=== PATIENT | female | born 1960 | race Caucasian/White ===

== ENCOUNTER → 2017-07-04 | Outpatient (CLI) | payer OTHER, SELFPAY | PROVIDERS: Visit Provider Family Medicine | DX: Y99.9 Unspecified external cause status (principal) | CPT/HCPCS: 36415; 80053; 80061 ==

== ENCOUNTER → 2017-10-21 15:47 | Outpatient (CLI) | payer OTHER, SELFPAY ==
--- NOTE | 2017-10-21 15:52 | MM_ITS ---
MM Dig screening mamm BI w/CAD CAD Screening COMPARISON: Digital mammograms 07/01/2015 and 09/22/2016 INDICATION: Is a history of breast cancer in patient's sister diagnosed at age 35 TECHNIQUE: Standard CC and MLO images were obtained. R2 CAD reviewed. FINDINGS: Moderate fibroglandular densities are seen in central portions of both breast basically stable and unchanged from the previous studies. There are few benign-appearing calcifications in each breast. There are stable benign-appearing density lower inner quadrant left breast. There are mole markers left breast. There is no new or suspicious lesion and there are no suspicious microcalcifications. IMPRESSION: Stable exam with no suspicious lesion seen recommend yearly follow-up BI-RADS Category: 2 Benign Finding(s) RECOMMENDED FOLLOW-UP: 1YR - 1 YEAR FOLLOW-UP (A letter has been sent to the patient regarding results of the study.)
== END ==
PROVIDERS: Family Provider Family Medicine; PCP Family Medicine; Visit Provider Nurse Practitioner Obstetrics & Gynecology
DX: Z12.31 Encounter for screening mammogram for malignant neoplasm of breast (principal); Z80.3 Family history of malignant neoplasm of breast
CPT/HCPCS: 77067

== ENCOUNTER → 2019-02-05 09:45 | Outpatient (CLI) | payer MEDICAID, SELFPAY | PROVIDERS: PCP Family Medicine; Visit Provider Family Medicine | DX: J44.9 Chronic obstructive pulmonary disease, unspecified (principal); F17.210 Nicotine dependence, cigarettes, uncomplicated | CPT/HCPCS: 94060 ==

== ENCOUNTER → 2019-04-20 06:20 | Outpatient (CLI) | payer MEDICAID, SELFPAY ==
--- NOTE | 2019-04-20 06:38 | CT_ITS ---
CT lung screening EXAM: CT LUNG LOW DOSE WO CONTRAST HISTORY: 30 pack-year smoking history, asymptomatic for lung cancer ITS.REASON: CURRENT SMOKER ORDERING PHYSICIAN: Bo Carmichael MD PATIENT AGE: 58 years COMPARISON: None TECHNIQUE: The exam was performed on a GE Light Speed [address] scanner using 2.90 mGy CTDI. A low dose helical CT CHEST was performed on a multi-detector scanner. All CT scans at the facility use one or more dose reduction, viz: automated exposure control, ma/kV adjustment per patient size (including targeted exams where dose is matched to indication, i.e. head), or iterative reconstruction technique. The LDCT was performed in a facility that meets the criteria for the screening program. Data regarding this exam was submitted to ACR which is an approved registry. The order for this exam indicates that it came as a result of a lung cancer screening counseling shard decision-making visit that included all the elements required of such a visit including smoking cessation. The radiologist interpreting this exam meets the CMS criteria for the LDCT lung cancer screening program. The exam is reported using the Lung-RADS classification scale and reported to the ACR registry. NOTE: This study was performed for the specific purposes of lung cancer screening and is not an alternative to diagnostic chest CT. RADIATION DOSE: CTDI vol(CT dose Index-volume) = 2.90mG DLP (Dose Length Product) = 97.68 mGcm FINDINGS: COPD with scattered fibrotic changes and scattered irregular opacities with scattered groundglass densities in both lungs. There is an area of atelectasis or fibrosis in the right middle lobe measuring 18 mm. This does contain some air bronchograms and could even represent a patchy area of pneumonia that has a flat-like appearance. There is a surrounded 9 mm groundglass opacity in the left upper lobe and an ill-defined 12 mm groundglass opacity in the right upper lobe. There are other smaller groundglass densities noted in both lungs. Subpleural nodular density is present in the right upper lobe laterally 3 mm. Subsolid nodule 6 mm noted in the right upper lobe medially. 6 mm subsolid right upper lobe nodule. There is a suspicious noncalcified nodule in the left lower lobe superior segment laterally measuring 11 x 10 mm. The margins are somewhat spiculated with extension to the pleural surface laterally. This is suspicious for neoplasm. This would be difficult to perform an FNA upon due to its location. Recommend PET/CT for further evaluation. Upper abdominal images show small gastric diverticulum. No acute bony anomalies. IMPRESSION: 1. Lung RADS Category: 4B suspicious 2. Other findings: There are scattered groundglass and subsolid nodules also noted which could be inflammatory/infectious or neoplastic. RECOMMENDATIONS: PET/CT, immediate follow-up suggested
--- NOTE | 2019-04-20 06:38 | NM_ITS ---
History:Hypertension, hyperlipidemia, tobacco use, family history, chest pain, shortness of breath, palpitations and fatigue Procedure: Patient exercised on Haja protocol 5 minutes, resting heart rate 72 bpm, resting blood pressure 131/68, with exercise maximum heart rate achieve was 133 bpm which is greater than 85 % of the maximum predicted heart rate and blood pressure was 150/72. Test was stopped due to shortness of breath, patient denied any complained of chest pain. Patient has poor exercise capacity achieved 5.3 mets of workload on treadmill, the blood pressure response to exercise was adequate. Electrocardiogram: Resting electrocardiogram showed sinus rhythm, with exercise there is [address] segment depression noted from the baseline EKG. The EKG portion of the exercise Myoview is positive for ischemia. Cardias Stress and Resting SPECT images: Cardias Stress and Resting SPECT images were obtained using technetium 99m Myoview 30.2 mCi stress and 10.21 mCi at rest. Gated SPECT further analysis of segmental wall motion and calculation of ejection fraction also done. Cardiac stress and resting SPECT show uniform myocardial activity without segmental perfusion abnormality , the computer derived ejection fraction is over 65% with no regional wall motion abnormality. Conclusion: 1. The EKG portion of the exercise Myoview is positive for ischemia, patient has poor exercise capacity achieved 5.3mets of workload on treadmill, the blood pressure response to exercise was adequate, test was started due to shortness of breath.. 2. No scintigraphic evidence of reversible ischemia seen at this level of exercise, computer derived ejection fraction is over 65 % with no regional wall motion abnormality. 3. Abnormal exercise Myoview study due to poor exercise capacity as well as abnormal EKG with exercise, however myocardial perfusion imaging was negative for ischemia
--- NOTE | 2019-04-20 08:48 | HMH.ITSHM ---
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 [] ropinirole naproxen lisinopril lovasatin
== END ==
PROVIDERS: PCP Family Medicine; Visit Provider Family Medicine
DX: I20.0 Unstable angina (principal); E78.00 Pure hypercholesterolemia, unspecified; I10 Essential (primary) hypertension; Z12.2 Encounter for screening for malignant neoplasm of respiratory organs; Z87.891 Personal history of nicotine dependence; F17.210 Nicotine dependence, cigarettes, uncomplicated
CPT/HCPCS: 78452; 93017; A9502

== ENCOUNTER → 2019-05-17 14:54 | Outpatient (CLI) | payer MEDICAID, SELFPAY | PROVIDERS: PCP Family Medicine; Visit Provider Internal Medicine | DX: R06.02 Shortness of breath (principal); R07.89 Other chest pain; R06.83 Snoring; R40.0 Somnolence | CPT/HCPCS: 95806 ==

== ENCOUNTER → 2019-06-29 07:45 | Outpatient (CLI) | payer MEDICAID, SELFPAY ==
--- NOTE | 2019-06-29 07:50 | US_ITS ---
PROCEDURE: US ABDOMEN COMPLETE CLINICAL INDICATION: RESTLESS LEG SYNDROME,WEIGHT LOSS,NAUSEA The COMPARISON: No exams were available for comparison FINDINGS: PANCREAS: Unremarkable. No obvious mass or abnormal fluid collection. No ductal dilatation LIVER: No focal liver lesions demonstrated. Homogeneous echogenicity. No intrahepatic biliary ductal dilatation evident. There is appropriate direction of blood flow within a non dilated portal vein RIGHT KIDNEY: Unremarkable. Normal size and echogenicity. No hydronephrosis LEFT KIDNEY: Unremarkable. Normal size and echogenicity. No hydronephrosis GALLBLADDER: No gallstones, gallbladder wall thickening, pericholecystic fluid, or biliary dilatation. AORTA: There is a mild amount of plaque in the abdominal aorta. No obvious aneurysm. SPLEEN: Unremarkable. Normal size and echogenicity ASCITES: None demonstrated. IMPRESSION: No acute findings Dictated by: Ashok Aguilera MD 06/29/2019 17:15 Electronically signed by Ashok Aguilera MD in [place] 06/29/2019 17:15
--- NOTE | 2019-06-29 07:51 | FL_ITS ---
PROCEDURE: FL UPPER GI W AIR CLINICAL INDICATION: Nausea, some weight loss COMPARISON: No exams were available for comparison TECHNIQUE: FLUOROSCOPY TIME : 2 minutes and 12 seconds FINDINGS: The swallowing function is normal. Spot films of the cervical esophagus while swallowing barium show no significant abnormal anterior or posterior indentation. There is minimal diffuse posterior indentation of the barium column secondary to osteophytic spurring of the cervical spine at the C6-7 level. There is a small sliding hiatal hernia but no significant GE reflux was seen. The stomach is well distended with barium and air in show no intrinsic abnormality. The duodenal bulb and duodenal sweep and proximal small bowel appear radiographically normal. IMPRESSION: Small sliding hiatal hernia without significant GE reflux observed during the study and otherwise normal appearing study Dictated by: Dr. Wayne Peace MD 06/29/2019 10:[address] Wayne Peace MD in [place] 06/29/2019 10:24
== END ==
PROVIDERS: PCP Family Medicine; Visit Provider Family Medicine
DX: R63.4 Abnormal weight loss (principal); R11.0 Nausea; G25.81 Restless legs syndrome
CPT/HCPCS: 74247; 76700

== ENCOUNTER → 2019-08-15 11:51 | Outpatient (CLI) | payer OTHER, SELFPAY ==
[2019-08-15 13:49] LABS: Blood Urea Nitrogen 19 mg/dL (7-18); Creatinine,Serum 0.91 mg/dL (0.55-1.02); Estimated Glomerular Filt Rate 63 ml/min (>60); GFR (African American) 77 ML/MIN (>60)
== END ==
PROVIDERS: Visit Provider Family Medicine
DX: Z01.818 Encounter for other preprocedural examination (principal)
CPT/HCPCS: 36415; 82565; 84520

== ENCOUNTER → 2019-08-16 10:16 | Outpatient (CLI) | payer OTHER, SELFPAY ==
--- NOTE | 2019-08-16 10:24 | CT_ITS ---
PROCEDURE: CT CHEST WO/W CON CLINCAL INDICATION: PULMONARY NODULE, LEFT Follow-up pulmonary nodule [facility] TECHNIQUE: IV Contrast: 75ml Optiray 320 Axial images obtained with sagittal and coronal reformats. All CT scans at the facility use one or more dose reduction, viz: automated exposure control, ma/kV adjustment per patient size (including targeted exams where dose is matched to indication, i.e. head), or iterative reconstruction technique. FINDINGS: COPD/paraseptal emphysematous changes. Scattered areas of scarring as before.. Patchy density is present in the right middle lobe is once again noted not significantly changed. There is an 11 mm nodular opacity in the superior segment of the left lower lobe and appears slightly larger previously measuring 9 mm. Margins are somewhat ill-defined with some minimal spiculations noted. There are few faint scattered nonspecific nodular opacities as previously described which are not significantly changed some of which have ground-glass density. These do appear stable. Patchy ground-glass densities are present in the right upper lobe medially, left upper lobe superiorly, right upper lobe anteriorly and in the right middle lobe. There are degenerative changes in the thoracic spine. A gastric diverticulum is noted in the upper abdomen IMPRESSION: Suspicious left upper lobe nodule once again noted. The nodule may be very slightly larger. No other changes are evident. PET-CT recommended for further evaluation. COPD with chronic changes as previously described not significantly changed. Patchy ground-glass densities are present in both lungs are not significantly changed Dictated by: Ashok Aguilera MD 08/18/2019 08:47 Electronically signed by Ashok Aguilera MD in [place] 08/21/2019 09:48
== END ==
PROVIDERS: PCP Family Medicine; Visit Provider Family Medicine
DX: R91.1 Solitary pulmonary nodule (principal)
CPT/HCPCS: 71270; Q9967

== ENCOUNTER → 2020-06-24 10:24 | Outpatient (CLI) | payer OTHER, SELFPAY ==
[2020-06-24 12:14] LABS: Blood Urea Nitrogen 23 mg/dl (7-17); Estimated Glomerular Filt Rate 64 ml/min (>60); GFR (African American) 77 ML/MIN (>60)
== END ==
PROVIDERS: Visit Provider Family Medicine
DX: J44.9 Chronic obstructive pulmonary disease, unspecified (principal); R91.1 Solitary pulmonary nodule; R63.4 Abnormal weight loss; F17.210 Nicotine dependence, cigarettes, uncomplicated
CPT/HCPCS: 36415; 82565; 84520

== ENCOUNTER → 2020-06-30 09:18 | Outpatient (CLI) | payer OTHER, SELFPAY ==
--- NOTE | 2020-06-30 09:22 | CT_ITS ---
PROCEDURE: CT CHEST WO/W CON CLINCAL INDICATION: CIGARETTE SMOKER, PULMONARY NODULE,LEFT,WEIGHT LOSS f/u lung nodules copd, soa, cough current smoker, follow-up pulmonary nodule COMPARISON: CT CT CHEST WO/W CON from 08/16/2019 TECHNIQUE: IV Contrast: 75ml Optiray 350 Axial images obtained with sagittal and coronal reformats. All CT scans at the facility use one or more dose reduction, viz: automated exposure control, ma/kV adjustment per patient size (including targeted exams where dose is matched to indication, i.e. head), or iterative reconstruction technique. FINDINGS: No mediastinal or hilar mass. There is COPD with paraseptal emphysematous changes and scattered areas of scarring. There is scattered irregular opacities as previously described.. No obvious new lesions are identified. The noncalcified nodule in the left lower lobe does not appear significantly changed. No effusions. No central bronchial lesions evident. Upper abdominal images show no acute finding. There is a small gastric diverticulum. There are mild degenerative changes in the thoracic spine. IMPRESSION: Overall stable CT appearance of the chest. No change in the bilateral parenchymal opacities including a 10 mm nodule within the left upper lobe. Continued annual follow-up recommended. Dictated by: Ashok Aguilera MD 07/01/2020 10:22 Ashok Aguilera MD in [place] 07/01/2020 10:22
== END ==
PROVIDERS: PCP Family Medicine; Visit Provider Family Medicine
DX: R91.1 Solitary pulmonary nodule (principal); R63.4 Abnormal weight loss; F17.200 Nicotine dependence, unspecified, uncomplicated
CPT/HCPCS: 71270; Q9967

== ENCOUNTER 2020-10-18 10:07 | Emergency (ER) | payer OTHER, SELFPAY ==
[2020-10-18 10:10] VITALS: BP 137/77; PULSE 81; RESP 14; TEMP 37.2; O2SAT 97; BMI 24.2
--- NOTE | 2020-10-18 10:11 | XR_ITS ---
PROCEDURE: XR HAND RT MIN 3V Referring Doctor: Young Watt Patient Age:60Y CLINICAL INDICATION: injury Right 3rd digit COMPARISON: No exams were available for comparison TECHNIQUE: 3 View AP, Oblique, Lateral FINDINGS: No fracture or dislocation. No lytic or blastic change. There is normal mineralization. Scant early degenerative changes at DIP joints with some mild narrowing at these joints as well as IP joint of thumb. PIP and MCP joints intact unremarkable. Metacarpals unremarkable. Suggestion of scant degenerative changes at the radial aspect carpal/wrist but period would note some fragmentation off the tip of the ulnar styloid which may reflect old injury or fracture here IMPRESSION: No acute findings. No acute fracture Or dislocation A subtle early degenerative changes suggested DIP joints fingers as well as wrist Dictated by: Juan Friedman MD 10/18/2020 11:30 Juan Friedman MD in [place] 10/18/2020 11:30
--- NOTE | 2020-10-18 10:25 | HMH.EDUTC ---
[facility] [place] Clinical Impression: Right hand pain, Strain of right ring finger Injury of ring finger Qualifiers: Encounter type: initial encounter Laterality: right Qualified Code(s): S69.91XA - Unspecified injury of right wrist, hand and finger(s), initial encounter Disposition: Home, Self-Care Condition on Discharge: Good Additional Instructions: Rest the extremity, apply ice for 15 minutes as tolerated three or four times per day, Elevate the extremity as tolerated while you are resting. Take ibuprofen for pain. I sent in a prescription to your pharmacy. Follow up with Dr. Moreira (orthopedics). I put in a referral but you need to call her office and schedule an appointment. Follow up with your regular doctor. GO TO THE ER FOR ANY WORSENING SYMPTOMS Prescriptions: Ibuprofen [Ibuprofen 600mg Tablet] 600 mg PO Q6HP PRN #30 tab PRN Reason: Mild Pain Transmission Status: [facility] Referrals: Bo Carmichael MD [Primary Care Provider] - Anum Moreira MD [Physician] - Time of Disposition: 11:12 Medical Decision Making - Medical Records Medical records reviewed: No: I reviewed the patient's medical records. - Raymundo Inquiry Pt receiving controlled substance: No Vital Signs: 10/18/20 10:10 10/18/20 11:16 Temperature 98.9 F 98.9 F Temperature Source Oral Pulse Rate 81 Pulse Rate [Right Brachial] 81 Respiratory Rate 14 14 Blood Pressure 137/77 Blood Pressure [Right Arm] 137/77 Blood Pressure Mean [Right Arm] 97 Blood Pressure Source [Right Arm] Automatic Cuff Blood Pressure Position [Right Arm] Sitting 02 Sat by Pulse Oximetry 97 Oxygen Delivery Method Room Air - Radiology Data #1 Image(s): Hand Image Reviewed: Yes I reviewed the patient's radiology image, Yes I have reviewed radiologist's interpretation Preliminary Findings: No Fracture Seen PROCEDURE: XR HAND RT MIN 3V Referring Doctor: Young Watt Patient Age:60Y CLINICAL INDICATION: injury Right 3rd digit COMPARISON: No exams were available for comparison TECHNIQUE: 3 View AP, Oblique, Lateral FINDINGS: No fracture or dislocation. No lytic or blastic change. There is normal mineralization. Scant early degenerative changes at DIP joints with some mild narrowing at these joints as well as IP joint of thumb. PIP and MCP joints intact unremarkable. Metacarpals unremarkable. Suggestion of scant degenerative changes at the radial aspect carpal/wrist but period would note some fragmentation off the tip of the ulnar styloid which may reflect old injury or fracture here IMPRESSION: No acute findings. No acute fracture Or dislocation A subtle early degenerative changes suggested DIP joints fingers as well as wrist Dictated by: Juan Friedman MD 10/18/2020 11:30 Juan Friedman MD in [place] 10/18/2020 11:30 [facility] [place] HPI - General Stated complaint: rt hand pain AO 10/17/19 Time Seen by Provider: 10/18/20 10:25 - History of Present Illness Provider Complaint: She states that last night she was swatting at a spider when she missed and hit her right hand on something as she was swatting. Since then she has had right hand pain that is centered around the base of her ring finger. She states that her pain is worse when she tries to bend or straighten her ring finger. - Related Data Home Medications Medication Instructions Recorded Confirmed hydrochlorothiazide 25 mg tablet 25 mg PO DAILY 12/18/18 09/06/19 lisinopril 20 mg tablet 20 mg PO DAILY 12/18/18 09/06/19 lovastatin 20 mg tablet 20 mg PO DAILY 12/18/18 09/06/19 Trazodone HCl 50 mg PO HS 06/27/19 09/06/19 gabapentin 300 mg capsule 300 mg PO DAILY 09/06/19 09/06/19 nebulizers See Dose Instructions .ROUTE 09/06/19 09/06/19 .MEDSUPPLY #1 each Previous Rx's Medication Instructions Recorded Ibuprofen [Ibuprofen 600mg 600 mg PO Q6HP PRN #30 tab 10/18/20 Tablet] Allergies
[2020-10-18 11:16] VITALS: BP 137/77; PULSE 81; RESP 14; TEMP 37.2; O2SAT 97
== END 2020-10-18 11:18 | disposition home or self-care (01) ==
PROVIDERS: Emergency Provider Nurse Practitioner Family; PCP Family Medicine
DX: S60.221A Contusion of right hand, initial encounter (principal); W22.8XXA Striking against or struck by other objects, initial encounter; Y92.019 Unspecified place in single-family (private) house as the place of occurrence of the external cause; J44.9 Chronic obstructive pulmonary disease, unspecified; I10 Essential (primary) hypertension; E78.5 Hyperlipidemia, unspecified; Z87.891 Personal history of nicotine dependence
CPT/HCPCS: 73130; 99202; G0463

== ENCOUNTER 2020-12-17 11:00 | Outpatient (RCR) | payer OTHER, SELFPAY ==
--- NOTE | 2020-11-12 11:35 | HMH.OTOPEV ---
OT Inpatient Evaluation Rehab OT Outpatient Eval Start: 11/12/20 11:12 Freq: Status: Active Protocol: Document 11/12/20 11:12 ANABETITO (Rec: 11/12/20 11:35 MANDYKITTY [id number]) Electronically Signed By Yamile Jay OT 11/12/20 11:12 Outpatient Therapy Subjective History Subjective History 60 year old female referred to OP OT skilled services this date for R sagittal band. Patient stated injuring R hand early-mid 2020 after attempting to strike a spider. X-ray revealed no findings. f /u with ortho ~1 month. Chief Complaint Pain,Weakness,Decreased Customer Experience Associate Strength Symptom Type Ache Symptoms Relieved By OTC Meds Symptoms Aggravated By Physical Activity Prior Functional Limitations None Current Functional Limitations Reaching,Recreation Activity Symptom Description Constant and Continuous Level of pain today (0-10) 4 Pain scale - at its best (0-10) 4 Pain scale - at its worst (0-10) 7 Wrist/Hand Eval Finger Range of Motion Right Middle Finger Finger Metacarpophalangeal Flexion 65 Active Range of Motion (degrees) Finger Metacarpophalangeal Extension 0 Active Range of Motion (degrees) Finger Proximal Interphalangeal Flexion 30 Active Range (degrees) Finger Proximal Interphalangeal 0 Extension Active Range (degrees) Finger Distal Interphalangeal Flexion 30 Active Range of Motion (degrees) Finger Distal Interphalangeal Extension 0 Active Range Motion (degrees) Wrist Manual Muscle Testing Right Wrist Extension Strength Grade 3- Fair- Wrist Flexion Strength Grade 3- Fair- Forearm Supination Strength Grade 3- Fair- Forearm Pronation Strength Grade 3- Fair- Customer Experience Associate/Pinch Strength Left Customer Experience Associate Strength Measurement (lbs) 60 Right Customer Experience Associate Strength Measurement (lbs) 30 OT Outpatient Assessment Impairments Problems/Impairments Impaired Range of Motion, Impaired Strength,Subjective C /O Pain Prognosis Rehab Potential Good Clinical Impression Consistent with Diagnosis Yes Short Term Goals Number of Weeks 2 Increase Range of Motion Yes: Increase R hand AROM MCP: 75; PIP: 50; DIP: 50 Increase Strength Yes: Increase R hand strength 3+ to 4-/5 throughout. 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
== END 2020-12-17 11:05 | disposition home or self-care (01) ==
LOC: OT 11:00
PROVIDERS: PCP Family Medicine; Visit Provider Orthopaedic Surgery
DX: S63.659A Sprain of metacarpophalangeal joint of unspecified finger, initial encounter (principal); S69.91XA Unspecified injury of right wrist, hand and finger(s), initial encounter
CPT/HCPCS: 97014; 97035; 97110; 97140; 97165; G0283

== ENCOUNTER → 2021-01-09 09:00 | Outpatient (CLI) | payer OTHER, SELFPAY | PROVIDERS: PCP Family Medicine; Visit Provider Family Medicine | DX: R06.09 Other forms of dyspnea (principal); J44.9 Chronic obstructive pulmonary disease, unspecified | CPT/HCPCS: 94618 ==

== ENCOUNTER → 2021-03-25 09:58 | Outpatient (CLI) | payer OTHER, SELFPAY ==
--- NOTE | 2021-03-25 10:00 | US_ITS ---
PROCEDURE: US ABDOMEN COMPLETE CLINICAL INDICATION: EPIGASTRIC PAIN, WEIGHT LOSS, EARLY SATIETY COMPARISON: US US ABDOMEN COMPLETE from 06/29/2019 FINDINGS: PANCREAS: Unremarkable. No obvious mass or abnormal fluid collection. No ductal dilatation LIVER: No focal liver lesions demonstrated. Homogeneous echogenicity. No intrahepatic biliary ductal dilatation evident. There is appropriate direction of blood flow within a non dilated portal vein RIGHT KIDNEY: Unremarkable. The right kidney measures 10 point 0 x 4.0 by 6.1 cm and appears sonographically normal. LEFT KIDNEY: Unremarkable. The left kidney measures 11.8 x 6.1 by 5.4 cm and there appears be a dromedary hump variation midpole but otherwise appearing normal. GALLBLADDER: No gallstones, gallbladder wall thickening, pericholecystic fluid, or biliary dilatation. The common bile duct measures 0.1 cm AORTA: There is prominent diffuse arthrosclerotic calcifications of the visualized portion of the abdominal aorta but there is no aneurysm. SPLEEN: Unremarkable. Normal size and echogenicity ASCITES: None demonstrated. IMPRESSION: Diffuse aortic calcifications otherwise essentially unremarkable study Dictated by: Dr. Wayne Peace MD 03/25/2021 14:49 Dr. Wayne Peace MD in [place] 03/25/2021 14:49
== END ==
PROVIDERS: PCP Family Medicine; Visit Provider Family Medicine
DX: R10.13 Epigastric pain (principal); R63.4 Abnormal weight loss; R68.81 Early satiety
CPT/HCPCS: 76700

== ENCOUNTER → 2021-03-30 15:12 | Outpatient (CLI) | payer OTHER, SELFPAY | PROVIDERS: PCP Family Medicine; Visit Provider Family Medicine | DX: Z20.822 Contact with and (suspected) exposure to COVID-19 (principal) | CPT/HCPCS: U0003 ==

== ENCOUNTER → 2021-04-08 12:29 | Outpatient (CLI) | payer OTHER, SELFPAY ==
[2021-04-08 13:34] LABS: Blood Urea Nitrogen 16 mg/dl (7-17); Estimated Glomerular Filt Rate 85 ml/min (>60); GFR (African American) 103 ML/MIN (>60)
== END ==
PROVIDERS: Visit Provider Family Medicine
DX: R63.4 Abnormal weight loss (principal); R10.13 Epigastric pain; R68.81 Early satiety
CPT/HCPCS: 36415; 82565; 84520

== ENCOUNTER → 2021-04-10 08:50 | Outpatient (CLI) | payer OTHER, SELFPAY ==
--- NOTE | 2021-04-10 08:53 | CT_ITS ---
PROCEDURE: CT ABDOMEN PELVIS WO/W CON CLINICAL INDICATION: WEIGHT LOSS,EPIGASTRIC PAIN,EARLY SATIETY COMPARISON: CT CT CHEST WO/W CON from 06/30/2020 TECHNIQUE: IV Contrast: 75ML Isovue 370 Oral Contrast 450ml Redicat Axial images obtained with sagittal and coronal reformats. All CT scans at the facility use one or more dose reduction, viz: automated exposure control, ma/kV adjustment per patient size (including targeted exams where dose is matched to indication, i.e. head), or iterative reconstruction technique. FINDINGS: LOWER THORAX: There are minimal atelectatic changes in the right lung base posteriorly. ABDOMEN & PELVIS: A small hypodensity is present in the lateral segment of left hepatic lobe segment 2 measuring approximately 3 mm nonspecific too small to categorize. A 4 mm hypodensity is present in the right hepatic lobe segment 6 too small to categorize. Spleen and pancreas have an unremarkable appearance. The left adrenal gland is mildly enlarged isodense in nature and may represent adenomatous involvement not significantly changed from 06/30/[address] The right adrenal gland is unremarkable. There is a small gastric diverticulum projecting off the fundus of the stomach. There is a 1 cm left renal cyst posteriorly there is a 3 mm nonobstructing stone in the upper pole of the right kidney. No hydronephrosis. No ureteral calculi. 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 No evidence of appendicitis. No intestinal obstruction or free air is evident. Diverticulosis involves the sigmoid colon. No evidence of diverticulitis. No pelvic mass. Atheromatous changes involve the abdominal aorta. There is a calcific plaque at the ostium of the celiac artery. No acute bony findings. IMPRESSION: 1. No acute finding. 2. Colonic diverticulosis without evidence of diverticulitis. 3. Other nonacute findings as described above. Dictated by: Ashok Aguilera MD 04/10/2021 13:14 Ashok Aguilera MD in [place] 04/10/2021 13:14
== END ==
PROVIDERS: PCP Family Medicine; Visit Provider Family Medicine
DX: R10.13 Epigastric pain (principal); R63.4 Abnormal weight loss; R68.81 Early satiety
CPT/HCPCS: 74178; Q9967

== ENCOUNTER 2021-08-28 15:44 | Emergency (ER) | payer OTHER, SELFPAY ==
[2021-08-28 16:40] VITALS: BP 133/80; PULSE 89; RESP 20; TEMP 36.9; O2SAT 99; BMI 19.3
--- NOTE | 2021-08-28 17:14 | HMH.EDUTC ---
[facility] [place] Clinical Impression: Need for Tdap vaccination Second degree burn of right foot Qualifiers: Encounter type: initial encounter Qualified Code(s): T25.221A - Burn of second degree of right foot, initial encounter Second degree burn of left foot Qualifiers: Encounter type: initial encounter Qualified Code(s): T25.222A - Burn of second degree of left foot, initial encounter Disposition: Home, Self-Care Condition on Discharge: Good Instructions: How to Take Care of a Burn, DI for Menezes Additional Instructions: Keep the wounds clean and dry. Follow up with your regular doctor as scheduled on Tuesday. Your wound needs to be rechecked then, so make sure you follow up. Once you see your doctor, follow their directions. Apply the silvadene as directed. Make sure you use a nonstick dressing over the wounds to try to keep the skin as intact as possible. Watch the wounds for signs of worsening infection, such as worsening redness, drainage, swelling, etc. GO TO THE ER FOR ANY WORSENING SYMPTOMS Prescriptions: Ibuprofen [Ibuprofen 600mg Tablet] 600 mg PO Q6HP PRN #30 tab PRN Reason: Mild Pain Transmission Status: Received by [facility] Silver Sulfadiazine [Silvadene Cream 400gm] 1 applicatio TP BID 10 Days #400 gm Transmission Status: Received by [facility] Referrals: Bo Carmichael MD [Primary Care Provider] - Time of Disposition: 18:11 Medical Decision Making - Medical Records Medical records reviewed: No: I reviewed the patient's medical records. - Raymundo Inquiry Pt receiving controlled substance: No Vital Signs: 08/28/21 16:40 08/28/21 17:55 Temperature 98.5 F 98.5 F Temperature Source Oral Pulse Rate 89 Pulse Rate [Right Brachial] 89 Respiratory Rate 20 20 Blood Pressure 133/80 Blood Pressure [Right Arm] 133/80 Blood Pressure Mean [Right Arm] 97 Blood Pressure Source [Right Arm] Automatic Cuff Blood Pressure Position [Right Arm] Sitting 02 Sat by Pulse Oximetry 99 Oxygen Delivery Method Room Air Orders (Tests/Meds): ED MEDICATIONS Discontinued Medications Generic Name Dose Route Start Last Admin Trade Name Freq PRN Reason Stop Dose Admin Silver Sulfadiazine 1 gm 08/28/21 17:39 08/28/21 17:55 Silver Sulfadiazine Cream 50gm TP 08/28/21 17:40 1 gm ONCE ONE Administration Tetanus/Reduced Diphtheria/Acell Pertussis 0.5 ml 08/28/21 18:10 08/28/21 18:15 Tet/Diphth/Pert-Adult 0.5ml Syringe IM 08/28/21 18:11 0.5 ml .ONCE ONE Administration [facility] [place] - General Stated complaint: ao 08/27@1900 MENEZES TO BOTH FEET Time Seen by Provider: 08/28/21 17:15 Mode of Arrival: Ambulatory Source of Information: Patient Limitations: No Limitations Description of Symptoms (Recalled from Triage Doc. by RN): PATIENT C/O MENEZES TO TOP OF LEFT FOOT AND INSIDE OF RIGHT FOOT BY HEEL. REPORTS SHE WAS COOKING A TURKEY AND THE JUICE FELL ON HER FEET CAUSING THE MENEZES HEENT Symptoms (Recalled from RN notes): No Resp Symptoms (Recalled from RN notes): No Skin Symptoms (Recalled from RN notes): Yes MS Symptoms (Recalled from RN notes): No Functional Status (Recalled from RN notes): WNL - History of Present Illness Provider Complaint: She was cooking a turkey when she took it out of the oven and the liquids spilled out of the rios and splashed on both her feet. She has a burn on the top of her left foot and the back of her right foot. She is not diabetic. - Related Data Home Medications Medication Instructions Recorded Confirmed hydrochlorothiazide 25 mg tablet 25 mg PO DAILY 12/18/18 12/05/20 lisinopril 20 mg tablet 20 mg PO DAILY 12/18/18 12/05/20 lovastatin 20 mg tablet 20 mg PO DAILY 12/18/18 12/05/20 gabapentin 300 mg capsule 300 mg PO DAILY 09/06/19 12/05/20 nebulizers See Dose Instructions .ROUTE 09/06/19 12/05/20 .MEDSUPPLY #1 each ascorbic acid (vitamin C) 500 mg 500 mg PO DAILY 11/07/20
[2021-08-28 17:55] VITALS: BP 133/80; PULSE 89; RESP 20; TEMP 36.9; O2SAT 99
== END 2021-08-28 18:19 | disposition home or self-care (01) ==
PROVIDERS: Emergency Provider Nurse Practitioner Family; PCP Family Medicine
DX: T25.221A Burn of second degree of right foot, initial encounter (principal); T25.222A Burn of second degree of left foot, initial encounter; X12.XXXA Contact with other hot fluids, initial encounter; Z23 Encounter for immunization; Y92.010 Kitchen of single-family (private) house as the place of occurrence of the external cause; J44.9 Chronic obstructive pulmonary disease, unspecified; I10 Essential (primary) hypertension; E78.5 Hyperlipidemia, unspecified; Z87.891 Personal history of nicotine dependence
CPT/HCPCS: 90471; 90715; 99202; G0463

== ENCOUNTER → 2022-05-13 15:34 | Outpatient (CLI) | payer MEDICARE, SELFPAY ==
[2022-05-13 16:32] LABS: Basophils # 0.1 K/mm3 (0-0.2); Basophils % 0.7 % (0.1-2.0); Eosinophils # 0.3 K/mm3 (0.0-0.4); Eosinophils % 2.7 % (0.1-12.0); Hematocrit 41.8 % (37.0-47.0); Hemoglobin 13.5 g/dL (12.2-16.2); Lymphocytes # 1.6 K/mm3 (0.7-4.5); Mean Corpuscular HGB Conc 32.3 g/dL (31.8-35.4); Mean Corpuscular Hemoglobin 29.7 pg (27.0-31.2); Mean Platelet Volume 9.7 fl (7.4-10.4); Monocytes # 0.4 K/mm3 (0.1-1.0); Monocytes % 4.3 % (1.7-9.3); Neutrophils # 7.7 K/mm3 (1.8-7.8); Neutrophils % 76.3 % (37.0-80.0); Platelet Count 216 K/mm3 (142-424); Red Blood Count 4.54 M/mm3 (4.20-5.40); Red Cell Distribution Width 13.9 % (11.5-17.5); White Blood Count 10.1 K/mm3 (4.8-10.8)
[2022-05-13 16:52] LABS: Alanine Aminotransferase 15 U/L (12-78); Albumin Level 4.2 g/dl (3.5-5.0); Albumin/Globulin Ratio 1.6 (1.1-1.8); Alkaline Phosphatase 85 U/L (38-126); Anion Gap 6.6 mEq/L (5-15); Aspartate Amino Transferase 24 U/L (14-36); Bilirubin,Total 0.2 mg/dl (0.2-1.3); Blood Urea Nitrogen 16 mg/dl (7-17); Calcium 9.6 mg/dl (8.4-10.2); Carbon Dioxide 29 mmol/L (22.0-30.0); Chloride 108 mmol/L (98-107); Estimated Glomerular Filt Rate 85 ml/min (>60); GFR (African American) 103 ML/MIN (>60); Globulin 2.7 g/dL (1.3-3.2); Glucose 104 mg/dl (74-100); Potassium 4.6 mmoL/L (3.5-5.1); Sodium 139 mmol/L (136-145); Total Protein,Serum 6.9 g/dl (6.3-8.2)
[2022-05-13 17:23] LABS: Thyroid Stimulating Hormone 0.54 uIU/mL (0.465-4.68)
[2022-05-14 10:18] LABS: Hemoglobin A1C 5.1 % (4.0-6.0)
== END ==
PROVIDERS: PCP Nurse Practitioner Family; Visit Provider Nurse Practitioner Family
DX: R63.4 Abnormal weight loss (principal); Z79.899 Other long term (current) drug therapy
CPT/HCPCS: 36415; 80053; 83036; 84439; 84443; 85025

== ENCOUNTER → 2022-11-23 11:35 | Outpatient (CLI) | payer MEDICARE, OTHER, SELFPAY ==
--- NOTE | 2022-11-23 11:42 | XR_ITS ---
FINAL REPORT CLINICAL HISTORY: COUGH, COPD, PAIN IN LEFT UPPER BACK FINDINGS: Two views of the chest were obtained. The heart size and pulmonary vascularity are within normal limits. The mediastinum is normal. No acute pulmonary abnormality is identified. The there is mild pulmonary scarring. There is no pneumothorax. The bony thorax is intact. IMPRESSION: No active cardiopulmonary disease. Reviewed, Interpreted and Dictated by Sivakumar Powell III, MD Transcribed by Ericka Valerio Authenticated and [facility]
== END ==
PROVIDERS: PCP Nurse Practitioner Family; Visit Provider Nurse Practitioner Family
DX: R05.9 Cough, unspecified (principal); R07.81 Pleurodynia
CPT/HCPCS: 71046

== ENCOUNTER → 2023-04-06 10:43 | Outpatient (CLI) | payer MEDICARE, SELFPAY ==
--- NOTE | 2023-04-06 10:47 | CT_ITS ---
FINAL REPORT TECHNIQUE: Axial CT images were performed from the lung apices through the upper abdomen. Coronal reformats were submitted. This study was performed with techniques to keep radiation doses as low as reasonably achievable (ALARA). Individualized dose reduction techniques using automated exposure control or adjustment of mA and/or kV according to the patient's size were employed. CLINICAL HISTORY: SOA LEFT SIDE RIB PAIN COMPARISON: 06/30/2020 FINDINGS: Multiple small axillary nodes. There is no hilar or mediastinal mass or adenopathy. Heart size is normal. There is no pericardial or pleural effusion. There are patchy bilateral pulmonary ground-glass opacities which are worse. There is a nodule in the lateral left lower lobe measuring 11 mm, previously measured 9 mm. Multiple other smaller pulmonary nodules are stable. Limited images of the upper abdomen reveal a gastric diverticulum. There is mild left adrenal gland enlargement, favor adenoma or hyperplasia. Finding is stable since previous. IMPRESSION: Interval worsening in left lower lobe nodule, may be neoplastic or inflammatory. Recommend PET-CT if not already performed. Slight worsening in the patchy bilateral ground-glass opacities, favor inflammatory. Reviewed, Interpreted and Dictated by Sivakumar Powell III, MD Transcribed by Giovana Ac Authenticated and [facility]
== END ==
PROVIDERS: PCP Nurse Practitioner Family; Visit Provider Nurse Practitioner Family
DX: R06.02 Shortness of breath (principal); R07.81 Pleurodynia
CPT/HCPCS: 71250

== ENCOUNTER → 2023-04-08 11:25 | Outpatient (CLI) | payer MEDICARE, SELFPAY ==
--- NOTE | 2023-04-08 11:33 | XR_ITS ---
FINAL REPORT CLINICAL HISTORY: post menopausal COMPARISON: None FINDINGS: Using L1-4, the bone mineral density of the spine is 0.947 g/cm2, corresponding to T-score of -0.9, within the normal range but this is likely falsely elevated secondary to hypertrophic changes. Using the left hip, the bone mineral density of the femoral neck is 0.692 g/cm2, corresponding to a T-score of -2.1, consistent with low bone density. Using the right hip, the bone mineral density of the femoral neck is 0.702 g/cm2, corresponding to a T-score of -1.3, consistent with low bone density. FRAX 10 year fracture risk is 2.8% for a hip fracture and 15% for a major osteoporotic fracture. NOTE: T-score: Standard deviation compared with peak bone mass of young adult mean. *Following the recommendations of the International Society of Bone densitometry, classification of hip BMD is based on the lower of two T-scores; total hip or femoral neck. IMPRESSION: Normal bone mineral density of the lumbar spine, with diminished bone mineral density in the bilateral hips consistent with low bone density. Reviewed, Interpreted and Dictated by Sivakumar Powell III, MD Transcribed by Mery Hughes Authenticated and [facility]
--- NOTE | 2023-04-08 11:33 | MM_ITS ---
PROCEDURE INFORMATION: Exam: MG Bilateral Screening 3D Mammography Exam date and time: 04/08/2023 11:26 AM Age: 62 years old Clinical indication: Screening examination TECHNIQUE: Imaging protocol: Bilateral Screening tomosynthesis and 2D mammography including computer-aided detection (CAD) when performed. COMPARISON: 1. MG SCBI MM Dig screening mamm BI w/CAD 10/21/2017 3:56 PM 2. MG DMSB DIG MAMM-SCREEN YARI 09/22/2016 1:07 PM FINDINGS: MAMMOGRAPHY: Breast composition: There are scattered areas of fibroglandular density. Mass: None. Architectural distortion: None. Calcifications: No suspicious calcifications. Asymmetric density: None. Skin thickening: None. Axillary adenopathy: None. IMPRESSION: No mammographic evidence of malignancy. Annual screening is recommended unless otherwise clinically indicated. ASSESSMENT: BI-RADS Category 1: Negative
== END ==
PROVIDERS: PCP Nurse Practitioner Family; Visit Provider Nurse Practitioner Family
DX: Z12.31 Encounter for screening mammogram for malignant neoplasm of breast (principal); Z78.0 Asymptomatic menopausal state; Z13.820 Encounter for screening for osteoporosis
CPT/HCPCS: 77063; 77067; 77080

== ENCOUNTER → 2023-04-19 12:00 | Outpatient (CLI) | payer MEDICARE, SELFPAY ==
[2023-04-19 12:18] LABS: Basophils # 0.1 K/mm3 (0-0.2); Basophils % 0.7 % (0.1-2.0); Eosinophils # 0.3 K/mm3 (0.0-0.4); Eosinophils % 4.2 % (0.1-12.0); Hematocrit 42.7 % (37.0-47.0); Hemoglobin 14.2 g/dL (12.2-16.2); Lymphocytes % 24.9 % (10-50); Mean Corpuscular HGB Conc 33.2 g/dL (31.8-35.4); Mean Corpuscular Hemoglobin 28.6 pg (27.0-31.2); Mean Corpuscular Volume 86.3 fl (81-99); Mean Platelet Volume 9.1 fl (7.4-10.4); Monocytes # 0.4 K/mm3 (0.1-1.0); Neutrophils # 5.1 K/mm3 (1.8-7.8); Neutrophils % 65.2 % (37.0-80.0); Platelet Count 203 K/mm3 (142-424); Red Blood Count 4.95 M/mm3 (4.20-5.40); Red Cell Distribution Width 13.7 % (11.5-17.5); White Blood Count 7.9 K/mm3 (4.8-10.8)
[2023-04-19 13:20] LABS: C-Reactive Protein 1.4 mg/L (0-4)
[2023-04-21 09:53] LABS: Antinuclear Antibodies, IFA Negative (.)
[2023-04-22 17:18] LABS: Aspergillus flavus Negative (Neg:<1:1); Aspergillus fumigatus Negative (Neg:<1:1); Aspergillus niger Negative (Neg:<1:1); Blastomyces Antibody Negative (Neg:<1:1)
== END ==
PROVIDERS: PCP Nurse Practitioner Family; Visit Provider Internal Medicine Pulmonary Disease
DX: R06.09 Other forms of dyspnea (principal); J84.9 Interstitial pulmonary disease, unspecified; J45.909 Unspecified asthma, uncomplicated; J84.10 Pulmonary fibrosis, unspecified
CPT/HCPCS: 36415; 85025; 86038; 86140; 86606; 86612

== ENCOUNTER → 2023-05-03 10:58 | Outpatient (CLI) | payer MEDICARE, SELFPAY ==
--- NOTE | 2023-05-03 11:01 | CA_ITS ---
APPROVED REPORT Exam: Pharmacologic Technologist: Chiqui Thurman Ht: 5 ft 6 in Wt: 144 lbs BSA: 1.74 m2 HR: 65 bpm BP: 188/94 mmHg Rhythm: NSR Indications: SOA Medical History Medications: Lisinopril,,,,, Lovastatin,,,,, Gabapentin,,,,, Pramipexole,,,,, HCTZ,,,,, Ibuprofen,,,,, ANora ELIPTA,,,,, Stress Test Details Test: LEXISCAN HR Resting HR: 71 bpm Max Heart Rate (APMHR): 157 bpm Max HR Achieved: 94 bpm Target HR (85% APMHR): 133 bpm % of APMHR: 60 Recovery HR: 77 bpm BP Resting BP: 188.0/94.0 mmHg Max BP: 199.0/89.0 mmHg Recovery BP: 194.0/83.0 mmHg ECG Resting ECG: Normal sinus rhythm, NS ST abnormalities Stress ECG: No change Arrhythmia: None Clinical Exercise duration: 04:01 min Highest Stage Achieved: Exercise capacity: 1.0 METs Stress ECG Conclusion Symptoms: Mild shortness of air and headache. No chest pain. Arrhythmias/Ectopy: None ST-T Changes: No significant ST changes Conclusion: Non-diagnostic Lexiscan stress due to baseline abnormalities. Myoview images reported separately. Of note, the patient was found to have uncontrolled BP on arrival. The patient was transferred to cardiology clinic for further evaluation. Test Summary REST . . . . . . . Resting REST 06:48 . . 71 . 188/ 94 . . Stage 1 . . . . . . . Myoview Injected Stage 1 01:00 . . 88 . . . . Stage 2 01:00 . . 88 . 199/ 89 . . Stage 3 01:00 . . 83 . 194/ 77 . . Stage 4 01:00 . . 81 . 190/ 81 . . Stage 4 01:01 . . 80 . 190/ 81 . Stop exercise at 04:01 RECOVERY 01:00 . . 78 . . . . RECOVERY 02:00 . . 75 . 177/ 86 . . RECOVERY 03:00 . . 76 . 194/ 83 . . RECOVERY 04:00 . . 75 . 194/ 83 . . RECOVERY 04:13 . . 74 . 194/ 83 . . Electronically signed by : Rebeca Skelton, 05/03/2023 20:49:32
--- NOTE | 2023-05-03 11:01 | NM_ITS ---
APPROVED REPORT Exam: Nuclear Stress Test Indication: soa..palpitations Patient Location: Outpatient Stress Tech: Chiqui Thurman KATIE Tech:Luz Mario SANDRALorri RT(R)(N) Ht: 5 ft 6 in Wt: 144 lbs Bra Size: b HR: 71 bpm BP: 188/94 mmHg BSA: 1.74 m2 Rhythm: NSR TID: 1.05 BMI: 23.2 History: soa..palpitations Procedure: Patient received 0.4 mg of intravenous Lexiscan, resting heart rate 71 bpm, resting blood pressure 188/94 mmHg, with Lexiscan maximum heart rate achieved was 94 bpm which is 85 % of the maximum predicted heart rate and blood pressure was 199/89 mmHg. With Lexiscan, patient denied any complaint of chest pain. Cardiac Stress and Resting SPECT Images: Cardiac Stress and Resting SPECT images were obtained using technetium 99m Myoview 32.9 mCi stress and 10.11 mCi at rest. Resting and stress perfusion imaging in supine and prone positions demonstrate no fixed or reversible perfusion defects. Gated imaging demonstrates normal global and regional LV systolic function. LVEF is calculated at 58%. Conclusion: No fixed or reversible perfusion defects. Gated imaging demonstrates normal global and regional LV systolic function. LVEF is calculated at 58%. Electronically signed by : Rebeca Skelton, 05/03/2023 20:51:07
== END ==
LOC: RAD 10:59
PROVIDERS: PCP Nurse Practitioner Family; Visit Provider Nurse Practitioner
DX: R06.00 Dyspnea, unspecified; R06.01 Orthopnea; R06.02 Shortness of breath; R07.89 Other chest pain
CPT/HCPCS: 78452; 93017; A9502; J2785

== ENCOUNTER → 2023-05-12 09:59 | Outpatient (CLI) | payer MEDICARE, SELFPAY ==
--- NOTE | 2023-05-12 10:01 | CA_ITS ---
APPROVED REPORT EXAM: Comprehensive 2D, Doppler, and color-flow Echocardiogram Business Continuity Planning Director: Kristi Purcell RVT Ht: 5 ft 6 in Wt: 144lbs BSA: 1.74 BP: 161/79 mmHg Indications: SOA,ABN GXT,SMOKER,CP TDS-LIMITED WINDOWS OVERLAYING LUNG AND BODY HABITUS 2D Dimensions LVOT 1.82 cm (M/F) 1.5-2.5 LA Volume 31.40 mL LA Volume Index 18.05 mL/m2 (M/F) 16-34 M-Mode Dimensions RVDd 2.64 cm (0.9-2.6) LA Diam 2.83 cm (1.9-4.0) LVDd 3.95 cm (3.5-5.7) Ao Diam 2.61 cm (2.0-3.7) LVDs 2.71 cm (3.5-5.7) IVSd 1.14 cm (0.6-1.1) PWd 0.40 cm (0.6-1.1) EF (Teich) 59.80% FS 31.40% EDV (Teich) 67.90 mL TAPSE 2.06 (<1.7) ESV (Teich) 27.30 mL LV Diastology E Decel Time 237.00 (160-240 msec) E/A Ratio 0.7 MED E' 8.40 (< 7 cm/sec) E'/MED E' Ratio 9.61 (>14) LAT E' 6.50 (<10 cm/sec) E/LAT E' Ratio 12.42 (>14) Aortic Valve AO Peak GR. 7.30 mmHg Mitral Valve MV E Max Keith. 81.00 (40-130 cm/s) MV A Velocity 117.00 (40-130 cm/s) E/A Ratio 0.69 MV Decel. Time 237.00 (160-240 ms) MV PHT 69.00 ms Pulmonary Valve PV Peak Velocity 100.00 (50-150 cm/s) Tricuspid Valve TR P. Velocity 191.00 cm/s RAP Estimate 10.00 mmHg RVSP 24.60 mmHg Left Ventricle The left ventricle is normal size. The left ventricular systolic function is normal. The left ventricular ejection fraction is within the normal range. There is normal left ventricular wall thickness. There is normal LV segmental wall motion. The left ventricular diastolic function is normal. LVEF is 60%. Right Ventricle The right ventricle is normal size. The right ventricular systolic function is normal. Atria The left atrium size is normal. The right atrium size is normal. There is no Doppler evidence of interatrial shunt. Aortic Valve The aortic valve opens well. There is no aortic valvular stenosis. No aortic regurgitation is present. Mitral Valve The mitral valve is normal in structure. No evidence of mitral valve stenosis. Trace mitral regurgitation. Tricuspid Valve The tricuspid valve is thin and pliable. Trace tricuspid regurgitation. RVSP is normal. Pulmonic Valve The pulmonary valve is normal in structure. Trace pulmonic regurgitation. Great Vessels The aortic root is normal in size. The ascending aorta is normal in size. IVC is normal in size and collapses >50% with inspiration. Pericardium There is no pericardial effusion. Other Information Study Quality: Adequate Conclusion Normal biventricular systolic function. No significant valvular disease. Electronically signed by : Rebeca Skelton, 05/14/2023 14:10:39
== END ==
LOC: RT 09:59
PROVIDERS: PCP Internal Medicine; Visit Provider Nurse Practitioner
DX: R06.00 Dyspnea, unspecified (principal); R06.01 Orthopnea; R06.02 Shortness of breath
CPT/HCPCS: 93306

== ENCOUNTER → 2023-06-02 12:58 | Outpatient (CLI) | payer MEDICARE, SELFPAY | LOC: RT 12:58 | PROVIDERS: PCP Internal Medicine; Visit Provider Internal Medicine Pulmonary Disease | DX: R06.09 Other forms of dyspnea (principal) | CPT/HCPCS: 94060; 94618; 94726; 94729 ==

== ENCOUNTER → 2023-06-16 15:25 | Outpatient (CLI) | payer MEDICARE, SELFPAY ==
[2023-06-16 16:24] LABS: Basophils # 0.1 K/mm3 (0-0.2); Basophils % 0.8 % (0.1-2.0); Eosinophils # 0.5 K/mm3 (0.0-0.4); Eosinophils % 4.6 % (0.1-12.0); Hematocrit 42.9 % (37.0-47.0); Hemoglobin 13.8 g/dL (12.2-16.2); Lymphocytes # 2.5 K/mm3 (0.7-4.5); Lymphocytes % 23.1 % (10-50); Mean Corpuscular HGB Conc 32.2 g/dL (31.8-35.4); Mean Corpuscular Hemoglobin 28.3 pg (27.0-31.2); Mean Corpuscular Volume 87.8 fl (81-99); Mean Platelet Volume 9.1 fl (7.4-10.4); Monocytes # 0.6 K/mm3 (0.1-1.0); Monocytes % 5.8 % (1.7-9.3); Neutrophils # 6.9 K/mm3 (1.8-7.8); Neutrophils % 65.6 % (37.0-80.0); Platelet Count 282 K/mm3 (142-424); Red Blood Count 4.89 M/mm3 (4.20-5.40); Red Cell Distribution Width 13.8 % (11.5-17.5); White Blood Count 10.6 K/mm3 (4.8-10.8)
[2023-06-16 17:08] LABS: Alanine Aminotransferase 18 U/L (12-78); Albumin Level 4.3 g/dl (3.5-5.0); Alkaline Phosphatase 78 U/L (38-126); Anion Gap 11.3 mEq/L (5-15); Aspartate Amino Transferase 27 U/L (14-36); Blood Urea Nitrogen 24 mg/dl (7-17); Calcium 9.4 mg/dl (8.4-10.2); Carbon Dioxide 30 mmol/L (22.0-30.0); Chloride 104 mmol/L (98-107); Chol/HDL Ratio 4.3 (1-3.5); Cholesterol 256 mg/dl (140-200); Estimated Glomerular Filt Rate 63 ml/min (>60); GFR (African American) 77 ML/MIN (>60); Glucose 85 mg/dl (74-100); HDL Cholesterol 60 mg/dl (40-60); Potassium 4.3 mmoL/L (3.5-5.1); Sodium 141 mmol/L (136-145); Total Protein,Serum 7.6 g/dl (6.3-8.2)
[2023-06-16 17:16] LABS: Bilirubin,Total < 0.1 mg/dl (0.2-1.3); Triglycerides 478 mg/dl (30-150)
[2023-06-16 17:19] LABS: Direct LDL Cholesterol 103.82 mg/dL (100-129)
[2023-06-16 17:21] LABS: Free T4 (Free Thyroxine) 0.99 ng/dl (0.78-2.19)
[2023-06-16 17:40] LABS: Thyroid Stimulating Hormone 0.95 uIU/mL (0.465-4.68)
[2023-06-16 18:15] LABS: Bilirubin,Direct 0.2 mg/dl (0.0-0.4)
== END ==
PROVIDERS: Internal Medicine; PCP Nurse Practitioner Family; Visit Provider Internal Medicine Pulmonary Disease
DX: I10 Essential (primary) hypertension (principal); R07.89 Other chest pain; Z72.0 Tobacco use; R06.02 Shortness of breath
CPT/HCPCS: 36415; 80048; 80061; 80076; 83735; 84439; 84443; 85025

== ENCOUNTER → 2023-07-22 08:49 | Outpatient (CLI) | payer MEDICARE, SELFPAY ==
--- NOTE | 2023-07-22 08:54 | CT_ITS ---
FINAL REPORT TECHNIQUE: Axial CT images were performed from the lung apices through the upper abdomen. Coronal reformats were submitted. This study was performed with techniques to keep radiation doses as low as reasonably achievable (ALARA). Individualized dose reduction techniques using automated exposure control or adjustment of mA and/or kV according to the patient's size were employed. CLINICAL HISTORY: Lung nodule COMPARISON: 04/06/2023 FINDINGS: There is no axillary adenopathy. There is no hilar or mediastinal mass or adenopathy. Heart size is normal. There is no pericardial or pleural effusion. There is a spiculated nodule in the anterolateral left lower lobe measuring 13 mm, previously measured 11 mm most worrisome for worsening neoplastic involvement. This could also be inflammatory. Note is made of mild scarring. There are multifocal ground-glass nodular opacities which are visually stable. There is a 7 mm medial right upper lobe nodule. Incidental note is made of gastric diverticulum. 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 Multifocal ground-glass opacities, visually stable. Reviewed, Interpreted and Dictated by Sivakumar Powell III, MD Transcribed by Giovana Ac Authenticated and [facility]
== END ==
LOC: RAD 08:50
PROVIDERS: PCP Nurse Practitioner Family; Visit Provider Internal Medicine Pulmonary Disease
DX: R91.8 Other nonspecific abnormal finding of lung field (principal)
CPT/HCPCS: 71250

== ENCOUNTER 2023-10-14 09:45 | Outpatient (CLI) | payer OTHER, SELFPAY ==
--- NOTE | 2023-10-14 09:58 | ECG_ITS ---
APPROVED REPORT Exam: Resting ECG HR:81 bpm ECG Measurements Heart Rate 81 AXES MN 136 P 65 QRSd 79 QRS 62 QT 358 T 20 QTc 395 Conclusion SINUS RHYTHM NONSPECIFIC ST & T-WAVE ABNORMALITY BORDERLINE ECG UNCONFIRMED REPORT Electronically signed by : Bo Amaya MD 10/14/2023 12:06:17
--- NOTE | 2023-10-14 10:13 | XR_ITS ---
FINAL REPORT CLINICAL HISTORY: PRE OP EXAM, COUGH, SOB COMPARISON: 11/23/2022 FINDINGS: Two views of the chest were obtained. The heart size and pulmonary vascularity are within normal limits. The mediastinum is normal. No acute pulmonary abnormality is identified. Right midlung atelectasis versus scar is present, stable since the prior chest x-ray. There is no pneumothorax. The bony thorax is intact. IMPRESSION: No active cardiopulmonary disease. Reviewed, Interpreted and Dictated by Sivakumar Powell III, MD Transcribed by Shanti Benedict Authenticated and [facility]
[2023-10-14 10:49] LABS: Basophils # 0.1 K/mm3 (0-0.2); Basophils % 1.2 % (0.1-2.0); Eosinophils # 0.3 K/mm3 (0.0-0.4); Eosinophils % 4.5 % (0.1-12.0); Hematocrit 39.2 % (37.0-47.0); Hemoglobin 14.7 g/dL (12.2-16.2); Lymphocytes % 16.7 % (10-50); Mean Corpuscular HGB Conc 37.7 g/dL (31.8-35.4); Mean Corpuscular Hemoglobin 33.5 pg (27.0-31.2); Mean Corpuscular Volume 89.1 fl (81-99); Monocytes # 0.5 K/mm3 (0.1-1.0); Neutrophils # 4.1 K/mm3 (1.8-7.8); Neutrophils % 69.5 % (37.0-80.0); Platelet Count 180 K/mm3 (142-424); Red Cell Distribution Width 14.1 % (11.5-17.5); White Blood Count 5.9 K/mm3 (4.8-10.8)
[2023-10-14 11:22] LABS: Chloride 103 mmol/L (98-107); Potassium 4.3 mmoL/L (3.5-5.1); Sodium 140 mmol/L (136-145)
[2023-10-14 11:25] LABS: Alanine Aminotransferase 17 U/L (12-78); Albumin Level 4.5 g/dl (3.5-5.0); Albumin/Globulin Ratio 1.5 (1.1-1.8); Alkaline Phosphatase 66 U/L (38-126); Anion Gap 11.3 mEq/L (5-15); Aspartate Amino Transferase 28 U/L (14-36); Bilirubin,Total 0.5 mg/dl (0.2-1.3); Blood Urea Nitrogen 18 mg/dl (7-17); Calcium 9.6 mg/dl (8.4-10.2); Carbon Dioxide 30 mmol/L (22.0-30.0); Estimated Glomerular Filt Rate 84 ml/min (>60); GFR (African American) 102 ML/MIN (>60); Glucose 100 mg/dl (74-100); Magnesium 2.1 mg/dl (1.6-2.3); Total Protein,Serum 7.5 g/dl (6.3-8.2)
== END 2023-10-14 23:59 ==
LOC: LAB 09:48
PROVIDERS: PCP Nurse Practitioner; Visit Provider Nurse Practitioner
DX: Z01.818 Encounter for other preprocedural examination (principal)
CPT/HCPCS: 36415; 71046; 80053; 83735; 85025; 93005

== ENCOUNTER 2024-04-23 10:01 | Emergency (ER) | payer MEDICARE, SELFPAY ==
[2024-04-23 10:02] VITALS: BP 210/110; PULSE 78; RESP 18; TEMP 37.1; O2SAT 100; BMI 23.8
[2024-04-23 10:30] VITALS: BP 189/95; PULSE 76; O2SAT 100
--- NOTE | 2024-04-23 10:30 | CT_ITS ---
FINAL REPORT TECHNIQUE: Noncontrast CT exam of the abdomen and pelvis. This study was performed with techniques to keep radiation doses as low as reasonably achievable (ALARA). Individualized dose reduction techniques using automated exposure control or adjustment of mA and/or kV according to the patient''s size were employed. CLINICAL HISTORY: Abdominal and low back pain rad down R leg after lifting COMPARISON: 04/10/2021 FINDINGS: Abdomen: There are patchy nodular opacities within the lung bases suspicious for bronchopneumonia. Liver, spleen, pancreas and adrenal glands have a normal CT appearance in their limited unenhanced state. The kidneys show no stone disease or obstruction. No obvious renal mass is present. No ureteral stones are present. Pelvis: No distal ureteral stones are seen. Bladder is distended. The appendix is not visualized. There is moderate sigmoid diverticulosis. The uterus and ovaries are unremarkable. No fluid collection or adenopathy is seen. IMPRESSION: No acute intra-abdominal abnormality. Bibasilar opacities are favored to represent bronchopneumonia. 2 to 3-month follow-up is recommended. Reviewed, Interpreted and Dictated by Gregory Rowe MD Transcribed by Natacha Carter Authenticated and [facility]
[2024-04-23 10:33] VITALS: BP 205/88; PULSE 73; O2SAT 100
--- NOTE | 2024-04-23 10:44 | CT_ITS ---
FINAL REPORT CLINICAL HISTORY: low back pain going down R leg FINDINGS: CT LUMBAR SPINE TECHNIQUE: Thin section axial CT with sagittal and coronal reconstructions. This study was performed with techniques to keep radiation doses as low as reasonably achievable (ALARA). Individualized dose reduction techniques using automated exposure control or adjustment of mA and/or kV according to the patient's size were employed. FINDINGS: There is an acute, mild, superior endplate compression fracture of L5. Remaining vertebral heights are normal. Alignment is normal. There is degenerative canal stenosis at L3-4 and L4-5. IMPRESSION: Acute, L5 superior endplate compression fracture. Reviewed, Interpreted and Dictated by Gregory Rowe MD Transcribed by Natacha Carter Authenticated and [facility]
[2024-04-23] MEDS: ACETAMINOPHEN 500MG TAB 1000 MG PO (10:45)
[2024-04-23] MEDS: METHOCARBAMOL 500MG TABLET 500 MG PO (10:45)
[2024-04-23] MEDS: KETOROLAC 30MG/ML VIAL 30 MG IM (10:45)
[2024-04-23] MEDS: LIDOCAINE 5% TRANSDERMAL PATCH 1 EACH TP (10:46)
[2024-04-23 11:00] VITALS: BP 204/95; PULSE 76; O2SAT 100
--- NOTE | 2024-04-23 11:29 | HMH.EDGENADL ---
Discharge Plan Disposition Patient Disposition: Home, Self-Care Condition: Good Prescriptions Prescriptions: New lidocaine [Lidoderm] 5 % adhesive patch,medicated 1 patch topical DAILY Qty: 15 0RF Rx Instructions: leave on most painful area for up to 12 hrs methocarbamol 500 mg tablet 500 mg PO Q8H PRN (Reason: pain) Qty: 20 0RF No Action pramipexole 0.125 mg tablet 0.125 mg PO DAILY Anoro Ellipta 62.5-25 mcg/actuation blister with device 1 inh INHALATION Q24H amlodipine 10 mg tablet 10 mg PO DAILY Qty: 90 3RF lisinopril 40 mg tablet 40 mg PO DAILY Qty: 30 2RF isosorbide mononitrate 30 mg tablet extended release 24 hr 30 mg PO DAILY Qty: 30 3RF atorvastatin 40 mg tablet 40 mg PO DAILY Qty: 30 2RF carvedilol [Coreg] 6.25 mg tablet 6.25 mg PO BID Qty: 60 5RF Rx Instructions: must administer with a meal/food varenicline [Chantix Continuing Month Box] 1 mg tablet 1 mg PO BID Qty: 56 5RF varenicline [Chantix Starting Month Box] 0.5 mg (11)- 1 mg (42) tablets,dose pack See Rx Instructions PO PER PKG DIR Qty: 53 0RF Rx Instructions: PO PER PKG DIR hydrochlorothiazide 25 mg tablet 25 mg PO DAILY gabapentin 300 mg capsule 300 mg PO DAILY (DME) Altera Nebulizer System Mis See Dose Instructions .ROUTE .MEDSUPPLY Qty: 1 Dose Instruction: As directed Rx Instructions: As directed Clenpiq 10 mg-3.5 gram- 12 gram/160 mL solution 160 ml PO DAILY Qty: 320 0RF Rx Instructions: take first dose at 5-9PM evening before colonoscopy; 2nd dose the next day approximately 5 hrs before colonoscopy ibuprofen 600 MG tablet 600 mg PO Q6HP PRN (Reason: Mild Pain) Qty: 30 0RF Referrals Follow up/Referrals: Karla Pineda APRN [Primary Care Provider] - See instructions Activity Restrictions/Add. Instructions Additional Instructions/Restrictions: You were evaluated in the emergency department today. You have a small compression fracture of your spine. Please follow-up closely with your primary care provider, as they can refer you to spine as well as physical therapy. Return to the emergency department for new or worsening symptoms, such as new numbness or tingling, urinary incontinence, or other concerns. 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 Clinical Impressions Clinical Impression: Closed compression fracture of L5 vertebra Stand Alone Forms Stand Alone Forms: Work/School Release Instructions Patient Instructions: DI for Low Back Pain, DI for Back Pain With Sciatica Discharge ED Provider: Lianna [facility] HPI General Chief complaint: Back Pain/Injury Stated complaint: AO 04/20 back pain Time Seen by Provider: 04/23/24 10:18 Mode of Arrival: Ambulatory Source of Information: Patient Limitations: No Limitations Description of Symptoms (Recalled from ER Triage Doc. by RN): c/o lower back pain that goes into her right hip down her leg, states that this started Tuesday after trying to lift a friend out of the floor. History of Present Illness HPI narrative: This patient is a 63-year-old female with a history of hypertension and tobacco dependence presenting to the emergency department for evaluation with concern for back pain. Patient reports that she picked a friend up out of the floor on Tuesday when she experienced sudden onset pain in her low back radiating down her right leg. No numbness, tingling, saddle anesthesia, incontinence, retention, or other concerns. She is still ambulatory. She took her home gabapentin with no improvement. Related Data Home Medications Medication Instructions Recorded Confirmed hydrochlorothiazide 25 mg tablet 25 mg PO DAILY Fluid 12/18/18 04/23/24 gabapentin 300 mg capsule 300 mg PO DAILY 09/06/19 04/23/24 nebulizers (Altera Nebulizer #1 ea 09/06/19 04/23/24 System) pramipexole 0.125 mg tablet 0.125 mg PO DAILY 11/07/20 04/23/24 umeclidinium 62.5 mcg-vilanterol 1 inh inhalation Q24H 11/07/20 04/23/24 25 mcg/actuation powdr for inhalation (Anoro Ellipta) Previous Rx's Medication Instructions Recorded ibuprofen 600 mg tablet 600 mg PO Q6HP PRN Mild Pain #30 08/28/21 tabs lisinopril 40 mg tablet 40 mg PO DAILY #30 tabs 05/03/23 amlodipine 10 mg tablet 10 mg PO DAILY #90 tabs 06/02/23 isosorbide mononitrate 30 mg 30 mg PO DAILY #30 tabs 06/16/23 tablet,extended release 24 hr sod picosulf 10 mg-magnes 3.5 160 ml PO DAILY 2 doses #320 mL 07/04/23 gram-citric 12 gram/160 mL oral solution (Clenpiq) atorvastatin 40 mg tablet 40 mg PO DAILY #30 tabs 07/28/23 carvedilol 6.25 mg tablet (Coreg) 6.25 mg PO BID #60 tabs 04/23/24 lidocaine 5 % topical patch 1 patch topical DAILY #15 ea 04/23/24 (Lidoderm) methocarbamol 500 mg tablet 500 mg PO Q8H PRN pain #20 tabs 04/23/24 varenicline 0.5 mg (11)-1 mg (42) See Rx Instructions PO PER PKG DIR 04/23/24 tablets in a dose pack (Chantix #53 tabs Starting Month Box) varenicline 1 mg tablet (Chantix 1 mg PO BID #56 tabs 04/23/24 Continuing Month Box) Allergies Allergy/AdvReac Type Severity Reaction Status Date / Time No Known Drug Allergies Allergy Unknown Verified 04/23/24 14:14 [NKDA] [facility] Disclaimer: The information contained in this section may have been updated after the patient was seen, as this information can be updated by other users. Medical History HTN (hypertension) Tobacco abuse counseling Tobacco abuse Pulmonary emphysema Dyspnea on exertion Smoking greater than 30 pack years Nodule of left lung Tobacco dependence syndrome Family history of ischemic heart disease before age 50 Chest pain Dyspnea Surgical History History of tubal ligation Family History Other Asthma COPD (chronic obstructive pulmonary disease) Diabetes Hypertension Social History Smoking Status: Current every day smoker tobacco type: cigarettes packs per day: 1 alcohol intake: never substance use type: denies use current occupational status: other Travel in the last 8 weeks: None household members: none housing: house caffeine: Yes ROS Obtained: Yes All systems reviewed & no additional complaints except as documented Physical Exam General General appearance: alert and in no apparent distress Head Head exam: atraumatic and normocephalic Eye Eye exam: Present normal appearance, PERRL and EOMI ENT ENT exam: Present normal exam, normal oropharynx, mucous membranes moist and normal external ear exam Neck Neck exam: Present normal inspection, full ROM and trachea midline; Absent tenderness Chest Chest inspection: Present normal inspection and symmetric chest wall rise; Absent tenderness Respiratory Respiratory exam: Present normal lung sounds bilaterally; Absent respiratory distress, wheezes, stridor or accessory muscle use Cardiovascular Cardiovascular exam: Present regular rate and normal rhythm Abdominal Exam Abdominal exam: Present soft; Absent distention, tenderness or guarding Extremities Exam Extremities exam: Present normal inspection, full ROM and normal capillary refill; Absent tenderness or edema Back Exam Back exam: Present full ROM, tenderness (Lumbar spine) and straight leg raise (R) Neurological Exam Neurological exam: Present alert, oriented X3, CN II-XII intact and normal gait; Absent motor sensory deficit Psychiatric Psychiatric exam: Present normal affect and normal mood Skin Skin exam: Present warm and dry Medical Decision Making Medical Records Medical records reviewed: Yes I reviewed the patient's medical records. Raymundo Inquiry Pt receiving controlled substance: No Vital Signs: 04/23/24 10:02 04/23/24 10:30 04/23/24 10:33 Temperature 98.7 F Temperature Source Oral Pulse Rate 76 73 Pulse Rate [Left Radial] 78 Respiratory Rate 18 Blood Pressure 189/95 H 205/88 H Blood Pressure [Right Arm] 210/110 H Blood Pressure Mean 126 127 Blood Pressure Mean [Right Arm] 143 Blood Pressure Source [Right Arm] Automatic Cuff Blood Pressure Position [Right Arm] Sitting 02 Sat by Pulse Oximetry 100 100 100 Oxygen Delivery Method Room Air Room Air Room Air 04/23/24 11:00 04/23/24 11:30 04/23/24 12:01 Temperature 98.7 F Temperature Source Pulse Rate 76 74 79 Pulse Rate [Left Radial] Respiratory Rate 16 Blood Pressure 204/95 H 176/88 H 183/91 H Blood Pressure [Right Arm] Blood Pressure Mean 117 117 Blood Pressure Mean [Right Arm] Blood Pressure Source [Right Arm] Blood Pressure Position [Right Arm] 02 Sat by Pulse Oximetry 100 100 Oxygen Delivery Method Room Air Room Air Room Air Lab Data Lab results reviewed: Yes I reviewed the patient's lab results. Orders (Tests/Meds): ED MEDICATIONS Discontinued Medications Generic Name Dose Route Start Last Admin Trade Name Veena PRN Reason Stop Dose Admin Acetaminophen 1,000 mg 04/23/24 10:30 04/23/24 10:45 Acetaminophen 500mg Tab PO 04/23/24 10:31 1,000 mg ONCE ONE Administration Ketorolac Tromethamine 30 mg 04/23/24 10:30 04/23/24 10:45 Ketorolac 30mg/Ml Vial IM 04/23/24 10:31 30 mg ONCE ONE Administration Lidocaine 1 each 04/23/24 10:30 04/23/24 10:46 Lidocaine 5% Transdermal Patch TP 04/23/24 10:31 1 each ONCE ONE Administration Methocarbamol 500 mg 04/23/24 10:30 04/23/24 10:45 Methocarbamol 500mg Tablet PO 04/23/24 10:31 500 mg ONCE ONE Administration ORDERS Category Date Time Status CT abdomen pelvis wo con Stat Cat Scan 04/23/24 10:[address] lumbar spine wo con Stat Cat Scan 04/23/24 10:44 Completed Medical Decision Narrative: In summary, this patient is a 63-year-old female presenting to the Emergency Department for evaluation of low back pain radiating down her right leg. Differential diagnoses considered include but are not limited to sciatica, disc herniation, compression fracture. Ruling out the most morbid conditions drove assessment. It should be noted patient's history includes hypertension and tobacco dependence which may or may not be at goal therapy. This complicates all aspects of care by increasing patient's risk for morbidity. On exam, the patient is well-appearing. She is neurologically intact in her lower extremities. She does have lumbar spine tenderness and positive straight leg raise on the right. Workup included CT abdomen pelvis without contrast and CT lumbar spine. She was given IM Toradol, oral Robaxin, oral Tylenol, and a topical Lidoderm patch for symptomatic improvement of pain. I independently interpreted CT scan prior to the radiologist read and noted L5 compression fracture. Please see their read for final interpretation. On reassessment, patient is resting comfortably. Her pain is improved. She is ambulatory with no neurologic deficits. Given this, I feel that she is appropriate for discharge home with supportive management and conservative management of spinal compression fracture. She was given instructions for close follow-up with her primary care provider, as they may refer her to spine/physical therapy as appropriate. She was given very strict return precautions as well as prescriptions for Robaxin and Lidoderm patches. She was discharged in stable condition after all questions were answered. Critical Care Critical Care Time Critical Care Time: No
[2024-04-23 11:30] VITALS: BP 176/88; PULSE 74; O2SAT 100
[2024-04-23 12:01] VITALS: BP 183/91; PULSE 79; RESP 16; TEMP 37.1; O2SAT 98
== END 2024-04-23 12:02 | disposition home or self-care (01) ==
PROVIDERS: Emergency Provider Emergency Medicine; PCP Nurse Practitioner
DX: M54.50 Low back pain, unspecified (principal)
CPT/HCPCS: 72131; 74176; J1885

== ENCOUNTER 2024-04-23 14:45 | Outpatient (CLI) | payer MEDICARE, SELFPAY ==
[2024-04-23 15:53] LABS: Basophils # 0.1 K/mm3 (0-0.2); Basophils % 0.5 % (0.1-2.0); Eosinophils # 0.4 K/mm3 (0.0-0.4); Eosinophils % 3.6 % (0.1-12.0); Hematocrit 41.8 % (37.0-47.0); Hemoglobin 13.8 g/dL (12.2-16.2); Lymphocytes # 1.9 K/mm3 (0.7-4.5); Lymphocytes % 19.6 % (10-50); Mean Corpuscular HGB Conc 33.1 g/dL (31.8-35.4); Mean Corpuscular Hemoglobin 29.5 pg (27.0-31.2); Mean Corpuscular Volume 88.9 fl (81-99); Mean Platelet Volume 9.2 fl (7.4-10.4); Monocytes # 0.5 K/mm3 (0.1-1.0); Monocytes % 5.3 % (1.7-9.3); Neutrophils % 71.1 % (37.0-80.0); Platelet Count 218 K/mm3 (142-424); Red Cell Distribution Width 14.8 % (11.5-17.5); White Blood Count 9.8 K/mm3 (4.8-10.8)
[2024-04-23 16:26] LABS: Alanine Aminotransferase 16 U/L (12-78); Albumin Level 3.8 g/dl (3.5-5.0); Alkaline Phosphatase 61 U/L (38-126); Anion Gap 9.8 mEq/L (5-15); Aspartate Amino Transferase 21 U/L (14-36); Bilirubin,Indirect 0.4 mg/dL (0.0-0.9); Bilirubin,Total 0.4 mg/dl (0.2-1.3); Bilirubin,Unconjugated 0.5 mg/dL (0.0-1.1); Blood Urea Nitrogen 26 mg/dl (7-17); Calcium 9.8 mg/dl (8.4-10.2); Carbon Dioxide 28 mmol/L (22.0-30.0); Chloride 109 mmol/L (98-107); Chol/HDL Ratio 4.3 (1-3.5); Cholesterol 273 mg/dl (140-200); Estimated Glomerular Filt Rate 72 ml/min (>60); GFR (African American) 87 ML/MIN (>60); Glucose 118 mg/dl (74-100); HDL Cholesterol 63 mg/dl (40-60); Potassium 3.8 mmoL/L (3.5-5.1); Sodium 143 mmol/L (136-145); Total Protein,Serum 6.5 g/dl (6.3-8.2); Triglycerides 202 mg/dl (30-150); VLDL Cholesterol 40 mg/dL (0-40)
[2024-04-23 16:36] LABS: Direct LDL Cholesterol 146.01 mg/dL (100-129)
[2024-04-23 16:41] LABS: Free T4 (Free Thyroxine) 1.27 ng/dl (0.78-2.19)
[2024-04-23 16:56] LABS: Thyroid Stimulating Hormone 1.24 uIU/mL (0.465-4.68)
== END 2024-04-23 23:59 | disposition home or self-care (01) ==
LOC: LAB 14:47
PROVIDERS: PCP Nurse Practitioner; Visit Provider Physician Assistant
DX: F17.210 Nicotine dependence, cigarettes, uncomplicated; R06.09 Other forms of dyspnea; C34.90 Malignant neoplasm of unspecified part of unspecified bronchus or lung; I11.9 Hypertensive heart disease without heart failure; K21.9 Gastro-esophageal reflux disease without esophagitis; M54.50 Low back pain, unspecified; Z79.899 Other long term (current) drug therapy; Z99.81 Dependence on supplemental oxygen; J44.9 Chronic obstructive pulmonary disease, unspecified
CPT/HCPCS: 36415; 72131; 74176; 80048; 80061; 80076; 84439; 84443; 85025; J1885

== ENCOUNTER 2024-05-23 14:07 | Emergency (ER) | payer MEDICARE, MEDICAID, SELFPAY ==
[2024-05-23 14:35] VITALS: BP 188/91; PULSE 84; RESP 18; TEMP 36.6; O2SAT 94; BMI 28.0
--- NOTE | 2024-05-23 14:57 | ED_ITS ---
Discharge Plan Disposition Patient Disposition: Home, Self-Care Condition: Good Prescriptions Prescriptions: New triamcinolone acetonide 0.025 % ointment 1 applic topical TID PRN (Reason: rash) Qty: 15 0RF Rx Instructions: apply thin layer to rash on both arms No Action pramipexole 0.125 mg tablet 0.125 mg PO DAILY Anoro Ellipta 62.5-25 mcg/actuation blister with device 1 inh INHALATION Q24H amlodipine 10 mg tablet 10 mg PO DAILY Qty: 90 3RF lisinopril 40 mg tablet 40 mg PO DAILY Qty: 30 2RF isosorbide mononitrate 30 mg tablet extended release 24 hr 30 mg PO DAILY Qty: 30 3RF atorvastatin 40 mg tablet 40 mg PO DAILY Qty: 30 2RF lovastatin 40 mg tablet 40 mg PO gabapentin 400 mg capsule 400 mg PO DAILY carvedilol 25 mg tablet 25 mg PO BID Qty: 60 5RF Rx Instructions: must administer with a meal/food nicotine 21-14-7 mg/24 hr patch, TD daily, sequential See Rx Instructions transdermal DAILY Qty: 56 0RF Rx Instructions: apply 1-21 mg NICOTINE PATCH daily for 28 days; follow with 1-14 mg PATCH daily for 14 days, then 1-7mg PATCH daily for 14 days transdermally daily; hydrochlorothiazide 25 mg tablet 25 mg PO DAILY (DME) Altera Nebulizer System [facility] See Dose Instructions .ROUTE .MEDSUPPLY Qty: 1 Dose Instruction: As directed Rx Instructions: As directed Clenpiq 10 mg-3.5 gram- 12 gram/160 mL solution 160 ml PO DAILY Qty: 320 0RF Rx Instructions: take first dose at 5-9PM evening before colonoscopy; 2nd dose the next day approximately 5 hrs before colonoscopy ibuprofen 600 MG tablet 600 mg PO Q6HP PRN (Reason: Mild Pain) Qty: 30 0RF lidocaine [Lidoderm] 5 % adhesive patch,medicated 1 patch topical DAILY Qty: 15 0RF Rx Instructions: leave on most painful area for up to 12 hrs methocarbamol 500 mg tablet 500 mg PO Q8H PRN (Reason: pain) Qty: 20 0RF Referrals Follow up/Referrals: Kim Pineda APRN [Primary Care Provider] - See instructions Activity Restrictions/Add. Instructions Additional Instructions/Restrictions: Continue oral Prednisone as prescribed Oatmeal bathes may help with itching and drying of rash Use topical steriod cream as prescribed Follow up with your Family doctor if no improvement or any worsening of symptoms Return if needed Clinical Impressions Clinical Impression: Rash and nonspecific skin eruption Instructions Patient Instructions: Triamcinolone, DI for Rash Print Language Print Language: Namibian Discharge ED Provider: Susana Banegas [facility] HPI General Stated complaint: rash on arms, itching Mode of Arrival: Ambulatory Source of Information: Patient Limitations: No Limitations Time Seen by Provider: 05/23/24 14:57 Description of Symptoms (Recalled from Triage Doc. by RN): PATIENT C/O RASH ON BILATERAL ARMS X 4 DAYS HEENT Symptoms (Recalled from RN notes): No Resp Symptoms (Recalled from RN notes): No Skin Symptoms (Recalled from RN notes): No MS Symptoms (Recalled from RN notes): No Functional Status (Recalled from RN notes): WNL History of Present Illness Provider Complaint: Patient states that she has a itchy rash on the insides of both arms not sure if she may have got into something or something has bitten her States that she started oral steriods yesterday and wasnt sure if it would help with the rash or not so today when she was still itching she came in to get it looked at and see if she could get something Related Data Home Medications ?Medication ?Instructions ?Recorded ?Confirmed hydrochlorothiazide 25 mg tablet 25 mg PO DAILY Fluid 12/18/18 05/23/24 nebulizers (Altera Nebulizer #1 ea 09/06/19 05/23/24 System) pramipexole 0.125 mg tablet 0.125 mg PO DAILY 11/07/20 05/23/24 umeclidinium 62.5 mcg-vilanterol 1 inh inhalation Q24H 11/07/20 05/23/24 25 mcg/actuation powdr for inhalation (Anoro Ellipta) gabapentin 400 mg capsule 400 mg PO DAILY 05/14/24 05/23/24 lovastatin 40 mg tablet 40 mg PO 05/14/24 05/23/24 Previous Rx's ?Medication ?Instructions ?Recorded ibuprofen 600 mg tablet 600 mg PO Q6HP PRN Mild Pain #30 08/28/21 tabs lisinopril 40 mg tablet 40 mg PO DAILY #30 tabs 05/03/23 amlodipine 10 mg tablet 10 mg PO DAILY #90 tabs 06/02/23 isosorbide mononitrate 30 mg 30 mg PO DAILY #30 tabs 06/16/23 tablet,extended release 24 hr sod picosulf 10 mg-magnes 3.5 160 ml PO DAILY 2 doses #320 mL 07/04/23 gram-citric 12 gram/160 mL oral solution (Clenpiq) atorvastatin 40 mg tablet 40 mg PO DAILY #30 tabs 07/28/23 lidocaine 5 % topical patch 1 patch topical DAILY #15 ea 04/23/24 (Lidoderm) methocarbamol 500 mg tablet 500 mg PO Q8H PRN pain #20 tabs 04/23/24 carvedilol 25 mg tablet 25 mg PO BID #60 tabs 05/14/24 nicotine See Rx Instructions transdermal 05/14/24 21mg/24hr-14mg/24hr-7mg/24hr daily DAILY #56 patches transderm patches,sequentl triamcinolone acetonide 0.025 % 1 applic topical TID PRN rash #15 05/23/24 topical ointment grams Allergies Allergy/AdvReac Type Severity Reaction Status Date / Time No Known Drug Allergies Allergy Unknown Verified 05/23/24 13:26 [NKDA] Worker's Comp Is this a Worker's Comp case?: No [facility] Disclaimer: The information contained in this section may have been updated after the patient was seen, as this information can be updated by other users. Medical History HTN (hypertension) Tobacco abuse counseling Tobacco abuse Pulmonary emphysema Dyspnea on exertion Smoking greater than 30 pack years Nodule of left lung Tobacco dependence syndrome Family history of ischemic heart disease before age 50 Chest pain Dyspnea Surgical History History of tubal ligation Family History Other Asthma COPD (chronic obstructive pulmonary disease) Diabetes Hypertension Social History Smoking Status: Current every day smoker tobacco type: cigarettes packs per day: 1 alcohol intake: never substance use type: denies use current occupational status: other Travel in the last 8 weeks: None household members: none housing: house caffeine: Yes ROS Obtained: Yes All systems reviewed & no additional complaints except as documented and Yes Systems reviewed as appropriate & no additional complaints except as documented Constitutional Constitutional: Reports system reviewed and no additional complaints, except as documented, Reports as per HPI, Denies body ache, Denies chills and Denies fever(s) ENT Ears, Nose, Mouth, and Throat: Reports system reviewed and no additional complaints, except as documented and Reports as per HPI Cardiovascular Cardiovascular: Reports system reviewed and no additional complaints, except as documented and Reports as per HPI Respiratory Respiratory: Reports system reviewed and no additional complaints, except as documented and Reports as per HPI Gastrointestinal Gastrointestingal: Reports system reviewed and no additional complaints, except as documented and as per HPI Integumentary/Breasts Skin/Breast: Reports pruritus and Reports rash Physical Exam General General appearance: alert and in no apparent distress ENT ENT exam: Present mucous membranes moist Respiratory Respiratory exam: Present normal lung sounds bilaterally; Absent respiratory distress or wheezes Cardiovascular Cardiovascular exam: Present regular rate, normal rhythm and normal heart sounds Abdominal Exam Abdominal exam: Present soft and normal bowel sounds; Absent distention or tenderness Neurological Exam Neurological exam: Present alert, oriented X3 and normal gait Skin Skin exam: Present rash (red raised rash on the inside of both arms appears like bites reports itchy rash) Medical Decision Making Raymundo Inquiry Pt receiving controlled substance: No Raymundo was queried for this patient: No Vital Signs: 05/23/24 14:35 Temperature 97.9 F Temperature Source Oral Pulse Rate [Left Brachial] 84 Respiratory Rate 18 Blood Pressure [Left Arm] 188/91 H Blood Pressure Mean [Left Arm] 123 Blood Pressure Source [Left Arm] Automatic Cuff Blood Pressure Position [Left Arm] Sitting 02 Sat by Pulse Oximetry 94 L Oxygen Delivery Method Room Air Medical Decision Narrative: Patient just started steriods yesterday and has Hydroxyzine at the pharmacy, will prescribe triamcinolone ointment and have patient follow up with PCP if no improvement
[2024-05-23 15:12] VITALS: BP 188/91; PULSE 84; RESP 18; TEMP 36.6; O2SAT 94
== END 2024-05-23 15:14 | disposition home or self-care (01) ==
PROVIDERS: Emergency Provider Nurse Practitioner; PCP Nurse Practitioner
DX: R21 Rash and other nonspecific skin eruption (principal)
CPT/HCPCS: 99212; 99214; G0463

== ENCOUNTER 2024-08-01 09:57 | Outpatient (CLI) | payer MEDICARE, MEDICAID, SELFPAY ==
[2024-08-01] MEDS: ALBUTEROL 0.083% 2.5 MG/3 ML NEB IH (10:47)
== END 2024-08-01 23:59 | disposition home or self-care (01) ==
LOC: RT 10:00
PROVIDERS: PCP Nurse Practitioner; Visit Provider Internal Medicine Pulmonary Disease
DX: R06.09 Other forms of dyspnea (principal)
CPT/HCPCS: 94060; 94618; 94726; 94729; J7613

== ENCOUNTER 2024-08-29 10:55 | Outpatient (CLI) | payer MEDICARE, MEDICAID, SELFPAY ==
--- NOTE | 2024-08-29 10:59 | CA_ITS ---
FINAL REPORT TECHNIQUE: Rodriguez scale, color and spectral doppler images of the bilateral carotid arteries were obtained. CLINICAL HISTORY: RIGHT BRUIT HTN FINDINGS: Peak systolic velocity in the right internal carotid artery is 125 cm/sec. The internal carotid to common carotid artery ratio is 1.5. There is no significant carotid artery stenosis and no significant plaque formation. The right vertebral artery is normal in direction. Peak systolic velocity in the left internal carotid artery is 167 cm/sec. The internal carotid to common carotid artery ratio is 2.6. There is no significant carotid artery stenosis. There is very mild plaque at the carotid bulb. The left vertebral artery is normal in direction. IMPRESSION: Less than 50% bilateral carotid artery stenosis. Reviewed, Interpreted and Dictated by Heather Hitchcock MD Transcribed by Natacha Carter Authenticated and [facility]
== END 2024-08-29 23:59 | disposition home or self-care (01) ==
LOC: RT 10:56
PROVIDERS: PCP Nurse Practitioner; Visit Provider Physician Assistant
DX: R09.89 Other specified symptoms and signs involving the circulatory and respiratory systems (principal)
CPT/HCPCS: 93880

== ENCOUNTER 2024-10-04 08:31 | Outpatient (CLI) | payer MEDICARE, MEDICAID, SELFPAY ==
--- NOTE | 2024-10-04 08:36 | CA_ITS ---
FINAL REPORT CLINICAL HISTORY: HTN,HLD,SMOKER COMPARISON: None FINDINGS: Aorta velocity: 158.7 cm/sec Right kidney: 10.5 cm. No evidence of hydronephrosis or mass. Right intrarenal RI: 0.63-0.66 Right renal artery velocity: 343 cm/sec. Right RAR (Renal artery-Aortic Ratio): 2.16 Left Kidney: 10.9 cm. No evidence of hydronephrosis or mass. Left intrarenal RI: 0.56-0.72 Left renal artery velocity: 258 cm/sec. Left RAR (Renal Artery-Aortic Ratio): 1.6 IMPRESSION: Less than 60% stenosis of the bilateral renal arteries. CT angiogram would be more sensitive for evaluation of possible renal artery stenosis. Reviewed, Interpreted and Dictated by Heather Hitchcock MD Transcribed by Shanti Benedict Authenticated and [facility]
--- NOTE | 2024-10-04 09:07 | US_ITS ---
FINAL REPORT CLINICAL HISTORY: I10 - Essential (primary) hypertension FINDINGS: RENAL ULTRASOUND Ultrasound images of the kidneys were obtained. The right kidney measures 10.5 cm in length. There is no hydronephrosis, mass, or stone. Cortical echogenicity and renal thickness are normal. The left kidney measures 11.4 cm in length. There is no hydronephrosis, mass, or stone. Cortical echogenicity and renal thickness are normal. IMPRESSION: Morphologically normal renal ultrasound. Reviewed, Interpreted and Dictated by Heather Hitchcock MD Transcribed by Natacha Carter Authenticated and . [facility]
== END 2024-10-04 23:59 | disposition home or self-care (01) ==
LOC: RT 08:32
PROVIDERS: PCP Nurse Practitioner; Visit Provider Physician Assistant
DX: I10 Essential (primary) hypertension (principal)
CPT/HCPCS: 76770; 93976

== ENCOUNTER 2024-10-25 09:53 | Outpatient (CLI) | payer MEDICARE, MEDICAID, SELFPAY ==
[2024-10-25 10:24] LABS: Basophils # 0.1 K/mm3 (0-0.2); Eosinophils # 0.3 K/mm3 (0.0-0.4); Eosinophils % 4.7 % (0.1-12.0); Hematocrit 41.2 % (37.0-47.0); Hemoglobin 13.2 g/dL (12.2-16.2); Lymphocytes # 1.6 K/mm3 (0.7-4.5); Lymphocytes % 23.5 % (10-50); Mean Corpuscular Hemoglobin 27.7 pg (27.0-31.2); Mean Corpuscular Volume 86.4 fl (81-99); Mean Platelet Volume 11.2 fl (7.4-10.4); Monocytes # 0.6 K/mm3 (0.1-1.0); Monocytes % 8.3 % (1.7-9.3); Neutrophils # 4.3 K/mm3 (1.8-7.8); Neutrophils % 62.2 % (37.0-80.0); Platelet Count 249 K/mm3 (142-424); Red Blood Count 4.77 M/mm3 (4.20-5.40); Red Cell Distribution Width 13.5 % (11.5-17.5)
[2024-10-25 10:59] LABS: Alanine Aminotransferase 14 U/L (12-78); Albumin Level 4.3 g/dl (3.5-5.0); Alkaline Phosphatase 61 U/L (38-126); Anion Gap 11.1 mEq/L (5-15); Aspartate Amino Transferase 24 U/L (14-36); Bilirubin,Direct 0.2 mg/dl (0.0-0.4); Bilirubin,Indirect 0.2 mg/dL (0.0-0.9); Bilirubin,Total 0.4 mg/dl (0.2-1.3); Bilirubin,Unconjugated 0.2 mg/dL (0.0-1.1); Blood Urea Nitrogen 20 mg/dl (7-17); Calcium 9.7 mg/dl (8.4-10.2); Carbon Dioxide 30 mmol/L (22.0-30.0); Chloride 104 mmol/L (98-107); Chol/HDL Ratio 4.6 (1-3.5); Cholesterol 244 mg/dl (140-200); Estimated Glomerular Filt Rate 72 ml/min (>60); GFR (African American) 87 ML/MIN (>60); Glucose 94 mg/dl (74-100); HDL Cholesterol 53 mg/dl (40-60); Magnesium 1.9 mg/dl (1.6-2.3); Potassium 4.1 mmoL/L (3.5-5.1); Sodium 141 mmol/L (136-145); Total Protein,Serum 6.8 g/dl (6.3-8.2); Triglycerides 134 mg/dl (30-150); VLDL Cholesterol 27 mg/dL (0-40)
[2024-10-25 11:10] LABS: Direct LDL Cholesterol 143.63 mg/dL (100-129)
[2024-10-25 14:32] LABS: Free T4 (Free Thyroxine) 0.98 ng/dl (0.78-2.19)
[2024-11-01 09:36] LABS: Dopamine, Plasma < 30 pg/mL (0-48); Epinephrine, Plasma < 15 pg/mL (0-62); Norepinephrine, Plasma 774 pg/mL (0-874)
[2024-11-02 13:04] LABS: Renin Activity, Plasma 0.656 ng/mL/hr (0.167-5.380)
[2024-11-05 14:15] LABS: Metanephrine Plasma < 25.0 pg/mL (0.0-88.0); Normetanephrine Plasma 67.3 pg/mL (0.0-285.2)
== END 2024-10-25 23:59 | disposition home or self-care (01) ==
LOC: LAB 09:54
PROVIDERS: PCP Nurse Practitioner; Visit Provider Physician Assistant
DX: I10 Essential (primary) hypertension (principal); R06.09 Other forms of dyspnea; Z72.0 Tobacco use; E78.00 Pure hypercholesterolemia, unspecified; I70.1 Atherosclerosis of renal artery
CPT/HCPCS: 36415; 80048; 80061; 80076; 82088; 82384; 83735; 83835; 84244; 84439; 84443; 85025

== ENCOUNTER 2024-12-13 08:47 | Outpatient (CLI) | payer MEDICARE, MEDICAID, SELFPAY ==
--- NOTE | 2024-12-13 08:52 | CT_ITS ---
FINAL REPORT TECHNIQUE: Axial images were obtained of the lumbar spine by computed tomography. Coronal and sagittal reconstruction process performed. This study was performed with techniques to keep radiation doses as low as reasonably achievable (ALARA). Individualized dose reduction techniques using automated exposure control or adjustment of mA and/or kV according to the patient's size were employed. CLINICAL HISTORY: SCIATICA W/DISORDER COMPARISON: 04/23/2024 FINDINGS: Sagittal images demonstrate 30% compression deformity of the superior endplate of L5, similar to that seen on the prior CT of 2023. No other fractures are identified. Disc spaces are well-preserved. There is no malalignment. The facets are properly aligned. L1-2: No evidence of canal stenosis or neural foraminal narrowing. L2-3: No evidence of canal stenosis or neural foraminal narrowing. L3-4: No evidence of canal stenosis or neural foraminal narrowing. L4-5: A mild annular bulge is present with mild bilateral neural foraminal narrowing and moderate facet hypertrophy. L5-S1: No evidence of canal stenosis or neural foraminal narrowing. IMPRESSION: 30% compression deformity of the superior endplate of L5, similar to that seen on the prior CT of 2023. No new evidence of fracture or malalignment is noted. Mild degenerative change at the L4-5 level as described. Reviewed, Interpreted and Dictated by Дмитрий Sadler MD Transcribed by Shanti Benedict Authenticated and [facility]
--- NOTE | 2024-12-13 08:53 | CT_ITS ---
FINAL REPORT TECHNIQUE: Thin section axial images were obtained through the abdomen after contrast injection per CT angiogram protocol. Multiplanar reconstruction images were obtained from the axial data. This exam was performed with techniques to keep radiation dose as low as reasonably achievable. This includes automated exposure control, adjustment of the MA and KVP, and iterative reconstruction technique. CLINICAL HISTORY: HTN, renal artery stenosis COMPARISON: None FINDINGS: CTA: No abdominal aortic aneurysm or aortic dissection. There are dense calcifications at the origin of the celiac axis and superior mesenteric artery, which produces less than 50% stenosis of the origin of the celiac axis, and produces approximately 50% stenosis of the superior mesenteric artery, over a 1 cm segment of the SMA. There is focal narrowing of the proximal right renal artery, with approximately 70% luminal diameter stenosis. This is best seen on image #30 of series 601. There is moderate calcification at the origin of the left renal artery without significant stenosis. The common iliac arteries and visualized portions of the internal and external iliac arteries are patent. No significant stenosis. NONVASCULAR: Scarring is present in the left lung base. The gallbladder is present. There are 2 areas of early enhancement in the liver, 1 in the left lobe which measures 11 mm in diameter best seen on image #22 of series 3, and another in the posterior right lobe which measures 13 mm in diameter, best seen on image #24 of series 3. These may represent hemangiomas or transient vascular anomalies. The solid organs are otherwise unremarkable. There is a small diverticulum in the posterior aspect of the gastric fundus. No lymphadenopathy or free fluid. No acute osseous abnormality. IMPRESSION: No evidence of abdominal aortic aneurysm or dissection. Less than 50% stenosis of the celiac axis, with approximately 50% stenosis of the superior mesenteric artery, which measures 1 cm in length. There is focal narrowing of the proximal right renal artery with approximately 70% luminal diameter stenosis. The left renal artery contains moderate calcifications, but is without significant stenosis. Reviewed, Interpreted and Dictated by Дмитрий Sadler MD Transcribed by Shanti Benedict Authenticated and [facility]
[2024-12-13 09:15] LABS: Blood Urea Nitrogen 25 mg/dl (7-17); Estimated Glomerular Filt Rate 72 ml/min (>60); GFR (African American) 87 ML/MIN (>60)
[2024-12-13] MEDS: 0.9 % SODIUM CHLORIDE 50 ML VIAL IV (10:16)
[2024-12-13] MEDS: SODIUM CHLORIDE 0.9% 10ML SYR (RAD ONLY) 10 ML IV (10:16)
[2024-12-13] MEDS: IOPAMIDOL-370 (76%);100ML BOTTLE 80 ML IV (10:17)
== END 2024-12-13 23:59 | disposition home or self-care (01) ==
LOC: RAD 08:47
PROVIDERS: Physician Assistant; PCP Nurse Practitioner; Visit Provider Nurse Practitioner
DX: I10 Essential (primary) hypertension (principal); I70.1 Atherosclerosis of renal artery; M53.9 Dorsopathy, unspecified
CPT/HCPCS: 36415; 72131; 74175; 82565; 84520; Q9967

== ENCOUNTER 2024-12-18 15:09 | Outpatient (CLI) | payer MEDICARE, SELFPAY ==
[2024-12-18 16:37] LABS: Chloride 102 mmol/L (98-107)
[2024-12-18 16:38] LABS: Albumin Level 4.6 g/dl (3.5-5.0); Potassium 3.5 mmoL/L (3.5-5.1); Sodium 139 mmol/L (136-145)
[2024-12-18 16:40] LABS: Blood Urea Nitrogen 23 mg/dl (7-17); Estimated Glomerular Filt Rate 72 ml/min (>60); GFR (African American) 87 ML/MIN (>60)
[2024-12-18 16:41] LABS: Alanine Aminotransferase 17 U/L (12-78); Alkaline Phosphatase 55 U/L (38-126); Anion Gap 6.5 mEq/L (5-15); Aspartate Amino Transferase 28 U/L (14-36); Calcium 9.4 mg/dl (8.4-10.2); Carbon Dioxide 34 mmol/L (22.0-30.0); Glucose 84 mg/dl (74-100); Total Protein,Serum 7.6 g/dl (6.3-8.2)
[2024-12-18 17:39] LABS: Bilirubin,Direct 0.2 mg/dl (0.0-0.4); Bilirubin,Indirect 0.2 mg/dL (0.0-0.9)
[2024-12-18 17:42] LABS: Bilirubin,Total 0.4 mg/dl (0.2-1.3); Bilirubin,Unconjugated 0.2 mg/dL (0.0-1.1)
== END 2024-12-18 23:59 | disposition home or self-care (01) ==
LOC: LAB 15:10
PROVIDERS: PCP Nurse Practitioner; Visit Provider Internal Medicine
DX: I70.1 Atherosclerosis of renal artery (principal); E78.00 Pure hypercholesterolemia, unspecified
CPT/HCPCS: 36415; 80048; 80076

== ENCOUNTER 2024-12-25 10:55 | Outpatient (CLI) | payer MEDICARE, SELFPAY ==
--- NOTE | 2024-12-25 10:58 | MM_ITS ---
PROCEDURE INFORMATION: Exam: MG Bilateral Screening 3D Mammography Exam date and time: 12/25/2024 11:04 AM Age: 64 years old Clinical indication: Screening examination TECHNIQUE: Imaging protocol: Bilateral Screening tomosynthesis and 2D mammography including computer-aided detection (CAD) when performed. COMPARISON: 1. MG MM DIG SCREENING MAMM BI W/CAD 04/08/2023 11:26 AM 2. MG SCBI MM Dig screening mamm BI w/CAD 10/21/2017 3:56 PM FINDINGS: MAMMOGRAPHY: Breast composition: There are scattered areas of fibroglandular density. Mass: No new or suspicious masses Architectural distortion: None. Calcifications: No suspicious calcifications. Asymmetric density: None. Skin thickening: None. Axillary adenopathy: None. IMPRESSION: No mammographic evidence of malignancy. Annual screening is recommended unless otherwise clinically indicated. ASSESSMENT: BI-RADS Category 1: Negative.
== END 2024-12-25 23:59 | disposition home or self-care (01) ==
LOC: RAD 10:56
PROVIDERS: PCP Nurse Practitioner; Visit Provider Nurse Practitioner
DX: Z12.31 Encounter for screening mammogram for malignant neoplasm of breast (principal)
CPT/HCPCS: 77063; 77067

== ENCOUNTER 2025-01-15 14:45 | Outpatient (CLI) | payer MEDICARE, MEDICAID, SELFPAY ==
--- OUTSIDE RECORDS SUMMARY | 2025-01-15 14:47 | XMS_ITS ---
Author Organization Unknown Results OrderDate OrderTestName ResultName ResultDate Value Units Range AbnormalFlag ResultStatus ObservationNotes TestCode ResultCode DateRecorded AccessionNumber DiagnosticSectionCode DiagnosticSectionName Sequence Interpretation 05/18/2024 00:00:00 FLU/COVID [id number]:00:00 Negative Reviewed Deyanira Dooley 05/18/2024 03:23:20 PM > FLU/COVID 05/18/2024 00:00: 00:00:00Urinalysis, CompleteGlucose [id number]:00:00NEGDeyanira Spain 11/06/2024 10:18:47 AM EST > Coding Urinalysis, Complete Coding Glucose 11/06/2024 00:00: 00:00:00Urinalysis, CompleteBilirubin [id number]:00:00NEGDeyanira Spain 11/06/2024 10:18:47 AM EST > Coding Urinalysis, Complete Coding Bilirubin 11/06/2024 00:00: 00:00:00Urinalysis, CompleteKetones [id number]:00:00NEGReDeyanira Kidd 11/06/2024 10:18:47 AM EST > Coding Urinalysis, Complete Coding Ketones 11/06/2024 00:00: 00:00:00Urinalysis, CompleteSpecific [place] [id number]:00:001.010ReDeyanira Kidd 11/06/2024 10:18:47 AM EST > Coding Urinalysis, Complete Coding Specific [place] 11/06/2024 00:00: 00:00:00Urinalysis, CompleteOccult Blood [id number]:00:00NEGDeyanira Spain 11/06/2024 10:18:47 AM EST > Coding Urinalysis, Complete Coding Occult Blood 11/06/2024 00:00: 00:00:00Urinalysis, VxurvaknwP4316-15-52D11:00:00 6.0ReDeyanira Kidd 11/06/2024 10:18:47 AM EST > Coding Urinalysis, Complete Coding pH 11/06/2024 00:00: 00:00:00Urinalysis, CompleteProtein [id number]:00:00NEGDeyanira Spain 11/06/2024 10:18:47 AM EST > Coding Urinalysis, Complete Coding Protein 11/06/2024 00:00: 00:00:00Urinalysis, CompleteUrobilinogen,Semi-Qn [id number]:00:000.2RevDeyanira Castañeda 11/06/2024 10:18:47 AM EST > Coding Urinalysis, Complete Coding Urobilinogen,Semi-Qn 11/06/2024 00:00: 00:00:00Urinalysis, CompleteNitrite, Urine [id number]:00:00NEGDeyanira Spain 11/06/2024 10:18:47 AM EST > Coding Urinalysis, Complete Coding Nitrite, Urine 11/06/2024 00:00: 00:00:00Urinalysis, CompleteWBC Esterase [id number]:00:00NEGDeyanira Spain 11/06/2024 10:18:47 AM EST > Coding Urinalysis, Complete Coding WBC Esterase 11/06/2024 00:00:00
--- NOTE | 2025-01-15 14:48 | MR_ITS ---
FINAL REPORT CLINICAL HISTORY: PERIPHERAL NEUROPATHIC PAIN RIGHT HIP PAIN NO INJURY FINDINGS: Multiplanar and multisequence imaging of the right hip were obtained without contrast. Bone marrow signal intensity is preserved. There is no acute fracture, contusion or pathologic marrow replacement. The joint spaces preserved. There is no evidence of AVN. There is no labral tear. Abnormal signal intensity is seen within the gluteus medius tendon insertion consistent with tendinosis and possible strain. Abnormal signal intensity is also seen along the distal gluteus farhad tendon, at its attachment on the gluteal tuberosity of the posterior femur, with a partial tear at the attachment. Common hamstring tendon is intact. There is symmetric joint fluid seen bilaterally. IMPRESSION: 1. No acute osseous abnormality. Mild degenerative joint disease. 2. Partial tear of the gluteus farhad tendon at its insertion on the gluteal tuberosity of the femur. 3. Gluteus medius strain. Reviewed, Interpreted and Dictated by Heather Hitchcock MD Transcribed by Cony Quarles Authenticated and [facility]
== END 2025-01-15 23:59 | disposition home or self-care (01) ==
LOC: RAD 14:46
PROVIDERS: PCP Nurse Practitioner; Visit Provider Nurse Practitioner
DX: M25.551 Pain in right hip (principal); G62.9 Polyneuropathy, unspecified
CPT/HCPCS: 73721

== ENCOUNTER 2025-01-17 15:09 | Outpatient (CLI) | payer MEDICARE, MEDICAID, SELFPAY ==
[2025-01-17 15:56] LABS: Albumin Level 4.4 g/dl (3.5-5.0); Chloride 103 mmol/L (98-107); Potassium 3.9 mmoL/L (3.5-5.1); Sodium 141 mmol/L (136-145)
[2025-01-17 15:58] LABS: Alanine Aminotransferase 16 U/L (12-78); Anion Gap 12.9 mEq/L (5-15); Aspartate Amino Transferase 28 U/L (14-36); Bilirubin,Unconjugated 0.2 mg/dL (0.0-1.1); Blood Urea Nitrogen 30 mg/dl (7-17); Carbon Dioxide 29 mmol/L (22.0-30.0); Estimated Glomerular Filt Rate 72 ml/min (>60); GFR (African American) 87 ML/MIN (>60)
[2025-01-17 15:59] LABS: Alkaline Phosphatase 60 U/L (38-126); Bilirubin,Direct 0.1 mg/dl (0.0-0.4); Bilirubin,Indirect 0.2 mg/dL (0.0-0.9); Bilirubin,Total 0.3 mg/dl (0.2-1.3); Calcium 9.5 mg/dl (8.4-10.2); Glucose 94 mg/dl (74-100); Total Protein,Serum 7.5 g/dl (6.3-8.2)
[2025-01-17 16:16] LABS: Free T4 (Free Thyroxine) 0.89 ng/dl (0.78-2.19)
[2025-01-17 16:31] LABS: Thyroid Stimulating Hormone 0.83 uIU/mL (0.465-4.68)
== END 2025-01-17 23:59 | disposition home or self-care (01) ==
LOC: LAB 15:10
PROVIDERS: PCP Nurse Practitioner; Visit Provider Internal Medicine
DX: I10 Essential (primary) hypertension (principal); I20.9 Angina pectoris, unspecified; I70.1 Atherosclerosis of renal artery; E78.00 Pure hypercholesterolemia, unspecified
CPT/HCPCS: 36415; 80048; 80076; 84439; 84443

== ENCOUNTER 2025-04-11 09:03 | Outpatient (POV) | payer MEDICARE, MEDICAID, SELFPAY ==
--- OUTSIDE RECORDS SUMMARY | 2025-03-28 08:30 | XMS_ITS | Encounter Summary ---
Author Organization [facility] Address [address] [place] [address] Care Team Providers Care Pattern Room Attendant Name Role Phone Jt Jauregui MD Primary Care Provider [phone] Reason for Referral * Imaging (Routine) - Closed Specialty Diagnoses / Procedures Referred By Fredisac mode Referred To Contact Radiology Diagnoses Non-small cell carcinoma of left lung Procedures CT Chest wo IV Contrast Joni Prado DO [address] [address] Phone: tel: fax: Referral ID Status Reason Start Date Expiration Date Visits Re quested Visits Authorized [id number] Closed 11/29/2024 05/31/2026 1 1 Reason for Visit * Imaging (Routine) - Closed Specialty Diagnoses / Procedures Referred By Contac mode Referred To Contact Radiology Diagnoses Non-small cell carcinoma of left lung Procedures CT Chest wo IV Contrast Joni Prado DO [address] [address] Phone: tel: fax: Referral ID Status Reason Start Date Expiration Date Visits Re quested Visits Authorized [id number] Closed 11/29/2024 05/31/2026 1 1 Encounter Details Date Type Department Care Team (Latest Contact Info) Description 03/28/2025 8:30 AM EDT - 03/28/2025 11:59 PM EDT Hospital Encounter [facility] [address], [address]nd [place] [address] Non-small cell carcinoma of left lung Discharge Disposition: Home or Self Care Social History Tobacco Use Types Packs/Day Years Used Date Smoking Tobacco: Every Day Cigarettes 0.5 50.5 Started: 1975 Smokeless Tobacco: Never Comments:Trying to [...] place to sleep or slept in a fpc (including now)? No 10/20/2023 CAGE ASSESSMENT Answer [...] drink first t tello in the morning (EYE-NETWORK ASSOCIATE) to steady your nerves or to get rid of a hangover? 0 10/19/2023 CAGE Questionnaire Score 0 024 Utilities Answer Date Recorded In the past 12 months has th e [employer], gas, oil, or water company threatened to [...] tablet by mouth daily. 5 HYDROcodone-acetami nophen ([place]) 10-325 MG tablet TAKE 1 TABLET BY [...] % ointment 4 Vitamin D3 1.25 MG (08965 UT) capsule 4 documented as of this encounter Plan of Treatment Upcoming Encounters Date Type Department Care Team ([facility] st Contact Info) Description 07/25/2025 9:30 AM EDT Appointment [facility] Radiology [address] [place] [address] 07/25/2025 10:30 AM EDT Office Visit [facility] Res[facility] 800 [facility], 2nd [place] [address] Joni Prado, DO 800 [facility] [address] [place] [address] documented as of this encounter Procedures Procedure [...] documented as of this encounter Care Teams Pattern Room Attendant Relationship Specialty Start Date End Date Jt Jauregui MD [address] [place] [address] PCP - General Family Medicine 12/29/23 documented as of this encounter
--- OUTSIDE RECORDS SUMMARY | 2025-03-28 10:00 | XMS_ITS | Encounter Summary ---
Author Organization [facility] Address [address] [place] [address] Care Team Providers Care Dipper And Baker Name Role Phone Jt Jauregui MD Primary Care Provider Reason for Referral * Imaging (Routine) - Pending Review Specialty Diagnoses / Procedures Referred By Stuart coello Referred To Contact Radiology Diagnoses Non-small cell carcinoma of left lung Procedures CT Chest wo IV Contrast Joni Prado DO [address] [address] Phone: tel: fax: Referral ID Status Reason Start Date Expiration Date V isits Requested Visits Authorized [id number] Pending Review 03/28/2025 09/27/2026 1 1 Reason for Visit * Reason Comments Follow-up Encounter Details Date Type Department Care Team ([facility] st Contact Info) Description 03/28/2025 10:00 AM EDT Office Visit [facility] Neck [facility] Respiratory 800 [facility], 2nd [place] [address] Joni Prado DO [address] [address] Non-small cell carcinoma of left lung Social History Tobacco Use Types Packs/Day Years Used Date Smoking Tobacco: Every Day Cigarettes 0.5 50.5 Started: 1975 Smokeless Tobacco: Never Tobacco Cessation:Ready [...] place to sleep or slept in a nursing home (including now)? No 10/20/2023 CAGE ASSESSMENT [...] drink first t tello in the morning (EYE-GANG VIBRATOR OPERATOR) to steady your nerves or to get rid of a hangover? 0 10/19/2023 CAGE Questionnaire Score 0 024 Utilities Answer Date Recorded In the past 12 months has e [employer], gas, oil, or water [employer] threatened to shut off services in your [...] from the original note were not included. [facility] [...] 7:05 AM EDT Associated attestation - Joni Prado, - 04/08/2025 7:05 AM EDT I attest to being involved in more than half the total time in patient care. documented in this encounter Plan of Treatment Upcoming Encounters Date Type Department Care Team (Late st Contact Info) Description 07/25/2025 9:30 AM EDT Appointment [facility] Radiology [address] [place] [address] 07/25/2025 10:30 AM EDT Office Visit [facility] Res[facility] [address] [place] [address] Joni Prado, DO [address] [place] [address] Scheduled Orders Name Type Priority Associated Diagnoses [...] documented as of this encounter Care Teams Dipper And Baker Relationship Specialty Start Date End Date Jt Jauregui MD [address] [place] [address] PCP - General Family Medicine 12/29/23 documented as of this encounter
--- OUTSIDE RECORDS SUMMARY | 2025-04-11 09:06 | XMS_ITS | Encounter Summary ---
Author Organization [facility] Address [address] [place] [address] Care Team Providers Care Hearing Healthcare Practitioner Name Role Phone None, None Primary Care Provider [phone] Jt Jauregui MD Primary Care Provider [phone] Encounter Details Date Type Department Care Team (Late Contact Info) Description 04/06/2023 Orders Only External Location [address] [place] [address] Jerilyn Alejandre, THERMAL TECHNICIAN [address] [place] [address] Social History Tobacco Use Types Packs/Day Years Used Date Smoking Tobacco: Never Assessed Comments Unknown Sex and Gender Information Value Date Recorded Sex Assigned at Female 08/16/2023 6:58 AM EST Legal Sex Female 8:36 PM EDT Gender Identity Female 08/16/2023 6:58 AM EST Sexual Orientation Not on file documented as of this encounter Plan of Treatment Upcoming Encounters Date Type Department Care Team (Late Contact Info) Description 07/25/2025 9:30 AM EDT Appointment [facility] Radiology [address] [place] [address] 07/25/2025 10:30 AM EDT Office Visit [facility] Head[facility] Neck [facility] Respiratory 800 [facility], 2nd [place] [address] Joni Prado, DO 800 [facility] 1[address] [place] [address] documented as of this encounter Procedures Procedure Name Priority Date/Time Associated Diagnosis Comments CT OUTSIDE IMAGES 04/06/2023 10:52 AM EDT documented in this encounter Results * CT OUTSIDE IMAGES (04/06/2023 10:52 AM EDT) Anatomical Region Laterality Modality Computed Tomogra phy 04/06/2023 10:5 2 AM EDT Jerilyn Alejandre THERMAL TECHNICIAN IMG CT PROCEDURES Final Re sult documented in this encounter Visit Diagnoses Not on filedocumented in this encounter Care Teams Hearing Healthcare Practitioner Relationship Specialty Start Date End Date None, None [address] [place] [address] PCP - General NONE FOUND 08/11/23 12/28/23 Jt Jauregui MD [address] [place] [address] PCP - General Family Medicine 12/29/23 documented as of this encounter
--- OUTSIDE RECORDS SUMMARY | 2025-04-11 09:06 | XMS_ITS | Encounter Summary ---
Author Organization [facility] Address [address] [place] [address] Care Team Providers Care Maintenance Journeyman Name Role Phone Jt Jauregui MD Primary Care Provider [phone] Encounter Details Date Type Department Care Team (Latest Contact Info) Description 03/28/2025 Travel Social History Tobacco Use Types Packs/Day Years [...] drink first t tello in the morning (EYE-AVIATION TACTICAL READINESS OFFICER) to steady your nerves or to get rid of a hangover? 0 10/19/2023 CAGE Questionnaire Score 0 024 Utilities Answer Date Recorded In the past 12 months has th e [employer], gas, oil, or water company threatened to [...] EDT Appointment [facility] Radiology [address] [place] [address] 07/25/2025 10:30 AM EDT Office Visit [facility] Head[facility] Neck [facility] Respiratory 800 [facility], 2nd [place] [address] Joni Prado, DO 800 [facility] [address] [place] [address] documented as of this encounter Visit Diagnoses Not on filedocumented in this encounter Additional Health Concerns Assessment Noted Time A fall risk assessment has been complete d for the patient 03/28/2025 9:20 AM EDT A Body Mass Index follow-up plan has been documented for the patient 04/08/2025 7:05 AM EDT documented as of this encounter Care Teams Maintenance Journeyman Relationship Specialty Start Date End Date Jt Jauregui MD [address] [place] [address] PCP - General Family Medicine 12/29/23 documented as of this encounter
--- OUTSIDE RECORDS SUMMARY | 2025-04-11 09:07 | XMS_ITS ---
Author Organization [facility] Address [address] [place] [address] Care Team Providers Care Head Silverman Name Role Phone Jt Jauregui MD Primary Care Provider Active Problems Problem Noted Date Diagnosed Date COPD (chronic obstructive pulmonary disease) Overview (10/20/2023): Resume home medications as appropriate. High blood pressure 10/20/2023 Overview (10/20/2023): Resume home medications as appropriate. High cholesterol 10/20/2023 Overview (10/20/2023): Resume home medications as appropriate. Non-small cell carcinoma of left lung 10/19/2023 Overview (10/21/2023): 10/19/2023: Bronchoscopy, L VATS extensive pneumolysis greater than 1 hour, Left lower lobe wedge resection Left chest tube removed on POD2 Pain control Tobacco use disorder 08/11/2023 Overview (10/20/2023): Cessation counseling if patient agreeable Second hand smoke exposure 08/11/2023 Current Treatment and Therapy Plans No current plan information found. Past Treatment and Therapy Plans No past plan information found. Lifetime Dose Tracking * Chemical Lifetime Dose Automatic Entry Manual Entr y Fluoro Time 4.27 minutes 4.27 minutes 0 minutes Air Kerma 25.55 mGy 25.55 mGy 0 mGy
--- OUTSIDE RECORDS SUMMARY | 2025-04-11 09:07 | XMS_ITS | Clinical Summary ---
Author Organization Healthcare Address [address] [place] [address] Care Team Providers Care Public Relations Director Name Role Phone Jt Jauregui MD Primary Care Provider [phone] Allergies No known active allergies Medications Anoro Ellipta 62.5-25 MCG/ACT aerosol powder Inhale 1 Inhalation daily. 08/08/20 23 Active fluticasone (Flonase) 50 MCG/ACT nasal spray Administer 1 spray into each nostril 1 (one) time each day. 08/08/20 23 Active lisinopril 20 MG tablet Take 1 tablet (20 mg) by mouth 1 (one) time each day. 06/16/20 23 Active albuterol 108 (90 Base) MCG/ACT inhaler Inhale 1 puff as needed for wheezing or shortness of breath. 06/16/20 23 Active lovastatin (Mevacor) 40 MG tablet Take 1 tablet (40 mg) by mouth 1 (one) time each day with dinner. 08/08/20 23 Active atorvastatin (Lipitor) 40 MG tablet Take 1 tablet (40 mg) by mouth daily. 07/28/20 23 Active hydroCHLOROthiazid e (HYDRODiuril) 25 MG tablet Take 1 tablet (25 mg) by mouth 1 (one) time each day in the morning. 08/08/20 23 Active amLODIPine (Norvasc) 10 MG tablet Take 1 tablet (10 mg) by mouth daily. 06/16/20 23 Active doxepin (SINEquan) 10 MG capsule Take 1 capsule (10 mg) by mouth every night. 08/08/20 Active isosorbide mononitrate ER (Imdur) 30 MG 24 hr tablet Take 1 tablet (30 mg) by mouth 1 (one) time each day. 08/08/20 Active albuterol 1.25 MG/3ML nebulizer solution Take 3 mL (1.25 mg) by nebulization as needed for wheezing or shortness of breath. Active cyproheptadine (Periactin) 4 MG tablet Take 1 tablet (4 mg) by mouth daily. Active methocarbamol (Robaxin) 500 MG tablet Take 1 tablet (500 mg) by mouth 4 (four) times a day if needed for muscle spasms. 50 tablet 10/21/19 Active Additional Information Patient not taking.Reported on 11/29/2024 ondansetron ODT (Zofran-ODT) 4 MG disintegrating tablet Take 1 tablet (4 mg) by mouth every 6 (six) hours if needed for nausea or vomiting. 20 tablet 10/21/19 Active Additional Information Patient not taking.Reported on 11/29/2024 naloxone (Narcan) 4 mg/0.1 mL nasal spray 1. Give 1 spray in nostril for no/slow breathing or cannot wake after opioid use 2. Call 911 3. Repeat in other nostril if symptoms continue 1 each 10/21/19 Active Additional Information Patient not taking.Reported on 11/29/2024 oxyCODONE (Roxicodone) 5 MG immediate release tablet Take 1 tablet (5 mg) by mouth every 6 (six) hours if needed for severe pain for up to 16 doses. 16 tablet 10/24/19 Active Additional Information Patient not taking.Reported on 11/29/2024 oxygen (O2) gas Inhale 2 L/min every night at 120,000 mL/hr. via nasal canula Active Vitamin D3 1.25 MG (10358 UT) capsule 07/04/20 Active carvedilol (Coreg) 25 MG tablet 07/12/20 Active cyclobenzaprine (Flexeril) 10 MG tablet 07/26/20 Active predniSONE (Deltasone) 20 MG tablet 07/26/20 24 Active triamcinolone (Kenalog) 0.025 % ointment 05/23/20 Active gabapentin (Neurontin) 400 MG capsule 10/10/20 24 Active pramipexole (Mirapex) 1.5 MG tablet 07/12/20 24 Active Breztri Aerosphere 160-9-4.8 MCG/ACT aerosol inhale 2 puffs by mouth 2 times a day 03/19/20 25 Active hydrALAZINE (Apresoline) 100 MG tablet TAKE ONE TABLET BY MOUTH 3 TIMES A DAY NEEDED FOR BLOOD PRESSURE GREATER THAN 160/100 03/19/20 25 Active HYDROcodone-acetam inophen (Cody) 10-325 MG tablet TAKE 1 TABLET BY MOUTH EVERY 6 HOURS FOR 10 DAYS 03/22/20 25 Active levocetirizine (Xyzal) 5 MG tablet TAKE ONE TABLET BY MOUTH ONCE A DAY NEEDED FOR ALLERGY SYMPTOMS 03/19/20 25 Active gabapentin (Neurontin) 600 MG tablet Take 1 tablet by mouth 3 times a day. 03/19/20 25 Active hydroCHLOROthiazid e (HYDRODiuril) 50 MG tablet Take 1 tablet by mouth daily. 03/19/20 25 Active Active Problems Problem Noted Date Diagnosed Date [...] patient agreeable Second hand smoke exposure 08/11/2023 Encounters Date Type Department Care Team Description 03/28/2025 10:00 AM EDT Office Visit [facility] [address] [facility], [address]nd [place] [address] Joni Prado, DO Non-small cell carcinoma of left lung 03/28/2025 8:30 AM EDT - 03/28/2025 11:59 PM EDT Hospital Encounter [facility] [address], [address] [place] [address] Non-small cell carcinoma of left lung Discharge Disposition: Home or Self Care 03/28/2025 Travel from Last 3 Months Family History Medical History Relation Name Comments Cancer Brother Emphysema Father Diabetes Maternal Grandfather Alcohol abuse Other Bone cancer Other Breast cancer Other COPD Other Cancer Other Colon cancer Other Hypertension Other Lung cancer Other Cancer Sister Anesthesia problems Neg Hx Malig Hyperthermia Neg Hx Relation Name Status Comments Brother Father Maternal Grandfather Other Sister Social History Tobacco Use Types Packs/Day Years [...] place to sleep or slept in a fci (including now)? No 10/20/2023 CAGE ASSESSMENT Answer [...] drink first t tello in the morning (EYE-TELEGRAPH INSPECTOR) to steady your nerves or to get rid of a hangover? 0 10/19/2023 CAGE Questionnaire Score 0 024 Utilities Answer Date Recorded In the past 12 months has th e electric, gas, oil, or water company threatened to shut off services in your home? No 10/20/2023 Comments No Sex and Gender Information Value Date Recorded Sex Assigned at Female 08/16/2023 6:58 AM EST Legal Sex Female 8:36 PM EDT Gender Identity Female 08/16/2023 6:58 AM EST Sexual Orientation Not on file Last Filed Vital Signs Vital Sign Reading [...] oz) 03/28/2025 9:16 A M EDT Height 167.6 cm (5' 6 ) 11/29/2024 10:34 AM EST Body Mass Index 27.15 11/29/2024 10:34 AM EST Plan of Treatment Upcoming Encounters Date Type Department Care Team (Late st Contact Info) Description 07/25/2025 9:30 AM EDT Appointment [facility] Radiology [address] [place] [phone] 07/25/2025 10:30 AM EDT Office Visit [facility] [address], [address] [place] [phone] Joni Prado, DO [address] [place] [address] Health Maintenance Due Date Last Done Comments [facility]-Bone Density Scan 1960 [facility]-Depression Screening 1960 [facility]-Hepatitis C Screening 1960 [facility]-Medicare Annual Wellness (AWV) 1960 [facility]-Infant/Child/Adol SDOH Screenings 1960 [facility]- SDOH Screenings 1977 [facility]-Adult SDOH Screenings 1977 [facility]-Pneumococcal Vaccine: 50+ Years (1 of 2 - PCV) 1978 [facility]-Zoster Vaccines (1 of 2) 1978 [facility]-Pap Smear 07/01/1997 07/01/1994 [facility]-Cervical Cancer Screening 07/01/1999 [facility]-HPV/Cotest 07/01/1999 07/01/1994 CT Colonography 2004 Colonoscopy 2004 FIT-DNA 2004 FIT 2004 FOBT 2004 Sigmoidoscopy 2004 [facility]-Colorectal Cancer Screening 2004 [facility]-Breast Cancer Screening 2009 [facility]-RSV Vaccine: 60+ Years or (1 - Risk 60-74 years 1-dose series) 2019 RVC-WNZHH-19 Vaccine (2 - Nicole risk series) 02/04/2021 01/07/2021 [facility]-Influenza Vaccine (#1) 2025 08/03/2022 [facility]-DTaP,Tdap,and Td Vaccines (2 - Td or Tdap) 08/28/2031 08/28/2021, 01/14/2000 [facility]-Hepatitis A Vaccines Aged Out 03/26/2019, 09/02 No longer eligible based on patient's age to complete this topic [facility]-Lung Cancer Screening Discontinued 2024, 11/29/2024, 08/02/2024, Additional history exists [facility]-Obesity Intervention Completed 025, 11/29/2024, 08/02/2024, Additional history exists HPV Vaccines Aged Out No longer eligi ble based on patient's age to complete this topic [facility]-HIB Vaccines Aged Out No longer e ligible based on patient's age to complete this topic [facility]-IPV Vaccines Aged Out No longer e ligible based on patient's age to complete this topic [facility]-Rotavirus Vaccines Aged Out No lo nger eligible based on patient's age to complete this topic Procedures Procedure Name Priority Date/Time Associated Diagnosis Comments CT CHEST WO IV CONTRAST Routine 03/28/2025 8:51 AM EDT Non-small cell carcinoma of left lung CYTO DATA CONVERSION Routine 07/01/1994 12:00 AM EDT from Last 3 Months or Most Recently Relevant to Health Maintenance Results * CT Chest wo IV Contrast [...] DO IMG CT PROCEDURES Final Resul t * Cytology (07/01/1994 12:00 AM EDT) 07/01/1994 07/02/1994 Narrative SUNQUEST - 07/12/1994 12:00 AM EDT [facility] MR #: [id number] [facility] [address] [place], [place] [address] 1960 (Age: 33) FW Collect Date: 07/01/1994 00:00 Receipt Date: 07/02/1994 00:00 Page 1 DEPARTMENT OF PATHOLOGY AND LABORATORY MEDICINE CYTOPATHOLOGY REPORT Email: [email or web address] [phone] * Converted Case * This report may not match the original report format ATTENDING MD/Practitioner: Eve Chilel MD Service: SALESPERSON USED CARS Location: Reported: 07/12/1994 00:00 Collected: 07/01/1994 00:00 INTERPRETATION CERVICAL SCRAPE/ENDOCERVICAL BRUSH WITHIN NORMAL LIMITS. SATISFACTORY FOR INTERPRETATION. Electronically Signed Out BREE Padilla (ASCP) Megan Serra MD Cervical cytology is a screening test primarily for squamous cancers and precursors and has associated false negative and positive results. New technologies such as liquid based sampling may decrease but will not eliminate all false negative results. Regular screening and follow-up of unexplained clinical signs and symptoms are recommended to minimize false negative results. Please see the ASCCP website (www.asccp.org) for followup recommendations. If HPV testing was requested, correlation with the results is suggested (please call Microbiology at [phone] for results). CLINICAL INFORMATION: Menstrual History: {Not Provided} Date of Last Menstrual Period: {Not Provided} SPECIMEN DESCRIPTION: A: CERVICAL/VAGINAL SMEAR, PAP ICD: F: {Not Entered} SNOMED CODES: 1; [id number] In cases where a pathologist has signed out the report, the service has been rendered in part by a resident. The signing pathologist has performed and is responsible for the reported pathologic evaluation. Historical Provider LAB PATHOLOGY ORDERABLES Final Result [employer] from Last 3 Months or Most Recently Relevant to Health Maintenance Insurance MEDICAID-[facility] MEDICARE Advance Directives * Full Code (Latest Code Status on File) Date Activated Date Inactivated Comments 10/19/2023 10:46 AM 10/21/2023 6:44 PM Question Answer Comments Patient has decision-making capacity? Yes Care Teams Public Relations Director Relationship Specialty Start Date End Date Jt Jauregui MD [address] [place] [address] LO[place] Ceron [id number] PCP - General Family Medicine 12/29/23
--- NOTE | 2025-04-11 09:34 | EXP.PAIN.OV ---
HPI Data of Consult Patient: new to practice Consult date: 04/11/25 Requesting Physician: Lianna Arce APRN Primary Care Provider: Kim Motta APRN Reason for consult: Low back pain, bilateral hip pain, bilateral leg pain History of present illness: Ms. Shaffer is a 64 year old female who presents today as a new patient. She is a referral from Kim motta's office. She rates her pain today a 9 out of 10. Patient states that she has been dealing with this pain for at least 3 months and it is progressively worsened. Patient does state that it is a constant burning, stinging sensation with tingling that goes down both her legs to her feet. Patient states that anything seems to aggravate this symptoms. Patient states increased walking or even prolonged sitting after a period of time will affect her. She states that it is almost as if like a hot poker is up against her back. Patient has tried oral medications such as Tylenol and ibuprofen, heat and ice and topicals such as lidocaine patches with minimal changes. Patient has been prescribed muscle relaxers gabapentin and oral steroids with minimal relief. Patient denies any prior surgery or injection history. Patient states the pain is affecting her ability to sleep and that she cannot do activities of daily living such as cooking and cleaning due to the worsening pain. She is interested in any help we may be able to provide. Patient does try to stay as active as possible with home exercise and stretching for longer than 12 weeks. Her Raymundo has been reviewed and is appropriate. Pain at rest (0-10 scale): 9 Has patient had previous pain injection?: No Conservative treatment options previously tried: Home exercise plan (Longer than 12 weeks) and Prescription medications (Longer than 12 weeks) cc:: CC: Lianna Arce APRN [facility] Disclaimer: The information contained in this section may have been updated after the patient was seen, as this information can be updated by other users. Medical History (Updated 04/11/25 @ 09:55 by Lianna Arce APRN) Fatigue Allergic rhinitis Renal artery stenosis HTN (hypertension) Tobacco abuse counseling Tobacco abuse Pulmonary emphysema Dyspnea on exertion Smoking greater than 30 pack years Nodule of left lung Tobacco dependence syndrome Family history of ischemic heart disease before age 50 Chest pain Dyspnea Surgical History History of tubal ligation Family History Other Asthma COPD (chronic obstructive pulmonary disease) Diabetes Hypertension Social History Smoking Status: Current every day smoker tobacco type: cigarettes packs per day: 1 alcohol intake: never substance use type: denies use current occupational status: other Travel in the last 8 weeks?: None household members: none housing: house caffeine: Yes Review of Systems Review of Systems Review of systems:: pertinent systems reviewed and negative unless documented below Review of systems (narrative): Review of Systems: General: No recent weight changes, no fever, no sleep disturbances Respiratory: No cough, no shortness of air, no recurring pulmonary infections Cardiovascular/peripheral vascular: No chest pain, no palpitations, no edema, no shortness of breath Gastrointestinal: No new onset incontinence, normal bowel movements reported Genitourinary: No new onset incontinence Musculoskeletal: Low back pain, bilateral hip pain, bilateral leg pain Psychiatric: [Normal mood/affect] Neurological: [Denies weakness in extremities], [denies balance issues] Meds Home Medications and Allergies Home Medications ?Medication ?Instructions ?Recorded ?Confirmed ?Type nebulizers (Jellycoastera Nebulizer #1 ea 09/06/19 02/19/25 History System) lisinopril 40 mg tablet 40 mg PO DAILY #30 tabs 05/03/23 02/19/25 Rx amlodipine 10 mg tablet 10 mg PO DAILY #90 tabs 06/02/23 02/19/25 Rx isosorbide mononitrate 30 mg 30 mg PO DAILY #30 tabs 06/16/23 02/19/25 Rx tablet,extended release 24 hr atorvastatin 40 mg tablet 40 mg PO DAILY #30 tabs 07/28/23 02/19/25 Rx lidocaine 5 % topical patch 1 patch topical DAILY #15 ea 04/23/24 02/19/25 Rx (Lidoderm) methocarbamol 500 mg tablet 500 mg PO Q8H PRN pain #20 tabs 04/23/24 02/19/25 Rx gabapentin 400 mg capsule 400 mg PO DAILY 05/14/24 02/19/25 History lovastatin 40 mg tablet 40 mg PO 05/14/24 02/19/25 History cholecalciferol (vitamin D3) 1,250 50,000 unit PO WEEKLY 09/11/24 02/19/25 History mcg (50,000 unit) capsule pramipexole 1.5 mg tablet 1.5 mg PO DAILY 10/25/24 02/19/25 History azelastine 205.5 mcg (0.15 %) 2 spray intranasal HS 90 days #30 11/20/24 02/19/25 Rx nasal spray (Astepro Allergy) mL doxepin 25 mg capsule 25 mg PO HS 12/18/24 02/19/25 History hydrochlorothiazide 50 mg tablet 50 mg PO DAILY #90 tabs 12/18/24 02/19/25 Rx carvedilol 25 mg tablet 25 mg PO BID #60 tabs 01/17/25 02/19/25 Rx hydralazine 100 mg tablet 100 mg PO TID PRN BP greater than 02/06/25 02/19/25 Rx 160/100 #90 tabs albuterol sulfate 90 mcg/actuation 2 inh inhalation QID PRN shortness 02/18/25 02/19/25 Rx aerosol inhaler of breath or wheezing 90 days #8.5 grams budesonide 160 mcg-glycopyr 9 2 inh inhalation BID 90 days #10.7 02/18/25 02/19/25 Rx mcg-formot 4.8 mcg/actuation HFA grams inhaler (Breztri Aerosphere) fluticasone propionate 50 See Rx Instructions .Route 03/19/25 Rx mcg/actuation nasal .COMPLEX #16 grams spray,suspension levocetirizine 5 mg tablet See Rx Instructions .Route 03/19/25 Rx .COMPLEX #30 tabs New Prescriptions to Start Prescriptions: Allergies Allergy/AdvReac Type Severity Reaction Status Date / Time No Known Drug Allergies Allergy Unknown Verified 02/19/25 13:23 (NKDA) Objective Narrative: Physical Exam: General: Alert and oriented x3, no acute distress, pleasant and cooperative Lungs: Respirations even and unlabored, symmetrical chest expansion Eyes: PERRL Musculoskeletal: Flexion and extension of lumbar [spine] somewhat guarded secondary to pain, [antalgic gait noted] positive leg raise Neurological: Speech clear, no gross sensory deficit Additional findings Additional findings: FINDINGS: Multiplanar and multisequence imaging of the right hip were obtained without contrast. Bone marrow signal intensity is preserved. There is no acute fracture, contusion or pathologic marrow replacement. The joint spaces preserved. There is no evidence of AVN. There is no labral tear. Abnormal signal intensity is seen within the gluteus medius tendon insertion consistent with tendinosis and possible strain. Abnormal signal intensity is also seen along the distal gluteus farhad tendon, at its attachment on the gluteal tuberosity of the posterior femur, with a partial tear at the attachment. Common hamstring tendon is intact. There is symmetric joint fluid seen bilaterally. IMPRESSION: 1. No acute osseous abnormality. Mild degenerative joint disease. 2. Partial tear of the gluteus farhad tendon at its insertion on the gluteal tuberosity of the femur. 3. Gluteus medius strain. Reviewed, Interpreted and Dictated by Heather Hitchcock MD Transcribed by Cony Quarles Authenticated and [facility] FINDINGS: Sagittal images demonstrate 30% compression deformity of the superior endplate of L5, similar to that seen on the prior CT of 2023. No other fractures are identified. Disc spaces are well-preserved. There is no malalignment. The facets are properly aligned. L1-2: No evidence of canal stenosis or neural foraminal narrowing. L2-3: No evidence of canal stenosis or neural foraminal narrowing. L3-4: No evidence of canal stenosis or neural foraminal narrowing. L4-5: A mild annular bulge is present with mild bilateral neural foraminal narrowing and moderate facet hypertrophy. L5-S1: No evidence of canal stenosis or neural foraminal narrowing. IMPRESSION: 30% compression deformity of the superior endplate of L5, similar to that seen on the prior CT of 2023. No new evidence of fracture or malalignment is noted. Mild degenerative change at the L4-5 level as described. Reviewed, Interpreted and Dictated by Дмитрий Sadler MD Transcribed by Shanti Benedict Authenticated and [facility] Assessment and Plan *Assessment and plan (1) Degenerative disc disease: Status: Acute Category: Medical (2) Lumbar radiculopathy: Status: Acute Category: Medical Code(s): M54.16 - Radiculopathy, lumbar region Plan Patient is experiencing worsening pain in her low back with numbness and tingling into her lower extremities. Patient did have limited range of motion of her lumbar spine with a positive leg raise. I did discuss with patient that I do believe they would benefit from a lumbar epidural steroid injection. Risk and benefits were discussed with patient and the patient would like to proceed forward with this plan of care. Patient is not on any blood thinners. Patient has tried and failed conservative therapy including oral medications, heat and ice, topicals and continued at home stretching exercise for longer than 12 weeks. We did also give her physician guided exercises for her low back and radicular symptoms today for her to work on at home. Patient has had chronic back pain for longer than 3 months. Patient has not had any prior injections. I will order the patient a compounded cream. Patient's symptoms do radiate down her upper lateral thigh and into the front of her lower calves. I did discuss that this is consistent with the L4-L5 dermatome and that I would recommend we try this level. Patient agrees with this plan of care. We will schedule the patient for an LESI [L4-L5] under fluoroscopy. Patient has been instructed to contact the clinic with any concerns before the next appointment. Dr. Garner has reviewed this note and agrees with this plan of care. This note was dictated using voice recognition software and make contain errors or omissions. All injections are used with Lidocaine, Bupivacaine and dexamethasone. Occasionally urine drug screen is needed to verify patient's compliance with our office pain contract. This is ordered based off specific treatments related to chronic pain with the potential to abuse certain medications.
[2025-04-11 10:19] VITALS: BP 141/66; PULSE 63; RESP 18; O2SAT 99; BMI 27.4
== END 2025-04-11 23:59 | disposition home or self-care (01) ==
PROVIDERS: PCP Nurse Practitioner; Visit Provider Nurse Practitioner Family
DX: M54.16 Radiculopathy, lumbar region (principal); Z79.1 Long term (current) use of non-steroidal anti-inflammatories (NSAID); Z79.899 Other long term (current) drug therapy
CPT/HCPCS: 99202; G0463

== ENCOUNTER 2025-04-30 12:06 | Outpatient (CLI) | payer MEDICARE, MEDICAID, SELFPAY ==
--- OUTSIDE RECORDS SUMMARY | 2025-03-28 08:30 | XMS_ITS | Encounter Summary ---
Author Organization [facility] Address [address] [place] [address] Care Team Providers Care Slip Bridge Operator Name Role Phone Jt Jauregui MD Primary Care Provider [phone] Reason for Referral * Imaging (Routine) - Closed Specialty Diagnoses / Procedures Referred By Fredisac mode Referred To Contact Radiology Diagnoses Non-small cell carcinoma of left lung Procedures CT Chest wo IV Contrast Joni Prado DO [address] [address] Phone: tel: fax: Referral ID Status Reason Start Date Expiration Date Visits Re quested Visits Authorized [id number] Closed 11/29/2024 05/31/2026 1 1 Reason for Visit * Imaging (Routine) - Closed Specialty Diagnoses / Procedures Referred By Contac mode Referred To Contact Radiology Diagnoses Non-small cell carcinoma of left lung Procedures CT Chest wo IV Contrast Joni Prado DO [address] [address] Phone: tel: fax: Referral ID Status Reason Start Date Expiration Date Visits Re quested Visits Authorized [id number] Closed 11/29/2024 05/31/2026 1 1 Encounter Details Date Type Department Care Team (Latest Contact Info) Description 03/28/2025 8:30 AM EDT - 03/28/2025 11:59 PM EDT Hospital Encounter [facility] [place] [facility] [address] [place] [address] Non-small cell carcinoma of left lung Discharge Disposition: Home or Self Care Social History Tobacco Use Types Packs/Day Years Used Date Smoking Tobacco: Every Day Cigarettes 0.5 50.6 Started: 1975 Smokeless Tobacco: Never Comments:Trying to quit Alcohol Use Standard Drinks/Week Comments Not Currently 0 (1 standard drink = 0.6 oz pur e alcohol) In the past- was occasional Humiliation, Afraid, Rape, and Kick questionnair e Answer Date Recorded Within the last year, have y ou been afraid of your partner or ex-partner? No 10/20/2023 Within the last year, have y ou been humiliated or emotionally abused in other ways by your partner or ex-partner? No Within the last year, have y ou been kicked, hit, slapped, or otherwise physically hurt by your partner or ex-partner? No 10/20/2023 Within the last year, have y ou been raped or forced to have any kind of sexual activity by your partner or ex-partner? No 10/20/2023 Hunger Vital Sign Answer Date Recorded Within the past 12 months, y ou worried that your food would run out before you got the money to buy more. Never true 10/20/19 24 Within the past 12 months, t he food you bought just didn't last and you didn't have money to get more. Never true 10/20/2023 PRAPARE - Transportation Answer Date Re corded In the past 12 months, has l ack of transportation kept you from medical appointments or from getting medications? No 10/03 In the past 12 months, has l ack of transportation kept you from meetings, work, or from getting things needed for daily living? No 10/20/2023 Housing Stability Vital Sign Answer Rajiv e Recorded In the last 12 months, was t here a time when you were not able to pay the mortgage or rent on time? No 10/20/2023 [address] of Places Lived in the Last Year Not on f ile 10/20/2023 In the last 12 months, was t here a time when you did not have a steady place to sleep or slept in a longterm (including now)? No 10/20/2023 CAGE ASSESSMENT Answer Date Recorded Cage unable to access Not on file 10/19/2023 Cage max number of drinks Not on file 2023 Cage Beverages a week Not on file 10/19/2023 Have you ever felt you should CUT down on your d rinking? 0 10/19/2023 Have you been ANNOYED by people criticizing your drinking? 0 10/19/2023 Have you felt GUILTY about your drinking? 0 10/19/2023 Have you had a drink first t tello in the morning (EYE-TANDEM MILL STICKER) to steady your nerves or to get rid of a hangover? 0 10/19/2023 CAGE Questionnaire Score 0 024 Utilities Answer Date Recorded In the past 12 months has th e [employer], gas, oil, or water company threatened to shut off services in your home? No 10/20/2023 Comments No Sex and Gender Information Value Date Recorded Sex Assigned at Female 08/16/2023 6:58 AM EST Legal Sex Female 8:36 PM EDT Gender Identity Female 08/16/2023 6:58 AM EST Sexual Orientation Not on file documented as of this encounter Medications at Time of Discharge albuterol 1.25 MG/3ML nebulizer solution Take 3 mL (1.25 mg) by nebulization as needed for wheezing or shortness of breath. albuterol 108 (90 Base) MCG/ACT inhaler Inhale 1 puff as needed for wheezing or shortness of breath. 3 amLODIPine (Norvasc) 10 MG tablet Take 1 tablet (10 mg) by mouth daily. 3 Anoro Ellipta 62.5-25 MCG/ACT aerosol powder Inhale 1 Inhalation daily. 3 atorvastatin (Lipitor) 40 MG tablet Take 1 tablet (40 mg) by mouth daily. 3 Breztri Aerosphere 160-9-4.8 MCG/ACT aerosol inhale 2 puffs by mouth 2 times a day 5 carvedilol (Coreg) 25 MG tablet 4 cyclobenzaprine (Flexeril) 10 MG tablet 4 cyproheptadine (Periactin) 4 MG tablet Take 1 tablet (4 mg) by mouth daily. doxepin (SINEquan) 10 MG capsule Take 1 capsule (10 mg) by mouth every night. 3 fluticasone (Flonase) 50 MCG/ACT nasal spray Administer 1 spray into each nostril 1 (one) time each day. 3 gabapentin (Neurontin) 400 MG capsule 4 gabapentin (Neurontin) 600 MG tablet Take 1 tablet by mouth 3 times a day. 5 hydrALAZINE (Apresoline) 100 MG tablet TAKE ONE TABLET BY MOUTH 3 TIMES A DAY NEEDED FOR BLOOD PRESSURE GREATER THAN 160/100 5 hydroCHLOROthiazide (HYDRODiuril) 25 MG tablet Take 1 tablet (25 mg) by mouth 1 (one) time each day in the morning. 3 hydroCHLOROthiazide (HYDRODiuril) 50 MG tablet Take 1 tablet by mouth daily. 5 HYDROcodone-acetami nophen ([place]) 10-325 MG tablet TAKE 1 TABLET BY MOUTH EVERY 6 HOURS FOR 10 DAYS 5 isosorbide mononitrate ER (Imdur) 30 MG 24 hr tablet Take 1 tablet (30 mg) by mouth 1 (one) time each day. 3 levocetirizine (Xyzal) 5 MG tablet TAKE ONE TABLET BY MOUTH ONCE A DAY NEEDED FOR ALLERGY SYMPTOMS 5 lisinopril 20 MG tablet Take 1 tablet (20 mg) by mouth 1 (one) time each day. 3 lovastatin (Mevacor) 40 MG tablet Take 1 tablet (40 mg) by mouth 1 (one) time each day with dinner. 3 methocarbamol (Robaxin) 500 MG tablet Take 1 tablet (500 mg) by mouth 4 (four) times a day if needed for muscle spasms. 50 tablet 4 naloxone (Narcan) 4 mg/0.1 mL nasal spray 1. Give 1 spray in nostril for no/slow breathing or cannot wake after opioid use 2. Call 911 3. Repeat in other nostril if symptoms continue 1 each 4 ondansetron ODT (Zofran-ODT) 4 MG disintegrating tablet Take 1 tablet (4 mg) by mouth every 6 (six) hours if needed for nausea or vomiting. 20 tablet 4 oxyCODONE (Roxicodone) 5 MG immediate release tablet Take 1 tablet (5 mg) by mouth every 6 (six) hours if needed for severe pain for up to 16 doses. 16 tablet 4 oxygen (O2) gas Inhale 2 L/min every night at 120,000 mL/hr. via nasal canula pramipexole (Mirapex) 1.5 MG tablet 4 predniSONE (Deltasone) 20 MG tablet 4 triamcinolone (Kenalog) 0.025 % ointment 4 Vitamin D3 1.25 MG (89203 UT) capsule 4 documented as of this encounter Plan of Treatment Upcoming Encounters Date Type Department Care Team ([facility] st Contact Info) Description 05/09/2025 10:15 AM EDT Office Visit [facility] [address] [facility] [place] [address] Joni Prado, DO [address] [phone] 07/25/2025 9:30 AM EDT Appointment [facility] [address] [place] [address] 07/25/2025 10:30 AM EDT Office Visit [facility] [address] [facility] [place] [address] Joni Prado, DO [address] [phone] documented as of this encounter Procedures Procedure Name Priority Date/Time Associated Diagnosis Comments CT CHEST WO IV CONTRAST Routine 03/28/2025 8:51 AM EDT Non-small cell carcinoma of left lung documented in this encounter Results * CT Chest wo IV Contrast (03/28/2025 8:51 AM EDT) Anatomical Region Laterality Modality Chest Computed Tomogra phy Impressions 03/28/2025 11:21 AM EDT Multiple bilateral pulmonary nodules with most concerning nodules in the central right upper lobe which is increased in size and spiculated. Additionally there are a a few lateral middle lobe nodules which are stable in size however, however demonstrates concerning morphologic features. Recommend further evaluation with PET/CT and/or tissue sampling to further evaluate. Other bilateral groundglass nodules are stable. CRITICAL RESULT: No. COMMUNICATION: Per this written report. By electronically signing this report, I, the attending physician, attest that I have personally reviewed the images/data for the above examination(s) and agree with the final edited report. Drafted by RAMÓN Lozano on 03/28/2025 9:04 AM Final report signed by Michael Castellanos MD on 03/28/2025 11:21 AM Narrative 03/28/2025 11:21 AM EDT CLINICAL INDICATION: Non-small cell lung cancer (NSCLC), monitor TECHNIQUE: Multiple CT helical images were obtained from thoracic inlet through upper abdomen without administration of IV contrast. Total DLP (Dose-Length Product): 252.42 mGy.cm. Please note: The reported value represents the total of one or more individual components during the CT acquisition on this date and at this time, and as such, the same value may appear in more than one CT report depending on the interpreting/reporting physicians. COMPARISON: Chest CTs November 29 2024 back to August 15, 2023. FINDINGS: Mediastinum and Pleura: No mediastinal or hilar adenopathy. No pleural or pericardial effusion. Mild coronary calcifications. Mild atherosclerotic calcifications in the aortic and arch branch vessels. Lungs: Postsurgical changes from prior left lower lobe VATS wedge resection. Redemonstrated multiple bilateral lung nodules and areas of scattered groundglass attenuation. Increased size of central right upper lobe nodule with spiculated suspicious nodule now measuring 12 mm 10 x 9 mm, previously 9 x 7mm (series 4 image 155). No significant change of a discoid shaped lateral middle lobe nodule with more inferior adjacent nodule (series 3, image 50). Central airways are present. Mild paraseptal emphysema are again visualized. Upper Abdomen: No suspicious lesions in the partially visualized upper abdomen. Musculoskeletal: No suspicious lytic or sclerotic lesion. Procedure Note Michael Castellanos MD - 03/28/2025 CLINICAL INDICATION: Non-small cell lung cancer (NSCLC), monitor TECHNIQUE: Multiple CT helical images were obtained from thoracic inlet through upperabdomen without administration of IV contrast. Total DLP (Dose-Length Product): 252.42 mGy.cm. Please note: The reportedvalue represents the total of one or more individual components during theCT acquisition on this date and at this time, and as such, the same valuemay appear in more than one CT report depending on theinterpreting/reporting physicians. COMPARISON: Chest CTs November 29 2024 back to August 15, 2023. FINDINGS: Mediastinum and Pleura: No mediastinal or hilar adenopathy. No pleural orpericardial effusion. Mild coronary calcifications. Mild atheroscleroticcalcifications in the aortic and arch branch vessels. Lungs: Postsurgical changes from prior left lower lobe VATS wedgeresection. Redemonstrated multiple bilateral lung nodules and areas of scatteredgroundglass attenuation. Increased size of central right upper lobe nodulewith spiculated suspicious nodule now measuring 12 mm 10 x 9 mm,previously 9 x 7mm (series 4 image 155). No significant change of adiscoid shaped lateral middle lobe nodule with more inferior adjacentnodule (series 3, image 50). Central airways are present. Mild paraseptal emphysema are againvisualized. Upper Abdomen: No suspicious lesions in the partially visualized upperabdomen. Musculoskeletal: No suspicious lytic or sclerotic lesion. IMPRESSION: Multiple bilateral pulmonary nodules with most concerning nodules in thecentral right upper lobe which is increased in size and spiculated.Additionally there are a a few lateral middle lobe nodules which arestable in size however, however demonstrates concerning morphologicfeatures. Recommend further evaluation with PET/CT and/or tissue samplingto further evaluate. Other bilateral groundglass nodules are stable. CRITICAL RESULT: No. COMMUNICATION: Per this written report. By electronically signing this report, I, the attending physician, attestthat I have personally reviewed the images/data for the aboveexamination(s) and agree with the final edited report. Drafted by RAMÓN Lozano on 03/28/2025 9:04 AM Final report signed by Michael Castellanos MD on 03/28/2025 11:21 AM Joni Prado DO IMG CT PROCEDURES Final Resul t documented in this encounter Visit Diagnoses Diagnosis Non-small cell carcinoma of left lung documented in this encounter Additional Health Concerns Assessment Noted Time A fall risk assessment has been complete d for the patient 03/28/2025 9:20 AM EDT A Body Mass Index follow-up plan has been documented for the patient 04/08/2025 7:05 AM EDT documented as of this encounter Care Teams Slip Bridge Operator Relationship Specialty Start Date End Date Jt Jauregui MD [address] [place] [address] PCP - General Family Medicine 12/29/23 documented as of this encounter
--- OUTSIDE RECORDS SUMMARY | 2025-03-28 10:00 | XMS_ITS | Encounter Summary ---
Author Organization [facility] Address [address] [place] [address] Care Team Providers Care Emergency Room Rn Name Role Phone Jt Jauregui MD Primary Care Provider Reason for Referral * Imaging (Routine) - Pending Review Specialty Diagnoses / Procedures Referred By Stuart coello Referred To Contact Radiology Diagnoses Non-small cell carcinoma of left lung Procedures CT Chest wo IV Contrast Joni Prado DO [address] [address] Phone: tel: fax: Referral ID Status Reason Start Date Expiration Date V isits Requested Visits Authorized [id number] Pending Review 03/28/2025 09/27/2026 1 1 Reason for Visit * Reason Comments Follow-up Encounter Details Date Type Department Care Team ([facility] st Contact Info) Description 03/28/2025 10:00 AM EDT Office Visit [facility] Ne[facility] Respiratory 800 [facility], [address]nd [place] [address] Joni Prado DO [address] [address] Non-small cell carcinoma of left lung Social History Tobacco Use Types Packs/Day Years Used Date Smoking Tobacco: Every Day Cigarettes 0.5 50.6 Started: 1975 Smokeless Tobacco: Never Tobacco Cessation:Ready to Q uit: No; Counseling Given: No Comments:Trying to quit Alcohol Use Standard Drinks/Week [...] place to sleep or slept in a skilled nursing (including now)? No 10/20/2023 CAGE ASSESSMENT Answer [...] drink first t tello in the morning (EYE-PARTNER MARKETING MANAGER) to steady your nerves or to get rid of a hangover? 0 10/19/2023 CAGE Questionnaire Score 0 024 Utilities Answer Date Recorded In the past 12 months has e [employer], gas, oil, or water [employer] threatened to shut off services in your home? No 10/20/2023 Comments No Sex and Gender Information Value Date Recorded Sex Assigned at Female 08/16/2023 6:58 AM EST Legal Sex Female 8:36 PM EDT Gender Identity Female 08/16/2023 6:58 AM EST Sexual Orientation Not on file documented as of this encounter Last Filed Vital Signs Vital Sign Reading Time Taken Comments Blood Pressure 130/80 03/28/2025 9:16 AM EDT Pulse 65 03/28/2025 9:16 AM EDT Temperature 36.8 C (98.2 F) 03/28/2025 9:16 AM EDT Respiratory Rate 18 03/28/2025 9:16 AM EDT Oxygen Saturation 97% 03/28/2025 9:16 AM EDT Inhaled Oxygen Concentration - - Weight 76.3 kg (168 lb 3.4 oz) 03/28/2025 9:16 A M EDT Height - - Body Mass Index 27.15 11/29/2024 10:34 AM EST documented in this encounter Miscellaneous Notes * Progress Notes - Kati Carmen PA - 03/28/2025 10:00 AM EDT Images from the original note were not included. [facility] Department of Surgery Section of Thoracic Surgery Outpatient Clinic Note Diagnosis: NSCLC, diffuse GGO Procedure: L VATS lower lobe wedge resection 10/19/23 Pathology: pT2aN0 invasive adenocarcinoma Interval History: Johanna Shaffer is a 64 y.o. female with PMHx COPD, HTN, HLD, NSCLC pT2aN0 invasive adenocarcinoma s/p L VATS LLL wedge resection presenting oncologic surveillance. Doing well today with no complaints. ROS: General: no fevers or chills, no heat or cold intolerance, no subjective weight loss HEENT: no changes in vision, no sore throat, no changes in hearing, no tinnitus, no nasal drainage CV: no chest pain, no palpitations, no lightheadedness, no PND, no orthopnea, no LE swelling, no claudication Pulm: no shortness of breath, no cough, no hemoptysis GI: no nausea, no vomiting, no abdominal pain, no constipation, no diarrhea, no melenal, no hematochezia, no dysphagia, no heartburn Skin: no rash Neuro: no numbness, no tingling, no headache, no difficulties with speech, no gait disturbance Heme: no easy bruising, no bleeding from the gums Endo: No polyuria or polydypsia Psych: no depression or anxiety Physical exam: Visit Vitals BP 130/80 (BP Location: Right arm) Pulse 65 Temp 36.8 ??C (98.2 ??F) (Oral) Wt 76.3 kg (168 lb 3.4 oz) SpO2 97% BMI 27.15 kg/m?? General: alert and oriented, appropriate Lungs: CTA B, no wheezes or rhonchi Heart: RRR, no murmurs Abdomen: soft NT/ND, normal bowel sounds Lymph nodes: no palpable supraclavicular or cervical adenopathy Extremities: no peripheral edema Skin: no rash, no cyanosis and warm to touch Psychiatric: oriented to person/place/time and normal mood/affect Imaging: CT Chest: IMPRESSION: Multiple bilateral pulmonary nodules with most concerning nodules in the central right upper lobe which is increased in size and spiculated. Additionally there are a a few lateral middle lobe noduleswhich are stable in size however, however demonstrates concerning morphologic features. Recommend further evaluation with PET/CT and/or tissue sampling to further evaluate. Other bilateral groundglass nodules are stable. Additional Testing: none Assessment and Plan: Johanna Shaffer is a 64 y.o. female with PMHx COPD, HTN, HLD, NSCLC pT2aN0 invasive adenocarcinoma s/p L VATS LLL wedge resection presenting oncologic surveillance. Patient has multiple bilateral groundglass nodules with a RUL spiculated nodule that has increased in size. Will evaluate further with PET/CT. Images and pathology reviewed and discussed with the patient at today's visit and all questions answered. Patient will return to clinic after undergoing a PET CT. The patient understands this plan and will call our office for any additional questions or concerns. JANY Ramos 03/28/25 9:37 AM Cosigned by Joni Prado DO at 04/08/2025 7:05 AM EDT Associated attestation - Joni Prado DO - 04/08/2025 7:05 AM EDT I attest to being involved in more than half the total time in patient care. documented in this encounter Plan of Treatment Upcoming Encounters Date Type Department Care Team ([facility] st Contact Info) Description 05/09/2025 10:15 AM EDT Office Visit [facility] Res[facility] [address] [address] Joni Prado, DO [address] [address] 07/25/2025 9:30 AM EDT Appointment [facility] Radiology [address] [place] [address] 07/25/2025 10:30 AM EDT Office Visit [facility] [address] [address] Joni Prado, DO [address] [address] Scheduled Orders Name Type Priority Associated Diagnoses Orde r Schedule CT Chest wo IV Contrast Imaging Routine Non-small cell carcinoma of left lung (CMS/HCC) Expected: 07/28/2025 (Approximate), Expires: 09/29/2026 documented as of this encounter Visit Diagnoses Diagnosis Non-small cell carcinoma of left lung documented in this encounter Additional Health Concerns Assessment Noted Time A fall risk assessment has been complete d for the patient 03/28/2025 9:20 AM EDT A Body Mass Index follow-up plan has been documented for the patient 04/08/2025 7:05 AM EDT documented as of this encounter Care Teams Emergency Room Rn Relationship Specialty Start Date End Date Jt Jauregui MD [address] [place] [address] PCP - General Family Medicine 12/29/23 documented as of this encounter
--- OUTSIDE RECORDS SUMMARY | 2025-04-30 12:08 | XMS_ITS | Encounter Summary ---
Author Organization Healthcare Address [address] [place] [address] Care Team Providers Care Forensic Social Worker Name Role Phone Jt Jauregui MD Primary Care Provider Encounter Details Date Type Department Care Team (Late st Contact Info) Description 04/12/2025 Orders Only Radiology Virtual Dept. [address] [place] [address] Gregory Johnson MD [address] [place] [address] Social History Tobacco Use Types Packs/Day Years [...] place to sleep or slept in a detention (including now)? No 10/20/2023 CAGE ASSESSMENT Answer [...] drink first t tello in the morning (EYE-CYBER SYSTEMS OPERATIONS SPECIALIST) to steady your nerves or to get rid of a hangover? 0 10/19/2023 CAGE Questionnaire Score 0 024 Utilities Answer Date Recorded In the past 12 months has th e [employer], gas, oil, or water company threatened to [...] Care Team (Late st Contact Info) Description 05/09/2025 10:15 AM EDT Office Visit [facility] [address] [facility], [address] [place] [address] Joni Prado, DO [address] [phone] 07/25/2025 9:30 AM EDT Appointment [facility] Radiology [address] [place] [address] 07/25/2025 10:30 AM EDT Office Visit [facility] [address] [facility], [address] [place] [address] Joni Prado, DO [address] [address] documented as of this encounter Visit Diagnoses Not on filedocumented in this encounter Additional Health Concerns Assessment Noted Time A fall risk assessment has been complete d for the patient 03/28/2025 9:20 AM EDT A Body Mass Index follow-up plan has been documented for the patient 04/08/2025 7:05 AM EDT documented as of this encounter Care Teams Forensic Social Worker Relationship Specialty Start Date End Date Jt Jauregui MD [address] [place] [id number] PCP - General Family Medicine 12/29/23 documented as of this encounter
--- OUTSIDE RECORDS SUMMARY | 2025-04-30 12:08 | XMS_ITS | Encounter Summary ---
Author Organization Healthcare Address [address] [place] [address] Care Team Providers Care Glass Grinder Name Role Phone Jt Jauregui MD Primary Care Provider [phone] Encounter Details Date Type Department Care Team [...] place to sleep or slept in a penitentiary (including now)? No 10/20/2023 CAGE ASSESSMENT Answer [...] drink first t tello in the morning (EYE-WATER PROJECT MANAGER) to steady your nerves or to get rid of a hangover? 0 10/19/2023 CAGE Questionnaire Score 0 024 Utilities Answer Date Recorded In the past 12 months has th e [employer], gas, oil, or water company threatened to [...] Upcoming Encounters Date Type Department Care Team ([facility] Contact Info) Description 05/09/2025 10:15 AM EDT Office Visit [facility] [address] [facility], 2nd [place] [address] Joni Prado, DO [address] [place] [phone] 07/25/2025 9:30 AM EDT Appointment PAV A Radiology [address] [place] [address] 07/25/2025 10:30 AM EDT Office Visit [facility] [address], [address] [place] [address] Joni Prado, DO [address] [place] [phone] documented as of this encounter Visit Diagnoses Not on filedocumented in this encounter Additional Health Concerns Assessment Noted Time A fall risk assessment has been complete d for the patient 03/28/2025 9:20 AM EDT A Body Mass Index follow-up plan has been documented for the patient 04/08/2025 7:05 AM EDT documented as of this encounter Care Teams Glass Grinder Relationship Specialty Start Date End Date Jt Jauregui MD [address] [place] [address] PCP - General Family Medicine 12/29/23 documented as of this encounter
--- OUTSIDE RECORDS SUMMARY | 2025-04-30 12:08 | XMS_ITS | Encounter Summary ---
Author Organization [facility] Address [address] [place] [address] Care Team Providers Care Chlorination Operator Name Role Phone Jt Jauregui MD Primary Care Provider Reason for Referral * Imaging (Urgent) - Authorized Specialty Diagnoses / Procedures Referred By Stuart coello Referred To Contact Radiology Diagnoses Non-small cell carcinoma of left lung Procedures PET/CT FDG Skull Base To Mid Thigh Joni Prado DO [address] [address] Phone: tel: fax: Referral ID Status Reason Start Date Expiration Date V isits Requested Visits Authorized [id number] Authorized 04/11/2025 10/11/2026 2 2 Encounter Details Date Type Department Care Team (Late st Contact Info) Description 04/11/2025 Orders Only [facility] Respiratory [address] [place] [address] Nereyda Perez RN [facility] Non-small cell carcinoma of left lung (Primary Dx) Social History Tobacco Use Types Packs/Day Years [...] place to sleep or slept in a residential (including now)? No 10/20/2023 CAGE ASSESSMENT Answer [...] drink first t tello in the morning (EYE-AUTOMATIC LATHE TENDER) to steady your nerves or to get [...] [facility] Res[facility] 800 [facility], [address] [place] [address] Joni Prado, DO [address] [address] 07/25/2025 9:30 AM EDT Appointment [facility] A Radiology [address] [place] [phone] 07/25/2025 10:30 AM EDT Office Visit [facility] Respiratory 800 [facility], [address] [place] [address] Joni Prado, DO [address] [phone] Scheduled Orders Name Type Priority Associated Diagnoses Orde r Schedule PET/CT FDG Skull Base To Mid Thigh Imaging Routine Non-small cell carcinoma of left lung (CMS/HCC) Expected: 05/02/2025 (Approximate), Expires: 10/13/2026 documented as of this encounter Visit Diagnoses Diagnosis Non-small cell carcinoma of left lung- Primary documented in this encounter Additional Health Concerns Assessment Noted Time A fall risk assessment has been complete d for the patient 03/28/2025 9:20 AM EDT A Body Mass Index follow-up plan has been documented for the patient 04/08/2025 7:05 AM EDT documented as of this encounter Care Teams Chlorination Operator Relationship Specialty Start Date End Date Jt Jauregui MD [address] [place] [address] [address] [place] [address] PCP - General Family Medicine 12/29/23 documented as of this encounter
--- OUTSIDE RECORDS SUMMARY | 2025-04-30 12:08 | XMS_ITS | Encounter Summary ---
Author Organization [facility] Address [facility] [place] [address] Care Team Providers Care Boiler Repair Supervisor Name Role Phone None, None Primary Care Provider Jt Jauregui MD Primary Care Provider Encounter Details Date Type Department Care Team (Late Contact Info) Description 04/06/2023 Orders Only External Location [address] [place] [address] Jerilyn Alejandre, PIPELINE OPERATOR [address] [place], [place] [id number] Social History Tobacco Use Types Packs/Day Years [...] Department Care Team (Late Contact Info) Description 05/09/2025 10:15 AM EDT Office Visit [facility] Res[facility] 800 [facility], 2nd [place] [phone] Joni Prado, DO 800 [facility] 1[address] [place] [address] 07/25/2025 9:30 AM EDT Appointment P[facility] A Radiology [address] [place] [address] 07/25/2025 10:30 AM EDT Office Visit [facility] [address], [address] [place] [address] Joni Prado, DO [address] [place] [address] documented as of this encounter Procedures Procedure Name Priority Date/Time Associated Diagnosis Comments CT OUTSIDE IMAGES 04/06/2023 10:52 AM EDT documented in this encounter Results * CT OUTSIDE IMAGES (04/06/2023 10:52 AM EDT) Anatomical Region Laterality Modality Computed Tomogra phy 04/06/2023 10:5 2 AM EDT us Jerilyn Alejandre PIPELINE OPERATOR IMG CT PROCEDURES Final Re sult documented in this encounter Visit Diagnoses Not on filedocumented in this encounter Care Teams Boiler Repair Supervisor Relationship Specialty Start Date End Date None, None [address] [place] [address] PCP - General NONE FOUND 08/11/23 12/28/23 Jt Jauregui MD [address] [place] [address] PCP - General Family Medicine 12/29/23 documented as of this encounter
--- OUTSIDE RECORDS SUMMARY | 2025-04-30 12:08 | XMS_ITS ---
Author Organization [facility] Address [address] [place] [address] Care Team Providers Care Entry Level Account Representative Name Role Phone Jt Jauregui MD Primary [...]
--- OUTSIDE RECORDS SUMMARY | 2025-04-30 12:08 | XMS_ITS | Clinical Summary ---
Author Organization [facility] Address [address] [place] [address] Care Team Providers Care Legal Recovery Specialist Name Role Phone Jt Jauregui MD Primary Care Provider [phone] Allergies No known active allergies Medications Anoro [...] nasal canula Active Vitamin D3 1.25 MG (73346 UT) capsule 07/04/20 Active carvedilol (Coreg) 25 MG tablet 07/12/20 Active cyclobenzaprine (Flexeril) 10 MG tablet 07/26/20 Active predniSONE (Deltasone) 20 MG tablet 07/26/20 24 Active triamcinolone (Kenalog) 0.025 % ointment 05/23/20 Active gabapentin (Neurontin) 400 MG capsule 10/10/20 24 Active pramipexole (Mirapex) 1.5 MG tablet 07/12/20 Active Breztri Aerosphere 160-9-4.8 MCG/ACT aerosol inhale 2 puffs by mouth 2 times a day 03/19/20 Active hydrALAZINE (Apresoline) 100 MG tablet TAKE ONE TABLET BY MOUTH 3 TIMES A DAY NEEDED FOR BLOOD PRESSURE GREATER THAN 160/100 03/19/20 25 Active HYDROcodone-acetam inophen (Upson) 10-325 MG tablet TAKE 1 TABLET BY [...] Encounters Date Type Department Care Team Description 04/22/2025 Telephone [facility] [address] [place] [address] Joni Prado, 04/12/2025 Orders Only Ch Radiology Virtual Dept. [address] [place] [address] Gregory Johnson MD 04/11/2025 Orders Only [facility]ck [facility] Respiratory 800 [facility], 2nd [place] [address] Nereyda Perez RN Non-small cell carcinoma of left lung (Primary Dx) 03/28/2025 10:00 AM EDT Office Visit [facility] Head[facility] Neck [facility] Respiratory 800 [facility], [address]nd [place] [address] Joni Prado, DO Non-small cell carcinoma of left lung 03/28/2025 8:30 AM EDT - 03/28/2025 11:59 PM EDT Hospital Encounter [facility] [address], [address] [place] [address] Non-small cell carcinoma of left [...] place to sleep or slept in a chcf (including now)? No 10/20/2023 CAGE ASSESSMENT Answer [...] drink first t tello in the morning (EYE-ROPE CUTTER) to steady your nerves or to get [...] & Respiratory [address] [place] [address] Joni Prado, DO [address] [place] [phone] 07/25/2025 9:30 AM EDT Appointment [facility] Radiology [address] [place] [address] 07/25/2025 10:30 AM EDT Office Visit [facility] [address], [address] [place] [address] Joni Prado, DO [address] [place] [phone] Health Maintenance Due Date Last Done Comments [facility]-Bone Density Scan 1960 [facility]-Depression Screening 1959 [facility]-Hepatitis C Screening 1960 [facility]-Medicare Annual Wellness (AWV) 1960 [facility]-/Child/Adol SDOH Screenings 1960 [facility]- SDOH Screenings 1977 [...] - Risk 60-74 years 1-dose series) 2019 [id number] Vaccine (2 - Nicole risk series) 02/04/2021 [...] Narrative SUNQUEST - 07/12/1994 12:00 AM EDT [facility] MR #: [id number] [facility] [address]OS[address]UEL [address]FFER [place], [place] [address] 1960 (Age: 33) FW Collect Date: 07/01/1994 00:00 Receipt Date: 07/02/1994 00:00 Page 1 DEPARTMENT OF PATHOLOGY AND LABORATORY MEDICINE CYTOPATHOLOGY REPORT Email: [email or web address] * Converted Case * This report may not match the original report format ATTENDING MD/Practitioner: Eve Chilel MD Service: NETWORK INFRASTRUCTURE ARCHITECT Location: Reported: 07/12/1994 00:00 Collected: 07/01/1994 00:00 [...] results is suggested (please call Microbiology at [phone] for results). CLINICAL INFORMATION: Menstrual History: {Not Provided} Date of Last Menstrual Period: {Not Provided} SPECIMEN DESCRIPTION: A: CERVICAL/VAGINAL SMEAR, PAP ICD: F: {Not Entered} SNOMED CODES: 1; [id number] In cases where a pathologist has signed out the report, the service has been rendered in part by a resident. The signing pathologist has performed and is responsible for the reported pathologic evaluation. us Historical Provider MD LAB PATHOLOGY ORDERABLES Final Result SUNQUEST from Last 3 Months or Most Recently Relevant to Health Maintenance [place] Advance Directives * Full Code (Latest Code Status on File) Date Activated Date Inactivated Comments 10/19/2023 10:46 AM 10/21/2023 6:44 PM Question Answer Comments Patient has decision-making capacity? Yes Care Teams Legal Recovery Specialist Relationship Specialty Start Date End Date Jt Jauregui MD [address] [place] [address] [place] [address] PCP - General Family Medicine 12/29/23
--- OUTSIDE RECORDS SUMMARY | 2025-04-30 12:08 | XMS_ITS | Encounter Summary ---
Author Organization Healthcare Address [address] [place] [address] Care Team Providers Care Environmental Field Office Manager Name Role Phone Jt Jauregui MD Primary Care Provider [phone] Encounter Details Date Type Department Care Team (Late st Contact Info) Description 04/22/2025 Telephone [facility] Res[facility] [address] [place] [address] Joni Prado, DO [address] [place] [address] Social History Tobacco Use Types Packs/Day Years [...] place to sleep or slept in a group home (including now)? No 10/20/2023 CAGE ASSESSMENT [...] drink first t tello in the morning (EYE-CUFF KNITTER) to steady your nerves or to get rid of a hangover? 0 10/19/2023 CAGE Questionnaire Score 0 024 Utilities Answer Date Recorded In the past 12 months has th e [employer], gas, oil, or water company threatened to shut off services in your home? No 10/20/2023 Comments No Sex and Gender Information Value Date Recorded Sex Assigned at Female 08/16/2023 6:58 AM EST Legal Sex Female 8:36 PM EDT Gender Identity Female 08/16/2023 6:58 AM EST Sexual Orientation Not on file documented as of this encounter Miscellaneous Notes * Telephone Encounter - Nereyda Perez RN - 04/23/2025 12:46 PM EDT RN LVM making sure pt was aware of PET scan coming up. RN encouraged a call back to office with anyquestions/concerns. * Telephone Encounter - Aparna Lamas - 04/22/2025 11:21 AM EDT Patient Phone Message Reason for Call:Patient is returning a call. She do not know who called her. Best contact number and optimal time of day to reach caller:[phone] Note: Please do not reply to this message. Follow-up communication and further actions as a result of this message need to be communicated with the patient directly, if the patient is not active onMyChart. If the patient is active on MyChart, they will receive notification of the communication/outcome via [employer]. documented in this encounter Plan of Treatment Upcoming Encounters Date Type Department Care Team (Late st Contact Info) Description 05/09/2025 10:15 AM EDT Office Visit [facility] Res[facility] [address] [place] [phone] Joni Prado, DO [address] [place] [phone] 07/25/2025 9:30 AM EDT Appointment [facility] A Radiology [address] [place] [phone] 07/25/2025 10:30 AM EDT Office Visit [facility] Head[facility] Neck [facility] Respiratory [address] [place] [phone] Joni Prado, DO [address] [place] [phone] documented as of this encounter Visit Diagnoses Not on filedocumented in this encounter Additional Health Concerns Assessment Noted Time A fall risk assessment has been complete d for the patient 03/28/2025 9:20 AM EDT A Body Mass Index follow-up plan has been documented for the patient 04/08/2025 7:05 AM EDT documented as of this encounter Care Teams Environmental Field Office Manager Relationship Specialty Start Date End Date Jt Jauregui MD [address] [place] [address] PCP - General Family Medicine 12/29/23 documented as of this encounter
--- NOTE | 2025-04-30 13:00 | CA_ITS ---
APPROVED REPORT EXAM: Comprehensive 2D, Doppler, and color-flow Echocardiogram Crib Pad Maker: Kristi Purcell RVT Ht: 5 ft 6 in Wt: 171lbs BSA: 1.87 BP: 178/87 mmHg Indications: DYSPENA,EDEMA 2D Dimensions LA Volume 36.70 mL LA Volume Index 19.63 mL/m2 (M/F) 16-34 M-Mode Dimensions RVDd 2.61 cm (0.9-2.6) LA Diam 2.89 cm (1.9-4.0) LVDd 4.44 cm (3.5-5.7) LVDs 2.97 cm (3.5-5.7) IVSd 0.61 cm (0.6-1.1) PWd 0.47 cm (0.6-1.1) EF (Teich) 61.80% FS 33.10% EDV (Teich) 89.60 mL TAPSE 2.06 (<1.7) ESV (Teich) 34.20 mL LV Diastology E Decel Time 270 (160-240 msec) E/A Ratio 0.8 Aortic Valve SHARONA Index 1.44 cm2/m2 AoV Peak Keith. 142.0 (50-130 cm/s) AI PHT 667.00 ms AO Peak GR. 8.00 mmHg AO Mean GR. 4.20 (<5 mmHg) AO VTI 26.2 (18-25 cm) SHARONA (VTI) 2.77 (2.5-4.5 cm2) Mitral Valve MV E Max Keith. 74.0 (40-130 cm/s) MV A Velocity 94.0 (40-130 cm/s) E/A Ratio 0.78 MV PHT 79.0 ms Pulmonary Valve PV Peak Velocity 70.0 (50-150 cm/s) Left Ventricle The left ventricle is normal size. The left ventricular systolic function is normal. The left ventricular ejection fraction is within the normal range. There is increased LV wall thickness. There is normal LV segmental wall motion. Transmitral Doppler flow pattern suggests impaired LV relaxation. LVEF is 55%. Right Ventricle The right ventricle is normal size. The right ventricular systolic function is normal. Atria The left atrium size is normal. The right atrium size is normal. There is no Doppler evidence of interatrial shunt. Aortic Valve The aortic valve is mildly thickened. There is no aortic valvular stenosis. Mild aortic regurgitation. Mitral Valve The mitral valve is normal in structure. No evidence of mitral valve stenosis. Trace mitral regurgitation. Tricuspid Valve Tricuspid valve is grossly normal in structure and function. Trace tricuspid regurgitation. There is insufficient TR jet to estimate RVSP. Pulmonic Valve The pulmonary valve is normal in structure. Trace pulmonic regurgitation. Great Vessels The aortic root is normal in size. IVC is normal in size and collapses >50% with inspiration. Pericardium There is no pericardial effusion. Other Information Study Quality: Fair Conclusion Normal biventricular systolic function. Mild AI. Electronically signed by : Rebeca Skelton MD 05/01/2025 12:07:58
== END 2025-04-30 23:59 | disposition home or self-care (01) ==
LOC: RT 12:07
PROVIDERS: PCP Nurse Practitioner; Visit Provider Internal Medicine
DX: I35.0 Nonrheumatic aortic (valve) stenosis (principal); I10 Essential (primary) hypertension; I70.1 Atherosclerosis of renal artery; R93.5 Abnormal findings on diagnostic imaging of other abdominal regions, including retroperitoneum
CPT/HCPCS: 93306

== ENCOUNTER 2025-05-02 12:50 | Observation (INO) | payer MEDICARE, MEDICAID, SELFPAY ==
[2025-05-02] VITALS (49 sets, daily range): BP systolic 113–171; BP diastolic 57–90; PULSE 63–82; RESP 18–20; TEMP 36.9–37; O2SAT 92–100; BMI 27.6
--- NOTE | 2025-05-02 07:11 | IR_ITS ---
APPROVED REPORT Patient Location: Outpatient Actuarial Science Professor: SONIYA Mcrae RT (R) PROCEDURES Bilateral selective renal angiogram Bare-metal stent deployment to the ostial proximal right renal artery INDICATION Renovascular hypertension, Renal artery stenosis, Abnormal renal duplex Informed consent was obtained prior to the procedure. COMPLICATIONS NONE Estimated Blood Loss: LESS THAN 10 ML TECHNIQUE 1% lidocaine used to anesthetize the right femoral groin. The right femoral artery was accessed via the Seldinger technique. A 4 Tristanian sheath was placed in the right femoral artery. The JR4 catheter was used to selectively intubate each renal artery. At the end the diagnostic angiogram therapeutic heparin was administered giving a therapeutic ACT the 4 Tristanian sheath was exchanged for a 6 Tristanian sheath and a short 6 Tristanian MCADAMS guide catheter was placed in the right renal artery followed by Choice PT extra-support wire. A 6.5 x 15 mm Herculink bare-metal balloon mounted stent was deployed at 14 christina reducing the stenosis to 0%. At the end of procedure the apparatus was removed the patient was transferred to the postop porting in stable condition for sheath removal ANGIOGRAPHIC RESULTS Left renal artery singular normal Right renal artery singular and has an ostial greater than 50% stenosis which produced a 25 mm Goodrich stenotic gradient upon pulling out with a 4 Tristanian JR4 catheter IMPRESSION Normal left renal artery Severe right renal artery stenosis Successful stent to the right renal artery severe disease reduced to 0% with 1 bare-metal balloon mounted stent PLAN 1. Aspirin Plavix for 1 month 2. Control of hypertension 3. Risk factor modification 4. Patient should be admitted overnight due to manual pull required on a 6 Tristanian sheath and the possibility of experiencing labile blood pressure following renal artery stent Electronically signed by : Jeromy Miranda MD 05/02/2025 10:25:29
[2025-05-02 08:30] LABS: Hematocrit 41.5 % (37.0-47.0); Hemoglobin 14.0 g/dL (12.2-16.2); Immature Granulocytes % 0.3 %; Mean Corpuscular HGB Conc 33.7 g/dL (31.8-35.4); Mean Corpuscular Hemoglobin 29.6 pg (27.0-31.2); Mean Corpuscular Volume 87.7 fl (81-99); Nucleated Red Blood Cells % 0 %; Platelet Count 205 K/mm3 (142-424); Red Blood Count 4.73 M/mm3 (4.20-5.40); Red Cell Distribution Width-SD 42.7 fL; White Blood Count 7.1 K/mm3 (4.8-10.8)
[2025-05-02 08:41] LABS: Chloride 102 mmol/L (98-107); Potassium 3.9 mmoL/L (3.5-5.1); Sodium 136 mmol/L (136-145)
[2025-05-02 08:44] LABS: Anion Gap 6.9 mEq/L (5-15); Blood Urea Nitrogen 28 mg/dl (7-17); Calcium 10.0 mg/dl (8.4-10.2); Carbon Dioxide 31 mmol/L (22.0-30.0); Creatinine Clearance Estimated 69 mL/min (50-200); Creatinine,Serum 0.80 mg/dl (0.52-1.04); Estimated Glomerular Filt Rate 72 ml/min (>60); GFR (African American) 87 ML/MIN (>60); Glucose 120 mg/dl (74-100)
[2025-05-02] MEDS: HEPARIN 1,000 UNITS/500ML NS (CATH LAB) 3000 UNIT IV (10:10)
[2025-05-02] MEDS: LIDOCAINE 1% 10ML MDV 10 ML IJ (10:10)
[2025-05-02] MEDS: 0.9 % SODIUM CHLORIDE 500 ML 25 ML IV (10:11)
[2025-05-02] MEDS: FENTANYL 100MCG/2ML VIAL 50 MCG IV (10:12)
[2025-05-02] MEDS: MIDAZOLAM HCL 1MG/ML 5ML VIAL 1 MG IV (10:12)
[2025-05-02] MEDS: HEPARIN 1,000 UNITS/ML 10ML VIAL (CATH LAB) 5000 UNIT IV (10:21)
[2025-05-02] MEDS: PROTAMINE SULFATE 50MG/5ML VIAL (CATH LAB) 50 MG IV (10:45)
--- NOTE | 2025-05-02 11:08 | P.HP_ITS ---
<Statement entered by Kam Perez MD - 05/04/25 17:20> Agree with [employer] note as documented History of Present Illness *Admission Date: 05/02/25 *Reason for visit:: Status post renal artery stenting [facility] Disclaimer: The information contained in this section may have been updated after the patient was seen, as this information can be updated by other users. Medical History (Updated 05/02/25 @ 16:03 by Mireya Montalvo APRN) Arthritis of spine Vertebral fracture RLS (restless legs syndrome) Fatigue Allergic rhinitis Renal artery stenosis HTN (hypertension) Tobacco abuse counseling Tobacco abuse Pulmonary emphysema Dyspnea on exertion Smoking greater than 30 pack years Nodule of left lung Tobacco dependence syndrome Family history of ischemic heart disease before age 50 Chest pain Dyspnea Surgical History History of lobectomy of lung History of tubal ligation Family History Other Asthma COPD (chronic obstructive pulmonary disease) Diabetes Hypertension Social History (Updated 05/02/25 @ 13:24 by Vijaya Manrique RN) Smoking Status: Current every day smoker tobacco type: cigarettes packs per day: 1 alcohol intake: never substance use type: denies use current occupational status: retired Travel in the last 8 weeks?: None household members: none housing: house caffeine: Yes Have you lived/traveled outside [place] in past 30 days?: No Contact w/someone who lives/traveled outside US past 30 days?: No Exposure to someone with infectious disease in past 14 days?: No Do you have a fever (greater than 100.4 F or 38 C)?: No Have you tested positive for COVID-19?: No Exposed to someone with COVID-19 in past 14 days?: No Do you have a sore throat?: No Do you have a cough?: No Do you have any weakness?: No Are you experiencing any nausea/vomitting?: No Do you have any diarrhea?: No Are you experiencing any unusual bleeding?: No Do you have any muscle aches/pain?: No Do you have any abdominal pain?: No Are you experiencing loss of taste or smell?: No Other Medical History Have you received the Flu Vaccine for this season: Yes Have you received the Pneumonia Vaccine: Yes Review of Systems Review of Systems Review of systems:: pertinent systems reviewed and negative unless documented below ENT Ears, Nose, Mouth, and Throat: Denies dizziness *Cardiovascular Cardiovascular: Denies chest pain, Denies dyspnea and Denies palpitations *Respiratory Respiratory: Denies chest congestion, Denies cough and Denies dyspnea *Gastrointestinal Gastrointestinal: Denies abdominal pain, Denies dyspepsia and Denies nausea *Neurologic Neurologic: Denies dizziness Endocrine Endocrine: Denies palpitations Meds Home Medications and Allergies Home Medications ?Medication ?Instructions ?Recorded ?Confirmed ?Type nebulizers (Altera Nebulizer #1 ea 09/06/19 05/02/25 H istory System) gabapentin 400 mg capsule 400 mg PO TID 05/14/2405/02 History cholecalciferol (vitamin D3) 1,250 50,000 unit PO D IRECTED 09/11/24 05/02/25 History mcg (50,000 unit) capsule pramipexole 1.5 mg tablet 3 mg PO HS 10/25/24 05/02/25 History hydrochlorothiazide 50 mg tablet 50 mg PO DAILY #90 ta bs 12/18/24 05/02/25 Rx carvedilol 25 mg tablet 25 mg PO BID #60 tabs 05/02/25 Rx budesonide 160 mcg-glycopyr 9 2 inh inhalation BID 90 days #10.7 02/18/25 05/02/25 Rx mcg-formot 4.8 mcg/actuation HFA grams inhaler (Breztri Aerosphere) spironolactone 25 mg tablet 25 mg PO DAILY #30 tabs 05/02/25 Rx (Aldactone) albuterol sulfate 90 mcg/actuation 2 inh inhalation QI DP PRN 05/02/25 05/02/25 History aerosol inhaler shortness of breath or wheez ing aspirin 81 mg tablet 81 mg PO DAILY 30 days #30 t abs 05/02/25 Rx clopidogrel 75 mg tablet (Plavix) 75 mg PO DAILY 30 da ys #30 tabs 05/02/25 Rx cyclobenzaprine 10 mg tablet 10 mg PO BID 05/02/25 History fluticasone propionate 50 2 spray intranasal DAILY 05/02/25 History mcg/actuation nasal spray,suspension hydralazine 100 mg tablet 100 mg PO TIDP PRN BP greate r than 05/02/25 05/02/25 History 160/100 hydrocodone 10 mg-acetaminophen 1 tab PO QID PRN Pain 05/02/25 05/02/25 History 325 mg tablet levocetirizine 5 mg tablet 5 mg PO DAILY 05/02/2504/04 History lisinopril 20 mg tablet 20 mg PO DAILY 05/02/2504/04 History New Prescriptions to Start Prescriptions: aspirin eJromy Miranda clopidogrel [Plavix] Jeromy Miranda Allergies Allergy/AdvReac Type Severity Reaction Status Date / Time No Known Drug Allergies Allergy Unknown Other Verified 05/02/25 08:25 (NKDA) Exam Data for Last 24 hours Vital signs and Labs for Last 24 Hours: Temp Pulse Resp BP Pulse Ox O2 Del Method 98.6 F 70 20 159/84 H 92 L Room Air 05/02/25 08:26 05/02/25 10:26 05/02/25 10:26 05/02/25 11:00 05/02/25 10:26 05/02/25 08:26 Laboratory Results - last 24 hr 05/02/25 : WBC 7.1, RBC 4.73, Hgb 14.0, Hct 41.5, MCV 87.7, MCH 29.6, MCHC 33.7, RDW 13.2, Plt Count 205, MPV 10.8 H, Neut % (Auto) 58.8, Lymph % (Auto) 23.4, [place] % (Auto) 9.0, Eos % (Auto) 7.4, Baso % (Auto) 1.1, Neut # (Auto) 4.2, Lymph # (Auto) 1.7, [place] # (Auto) 0.6, Eos # (Auto) 0.5 H, Baso # (Auto) 0.1, Sodium 136, Potassium 3.9, Chloride 102, Carbon Dioxide 31 H, Anion Gap 6.9, BUN 28 H, Creatinine 0.80, Estimated Creat Clear 69, Estimated GFR 72, Est GFR ( Amer) 87, Glucose 120 H, Calcium 10.0 I & O for Last 24 hours: Intake & Output 04/29/25 04/30/25 05/01/25 05/02/25 23:59 23:59 23:59 23:59 Weight 77.564 kg Constitutional Constitutional: no acute distress and cooperative *Routine HEENT Exam Head: Present normocephalic Eye: Present EOMI ENT: Present mucous membranes moist *Routine Neck Exam Neck: Present supple; Absent JVD or lymphadenopathy *Routine Respiratory Exam Respiratory: Present CTA bilaterally, normal respiratory effort, able to speak in complete sentences and symmetric chest movement *Routine Cardiovascular Exam Cardiovascular: Present RRR; Absent murmur *Routine Abdominal Exam Abdominal: Present soft and normoactive bowel sounds; Absent tenderness or distended *Routine Rectal Exam Rectal:: deferred *Routine Genitalia Exam Genitalia:: deferred *Routine Extremities Exam Extremities: Present edema (Trace bilateral lower extremity) and normal capillary refill; Absent clubbing or calf tenderness *Routine Skin Exam Skin: Present intact and dry; Absent rash Comments: Right groin cath site clean dry and intact *Routine Neurological Exam Neurological: Present alert, oriented X3, vision grossly intact, hearing grossly intact and normal speech Assessment and Plan *Assessment and plan (1) Renal artery stenosis: Status: Acute Category: Medical Code(s): I70.1 - Atherosclerosis of renal artery (2) Abnormal result of cardiovascular function study: Status: Acute Category: Medical Code(s): R94.30 - Abnormal result of cardiovascular function study, unspecified (3) History of stent insertion of renal artery: Status: Acute Category: Medical Code(s): Z98.890 - Other specified postprocedural states Plan Ms. Johanna Shaffer is a 64-year-old female who was admitted to the hospital today from the [facility] Sales [facility] after a right renal artery stent placement. She has a primary medical history of COPD, hypertension, hyperlipidemia, chronic pain, tobacco use disorder, renal artery stenosis, lung cancer, and degenerative disc disease. She was taken to the D[facility] outpatient today for a right renal artery stent placement for renal stenosis. It was successfully stented reducing the severe disease to 0% with 1 bare-metal balloon mounted stent. Per cardiology patient to start Plavix 75 mg and aspirin 81 mg daily for 1 month. Patient required groin access with a 6 [place] sheath and is required to lay supine for 6 hours. She is at high risk for bleeding. Therefore Dr. Miranda consulted myself for admission, I agreed plan of care as follows: #Renal artery stenosis #Abnormal zone of cardiovascular function study #History of stent insertion of renal artery ?Status post renal artery stent. Patient mostly flat till 6 PM. She denies pain. Bilateral pedal pulses intact, 2+. Groin dressing clean dry and intact, no hematoma noted. ?DAPT therapy initiated, Plavix 75 mg aspirin 81 mg ordered for the a.m. ?CBC, BMP, lipid panel, magnesium, PT/INR ordered for the a.m. #Hypertension ? Resume carvedilol 25 mg twice daily, HCTZ 50 mg daily, spironolactone 25 mg daily. #COPD ? Resume Breo inhaler and Anoro inhaler. ? DuoNebs ordered every 6 hours as needed for shortness of breath. Patient O2 saturation 96% on room air. #Chronic pain ? Resume gabapentin 400 mg 3 times daily, [place] 10/325 mg 4 times daily as needed, Flexeril 10 mg twice daily. Full code Cardiac diet Heparinized in the Dermatology Sales Representative?VTE
--- NOTE | 2025-05-02 12:26 | CA_ITS ---
FINAL REPORT CLINICAL HISTORY: left heart cath today with right femoral access. Rule out pseudoaneurysm/fistula. No knot present. Patient is still currently laying flat post cath. FINDINGS: Spectral and Doppler waveform evaluations of the right groin was performed. Spectral analysis was performed. No evidence of pseudoaneurysm. The right common femoral artery and vein are patent. No significant hematoma identified. IMPRESSION: No evidence of pseudoaneurysm or significant hematoma. Reviewed, Interpreted and Dictated by Heather Hitchcock MD Transcribed by Mery Hughes Authenticated and [facility]
--- NOTE | 2025-05-02 13:31 | HMH.PHAINT1 ---
Pharmacy Intervention Comments: MEDICATION RECONCILIATION COMPLETED ON PATIENT USING EXTERNAL FILL HISTORY FROM PHARMACY. -ELYSSA SHERIDAN, YASD
[2025-05-02] MEDS: IOPAMIDOL-370 (76%);100ML BOTTLE 50 ML IV (13:59)
[2025-05-02 14:00] LABS: CATHL Activated Clotting Time 311 SEC (74-125)
[2025-05-02] MEDS: CARVEDILOL 25MG TABLET 25 MG PO (20:51)
[2025-05-02] MEDS: CYCLOBENZAPRINE 10MG TABLET 10 MG PO (20:51)
[2025-05-02] MEDS: GABAPENTIN 400MG CAPSULE 400 MG PO (20:51)
[2025-05-03] VITALS: PULSE 80
[2025-05-03 04:00] VITALS: BP 135/68; PULSE 78; PULSE 80; RESP 18; TEMP 36.4; O2SAT 94; BMI 28.8
[2025-05-03 06:25] LABS: Hematocrit 39.0 % (37.0-47.0); Hemoglobin 13.0 g/dL (12.2-16.2); Immature Granulocytes % 0.3 %; Mean Corpuscular HGB Conc 33.3 g/dL (31.8-35.4); Mean Corpuscular Hemoglobin 29.1 pg (27.0-31.2); Mean Corpuscular Volume 87.2 fl (81-99); Nucleated Red Blood Cells % 0 %; Platelet Count 212 K/mm3 (142-424); Red Blood Count 4.47 M/mm3 (4.20-5.40); Red Cell Distribution Width-SD 42.2 fL; White Blood Count 9.1 K/mm3 (4.8-10.8)
[2025-05-03 06:26] LABS: Chloride 103 mmol/L (98-107); Potassium 4.2 mmoL/L (3.5-5.1); Sodium 134 mmol/L (136-145)
[2025-05-03 06:29] LABS: Anion Gap 8.2 mEq/L (5-15); Blood Urea Nitrogen 27 mg/dl (7-17); Carbon Dioxide 27 mmol/L (22.0-30.0); Creatinine Clearance Estimated 72 mL/min (50-200); Creatinine,Serum 0.80 mg/dl (0.52-1.04); Estimated Glomerular Filt Rate 72 ml/min (>60); GFR (African American) 87 ML/MIN (>60); INR 0.97 (0.9-1.1); Prothrombin Time 10.8 seconds (10.1-12.5)
[2025-05-03 06:30] LABS: Calcium 9.4 mg/dl (8.4-10.2); Glucose 118 mg/dl (74-100)
[2025-05-03 06:33] LABS: Cholesterol 225 mg/dl (140-200); HDL Cholesterol 51 mg/dl (40-60); Magnesium 2.1 mg/dl (1.6-2.3); Triglycerides 217 mg/dl (30-150)
[2025-05-03 08:00] VITALS: BP 132/76; PULSE 79; RESP 16; TEMP 36.7; O2SAT 93
[2025-05-03] MEDS: FLUTICASONE PROP 50MCG NASAL SPRAY 16GM 2 SPRAY NS (08:12)
[2025-05-03] MEDS: GABAPENTIN 400MG CAPSULE 400 MG PO (08:13)
[2025-05-03] MEDS: CYCLOBENZAPRINE 10MG TABLET 10 MG PO (08:13)
[2025-05-03] MEDS: LORATADINE 10MG TABLET 10 MG PO (08:13)
[2025-05-03] MEDS: SPIRONOLACTONE 25MG TABLET 25 MG PO (08:13)
[2025-05-03] MEDS: ASPIRIN EC 81MG TABLET 81 MG PO (08:13)
[2025-05-03] MEDS: CLOPIDOGREL 75MG TAB 75 MG PO (08:13)
[2025-05-03] MEDS: LISINOPRIL 20MG TABLET 20 MG PO (08:13)
[2025-05-03] MEDS: CARVEDILOL 25MG TABLET 25 MG PO (08:13)
[2025-05-03 08:16] VITALS: BP 126/68
--- NOTE | 2025-05-03 08:27 | P.DS_ITS ---
<Statement entered by Kam Perez MD - 05/04/25 17:19> Agree with [employer] note as documented General Admission date:: 05/02/25 Discharge date: 05/03/25 HPI HPI HPI: Ms. Johanna Shaffer is a 64-year-old female who was admitted to the hospital today from the [facility] after a right renal artery stent placement. She has a primary medical history of COPD, hypertension, hyperlipidemia, chronic pain, tobacco use disorder, renal artery stenosis, lung cancer, and degenerative disc disease. She was taken to the [facility] outpatient today for a right renal artery stent placement for renal stenosis. It was successfully stented reducing the severe disease to 0% with 1 bare-metal balloon mounted stent. Per cardiology patient to start Plavix 75 mg and aspirin 81 mg daily for 1 month. Patient required groin access with a 6 [place] sheath and is required to lay supine for 6 hours. She is at high risk for bleeding. Therefore Dr. Miranda consulted myself for admission. Hospital Course Hospital Course Hospital Course: Ms. Shaffer is a 64-year-old female who was admitted to the hospital yesterday status post right renal artery stent placement. She has a primary medical history of COPD, hypertension, hyperlipidemia, chronic pain, tobacco use disorder, renal artery stenosis, lung cancer, and degenerative disc disease. She was taken to the [facility] yesterday for an outpatient procedure. She had successful stenting of her right renal artery. Cardiology requested admission due to high risk of bleeding. Patient was admitted for further monitoring and management. #Renal artery stenosis #Abnormal zone of cardiovascular function study #History of stent insertion of renal artery ?Status post renal artery stent. Patient laid flat till 6 PM yesterday afternoon, was slowly allowed to sit up and ambulate. She feels well today, no complaints of pain. She does have bruising to her right groin. No hematoma noted. Bilateral pedal pulses intact, 2+. No signs of bleeding noted. ?Patient will be discharged home on DAPT therapy, Plavix 75 mg and aspirin 81 mg. ?Patient will also be discharged home on Lipitor 40 mg daily. ?Patient will follow-up with cardiology in 1 to 2 weeks for repeat labs and monitoring. ?Patient's vital signs have been within normal limits. Arterial ultrasound shows no evidence of pseudoaneurysm or significant hematoma. #Hypertension ? Continue carvedilol 25 mg twice daily, HCTZ 50 mg daily, spironolactone 25 mg daily. #COPD ? Continue Breo inhaler and Anoro inhaler. #Chronic pain ? Continue gabapentin 400 mg 3 times daily, [place] 10/325 mg 4 times daily as needed, Flexeril 10 mg twice daily. Exam Data for Last 24 hours Vital signs and Labs for Last 24 Hours: Temp Pulse Resp BP Pulse Ox O2 Del Method 97.6 F 78 18 126/68 94 L Room Air 05/03/25 04:00 05/03/25 04:00 05/03/25 04:00 05/03/25 08:16 05/03/25 04:00 05/03/25 08:00 Laboratory Results - last 24 hr 05/02/25 10:01: Activated Clotting Time 311 H* 05/02/25 : WBC 7.1, RBC 4.73, Hgb 14.0, Hct 41.5, MCV 87.7, MCH 29.6, MCHC 33.7, RDW 13.2, Plt Count 205, MPV 10.8 H, Neut % (Auto) 58.8, Lymph % (Auto) 23.4, [place] % (Auto) 9.0, Eos % (Auto) 7.4, Baso % (Auto) 1.1, Neut # (Auto) 4.2, Lymph # (Auto) 1.7, [place] # (Auto) 0.6, Eos # (Auto) 0.5 H, Baso # (Auto) 0.1, Sodium 136, Potassium 3.9, Chloride 102, Carbon Dioxide 31 H, Anion Gap 6.9, BUN 28 H, Creatinine 0.80, Estimated Creat Clear 69, Estimated GFR 72, Est GFR ( Amer) 87, Glucose 120 H, Calcium 10.0 05/03/25 05:35: WBC 9.1 D, RBC 4.47, Hgb 13.0, Hct 39.0, MCV 87.2, MCH 29.1, MCHC 33.3, RDW 13.2, Plt Count 212, MPV 11.3 H, Neut % (Auto) 68.5, Lymph % (Auto) 16.9, [place] % (Auto) 8.6, Eos % (Auto) 5.2, Baso % (Auto) 0.5, Neut # (Auto) 6.3, Lymph # (Auto) 1.5, [place] # (Auto) 0.8, Eos # (Auto) 0.5 H, Baso # (Auto) 0.1, PT 10.8, INR 0.97, Sodium 134 L, Potassium 4.2, Chloride 103, Carbon Dioxide 27, Anion Gap 8.2, BUN 27 H, Creatinine 0.80, Estimated Creat Clear 72, Estimated GFR 72, Est GFR ( Amer) 87, Glucose 118 H, Calcium 9.4, Magnesium 2.1, Triglycerides 217 H, Cholesterol 225 H, LDL Cholesterol Direct 109.64, VLDL Cholesterol 43 H, HDL Cholesterol 51, Cholesterol/HDL Ratio 4.4 H I & O for Last 24 hours: Intake & Output 04/30/25 05/01/25 05/02/25 05/03/25 23:59 23:59 23:59 23:59 Intake Total 240 / 480 240 / 240 Output Total 1500 / 1500 0 / 0 Balance -1260 / -1020 240 / 240 Weight 77.564 kg 81.329 kg Constitutional Constitutional: no acute distress, chronically ill appearing and cooperative *Routine HEENT Exam Head: Present normocephalic Eye: Present EOMI ENT: Present mucous membranes moist *Routine Neck Exam Neck: Present supple and full ROM *Routine Respiratory Exam Respiratory: Present CTA bilaterally, able to speak in complete sentences and symmetric chest movement; Absent wheezes or crackles *Routine Cardiovascular Exam Cardiovascular: Present RRR, Normal S1 and Normal S2; Absent murmur *Routine Abdominal Exam Abdominal: Present soft and normoactive bowel sounds; Absent tenderness or distended *Routine Extremities Exam Extremities: Present pulses intact; Absent edema *Routine Skin Exam Skin: Present intact and dry Comments: Bruising right groin *Routine Neurological Exam Neurological: Present alert, oriented X3, vision grossly intact and hearing grossly intact Results Data Completed and Pending Labs on day of discharge: Labs from last 24 hours 05/03/25 05/02/25 05/02/25 05:35 Unknown 10:01 WBC 9.1 D 7.1 RBC 4.47 4.73 Hgb 13.0 14.0 Hct 39.0 41.5 MCV 87.2 87.7 MCH 29.1 29.6 MCHC 33.3 33.7 RDW 13.2 13.2 Plt Count 212 205 MPV 11.3 H 10.8 H Neut % (Auto) 68.5 58.8 Lymph % (Auto) 16.9 23.4 [place] % (Auto) 8.6 9.0 Eos % (Auto) 5.2 7.4 Baso % (Auto) 0.5 1.1 Neut # (Auto) 6.3 4.2 Lymph # (Auto) 1.5 1.7 [place] # (Auto) 0.8 0.6 Eos # (Auto) 0.5 H 0.5 H Baso # (Auto) 0.1 0.1 PT 10.8 INR 0.97 Activated Clotting Time 311 H* Sodium 134 L 136 Potassium 4.2 3.9 Chloride 103 102 Carbon Dioxide 27 31 H Anion Gap 8.2 6.9 BUN 27 H 28 H Creatinine 0.80 0.80 Estimated Creat Clear 72 69 Estimated GFR 72 72 Est GFR ( Amer) 87 87 Glucose 118 H 120 H Calcium 9.4 10.0 Magnesium 2.1 Triglycerides 217 H Cholesterol 225 H LDL Cholesterol Direct 109.64 VLDL Cholesterol 43 H HDL Cholesterol 51 Cholesterol/HDL Ratio 4.4 H DS: Diagnosis Discharge Diagnosis (1) Renal artery stenosis: Status: Acute Code(s): I70.1 - Atherosclerosis of renal artery (2) Abnormal result of cardiovascular function study: Status: Acute Code(s): R94.30 - Abnormal result of cardiovascular function study, unspecified (3) History of stent insertion of renal artery: Status: Acute Code(s): Z98.890 - Other specified postprocedural states Meds Home Medications and Allergies Home Medications ?Medication ?Instructions ?Recorded ?Confirmed ?Type nebulizers (Altera Nebulizer #1 ea 09/06/19 05/02/25 H istory System) gabapentin 400 mg capsule 400 mg PO TID 05/14/2405/02 History cholecalciferol (vitamin D3) 1,250 50,000 unit PO D IRECTED 09/11/24 05/02/25 History mcg (50,000 unit) capsule pramipexole 1.5 mg tablet 3 mg PO HS 10/25/24 05/02/25 History hydrochlorothiazide 50 mg tablet 50 mg PO DAILY #90 ta bs 12/18/24 05/02/25 Rx carvedilol 25 mg tablet 25 mg PO BID #60 tabs 05/02/25 Rx budesonide 160 mcg-glycopyr 9 2 inh inhalation BID 90 days #10.7 02/18/25 05/02/25 Rx mcg-formot 4.8 mcg/actuation HFA grams inhaler (Breztri Aerosphere) spironolactone 25 mg tablet 25 mg PO DAILY #30 tabs 05/02/25 Rx (Aldactone) albuterol sulfate 90 mcg/actuation 2 inh inhalation QI DP PRN 05/02/25 05/02/25 History aerosol inhaler shortness of breath or wheez ing aspirin 81 mg tablet 81 mg PO DAILY 30 days #30 t abs 05/02/25 Rx clopidogrel 75 mg tablet (Plavix) 75 mg PO DAILY 30 da ys #30 tabs 05/02/25 Rx cyclobenzaprine 10 mg tablet 10 mg PO BID 05/02/25 History fluticasone propionate 50 2 spray intranasal DAILY 05/02/25 History mcg/actuation nasal spray,suspension hydralazine 100 mg tablet 100 mg PO TIDP PRN BP greate r than 05/02/25 05/02/25 History 160/100 hydrocodone 10 mg-acetaminophen 1 tab PO QID PRN Pain 05/02/25 05/02/25 History 325 mg tablet levocetirizine 5 mg tablet 5 mg PO DAILY 05/02/2504/04 History lisinopril 20 mg tablet 20 mg PO DAILY 05/02/2504/04 History atorvastatin 40 mg tablet (Lipitor) 40 mg PO HS #30 ta bs 05/03/25 Rx New Prescriptions to Start Prescriptions: aspirin Jeromy Miranda atorvastatin [Lipitor] Mireya Montalvo clopidogrel [Plavix] Jeromy Miranda Allergies Allergy/AdvReac Type Severity Reaction Status Date / Time No Known Drug Allergies Allergy Unknown Other Verified 05/02/25 08:25 (NKDA) Discharge Plan Disposition Patient Disposition: Home, Self-Care Condition: Fair Follow up Plan Follow up with: Kim Pineda APRN [Primary Care Provider, Medical] - Enter time for follow up Jeromy Miranda MD [Staff Physician, Cardiology] - 05/08/25 1:45 pm Prescriptions/Medication Reconciliation: New clopidogrel [Plavix] 75 mg Tablet 75 mg PO DAILY 30 Days Qty: 30 6RF aspirin 81 mg Tablet 81 mg PO DAILY 30 Days Qty: 30 6RF atorvastatin [Lipitor] 40 mg tablet 40 mg PO HS Qty: 30 0RF Continued gabapentin 400 mg capsule 400 mg PO TID cholecalciferol (vitamin D3) 1,250 mcg (50,000 unit) capsule 50,000 unit PO DIRECTED Rx Instructions: TWICE WEEKLY pramipexole 1.5 mg tablet 3 mg PO HS carvedilol 25 mg tablet 25 mg PO BID Qty: 60 5RF Rx Instructions: must administer with a meal/food spironolactone [Aldactone] 25 mg tablet 25 mg PO DAILY Qty: 30 2RF (DME) Altera Nebulizer System Misc See Dose Instructions .ROUTE .MEDSUPPLY Qty: 1 Dose Instruction: As directed Rx Instructions: As directed hydrochlorothiazide 50 mg tablet 50 mg PO DAILY Qty: 90 3RF Breztri Aerosphere 160-9-4.8 mcg/actuation HFA aerosol inhaler 2 inh inhalation BID 90 Days Qty: 10.7 3RF hydralazine 100 mg tablet 100 mg PO TIDP PRN (Reason: BP greater than 160/100) albuterol sulfate 90 mcg/actuation HFA aerosol inhaler 2 inh inhalation QIDP PRN (Reason: shortness of breath or wheezing) fluticasone propionate 50 mcg/actuation spray,suspension 2 spray intranasal DAILY levocetirizine 5 mg tablet 5 mg PO DAILY hydrocodone-acetaminophen 10-325 mg tablet 1 tab PO QID PRN (Reason: Pain) Patient Comments: TAKE 1 TABLET BY MOUTH EVERY 6 HOURS FOR 10 DAYS lisinopril 20 mg tablet 20 mg PO DAILY cyclobenzaprine 10 mg tablet 10 mg PO BID Rx Instructions: pt takes 1 pill in am and 2 pills hs Problem Reconciliation Problems Reviewed?: Yes Patient Discharge Instructions ACTIVITY: Continue current activity DIET: continue same diet Patient Instructions: DI for Surgical Site Infection, DI for Moderate Sedation, DI for Renal Artery Stenosis, Stop Light Infection Print Language: Cymraes Providers Primary Care Provider: Kim Pineda Admit Provider: Jeromy Miranda Attending Provider: Kam Perez
--- NOTE | 2025-05-06 13:15 | SW/DCPLANNER ---
Spoke with patient on the phone. Patient stated that she is doing good. Patient stated that she is aware of her upcoming appointments. Patient stated that she was able to get her new medicine picked up. patient stated that she has no concerns or questions at this time. Chino Mcduffie
== END 2025-05-03 11:54 | disposition home or self-care (01) ==
LOC: 2ND 12:52
PROVIDERS: Admitting Provider Internal Medicine; PCP Nurse Practitioner; Visit Provider Internal Medicine
DX: I70.1 Atherosclerosis of renal artery (principal); I15.0 Renovascular hypertension; I10 Essential (primary) hypertension; R09.89 Other specified symptoms and signs involving the circulatory and respiratory systems; R60.0 Localized edema; J44.89 Other specified chronic obstructive pulmonary disease; G25.81 Restless legs syndrome; J43.9 Emphysema, unspecified; R94.30 Abnormal result of cardiovascular function study, unspecified; E78.5 Hyperlipidemia, unspecified; G89.29 Other chronic pain; F17.210 Nicotine dependence, cigarettes, uncomplicated; Z96.89 Presence of other specified functional implants; Z85.118 Personal history of other malignant neoplasm of bronchus and lung; Z98.890 Other specified postprocedural states; Z82.49 Family history of ischemic heart disease and other diseases of the circulatory system; Z79.899 Other long term (current) drug therapy; Z79.51 Long term (current) use of inhaled steroids
CPT/HCPCS: 36252; 36415; 37236; 80048; 80061; 83735; 85025; 85347; 85610; 93926; 96361; 96374; 96375; 96376; 99152; 99285; C1725; C1769; C1876; C1887; C1894; G0378; J1200; J1644; J2003; J2720; J3010; J7040; Q9967

== ENCOUNTER 2025-05-14 10:18 | Outpatient (CLI) | payer MEDICARE, MEDICAID, SELFPAY ==
--- OUTSIDE RECORDS SUMMARY | 2025-03-28 08:30 | XMS_ITS | Encounter Summary ---
Author Organization [facility] Address [address] [place] [address] Care Team Providers Care Motel Front Desk Attendant Name Role Phone Jt Jauregui MD Primary Care Provider [phone] Reason for Referral * Imaging (Routine) - Closed Specialty Diagnoses / Procedures Referred By Fredisac mode Referred To Contact Radiology Diagnoses Non-small cell carcinoma of left lung Procedures CT Chest wo IV Contrast Joni Prado DO [address] [address] Phone: tel: fax: Referral ID Status Reason Start Date Expiration Date Visits Re quested Visits Authorized [id number] Closed 11/29/2024 05/31/2026 1 1 Reason for Visit * Imaging (Routine) - Closed Specialty Diagnoses / Procedures Referred By Contac mode Referred To Contact Radiology Diagnoses Non-small cell carcinoma of left lung Procedures CT Chest wo IV Contrast Joni Prado DO [address] [address] Phone: tel: fax: Referral ID Status Reason Start Date Expiration Date Visits Re quested Visits Authorized [id number] Closed 11/29/2024 05/31/2026 1 1 Encounter Details Date Type Department Care Team (Latest Contact Info) Description 03/28/2025 8:30 AM EDT - 03/28/2025 11:59 PM EDT Hospital Encounter [facility] [address] [place] [address] Non-small cell carcinoma of left [...] place to sleep or slept in a care home (including now)? No 10/20/2023 CAGE ASSESSMENT Answer [...] drink first t tello in the morning (EYE-RESEARCH ENVIRONMENTAL ENGINEER) to steady your nerves or to get rid of a hangover? 0 10/19/2023 CAGE Questionnaire Score 0 024 Utilities Answer Date Recorded In the past 12 months has th e [employer], gas, oil, or water company threatened to [...] tablet by mouth daily. 5 HYDROcodone-acetami nophen ([place]) 10-325 MG tablet TAKE 1 TABLET BY [...] % ointment 4 Vitamin D3 1.25 MG (16990 UT) capsule 4 documented as of this encounter Plan of Treatment Upcoming Encounters Date Type Department Care Team (Latest Contact Info) Description 05/21/2025 7:30 AM EDT Hospital Encounter [facility] [address] [place] [phone] Kevin Khan MD [address] [place] [phone] 05/21/2025 7:30 AM EDT - 05/21/2025 10:00 AM EDT Surgery [facility] [address] [place] [phone] Kevin Khan MD [address] [place] [phone] ION Robotic Bronch, Radial US, [place], BAL, Biopsy, Needle, EBUS TBNA, CIOS / 3D fluoroscopy [14529 (CPT )] 07/25/2025 9:20 AM EDT Appointment [facility] [address] [place] [address] 07/25/2025 10:30 AM EDT Office Visit [facility] [address] [facility], [address] [place] [address] Joni Prado, DO [address] [address] Scheduled Procedures Name Priority Associated Diagnoses Date/Ti me BRONCHOSCOPY, NAVIGATIONAL Lung nodule 05/21/2025 7:30 AM EDT documented as of this encounter Procedures Procedure [...] signing this report, I, the attending physician, marlyn I have personally reviewed the images/data for the aboveexamination(s) and agree with the final edited report. Drafted by RAMÓN Lozano on 03/28/2025 9:04 AM Final report signed by Michael Castellanos MD on 03/28/2025 11:21 AM Joni Prado DO IMG CT PROCEDURES Final Resul t documented in this encounter Visit Diagnoses Diagnosis Non-small cell carcinoma of left lung Lung nodule Other diseases of lung, not elsewhere classified documented in this encounter Additional Health Concerns Assessment Noted Time A fall risk assessment has been complete d for the patient 03/28/2025 9:20 AM EDT A Body Mass Index follow-up plan has been documented for the patient 04/08/2025 7:05 AM EDT documented as of this encounter Care Teams Motel Front Desk Attendant Relationship Specialty Start Date End Date Jt Jauregui MD [address] [place] [id number] PCP - General Family Medicine 12/29/23 documented as of this encounter
--- OUTSIDE RECORDS SUMMARY | 2025-03-28 10:00 | XMS_ITS | Encounter Summary ---
Author Organization [facility] Address [address] [place] [address] Care Team Providers Care Railway Signal Electrician Name Role Phone Jt Jauregui MD Primary Care Provider Reason for Referral * Imaging (Routine) - Pending Review Specialty Diagnoses / Procedures Referred By Stuart coello Referred To Contact Radiology Diagnoses Non-small cell carcinoma of left lung Procedures CT Chest wo IV Contrast Joni Prado DO [address] [address] Phone: tel: fax: Referral ID Status Reason Start Date Expiration Date V isits Requested Visits Authorized [id number] Pending Review 03/28/2025 09/27/2026 1 1 Reason for Visit * Reason Comments Follow-up Encounter Details Date Type Department Care Team ([facility] st Contact Info) Description 03/28/2025 10:00 AM EDT Office Visit [facility] Neck [facility] Respiratory 800 [facility], 2nd [place] [address] Joni Prado DO [address] [address] Non-small cell carcinoma of left [...] place to sleep or slept in a correction (including now)? No 10/20/2023 CAGE ASSESSMENT Answer [...] drink first t tello in the morning (EYE-CUSTOMER CARE ASSISTANT) to steady your nerves or to get rid of a hangover? 0 10/19/2023 CAGE Questionnaire Score 0 024 Utilities Answer Date Recorded In the past 12 months has e [employer], gas, oil, or water [employer] threatened to shut off services in your [...] from the original note were not included. [facility] of [facility] Department of Surgery Section of Thoracic Surgery [...] Hospital Encounter [facility] OPERATING ROOM [address] [place] [address] Kevin Khan MD [address] [place] [address] 05/21/2025 7:30 AM EDT - 05/21/2025 10:00 AM EDT Surgery [facility] OPERATING ROOM [address] [place] [address] Kevin Khan MD [facility] [place] [address] ION Robotic Bronch, Radial US, [place], BAL, Biopsy, Needle, EBUS TBNA, CIOS / 3D fluoroscopy [44019 (CPT )] 07/25/2025 9:20 AM EDT Appointment [facility] Radiology [address] [place] [address] 07/25/2025 10:30 AM EDT Office Visit [facility] Head[facility] Neck [facility] Respiratory 800 [facility], 2nd [place] [address] Joni Prado, 800 [facility] 1st [place] [address] Scheduled Orders Name Type Priority Associated Diagnoses Orde r Schedule CT Chest wo IV Contrast Imaging Routine Non-small cell carcinoma of left lung (CMS/HCC) Expected: 07/28/2025 (Approximate), Expires: 09/29/2026 Scheduled Procedures Name Priority Associated Diagnoses Date/Ti me BRONCHOSCOPY, NAVIGATIONAL Lung nodule 05/21/2025 7:30 AM EDT documented as of this encounter Visit Diagnoses [...] documented as of this encounter Care Teams Railway Signal Electrician Relationship Specialty Start Date End Date Jt Jauregui MD [address] [place] [address] PCP - General Family Medicine 12/29/23 documented as of this encounter
--- OUTSIDE RECORDS SUMMARY | 2025-05-09 10:15 | XMS_ITS | Encounter Summary ---
Author Organization Healthcare Address [address] [id number] Care Team Providers Care Warp Tier Name Role Phone Jt Jauregui MD Primary Care Provider Reason for Visit * Reason Comments Follow-up Encounter Details Date Type Department Care Team ([facility] st Contact Info) Description 05/09/2025 10:15 AM EDT Office Visit Pav CC Head, Neck & Respiratory [address] [place] [address] Joni Prado, DO 800 [facility] 1st [place] [address] Non-small cell carcinoma of left lung Social [...] drink first t tello in the morning (EYE-FACILITY SUPERVISOR) to steady your nerves or to get [...] from the original note were not included. [facility] Department of Surgery Section [...] Hospital Encounter PAV A OPERATING ROOM 800 [place] [phone] Kevin Khan MD [facility] [place] [phone] 05/21/2025 7:30 AM EDT - 05/21/2025 10:00 AM EDT Surgery [facility] A OPERATING ROOM [address] [place] [address] Kevin Khan MD [facility] [place] [address] ION Robotic Bronch, Radial US, [place], BAL, Biopsy, Needle, EBUS TBNA, CIOS / 3D fluoroscopy [46822 (CPT )] 07/25/2025 9:20 AM EDT Appointment PAV A Radiology [address] [place] [phone] 07/25/2025 10:30 AM EDT Office Visit Pav CC Head, Neck & Respiratory 800 [facility], 2nd [place] [address] Joni Prado, DO 800 [facility] 1[address] [place] [phone] Scheduled Procedures Name Priority Associated Diagnoses Date/Ti [...] documented as of this encounter Care Teams Warp Tier Relationship Specialty Start Date End Date Jt Jauregui MD [address] [place] [address] PCP - General Family Medicine 12/29/23 documented as of this encounter
--- OUTSIDE RECORDS SUMMARY | 2025-05-14 10:29 | XMS_ITS | Encounter Summary ---
Author Organization Healthcare Address [address] [place] [address] Care Team Providers Care Wire Lather Name Role Phone Jt Jauregui MD Primary Care Provider [phone] Encounter Details Date Type Department Care Team (Latest Contact Info) Description 05/09/2025 Travel Social History Tobacco Use Types Packs/Day [...] place to sleep or slept in a usp (including now)? No 10/20/2023 CAGE ASSESSMENT Answer [...] drink first t tello in the morning (EYE-WILDLIFE CONSERVATION PROFESSOR) to steady your nerves or to get [...] Hospital Encounter PAV A OPERATING ROOM 800 [place] [address] Kevin Khan MD [address] [place] [address] 05/21/2025 7:30 AM EDT - 05/21/2025 10:00 AM EDT Surgery PAV A OPERATING ROOM [address] [place] [address] Kevin Khan MD [address] [place] [address] ION Robotic Bronch, Radial US, [place], BAL, Biopsy, Needle, EBUS TBNA, CIOS / 3D fluoroscopy [99160 (CPT )] 07/25/2025 9:20 AM EDT Appointment PAV A Radiology [address] [place] [phone] 07/25/2025 10:30 AM EDT Office Visit Pav CC Head, Neck & Respiratory 800 [facility], 2nd [place] [address] Joni Prado D, DO [address] [address] Scheduled Procedures Name Priority Associated Diagnoses Date/Ti [...] documented as of this encounter Care Teams Wire Lather Relationship Specialty Start Date End Date Jt Jauregui MD [address] [facility] [address] [place] [address] PCP - General Family Medicine 12/29/23 documented as of this encounter
--- OUTSIDE RECORDS SUMMARY | 2025-05-14 10:29 | XMS_ITS | Encounter Summary ---
Author Organization Healthcare Address [address] [place] [address] Care Team Providers Care Home Health Nurse Licensed Practical Name Role Phone Jt Jauregui MD Primary Care Provider Encounter Details Date Type Department Care Team ([facility] st Contact Info) Description 05/14/2025 Telephone Pav CC Head, Neck & Respiratory 800 [facility], 2nd [place] [address] Nereyda Perez, RN [facility] Social History Tobacco Use Types Packs/Day Years [...] drink first t tello in the morning (EYE-DRY WALL APPLICATOR) to steady your nerves or to get [...] Telephone Encounter - Nereyda Perez RN - 05/14/2025 9:11 AM EDT RN LVM informing of education for 05/21 and also sent through [employer]. RN gave number to call if reschedule is needed. documented in this encounter Plan of Treatment Upcoming Encounters Date Type Department Care Team (Latest Contact Info) Description 05/21/2025 7:30 AM EDT Hospital Encounter PAV A OPERATING ROOM 800 [place] [address] Kevin Khan MD [address] [place] [address] 05/21/2025 7:30 AM EDT - 05/21/2025 10:00 AM EDT Surgery PAV A OPERATING ROOM [address] [place] [address] Kevin Khan MD [address] [place] [address] ION Robotic Bronch, Radial US, [place], BAL, Biopsy, Needle, EBUS TBNA, CIOS / 3D fluoroscopy [95633 (CPT )] 07/25/2025 9:20 AM EDT Appointment PAV A Radiology [address] [phone] 07/25/2025 10:30 AM EDT Office Visit Pav CC Head, Neck & Respiratory 800 [facility], 2nd [place] [address] Joni Prado, DO 800 [facility] [address] [place] [address] Scheduled Procedures Name Priority Associated Diagnoses Date/Ti me BRONCHOSCOPY, NAVIGATIONAL Lung nodule 05/21/2025 7:30 AM EDT documented as of this encounter Goals Goal Patient Goal Type Associated Problems Recent Progress Patient-Stated? Author Autogenera iftikhar Goal Care Plan Autogenerated Problem No Gina Galdamez RN documented as of this encounter Visit Diagnoses Not on filedocumented in this encounter Additional Health Concerns Active Problems Noted Date Diagnosed Date Autogenerated Problem 05/10/2025 Assessment Noted Time A fall risk assessment has been complete d for the patient 05/09/2025 9:43 AM EDT A Body Mass Index follow-up plan has been documented for the patient 05/10/2025 10:38 AM EDT documented as of this encounter Care Teams Home Health Nurse Licensed Practical Relationship Specialty Start Date End Date Jt Jauregui MD [address] [place] [address] PCP - General Family Medicine 12/29/23 documented as of this encounter
--- OUTSIDE RECORDS SUMMARY | 2025-05-14 10:29 | XMS_ITS | Encounter Summary ---
Author Organization Healthcare Address [address] [place] [address] Care Team Providers Care Bulb Planter Name Role Phone None, None Primary Care Provider [phone] Jt Jauregui MD Primary Care Provider Encounter Details Date Type Department Care Team (Late st Contact Info) Description 04/06/2023 Orders Only External Location [address] [place] [address] Jerilyn Alejandre, SHOTGUN SHELL LOADING MACHINE OPERATOR [address] [place] [address] Social History Tobacco Use Types Packs/Day Years [...] Hospital Encounter PAV A OPERATING ROOM [address] [place] [address] Kevin Khan MD [address] [place] [address] 05/21/2025 7:30 AM EDT - 05/21/2025 10:00 AM EDT Surgery PAV A OPERATING ROOM [address] [place] [address] Kevin Khan MD [address] [place] [address] ION Robotic Bronch, Radial US, [place], BAL, Biopsy, Needle, EBUS TBNA, CIOS / 3D fluoroscopy [[id number] (CPT )] 07/25/2025 9:20 AM EDT Appointment PAV A Radiology [address] [place] [phone] 07/25/2025 10:30 AM EDT Office Visit Pav CC Head, Neck & Respiratory 800 [facility], 2nd [place] [address] Joni Prado, DO 800 [facility] [address] [place] [address] Scheduled Procedures Name Priority Associated [...] 10:5 2 AM EDT us Jerilyn Alejandre SHOTGUN SHELL LOADING MACHINE OPERATOR IMG CT PROCEDURES Final Re sult documented in this encounter Visit Diagnoses Not on filedocumented in this encounter Care Teams Bulb Planter Relationship Specialty Start Date End Date None, None [address] [place] [address] PCP - General NONE FOUND 08/11/23 12/28/23 Jt Jauregui MD [address] [place] [address] [place] [address] PCP - General Family Medicine 12/29/23 documented as of this encounter
--- OUTSIDE RECORDS SUMMARY | 2025-05-14 10:30 | XMS_ITS | Encounter Summary ---
Author Organization Healthcare Address [address] [place] [address] Care Team Providers Care Rn Community Name Role Phone Jt Jauregui MD Primary Care Provider [phone] Encounter Details Date Type Department Care Team (Late st Contact Info) Description 05/06/2025 Orders Only External Location [address] [place] [address] Provider, External Social History Tobacco Use Types Packs/Day Years [...] place to sleep or slept in a senior care (including now)? No 10/20/2023 CAGE ASSESSMENT Answer [...] drink first t tello in the morning (EYE-DESKTOP SUPPORT TECHNICIAN) to steady your nerves or to get [...] Hospital Encounter PAV A OPERATING ROOM [address] [place] [phone] Kevin Khan MD [address] [place] [address] 05/21/2025 7:30 AM EDT - 05/21/2025 10:00 AM EDT Surgery PAV A OPERATING ROOM [address] [place] [address] Kevin Khan MD [address] [place] [address] ION Robotic Bronch, Radial US, [place], BAL, Biopsy, Needle, EBUS TBNA, CIOS / 3D fluoroscopy [[id number] (CPT )] 07/25/2025 9:20 AM EDT Appointment PAV A Radiology [address] [place] [address] 07/25/2025 10:30 AM EDT Office Visit Pav CC Head, Neck & Respiratory 800 [facility], [address] [place] [phone] Joni Prado, DO 800 [facility] [address] [place] [address] Scheduled Procedures Name Priority Associated Diagnoses Date/Ti me BRONCHOSCOPY, NAVIGATIONAL Lung nodule 05/21/2025 7:30 AM EDT documented as of this encounter Procedures Procedure Name Priority Date/Time Associated Diagnosis Comments CT OUTSIDE IMAGES 05/06/2025 9:43 AM EDT documented in this encounter Results * CT OUTSIDE IMAGES (05/06/2025 9:43 AM EDT) Anatomical Region Laterality Modality Computed Tomogra phy 05/06/2025 9:43 AM EDT us External Provider IMG CT PROCEDURES Final Result documented in this encounter Visit Diagnoses Not on filedocumented in this encounter Additional Health Concerns Assessment Noted Time A fall risk assessment has been complete d for the patient 03/28/2025 9:20 AM EDT A Body Mass Index follow-up plan has been documented for the patient 04/08/2025 7:05 AM EDT documented as of this encounter Care Teams Rn Community Relationship Specialty Start Date End Date Jt Jauregui MD [address] [place] [address] [place] [address] PCP - General Family Medicine 12/29/23 documented as of this encounter
--- OUTSIDE RECORDS SUMMARY | 2025-05-14 10:30 | XMS_ITS | Encounter Summary ---
Author Organization Healthcare Address [address] [place] [address] Care Team Providers Care Gripper Installer Name Role Phone Jt Jauregui MD Primary Care Provider [phone] Encounter Details Date Type Department Care Team [...] drink first t tello in the morning (EYE-FLAVORING MACHINE OPERATOR) to steady your nerves or to [...] Hospital Encounter PAV A OPERATING ROOM [address] [place] [address] Kevin Khan MD [address] [place] [address] 05/21/2025 7:30 AM EDT - 05/21/2025 10:00 AM EDT Surgery PAV A OPERATING ROOM [address] [place] [address] Kevin Khan MD [address] [place] [address] ION Robotic Bronch, Radial US, [place], BAL, Biopsy, Needle, EBUS TBNA, CIOS / 3D fluoroscopy [[id number] (CPT )] 07/25/2025 9:20 AM EDT Appointment PAV A Radiology [address] [place] [phone] 07/25/2025 10:30 AM EDT Office Visit Pav CC Head, Neck & Respiratory 800 [facility], 2nd [place] [address] Joni Prado D, DO [address] [address] Scheduled Procedures Name Priority Associated [...] documented as of this encounter Care Teams Gripper Installer Relationship Specialty Start Date End Date Jt Jauregui MD [address] [facility] [address] [place] [address] PCP - General Family Medicine 12/29/23 documented as of this encounter
--- OUTSIDE RECORDS SUMMARY | 2025-05-14 10:30 | XMS_ITS | Clinical Summary ---
Author Organization [facility] Address [address] [place] [address] Care Team Providers Care Company Laborer Name Role Phone Jt Jauregui MD Primary Care Provider [phone] Allergies No known active allergies Medications Anoro [...] Active Additional Information Patient not taking.Reported on 05/09/2025 ondansetron ODT (Zofran-ODT) 4 MG disintegrating tablet Take 1 tablet (4 mg) by mouth every 6 (six) hours if needed for nausea or vomiting. 20 tablet 10/21/19 Active Additional Information Patient not taking.Reported on 05/09/2025 naloxone (Narcan) 4 mg/0.1 mL nasal spray 1. Give 1 spray in nostril for no/slow breathing or cannot wake after opioid use 2. Call 911 3. Repeat in other nostril if symptoms continue 1 each 10/21/19 Active Additional Information Patient not taking.Reported on 05/09/2025 oxyCODONE (Roxicodone) 5 MG immediate release tablet Take 1 tablet (5 mg) by mouth every 6 (six) hours if needed for severe pain for up to 16 doses. 16 tablet 10/24/19 Active Additional Information Patient not taking.Reported on 05/09/2025 oxygen (O2) gas Inhale 2 L/min every night at 120,000 mL/hr. via nasal canula Active Vitamin D3 1.25 MG (74826 UT) capsule 07/04/20 Active carvedilol (Coreg) 25 MG tablet 07/12/20 Active cyclobenzaprine (Flexeril) 10 MG tablet 07/26/20 24 Active predniSONE (Deltasone) 20 MG tablet 07/26/20 24 Active triamcinolone (Kenalog) 0.025 % ointment 05/23/20 24 Active gabapentin (Neurontin) 400 MG capsule 10/10/20 24 Active pramipexole (Mirapex) 1.5 MG tablet 07/12/20 24 Active Breztri Aerosphere 160-9-4.8 MCG/ACT aerosol inhale 2 puffs by mouth 2 times a day 03/19/20 25 Active hydrALAZINE (Apresoline) 100 MG tablet TAKE ONE TABLET BY MOUTH 3 TIMES A DAY NEEDED FOR BLOOD PRESSURE GREATER THAN 160/100 03/19/20 25 Active HYDROcodone-acetam inophen ([place]) 10-325 MG tablet TAKE 1 TABLET BY [...] tablet by mouth daily. 03/19/20 25 Active clopidogrel (Plavix) 75 MG tablet Take 1 tablet by mouth daily. 05/02/20 25 Active spironolactone (Aldactone) 25 MG tablet Take 1 tablet by mouth daily. 04/23/20 25 Active Active Problems Problem Noted Date [...] Encounters Date Type Department Care Team Description 05/14/2025 Telephone [facility] [address] [phone] Nereyda Perez RN 05/09/2025 10:15 AM EDT Office Visit [facility] [address] [phone] Joni Prado, DO Non-small cell carcinoma of left lung 05/09/2025 Travel 05/06/2025 Orders Only External Location [address] [place] [phone] Provider, External 05/01/2025 Telephone [facility] [address] [phone] Joni Prado, DO 04/22/2025 Telephone [facility] [address] [phone] Joni Prado, DO 04/12/2025 Orders Only Ch Radiology Virtual Dept. [address] [place] [phone] Gregory Johnson MD 04/11/2025 Orders Only [facility] [address] [phone] Nereyda Perez RN Non-small cell carcinoma of left lung (Primary Dx); Malignant neoplasm of lower lobe of left lung (CMS/HCC) 03/28/2025 10:00 AM EDT Office Visit [facility] [address] [phone] Joni Prado, DO Non-small cell carcinoma of left lung 03/28/2025 8:30 AM EDT - 03/28/2025 11:59 PM EDT Hospital Encounter [facility] [address], [address] [place] [phone] Non-small cell carcinoma of left lung Discharge [...] drink first t tello in the morning (EYE-PERSONAL SECRETARY) to steady your nerves or to get rid of a hangover? 0 10/19/2023 CAGE Questionnaire Score 0 024 Utilities Answer Date Recorded In the past 12 months has e electric, gas, oil, or water company [...] Mass Index 26.97 05/09/2025 9:43 AM EDT Plan of Treatment Upcoming Encounters Date Type Department Care Team (Latest Contact Info) Description 05/21/2025 7:30 AM EDT Hospital Encounter [facility] [address] [place] [phone] Kevin Khan MD [address] [place] [address] 05/21/2025 7:30 AM EDT - 05/21/2025 10:00 AM EDT Surgery [facility] [address] [place] [address] Kevin Khan MD [address] [place] [address] ION Robotic Bronch, Radial US, [place], BAL, Biopsy, Needle, EBUS TBNA, CIOS / 3D fluoroscopy [43325 (CPT )] 07/25/2025 9:20 AM EDT Appointment [facility] [address] [place] [address] 07/25/2025 10:30 AM EDT Office Visit [facility] 800 [facility], 2nd Floor [place] [phone] Joni Prado, DO 800 [facility] [address] [place] [address] Scheduled Procedures Name Priority Associated Diagnoses Date/Ti me BRONCHOSCOPY, NAVIGATIONAL Lung nodule 05/21/2025 7:30 AM EDT Health Maintenance Due Date Last Done Comments [...] - Risk 60-74 years 1-dose series) 2019 [id number] Vaccine (2 - Nicole risk series) 02/04/2021 01/07/2021 [facility]-Influenza Vaccine (#1) 2025 08/03/2022 [facility]-DTaP,Tdap,and Td Vaccines (2 - Td or Tdap) 08/28/2031 08/28/2021, 01/14/2000 [facility]-Hepatitis A Vaccines Aged Out 03/26/2019, 09/02 No longer eligible based on patient's age to complete this topic [facility]-Lung Cancer Screening Discontinued 2024, 11/29/2024, 08/02/2024, Additional history exists [facility]-Obesity Intervention Completed 025, 03/28/2025, 11/29/2024, Additional history exists HPV Vaccines Aged Out [...] on patient's age to complete this topic Goals Goal Patient Goal Type Associated Problems Recent Progress Patient-Stated? Author Autogenera iftikhar Goal Care Plan Autogenerated Problem No Gina Galdamez RN Procedures Procedure Name Priority Date/Time Associated Diagnosis Comments CT OUTSIDE IMAGES 05/06/2025 9:[address] CHEST WO IV CONTRAST Routine 03/28/2025 8:51 AM EDT Non-small cell carcinoma of left lung CYTO DATA CONVERSION Routine 07/01/1994 12:00 AM EDT from Last 3 Months or Most Recently Relevant to Health Maintenance Results * CT OUTSIDE IMAGES (05/06/2025 9:43 AM EDT) Anatomical Region Laterality Modality Computed Tomogra phy 05/06/2025 9:43 AM EDT us External Provider IMG CT PROCEDURES Final Result * CT Chest wo IV Contrast (03/28/2025 [...] signing this report, I, the attending physician, atterenat I have personally reviewed the images/data for the aboveexamination(s) and agree with the final edited report. Drafted by RAMÓN Lozano on 03/28/2025 9:04 AM Final report signed by Michael Castellanos MD on 03/28/2025 11:21 AM Joni Prado DO IMG CT PROCEDURES Final Resul t * Cytology (07/01/1994 12:00 AM EDT) 07/01/1994 07/02/1994 Narrative SUNQUEST - 07/12/1994 12:00 AM EDT [facility] MR #: [id number] [facility] MANUEL [place], [place] [address] 1960 (Age: 33) FW Collect Date: 07/01/1994 00:00 Receipt Date: 07/02/1994 00:00 Page 1 DEPARTMENT OF PATHOLOGY AND LABORATORY MEDICINE CYTOPATHOLOGY REPORT Email: [email or web address] [email or web address] * Converted Case * This report may not match the original report format ATTENDING MD/Practitioner: Eve Chilel MD Service: PULMONARY FUNCTION TECHNICIAN Location: Reported: 07/12/1994 00:00 Collected: 07/01/1994 00:00 [...] results is suggested (please call Microbiology at [phone] for results). CLINICAL INFORMATION: Menstrual History: {Not Provided} Date of Last Menstrual Period: {Not Provided} SPECIMEN DESCRIPTION: A: CERVICAL/VAGINAL SMEAR, PAP ICD: F: {Not Entered} SNOMED CODES: 1; [id number] [id number] In cases where a pathologist has signed out the report, the service has been rendered in part by a resident. The signing pathologist has performed and is responsible for the reported pathologic evaluation. us Historical Provider MD LAB PATHOLOGY ORDERABLES Final Result SUNQUEST from Last 3 Months or Most Recently Relevant to Health Maintenance Additional Health Concerns Active Problems Noted Date Diagnosed Date Autogenerated Problem 05/10/2025 Insurance MEDICAID-[place] UHC MEDICARE Advance Directives * Full Code (Latest Code Status on File) Date Activated Date Inactivated Comments 10/19/2023 10:46 AM 10/21/2023 6:44 PM Question Answer Comments Patient has decision-making capacity? Yes Care Teams Company Laborer Relationship Specialty Start Date End Date Jt Jauregui MD [address] [place] [address] [place] [address] PCP - General Family Medicine 12/29/23
--- OUTSIDE RECORDS SUMMARY | 2025-05-14 10:30 | XMS_ITS | Encounter Summary ---
Author Organization Healthcare Address [address] [place] [address] Care Team Providers Care Supervisor Cell Room Name Role Phone Jt Jauregui MD Primary Care Provider Encounter Details Date Type Department Care Team (Late st Contact Info) Description 04/12/2025 Orders Only Radiology Virtual Dept. [address] [place] [address] Gregory Johnson MD [address] [place] [address] Social History Tobacco Use Types Packs/Day Years [...] drink first t tello in the morning (EYE-ANKLE PATCH MOLDER) to steady your nerves or to get rid of a hangover? 0 10/19/2023 CAGE Questionnaire Score 0 024 Utilities Answer Date Recorded In the past 12 months has th e [employer], gas, oil, or water company threatened to [...] Hospital Encounter [facility] [address] [place] [phone] Kevin Khan MD [address] [place] [phone] 05/21/2025 7:30 AM EDT - 05/21/2025 10:00 AM EDT Surgery [facility] [address] [place] [phone] Kevin Khan MD [address] [place] [phone] ION Robotic Bronch, Radial US, [place], BAL, Biopsy, Needle, EBUS TBNA, CIOS / 3D fluoroscopy [23025 (CPT )] 07/25/2025 9:20 AM EDT Appointment [facility] [address] [place] [phone] 07/25/2025 10:30 AM EDT Office Visit [facility] 800 [facility], 2nd [place] [phone] Joni Prado D, DO [address] [phone] Scheduled Procedures Name Priority Associated Diagnoses Date/Ti [...] documented as of this encounter Care Teams Supervisor Cell Room Relationship Specialty Start Date End Date Jt Jauregui MD [address] [place] [address] [address] [place] [address] PCP - General Family Medicine 12/29/23 documented as of this encounter
--- OUTSIDE RECORDS SUMMARY | 2025-05-14 10:30 | XMS_ITS ---
Author Organization [facility] Address [address] [place] [address] Care Team Providers Care Music Writer Name Role Phone Jt Jauregui MD Primary [...]
--- OUTSIDE RECORDS SUMMARY | 2025-05-14 10:30 | XMS_ITS | Encounter Summary ---
Author Organization Healthcare Address [address] [place] [address] Care Team Providers Care Excelsior Machine Tender Name Role Phone Jt Jauregui MD Primary Care Provider Encounter Details Date Type Department Care Team (Late st Contact Info) Description 04/22/2025 Telephone [facility] [address] [place] [address] Joni Prado, DO [address] [place] [address] Social History Tobacco Use Types Packs/Day Years [...] drink first t tello in the morning (EYE-SEO ANALYST) to steady your nerves or to get rid of a hangover? 0 10/19/2023 CAGE Questionnaire Score 0 024 Utilities Answer Date Recorded In the past 12 months has th e [employer], gas, oil, or water company threatened to [...] and optimal time of day to reach caller:[phone] Note: Please do not reply to this message. Follow-up communication and further actions as a result of this message need to be communicated with the patient directly, if the patient is not active onMyChart. If the patient is active on MyChart, they will receive notification of the communication/outcome via [place]. documented in this encounter Plan of Treatment Upcoming Encounters Date Type Department Care Team (Latest Contact Info) Description 05/21/2025 7:30 AM EDT Hospital Encounter [facility] [address] [place] [phone] Kevin Khan MD [address] [place] [phone] 05/21/2025 7:30 AM EDT - 05/21/2025 10:00 AM EDT Surgery [facility] [address] [place] [phone] Kevin Khan MD [address] [place] [phone] ION Robotic Bronch, Radial US, [place], BAL, Biopsy, Needle, EBUS TBNA, CIOS / 3D fluoroscopy [90971 (CPT )] 07/25/2025 9:20 AM EDT Appointment [facility] [address] [place] [phone] 07/25/2025 10:30 AM EDT Office Visit [facility] [address] , [address] [place] [phone] Joni Prado D, DO [address] [place] [phone] Scheduled Procedures Name Priority Associated Diagnoses Date/Ti [...] documented as of this encounter Care Teams Excelsior Machine Tender Relationship Specialty Start Date End Date Jt Jauregui MD [address] [place] [address] PCP - General Family Medicine 12/29/23 documented as of this encounter
--- OUTSIDE RECORDS SUMMARY | 2025-05-14 10:30 | XMS_ITS | Encounter Summary ---
Author Organization Healthcare Address [address] [place] [address] Care Team Providers Care Java Manager Name Role Phone Jt Jauregui MD Primary Care Provider Encounter Details Date Type Department Care Team (Late st Contact Info) Description 05/01/2025 Telephone [facility] [address] [place] [address] Joni Prado, DO [address] [place] [address] Social History Tobacco Use Types Packs/Day Years [...] drink first t tello in the morning (EYE-PROPERTY ECONOMIST) to steady your nerves or to get rid of a hangover? 0 10/19/2023 CAGE Questionnaire Score 0 024 Utilities Answer Date Recorded In the past 12 months has th e [employer], gas, oil, or water company threatened to [...] Telephone Encounter - Nereyda Perez RN - 05/01/2025 12:51 PM EDT RN has verified that no TSS team members have called pt recently. Will call to let pt know. * Telephone Encounter - Aparna Lamas - 05/01/2025 10:05 AM EDT Patient Phone Message Reason for Call:Patient is returning a call. She thinks it was Dr Prado called her. Best contact number and optimal time of day to reach caller:[phone] Note: Please do not reply to this message. Follow-up communication and further actions as a result of this message need to be communicated with the patient directly, if the patient is not active onMyChart. If the patient is active on MyChart, they will receive notification of the communication/outcome via [employer]. documented in this encounter Plan of Treatment Upcoming Encounters Date Type Department Care Team (Latest Contact Info) Description 05/21/2025 7:30 AM EDT Hospital Encounter [facility] [address] [place] [phone] Kevin Khan MD [address] [place] [phone] 05/21/2025 7:30 AM EDT - 05/21/2025 10:00 AM EDT Surgery [facility] [address] [place] [phone] Kevin Khan MD [address] [place] [phone] ION Robotic Bronch, Radial US, [place], BAL, Biopsy, Needle, EBUS TBNA, CIOS / 3D fluoroscopy [[id number] (CPT )] 07/25/2025 9:20 AM EDT Appointment [facility] [address] [place] [phone] 07/25/2025 10:30 AM EDT Office Visit [facility] [address] [place] [phone] Joni Prado, DO [address] [place] [phone] Scheduled Procedures Name Priority Associated Diagnoses Date/Ti [...] documented as of this encounter Care Teams Java Manager Relationship Specialty Start Date End Date Jt Jauregui MD [address] [place] [address] PCP - General Family Medicine 12/29/23 documented as of this encounter
--- OUTSIDE RECORDS SUMMARY | 2025-05-14 10:30 | XMS_ITS | Encounter Summary ---
Author Organization [facility] Address [address] [place] [address] Care Team Providers Care Sounding Device Operator Name Role Phone Jt Jauregui MD Primary Care Provider [phone] Reason for Referral * Imaging (Routine) - Pending Review Specialty Diagnoses / Procedures Referred By Stuart coello Referred To Contact Radiology Diagnoses Malignant neoplasm of lower lobe of left lung (CMS/HCC) Procedures PET/CT FDG Skull Base To Mid Thigh PET/CT FDG Skull Base To Mid Thigh Joni Prado DO [address] [place] [address] Phone: tel: fax: Referral ID Status Reason Start Date Expiration Date V isits Requested Visits Authorized [id number] Pending Review 04/11/2025 10/11/2026 2 2 Encounter Details Date Type Department Care Team (Late st Contact Info) Description 04/11/2025 Orders Only [facility] [address], [address] [place] [phone] Chelo Fagan RN [facility] Non-small cell carcinoma of left lung (Primary Dx); Malignant neoplasm of lower lobe of left lung (CMS/HCC) Social History Tobacco Use Types Packs/Day Years [...] place to sleep or slept in a half-way (including now)? No 10/20/2023 CAGE ASSESSMENT Answer [...] drink first t tello in the morning (EYE-FURRIER SHOP SUPERVISOR) to steady your nerves or to get rid of a hangover? 0 10/19/2023 CAGE Questionnaire Score 0 024 Utilities Answer Date Recorded In the past 12 months has e [employer], gas, oil, or water company threatened to shut off services in your home? No 10/20/2023 Comments No Sex and Gender Information Value Date Recorded Sex Assigned at Female 08/16/2023 6:58 AM EST Legal Sex Female 8:36 PM EDT Gender Identity Female 08/16/2023 6:58 AM EST Sexual Orientation Not on file documented as of this encounter Miscellaneous Notes * Addendum Note - Chelo Fagan RN - 04/11/2025 3:47 PM EDTAddended by: CHELO FAGAN on: 05/03/2025 04:05 PM Modules accepted: Orders documented in this encounter Plan of Treatment Upcoming Encounters Date Type Department Care Team (Latest Contact Info) Description 05/21/2025 7:30 AM EDT Hospital Encounter [facility] [address] [place] [phone] Kevin Khan MD [address] [place] [phone] 05/21/2025 7:30 AM EDT - 05/21/2025 10:00 AM EDT Surgery [facility] [address] [place] [phone] Kevin Khan MD [address] [place] [phone] ION Robotic Bronch, Radial US, [place], BAL, Biopsy, Needle, EBUS TBNA, CIOS / 3D fluoroscopy [67975 (CPT )] 07/25/2025 9:20 AM EDT Appointment [facility] [address] [place] [address] 07/25/2025 10:30 AM EDT Office Visit [facility] [address] [place] [address] Joni Prado, DO 800 [facility] [address] [place] [address] Scheduled Orders Name Type Priority Associated Diagnoses Orde r Schedule PET/CT FDG Skull Base To Mid Thigh Imaging Routine Malignant neoplasm of lower lobe of left lung (CMS/HCC) Expected: 05/24/2025 (Approximate), Expires: 10/13/2026 Scheduled Procedures Name Priority Associated Diagnoses Date/Ti me BRONCHOSCOPY, NAVIGATIONAL Lung nodule 05/21/2025 7:30 AM EDT documented as of this encounter Visit Diagnoses Diagnosis Non-small cell carcinoma of left lung- Primary Malignant neoplasm of lower lobe of left lung (CMS/HCC) Lung nodule Other diseases of lung, not elsewhere classified documented in this encounter Additional Health Concerns Assessment Noted Time A fall risk assessment has been complete d for the patient 03/28/2025 9:20 AM EDT A Body Mass Index follow-up plan has been documented for the patient 04/08/2025 7:05 AM EDT documented as of this encounter Care Teams Sounding Device Operator Relationship Specialty Start Date End Date Jt Jauregui MD [address] [place] [address] PCP - General Family Medicine 12/29/23 documented as of this encounter
[2025-05-14] MEDS: ALBUTEROL 0.083% 2.5 MG/3 ML NEB IH (10:39)
--- NOTE | 2025-05-14 10:40 | PC.NURSE ---
Pre and Post Spirometry completed without incident. Albuterol 0.083% given via HHN, per written protocol, Pt tolerated tx well.
--- NOTE | 2025-05-14 11:12 | PC.NURSE ---
6 Minute walk completed on room air, without incident. Pt tolerated procedure well.
== END 2025-05-14 23:59 | disposition home or self-care (01) ==
LOC: RT 10:18
PROVIDERS: PCP Nurse Practitioner; Visit Provider Internal Medicine Pulmonary Disease
DX: R94.2 Abnormal results of pulmonary function studies (principal); R06.02 Shortness of breath; R06.09 Other forms of dyspnea
CPT/HCPCS: 94010; 94618

== ENCOUNTER → 2025-06-07 19:27 | Outpatient (CLI) | payer MEDICARE, MEDICAID, SELFPAY ==
--- OUTSIDE RECORDS SUMMARY | 2025-05-09 10:15 | XMS_ITS | Encounter Summary ---
Author Organization Healthcare Address [address] [id number] Care Team Providers Care Brake Engineer Name Role Phone Jt Jauregui MD Primary Care Provider [phone] Reason for Visit * Reason Comments Follow-up Encounter Details Date Type Department Care Team ([facility] Contact Info) Description 05/09/2025 10:15 AM EDT Office Visit Pav CC Head, Neck & Respiratory [address] , [address] [place] [address] Joni Prado, DO 800 [facility] [address] [place] [address] Non-small cell carcinoma of left lung Social History Tobacco Use Types Packs/Day Years Used Date Smoking Tobacco: Every Day Cigarettes 0.5 50.7 Started: 1975 Smokeless Tobacco: Never Comments:Trying to quit Alcohol [...] drink first t tello in the morning (EYE-PIECE CUTTER) to steady your nerves or to [...] Sign Reading Time Taken Comments Blood Pressure 136/80 05/09/2025 9:43 AM EDT Pulse 92 05/09/2025 9:43 AM EDT Temperature 36.6 C (97.8 F) 05/09/2025 9:43 AM EDT Respiratory Rate 16 05/09/2025 9:43 AM EDT Oxygen Saturation 98% 05/09/2025 9:43 AM EDT Inhaled Oxygen Concentration - - Weight 75.8 kg (167 lb 1.7 oz) 05/09/2025 9:43 A M EDT Height 167.6 cm (5' 6 ) 05/09/2025 9:43 AM EDT Body Mass Index 26.97 05/09/2025 9:43 AM EDT documented in this encounter Miscellaneous Notes * Progress Notes - Kati Carmen PA - 05/09/2025 10:15 AM EDT Images from the original note were not included. [facility] Department of Surgery Section of Thoracic Surgery Outpatient Clinic Note Diagnosis: NSCLC, diffuse GGO Procedure: L VATS lower lobe wedge resection 10/19/23 Pathology: pT2aN0 invasive adenocarcinoma Interval History: Johanna Shaffer is a 64 y.o. female with PMHx COPD, HTN, HLD, NSCLC pT2aN0 invasive adenocarcinoma s/p L VATS LLL wedge resection presenting with PET scan after her most recent surveillance scan demonstrated a spiculated RUL nodule that had increased in size. She has been in her usual state of health with no changes. ROS: General: no fevers or chills, no [...] or anxiety Physical exam: Visit Vitals BP 136/80 (BP Location: Left arm, Patient Position: Sitting, BP Cuff Size: Adult) Pulse 92 Temp 36.6 ??C (97.8 ??F) (Oral) Ht 1.676 m (5' 6 ) Wt 75.8 kg (167 lb 1.7 oz) SpO2 98% BMI 26.97 kg/m?? General: alert and oriented, appropriate Lungs: CTA B, no wheezes or rhonchi Heart: RRR, no murmurs Abdomen: soft NT/ND, normal bowel sounds Lymph nodes: no palpable supraclavicular or cervical adenopathy Extremities: no peripheral edema Skin: no rash, no cyanosis and warm to touch Psychiatric: oriented to person/place/time and normal mood/affect Imaging: PET Scan 05/08/25: irregular nodular densities to right lung, demonstrating mild perceptible uptake below reference mediastinal blood pool. These findings are entirely nonspecific and indeterminate, mildly FDG avid neoplastic process is possible. Alternatively, findings may represent evolving infectious/inflammatory process. Additional Testing: None Assessment and Plan: Johanna Shaffer is a 64 y.o. female with history NSCLC pT2aN0 invasive adenocarcinoma s/p L VATSLLL wedge resection presenting with PET scan after her most recent surveillance scan demonstrated aspiculated RUL nodule that had increased in size. PET scan with very mild uptake of peripheral RUL nodule and a smaller medial RUL nodule that is indeterminate. She has multiple GGOs bilaterally and we have some concern for multifocal adenocarcinoma. Will arrange for ion bronchoscopy of RUL nodule for further evaluation. Hold Plavix x 5 days. Plan for tumor board following biopsy. Images and pathology reviewed and discussed with the patient at today's visit and all questions answered. Patient will return to clinic one week after Ion bronch with no imaging needed. The patient understands this plan and will call our office for any additional questions or concerns. JANY Ramos 05/09/25 9:56 AM Cosigned by Joni Prado DO at 05/10/2025 10:38 AM EDT Associated attestation - Joni Prado, - 05/10/2025 10:38 AM EDT I attest to being involved in more than half the total time in patient care. documented in this encounter Plan of Treatment Upcoming Encounters Date Type Department Care Team (Latest Contact Info) Description 07/10/2025 11:10 AM EDT Hospital Encounter PAV A OPERATING ROOM [address] [place] [address] Joni Prado, DO [address] [address] 07/10/2025 11:10 AM EDT - 07/10/2025 1:40 PM EDT Surgery [facility] A OPERATING ROOM [address] [place] [address] Joni Prado, DO [address] [address] RIGHT VATS WEDGE, POSSIBLE LOBECTOMY [69204 (CPT ) +1 more] 07/25/2025 9:20 AM EDT Appointment PAV A Radiology [address] [place] [address] 07/25/2025 10:30 AM EDT Office Visit Pav CC Head, Neck & Respiratory 800 [facility], 2nd [place] [address] Joni Prado, DO [address] [phone] Scheduled Procedures Name Priority Associated Diagnoses Date/Ti me VATS, WITH LUNG WEDGE RESECTION Non-small cell carcinoma of left lung 07/10/2025 11:10 AM EDT documented as of this encounter Visit Diagnoses Diagnosis Non-small cell carcinoma of left lung Non-small cell carcinoma of left lung documented in this encounter Additional Health Concerns Assessment Noted Time A fall risk assessment has been complete d for the patient 05/09/2025 9:43 AM EDT A Body Mass Index follow-up plan has been documented for the patient 05/10/2025 10:38 AM EDT documented as of this encounter Care Teams Brake Engineer Relationship Specialty Start Date End Date Jt Jauregui MD [address] [place] [address] [place] [id number] PCP - General Family Medicine 12/29/23 documented as of this encounter
--- OUTSIDE RECORDS SUMMARY | 2025-05-16 09:15 | XMS_ITS | Encounter Summary ---
Author Organization [facility] Address [address] [place] [address] Care Team Providers Care Waste Reduction Coordinator Name Role Phone Jt Jauregui MD Primary Care Provider Encounter Details Date Type Department Care Team (Late st Contact Info) Description 05/16/2025 9:15 AM EDT Pre-Admission Testing [facility] Pre-op Clinic [address], [address]st [place] [address] Anesthesia Record Procedure Summary Procedure Name Responsible Anesthesiologist Anesthesia Start Time Anesthesia Stop Time ION Robotic Bronch, Radial US, Independence, BAL, Biopsy, Needle, EBUS TBNA, CIOS / [...] Antecubital; Site Prep: Chlorhexidine ; Local Anesth: Tarrs; Technique: Anatomical landmarks; Inserted by: TAHIRA Kevin; [...] place to sleep or slept in a jail (including now)? No 10/20/2023 CAGE ASSESSMENT Answer [...] drink first t tello in the morning (EYE-COUNTER TENDER) to steady your nerves or to [...] your family, and friends to [facility]. We offer access to more than 1,500 [...] you be more comfortable with [facility] and the surgical process. This information provides [...] located on the first floor of the [facility] near the Pharmacy and main clinic entrance. We are open Tuesday-Tuesday from 8 a.m. to 4:30 p.m. A clinic consumer sales representative can be reached at [phone]. Parking is available in the [facility] garage on [facility] or in the [facility] garage located at [address], directly across [facility] from [facility]. The day before surgery You will receive a phone call telling you what time you need to arrive at the hospital for surgery.If you miss the call, please call one of the following numbers (depending on where your surgery is scheduled): ? [facility]: [phone] or [phone] ? [facility] Advanced Surgery: [phone] or [phone] The day of surgery ? Arrive on time to avoid delays or cancellation. ? Park in the [facility] parking garage located at [address] It is directly across [facility] from the [facility]. ? If you are scheduled for surgery at [facility], take the hospital garage elevator to Level C, then cross the concourse bridge to the Surgery Waiting Room to register for your surgery. [facility] is located down the first hallway to the right at the end of the concourse bridge. If you need help crossing the concourse, you may picking tech the patient golf cart shuttle directlyto the right of the elevators on Level C. ? If you are scheduled for surgery at the [facility], take the garage elevator to Level A and catch the free shuttle to the hospital. (Be careful not to take the [facility] shuttle - there is an ambassador there [...] times throughout your stay at [facility] to ensure your safety. ? Go over [...] talk to them after your surgery. A safekeeping clerk is available in the waiting room [...] living will, health care surrogate, power of erisa attorney or guardianship papers. ? Bring a [...] makeup, jewelry (including body piercing) or nail scottish. ? Don?t bring money or valuables to [...] office and the Preoperative Anesthesia Clinic at [phone] or [phone]. If it is the day of surgery, call the location where you are scheduled to have your surgery: [facility] at [phone] or [phone] or [facility] at [phone] or [phone]. For more information Visit [email or web address] or call [phone] or [phone]. [facility] does not discriminate. [facility] complies with applicable Federal civil rights laws and does not discriminate on the basis of race, color, national origin, age, disability, or sex. * Mery Bond PA - 05/16/2025 9:52 AM EDT Images from the original note were not included. [id number] * Mery Bond PA - 05/16/2025 9:52 AM EDT Images from the original note were not included. 489 Map to HealthCare Facilities Directions Easy directions to and from [address] (from [address]) Directions from [address] to the [facility] Parking Garage: ? From [address], turn right off the exit ramp onto [address] ([place] [address] [address]) toward [place]. ? In 4.1 miles, turn left onto [address] (at the [employer] gas station). ? In a half-mile, turn right onto [address]. ? In .3 miles, turn right onto [address] (just past the [employer] gas station). Garage entrance is on the left. ? Important: This garage address will change to [address] [place] [address] on April 02, 2025. Directions from [facility] Parking Garage to I-75/I-64: ? Turn left out of the garage onto [facility]. ? Turn left onto [address]. ? In .3 miles, turn left down [address] ? In a half-mile, turn right onto [address] (at the [employer] gas station). ? In 4.1 miles, merge onto [address] /[address] (near the [facility] by [address]). Parking Any patients or visitors of [facility] can park in the following areas: ? [facility] Parking Garage (main garage): [address] (Levels A-F) ? [facility] Garage: [address] (Levels 1-6) ? [facility] Cancer lot: Located off [address] (limited parking for [facility] outpatients only). Upon Your Arrival ? Patients and visitors going to [facility], H, G and [facility] may walk across the pedway, located [...] also be accessed via the pedway off [facility] garage on Level C. If you [...] [facility] A (first floor and ground floor), [facility], [facility] H, [facility] CC, [facility] WH, [facility] (first and third floor), and [facility]. Informationdesk number: [phone]. Important Addresses [address] [place] [address] ? [facility] entrance ? Pavilion A ? Pavilion G ([facility]) ? Emergency Department [address] ? [facility] H ? [facility] CC ([facility]) ? [facility] ([facility]) ? [facility] [address] [facility] ? [facility] [address] [facility] ? [facility] [address] [facility] ? [facility] ? [facility] * PAT Evaluation Note - Mery Nava PA - 05/16/2025 9:15 AM EDT Images from the original note were not included. [facility] Johanna Shaffer is a 64 y.o. female who presents with Pre-op Diagnosis * Lung nodule [R91.1] now scheduled for ION Robotic Bronch, Radial US, Independence, BAL, Biopsy, Needle, EBUS TBNA, CIOS / 3D fluoroscopy (Bilateral)with Kevin Khan MD on 05/21/20[facility] at [facility] Johanna Shaffer is a 64 y.o. female [...] angina, CAD, CHF, dysrhythmias, pacemaker or past MS. hypertension: Does not have chest pain. Cardio additional comments: Denies any active current cardiac complaints. + renal stent placed 05/02/2025 ago [facility] by Dr Miranda. Clearance has been give [...] Does not have cervical spine limited mobility. [facility] additional comments: + chronic back pain- follows [...] Comment: + Renal stent placed 05/02/2025 ago [facility] by Dr Miranda. Clearance has been give [...] MG tablet Hold day of surgery HYDROcodone-acetaminophen ([place]) 10-325 MG tablet Take as needed levocetirizine (Xyzal) 5 MG tablet Take night before surgery lisinopril 20 MG tablet Hold day of surgery lovastatin (Mevacor) 40 MG tablet Take night before surgery pramipexole (Mirapex) 1.5 MG tablet Take night before surgery spironolactone (Aldactone) 25 MG tablet Take night before surgery Vitamin D3 1.25 MG (73317 UT) capsule Hold day of surgery General [...] card, photo ID, along with power of erisa attorney, guardianship or advanced directives if applicable [...] Hospital Encounter [facility] OPERATING ROOM [address] [place] [phone] Joni Prado, DO [address] [phone] 07/10/2025 11:10 AM EDT - 07/10/2025 1:40 PM EDT Surgery [facility]ATING RO[facility] [address] [place] [phone] Joni Prado, DO [address] [phone] RIGHT VATS WEDGE, POSSIBLE LOBECTOMY [40702 (CPT ) +1 more] 07/25/2025 9:20 AM EDT Appointment [facility] Radiology [address] [place] [phone] 07/25/2025 10:30 AM EDT Office Visit [facility] Head[facility] Neck & Respiratory [address] [facility], 2nd [place] [phone] Joni Prado, DO [address] [phone] Scheduled Procedures Name Priority Associated Diagnoses Date/Ti [...] documented as of this encounter Care Teams Waste Reduction Coordinator Relationship Specialty Start Date End Date Jt Jauregiu MD [address] [place] [address] 1 [place] [address] PCP - General Family Medicine 12/29/23 documented as of this encounter
--- OUTSIDE RECORDS SUMMARY | 2025-05-21 05:51 | XMS_ITS | Encounter Summary ---
Author Organization Healthcare Address [address] [place] [id number] Care Team Providers Care [employer] Programmer Name Role Phone Jt Jauregui MD Primary Care Provider [phone] Reason for Visit * Auth/Cert (Routine) Specialty Diagnoses / Procedures Referred By Stuart coello Referred To Contact Diagnoses Lung nodule lung nodule Procedures IA BRONCHOSCOPY,COMPUTER ASSIST/IMAGE-GUIDED NAVIGATION IA BRONCHOSCOPY,DIAGNOSTIC W BRUSH IA BRONCHOSCOPY,DIAGNOSTIC W LAVAGE IA BRONCHOSCOPY,BIOPSY IA BRONCHOSCOPY,TRANSBRONCH BIOPSY IA BRONCHOSCOPY,TRANSBRON ASPIR BX IA [facility] EBUS GUIDED SAMPL 1/2 NODE STATION/STRUX IA [facility] EBUS GUIDED SAMPL 3/> NODE STATION/STRUX ION Robotic Bronch, Radial US, Dun[place], BAL, Biopsy, Needle, EBUS TBNA, CIOS / 3D fluoroscopy Kevin Khan MD [address] [place] [address] Phone: tel: fax: [facility] [address] [place] [address] Phone: tel: Referral ID Status Reason Start Date Expiration Date Visits Re quested Visits Authorized [id number] 1 1 Encounter Details Date Type Department Care Team (Latest Contact Info) Description 05/21/2025 5:51 AM EDT - 05/21/2025 11:50 AM EDT Hospital Encounter [facility] [address] [place] [address] Kevin Khan MD [address] [place] [address] Lung nodule Discharge Disposition: Home or Self Care Social History Tobacco Use Types Packs/Day Years Used Date Smoking Tobacco: Every Day Cigarettes 0.5 50.7 Started: 1974 Smokeless Tobacco: Never Comments:Trying to [...] place to sleep or slept in a prison (including now)? 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 0 10/19/2023 CAGE Questionnaire Score 0 024 Utilities Answer Date Recorded In the past 12 months has e PO[employer] Basketball, gas, oil, or water [employer] threatened to shut off services in your home? No 10/20/2023 Comments No Sex and Gender Information Value Date Recorded Sex Assigned at Female 08/16/2023 6:58 AM EST Legal Sex Female 8:36 PM EDT Gender Identity Female 08/16/2023 6:58 AM EST Sexual Orientation Not on file documented as of this encounter Last Filed Vital Signs Vital Sign Reading Time Taken Comments Blood Pressure 132/62 05/21/2025 11:05 AM EDT Pulse 78 05/21/2025 11:05 AM EDT Temperature 36.5 C (97.7 F) 05/21/2025 11:05 AM EDT Respiratory Rate 15 05/21/2025 11:05 AM EDT Oxygen Saturation 96% 05/21/2025 11:05 AM EDT Inhaled Oxygen Concentration - - Weight 75.8 kg (167 lb) 05/21/2025 6:25 AM EDT Height - - Body Mass Index 26.95 05/09/2025 9:43 AM EDT documented in this encounter Discharge Instructions * Discharge Instructions* Dottie Vaz RN - 05/21/2025 11:02 AM EDT Expected to cough up mild blood and blood clots If cough up bright red blood, call clinic or go to the nearest ER department Regular diet documented in this encounter Medications at Time of Discharge albuterol 1.25 MG/3ML nebulizer solution Take 3 mL by nebulization as needed for wheezing or shortness of breath. albuterol 108 (90 Base) MCG/ACT inhaler Inhale 1 puff as needed for wheezing or shortness of breath. 3 amLODIPine (Norvasc) 10 MG tablet Take 1 tablet (10 mg) by mouth daily. 3 Anoro Ellipta 62.5-25 MCG/ACT aerosol powder Inhale 1 Inhalation daily. 3 aspirin 81 MG EC tablet Take 1 tablet by mouth daily. atorvastatin (Lipitor) 40 MG tablet Take 1 tablet by mouth daily. 3 Breztri Aerosphere 160-9-4.8 MCG/ACT aerosol inhale 2 puffs by mouth 2 times a day 5 carvedilol (Coreg) 25 MG tablet 4 clopidogrel (Plavix) 75 MG tablet Take 1 tablet by mouth daily. 5 cyclobenzaprine (Flexeril) 10 MG tablet 4 cyproheptadine (Periactin) 4 MG tablet Take 1 tablet (4 mg) by mouth daily. doxepin (SINEquan) 10 MG capsule Take 1 capsule by mouth nightly. 3 fluticasone (Flonase) 50 MCG/ACT nasal spray Administer 1 spray into each nostril daily. 3 gabapentin (Neurontin) 400 MG capsule 4 [...] tablet by mouth daily. 5 HYDROcodone-acetami nophen (Columbus) 10-325 MG tablet TAKE 1 TABLET BY MOUTH EVERY 6 HOURS FOR 10 DAYS 5 isosorbide mononitrate ER (Imdur) 30 MG 24 hr tablet Take 1 tablet (30 mg) by mouth 1 (one) time each day. 3 levocetirizine (Xyzal) 5 MG tablet TAKE ONE TABLET BY MOUTH ONCE A DAY NEEDED FOR ALLERGY SYMPTOMS 5 lisinopril 20 MG tablet Take 1 tablet by mouth daily. 3 lovastatin (Mevacor) 40 MG tablet Take 1 tablet by mouth 1 time each day with dinner. 3 methocarbamol [...] 4 predniSONE (Deltasone) 20 MG tablet 4 spironolactone (Aldactone) 25 MG tablet Take 1 tablet by mouth daily. 5 triamcinolone (Kenalog) 0.025 % ointment 4 Vitamin D3 1.25 MG (61216 UT) capsule 1 capsule. Takes Tuesday and 4 documented as of this encounter Miscellaneous Notes * Anesthesia PACU Signout - Man Gonzales MD - 05/21/2025 11:04 AM EDT Patient: Johanna Shaffer Anesthesia Type: general Vitals Value Taken Time BP 132/63 05/21/25 11:00 Temp 36.4 ??C (97.6 ??F) 05/21/25 10:40 Pulse 77 05/21/25 11:03 Resp 19 05/21/25 11:03 SpO2 95 % 05/21/25 11:03 Vitals shown include unfiled device data. Anesthesia PACU Signout Patient location during evaluation: PACU Patient participation: complete - patient participated Level of consciousness: baseline and awake Pain management: adequate (pain score 0-3) Airway patency: natural airway Hydration status: acceptable PONV: none Cardiovascular status: acceptable and hemodynamically stable Respiratory status: acceptable, spontaneous ventilation, unassisted and nonlabored ventilation Discharge Disposition: home Comments: Patient is s/p Procedure(s) and Anesthesia Type: * ION Robotic Bronch, Radial US, Dundee, BAL, Biopsy, Needle, EBUS TBNA, CIOS / 3D fluoroscopy - General. Patient remains HDS on room air, neurologically appropriate, pain is controlled, and tolerating PO w/o N/V. Patient is appropriate for discharge from PACU to home for continued postop care. Cosigned by Дмитрий James MD at 05/22/2025 12:36 PM EDT Associated attestation - Дмитрий James MD - 05/22/2025 12:36 PM EDT I agree with the resident's PACU evaluation and sign-out as documented. -Дмитрий James MD * Op Note - Kevin Khan MD - 05/21/2025 8:08 AM EDT Operative Note Date: 05/21/25 Location: [facility] Name: Johanna Shaffer, : 1960, Diagnoses: Pre-op Diagnosis Lung nodule Post-op Diagnosis Lung nodule Procedure(s): Ion robotic assisted bronchoscopy, radial and EBUS linear ultrasound, transbronchial biopsies, transbronchial needle biopsies/aspiration, brushings, bronchoalveolar lavage. Attending Surgeon(s): * Kevin Khan - Primary Branch Lending Manager(s): * No surgeons found with a matching role * Anesthesia: General ASA: III Blood Administration: Blood Product Administration History None Estimated Blood Loss: moderate Drains: * None in log * Specimen: Specimens ID Source Frozen? 1 Lung, Right Middle Lobe, Fine Needle Aspiration No Description: LUNG, RIGHT MIDDLE LOBE ION ROBOTIC NAVIGATIONAL FINE NEEDLE ASPIRATION 2 Lung, Right Middle Lobe, Transbronchial Biopsy No Description: LUNG, RIGHT MIDDLE LOBE TRANSBRONCHIAL BIOPSY 3 Bronchial Brushing, Right Middle Lobe No Description: RIGHT MIDDLE LOBE BRONCHIAL BRUSHING 4 Lung, Right Middle Lobe, Transbronchial Biopsy No Description: LUNG, RIGHT MIDDLE LOBE CRYO TRANSBRONCHIAL BIOPSY 5 Bronchoalveolar Lavage, Right Middle Lobe No Description: RIGHT MIDDLE LOBE BRONCHOALVEOLAR LAVAGE 6 Other (specify site) Description: EBUS Station 7 7 Other (specify site) Description: EBUS Station 11R Findings: Trachea was midline. Main aida was sharp and midline with no deviation. Right main stem, Upper lobe, BI, middle lobe and lower lobe had normal architecture with pink and healthy mucosa. The left main stem, left upper lobe, and lower lobe had normal anatomical architecture with pink and healthy mucosa. Indications: Johanna Shaffer is an 64 y.o. female who is having surgery for Lung nodule. Narrative: The patient was placed in the supine position. Under general anesthesia the patient was intubated with a 8.5 ET tube. A complete time out was performed before starting the procedure. A diagnostic bronchoscope was inserted through the ET tube to perform a full airway examination. Airway examination did not show endobronchial lesion. There was Minimal secretion. Patient images were previously uploaded into the ION Plan point software. The target nodule sampling was planned and the pathway was mapped The nodule measured 13 mm in long axis. Following airway examination, airway registration was performed using shape sensing robot assisted bronchoscopy (SSRAB). We were 5 mm from the near edge of the nodule in the right middle lobe lateralsegment. A Radial EBUS - [id number] was inserted to confirm the location which was circumferential.The Pet[employer] mobile C-arm with true cone beam imaging was used for intra-procedural verification of the lesion and tool placement. 3D reconstruction were performed on an independent workstation. I personally interpreted the cone beam CT and 3D reconstruction. Total of 2 spins were performed. Tool in lesion was was confirmed. Under fluoroscopy guidance the samples were taken. A flexion 19 needle was used to performed FNA of the right middle lobe Lung nodule. A total of 6 passes were made. This was followed by passes with a Triple needle brush brush, 2 passes were made. Transbronchial forceps biopsies were then performed with a total of 6 passes were made in the right middle lobe Lung nodule. 20cc of sterile saline was instilled in the right middle lobe Lung nodule forBAL. 1.1 Erbe Cryoprobe was used to obtain 8 cryobiopsies in the right middle lobe Lung nodule Vision probe was reinserted into articulating catheter and withdrawn. There was significant amount of bleeding after the biopsy. Multiple attempts of suction was needed to clear the airway. Cryoprobe was needed to be used to remove blood clots. EBUS bronchoscope , Olympus [id number] was introduced into the airway. Olympus 22 gauge EBUS needle was used to sample the lymph nodes. 7 lymph node station , measured 10 mm in short axis. 6 passes were made with needle. 11R lymph node station , measured 15 mm in short axis. 6 passes were made with needle. Tiffany reported blood and bronchial cells. After the intended procedures were performed, and hemostasis was confirmed the bronchoscope was removed and the patient handed over to the anesthesiologists. Fluoroscopy Time: 8 minutes, 5 seconds. Complications: None; patient tolerated the procedure well. Submitted by: Kevin Khan MD - 05/21/2025 * H&P - Thi Helton MD - 05/21/2025 7:18 AM EDT Pre-procedure H&P Requesting Provider: No ref. provider found Pre Procedure H and P 05/21/2025 Location: Main Operating room Brief H and P: Johanna Shaffer is a 64 y.o. female with PMHx COPD, HTN, HLD, NSCLC pT2aN0 invasive adenocarcinoma s/p L VATS LLL wedge resection who presents today for bronchoscopic biopsy of RUL nodule seen on PET/CT on 05/06/25. She reports her chronic respiratory symptoms with shortness of breath on exertion, productive cough operative, intermittent wheezing are at her baseline. Dose she denies any recent respiratory illnesses or sick contacts. She is prescribed inhalers only as needed, and has not needed them at increased frequency compared to baseline. She last took Plavix on 05/16/2025 in the evening, and is held remaining medicines since 05/17/2025. Past Medical History Past Medical History[1] 14 point ROS normal except:A comprehensive review of systems was negative. Medications: Prior to Admission medications Medication Sig Start Date End Date Taking? Authorizing Provider albuterol 1.25 MG/3ML nebulizer solution Take 3 mL by nebulization as needed for wheezing or shortness of breath. ProviderMargarita MD albuterol 108 (90 Base) MCG/ACT inhaler Inhale 1 puff as needed for wheezing or shortness of breath. 06/16/23 Margarita Acharya MD amLODIPine (Norvasc) 10 MG tablet Take 1 tablet (10 mg) by mouth daily. Patient not taking: Reported on 05/16/2025 06/16/23 Margarita Acharya MD Anoro Ellipta 62.5-25 MCG/ACT aerosol powder Inhale 1 Inhalation daily. 08/08/23 Margarita Acharya MD aspirin 81 MG EC tablet Take 1 tablet by mouth daily. Margarita Acharya MD atorvastatin (Lipitor) 40 MG tablet Take 1 tablet by mouth daily. 07/28/23 Margarita Acharya MD Breztreber Aerosphere 160-9-4.8 MCG/ACT aerosol inhale 2 puffs by mouth 2 times a day 03/19/25 Margarita Acharya MD carvedilol (Coreg) 25 MG tablet 07/12/24 Margarita Acharya MD clopidogrel (Plavix) 75 MG tablet Take 1 tablet by mouth daily. 05/02/25 Margarita Acharya MD cyclobenzaprine (Flexeril) 10 MG tablet 07/26/24 Margarita Acharya MD cyproheptadine (Periactin) 4 MG tablet Take 1 tablet (4 mg) by mouth daily. Margarita Acharya MD doxepin (SINEquan) 10 MG capsule Take 1 capsule by mouth nightly. 08/08/23 Margarita Acharya MD fluticasone (Flonase) 50 MCG/ACT nasal spray Administer 1 spray into each nostril daily. 08/08/23 Margarita Acharya MD gabapentin (Neurontin) 400 MG capsule 07/12/24 Margarita Acharya MD gabapentin (Neurontin) 600 MG tablet Take 1 tablet by mouth 3 times a day. 03/19/25 Margarita Acharya MD hydrALAZINE (Apresoline) 100 MG tablet TAKE ONE TABLET BY MOUTH 3 TIMES A DAY NEEDED FOR BLOOD PRESSURE GREATER THAN 160/100 03/19/25 Margarita Acharya MD hydroCHLOROthiazide (HYDRODiuril) 25 MG tablet Take 1 tablet (25 mg) by mouth 1 (one) time each dayin the morning. Patient not taking: Reported on 05/09/2025 08/08/23 Margarita Acharya MD hydroCHLOROthiazide (HYDRODiuril) 50 MG tablet Take 1 tablet by mouth daily. 03/19/25 Margarita Acharya MD HYDROcodone-acetaminophen (Columbus) 10-325 MG tablet TAKE 1 TABLET BY MOUTH EVERY 6 HOURS FOR 10 DAYS03/22/25 Margarita Acharya MD isosorbide mononitrate ER (Imdur) 30 MG 24 hr tablet Take 1 tablet (30 mg) by mouth 1 (one) time each day. 08/08/23 Margarita Acharya MD levocetirizine (Xyzal) 5 MG tablet TAKE ONE TABLET BY MOUTH ONCE A DAY NEEDED FOR ALLERGY SYMPTOMS 03/19/25 Margarita Acharya MD lisinopril 20 MG tablet Take 1 tablet by mouth daily. 06/16/23 Margarita Acharya MD lovastatin (Mevacor) 40 MG tablet Take 1 tablet by mouth 1 time each day with dinner. 08/08/23 Margarita Acharya MD methocarbamol (Robaxin) 500 MG tablet Take 1 tablet (500 mg) by mouth 4 (four) times a day if needed for muscle spasms. Patient not taking: Reported on 05/09/2025 10/21/23 Tara David APRN naloxone (Narcan) 4 mg/0.1 mL nasal spray 1. Give 1 spray in nostril for no/slow breathing or cannot wake after opioid use 2. Call 911 3. Repeat in other nostril if symptoms continue Patient not takin. Give 1 spray in nostril for no/slow breathing or cannot wake after opioid use 2. Call 911 3. Repeat in other nostril if symptoms continue Reported on 05/09/2025 10/21/23 Tara David APRN ondansetron ODT (Zofran-ODT) 4 MG disintegrating tablet Take 1 tablet (4 mg) by mouth every 6 (six)hours if needed for nausea or vomiting. Patient not taking: Reported on 05/09/2025 10/21/23 Tara David APRN oxyCODONE (Roxicodone) 5 MG immediate release tablet Take 1 tablet (5 mg) by mouth every 6 (six) hours if needed for severe pain for up to 16 doses. Patient not taking: Reported on 05/16/2025 10/24/23 Ray Garcia MD oxygen (O2) gas Inhale 2 L/min every night at 120,000 mL/hr. via nasal canula ProviderMargarita MD pramipexole (Mirapex) 1.5 MG tablet 07/12/24 Margarita Acharya MD predniSONE (Deltasone) 20 MG tablet 07/26/24 Margarita Acharya MD spironolactone (Aldactone) 25 MG tablet Take 1 tablet by mouth daily. 04/23/25 Margarita Acharya MD triamcinolone (Kenalog) 0.025 % ointment 05/23/24 Margarita Acharya MD Vitamin D3 1.25 MG (35817 UT) capsule 1 capsule. Takes Tuesday and 07/04/24 Margarita Acharya MD Anticoagulation/ASA: clopidogrel Last dose: Last dose 05/16 in PM, held 4 days Allergies: Patient has no known allergies. Social history: Reviewed and non contributory Family history: Reviewed and non contributory Results Coags: No results found for: INR , PT1 , APTT , HPRN , CLFGN CBC: WBC Count Date Value Ref Range Status 10/21/2023 7.84 3.70 - 10.30 10*3/uL Final HGB Date Value Ref Range Status 10/21/2023 10.8 (L) 11.2 - 15.7 g/dL Final HCT Date Value Ref Range Status 10/21/2023 32.7 (L) 34.0 - 45.0 % Final RBC Count Date Value Ref Range Status 10/21/2023 3.70 (L) 3.90 - 5.20 10*6/uL Final MCV Date Value Ref Range Status 10/21/2023 88 79 - 98 fL Final MCH Date Value Ref Range Status 10/21/2023 29.2 26.0 - 32.0 pg Final MCHC Date Value Ref Range Status 10/21/2023 33.0 30.7 - 35.5 g/dL Final RDW Date Value Ref Range Status 10/21/2023 13.3 11.5 - 14.5 % Final MPV Date Value Ref Range Status 10/21/2023 11.2 8.8 - 12.5 fL Final nRBC Date Value Ref Range Status 10/21/2023 0.0 <=0.0 per 100 WBCs Final BMP: Sodium, Plasma Date Value Ref Range Status 10/21/2023 138 136 - 145 mmol/L Final Potassium, Plasma Date Value Ref Range Status 10/21/2023 4.1 3.7 - 4.8 mmol/L Final Chloride, Plasma Date Value Ref Range Status 10/21/2023 104 97 - 107 mmol/L Final BUN, Plasma Date Value Ref Range Status 10/21/2023 14 8 - 23 mg/dL Final CO2, Plasma Date Value Ref Range Status 10/21/2023 27 22 - 29 mmol/L Final Creatinine, Plasma Date Value Ref Range Status 10/21/2023 0.69 0.60 - 1.10 mg/dL Final Glucose, Plasma Date Value Ref Range Status 10/21/2023 104 (H) 74 - 99 mg/dL Final Magnesium, Plasma Date Value Ref Range Status 10/21/2023 2.1 1.9 - 2.4 mg/dL Final Phosphorus, Plasma Date Value Ref Range Status 10/21/2023 2.8 2.5 - 4.5 mg/dL Final Last Recorded Vitals Visit Vitals BP (!) 146/62 (BP Location: Left arm, Patient Position: Lying) Pulse 82 Temp 36.8 ??C (98.2 ??F) (Oral) Resp 18 Wt 75.8 kg (167 lb) SpO2 96% BMI 26.95 kg/m?? OB Status Postmenopausal Smoking Status Every Day BSA 1.88 m?? General: Alert, cooperative, appropriately interactive HEENT: EOMI, no active nasal drainage Neck: Trachea midline, no stridor Chest: Normal work of breathing Cardiac: Regular rate and rhythm Extremities: No clubbing or cyanosis. Skin: No rashes noted on visualized skin. Neuro: Speech fluid and fluent. Thought process coherent. Neurologic exam grossly non-focal. Psych: Normal affect and thought content. Impression/indication for procedure: Johanna Shaffer is a 64 y.o. female presenting for Lung nodule Procedure to be performed: Bronchoscopy airway examination wash, ION Roboitc bronchoscopy, Linear EBUS, RP- EBUS, Transbronchial biopsy, Needle aspiration, Brushing, and broncho alveolar lavage Side: Bilateral airway exam, targeting RUL nodule Consent: yes e-consent signed [1] Past Medical History: Diagnosis Date Arthritis Bilateral swelling of feet COPD (chronic obstructive pulmonary disease) ([facility]) High blood pressure High cholesterol Hx of gastric ulcer Lung trouble Shortness of breath Sleep trouble Cosigned by Kevin Khan MD at 05/21/2025 7:51 AM EDT documented in this encounter Plan of Treatment Upcoming Encounters Date Type Department Care Team (Latest Contact Info) Description 07/10/2025 11:10 AM EDT Hospital Encounter [facility] [address] [place] [address] Joni Prado, DO [address] [address] 07/10/2025 11:10 AM EDT - 07/10/2025 1:40 PM EDT Surgery [facility] [address] [place] [address] Joni Prado, DO [address] [place] [phone] RIGHT VATS WEDGE, POSSIBLE LOBECTOMY [68186 (CPT ) +1 more] 07/25/2025 9:20 AM EDT Appointment [facility] [address] [place] [phone] 07/25/2025 10:30 AM EDT Office Visit [facility] [address] [place] [id number] Joni Prado D, DO [address] [place] [address] Scheduled Procedures Name Priority Associated Diagnoses Date/Ti me VATS, WITH LUNG WEDGE RESECTION Non-small cell carcinoma of left lung 07/10/2025 11:10 AM EDT documented as of this encounter Goals Goal Patient Goal Type Associated Problems Recent Progress Patient-Stated? Author Rika buitrago Goal Care Plan Autogenerated Problem No Gina Galdamez, RN Rika buitrago Goal Care Plan Autogenerated Problem No Shea Marie documented as of this encounter Procedures Procedure Name Priority Date/Time Associated Diagnosis Comments XR CHEST 1 VIEW STAT 05/21/2025 11:03 AM EDT FL LESS THAN 1 HOUR (NON-REPORTABLE) Routine 05/21/2025 10:30 AM EDT NON-GYNECOLOGIC CYTOLOGY Routine 05/21/2025 8:44 AM EDT Lung nodule FINE NEEDLE ASPIRATION - CYTOLOGY, TRANSBRONCHIAL BX Routine 05/21/2025 8:43 AM EDT Lung nodule FINE NEEDLE ASPIRATION - CYTOLOGY Routine 05/21/2025 8:42 AM EDT Lung nodule CT CHEST WO IV CONTRAST STAT 05/21/20 7:32 AM EDT IA BRONCHOSCOPY,COMPUTER ASSIST/IMAGE-GUIDED NAVIGATION 05/21/2025 7:25 AM EDT Lung nodule documented in this encounter Results * XR Chest 1 View (05/21/2025 11:03 AM EDT) Anatomical Region Laterality Modality Chest Digital Radiogra phy Impressions 05/21/2025 11:08 AM EDT No pneumothorax. CRITICAL RESULT: No. COMMUNICATION: Per this written report Drafted by Bo Berg MD on 05/21/2025 11:07 AM Final report signed by Bo Berg MD on 05/21/2025 11:08 AM Narrative 05/21/2025 11:08 AM EDT CLINICAL INDICATION: post biopsy and bronchoscopy TECHNIQUE: XR CHEST 1 VIEW COMPARISON: May 21, 2025 CT chest FINDINGS: Nodules are better evaluated on CT. No pneumothorax. Procedure Note Bo Berg MD - 05/21/2025 CLINICAL INDICATION: post biopsy and bronchoscopy TECHNIQUE: XR CHEST 1 VIEW COMPARISON: May 21, 2025 CT chest FINDINGS: Nodules are better evaluated on CT. No pneumothorax. IMPRESSION: No pneumothorax. CRITICAL RESULT: No. COMMUNICATION: Per this written report Drafted by Bo Berg MD on 05/21/2025 11:07 AM Final report signed by Bo Berg MD on 05/21/2025 11:08 AM Kevin Khan MD IMG XR PROCEDURES Final Result * FL Less than 1 Hour Intraoperative (05/21/2025 10:30 AM EDT) Narrative IMAGING - 05/21/2025 1:00 PM EDT Images were obtained for surgical purposes. See Kevin Khan's surgical note in the patient's chart for the findings. Kevin Khan MD IMG FLUOROSCOPY PROCEDURES Final Result IMAGING * Non-Gynecologic Cytology (05/21/2025 8:44 AM EDT) Case Report Cytology Case: [id number] Authorizing Provider: Kevin Khan MD Collected: 05/21/2025 0844 Ordering Location: [facility] A OPERATING ROOM Received: 05/21/2025 0930 Pathologist: Liudmila Villareal MD Specimens: A) - Bronchial Brushing, Right Middle Lobe, RIGHT MIDDLE LOBE BRONCHIAL BRUSHING B) - Bronchoalveolar Lavage, Right Middle Lobe, RIGHT MIDDLE LOBE BRONCHOALVEOLAR LAVAGE 05/21/2025 3:18 PM EDT [facility] Final Diagnosis A. RIGHT MIDDLE LOBE BRONCHIAL BRUSHING - FEW ATYPICAL DEGENERATED CELLS PRESENT B. RIGHT MIDDLE LOBE BRONCHOALVEOLAR LAVAGE - NO EVIDENCE OF MALIGNANCY - NO VIRAL CHANGES IDENTIFIED - PREDOMINANTLY BLOOD - GMS STAIN IS NEGATIVE FOR ORGANISMS 05/21/2025 3:18 PM EDT [facility] at 1518 EDT Gross Description A. RIGHT MIDDLE LOBE BRONCHIAL BRUSHING Dundee tips in 8 ml's tinted fluid processed as thin prep and GMS B. RIGHT MIDDLE LOBE BRONCHOALVEOLAR LAVAGE 15 ml's bloody fluid processed as thin prep and GMS 05/21/2025 3:18 PM EDT [facility] Clinical Information lung nodule 05/21/2025 3:18 PM EDT [facility] Bronchial Dundee Bronchial brushings specimen / Unknown 05/21/2025 8:44 AM EDT 05/21/2025 9:30 AM EDT Comment:Pre-op diagnosis: lung nodule Bronchoalveolar lavage fluid specimen (specimen) Bronchoalveolar lavage fluid specimen / Unknown 05/21/2025 9:12 AM EDT 05/21/2025 9:30 AM EDT Comment:Pre-op diagnosis: lung nodule Kevin Khan MD LAB CYTOLOGY ORDERABLES Final Re sult [facility] [address] [place] [address] * Fine needle aspiration (05/21/2025 8:43 AM EDT) Case Report Cytology Case: [id number] Authorizing Provider: Kevin Khan MD Collected: 05/21/2025 0842 Ordering Location: [facility] A OPERATING ROOM Received: 05/21/2025 0947 Pathologist: Liudmila Villareal MD Specimens: A) - Lung, Right Middle Lobe, Fine Needle Aspiration, LUNG, RIGHT MIDDLE LOBE ION ROBOTIC NAVIGATIONAL FINE NEEDLE ASPIRATION B) - Lung, Right Middle Lobe, Transbronchial Biopsy, LUNG, RIGHT MIDDLE LOBE TRANSBRONCHIAL BIOPSY C) - Lung, Right Middle Lobe, Transbronchial Biopsy, LUNG, RIGHT MIDDLE LOBE CRYO TRANSBRONCHIAL BIOPSY D) - Lymph node, Station 7, Fine Needle Aspiration, LYMPH NODE, STATION 7 ENDOBRONCHIAL ULTRASOUND GUIDED FINE NEEDLE ASPIRATION E) - Lymph Node, 11R, Fine Needle Aspiration, LYMPH NODE, 11 RIGHT ENDOBRONCHIAL ULTRASOUND GUIDED FINE NEEDLE ASPIRATION 5 2:25 PM EDT [facility] Addendum PD-L1 IHC 22C3 pharmDx* is performed and the results are as follows: - Tumor proportion score (TPS)*: 5% - Expression level: Positive for PD-L1 expression (TPS 1-49%) Comments to treating physician: Pembrolizumab is indicated for treatment of patients with metastatic NSCLC whose tumors have high PD-L1 expression (TPS greater than or equal to 50%) as determined by an FDA-approved test, with no EGFR or ALK genomic tumor aberrations, and no prior systemic chemotherapy treatment for metastatic NSCLC. Pembrolizumab is also indicated for the treatment of patients with metastatic NSCLC whose tumors express PD-L1 (TPS greater than or equal to 1%) as determined by an FDA-approved test, with disease progression on or after elim ira-containi ng chemotherapy. Patients with EGFR or ALK genomic tumor aberrations should have disease progression on FDA-approved therapy for these aberrations prior to receiving Pembrolizumab. PD-L1 IHC serves as a complementary diagnostic in regards to other PD-L1/PD-1-target edtherapies (Nivolumab, Atezolizumab, Durvalumab, etc). Expression level: >Negative for PD-L1 expression (TPS less than 1%) >Positive for PD-L1 expression (TPS 1-49%) >Positive for high PD-L1 expression (TPS greater than or equal to 50%) *PD-L1 IHC 22C3 pharmDx is a FDA-approved leak gang supervisor diagnostic for pembrolizumab performed on [employer] using formalin-fixed, paraffin imbedded (FFPE) tissue from non-small jonathan lung carcinomas. Positivity is scored only in viable tumor cells with membrane staining (partial or complete) of greater than or equal to 1+ intensity. The TPS is estimated by manual quantification of PD-L1 positivity. Certain tissue processing factors such as decalcification, formalin fixation time outside an acceptable range (12 to 72 hrs), and prolonged time to fixation can affect PD-L1 staining/expressi on levels and results should be interpreted with caution in such instances. Additionally, tissue from older (greater than 5 yrs) formalin-fixed paraffin-embedded blocks may lose PD-L1 immunoreactivity. This assay is not validated for decalcified specimens. All controls show appropriate reactivity. All immunohistochemis try, in situ hybridization, and histochemical tests were developed by and are performed at the [facility], [address] [place] [address]. All tests reported here, except those addressing HER2 and PD-L1 expression as predictive markers, have not been cleared by or approved by the US Food and Drug Administration (FDA). The laboratory is regulated under CLIA as qualified to perform high-complexity testing. The tests are used for clinical purposes. They should not be regarded as investigational or for research. 2:25 PM EDT [facility] Addendum electronically signed by Mak Hernández MD on 05/31/2025 at 1425 EDT Final Diagnosis A. LUNG, RIGHT MIDDLE LOBE, ION ROBOTIC NAVIGATIONAL FINE NEEDLE ASPIRATION: - RARE ATYPICAL CELLS PRESENT B. LUNG, RIGHT MIDDLE LOBE, TRANSBRONCHIAL BIOPSY: - POSITIVE FOR MALIGNANCY, ADENOCARCINOMA CONSISTENT WITH LUNG PRIMARY C. LUNG, RIGHT MIDDLE LOBE,CRYO TRANSBRONCHIAL BIOPSY: - POSITIVE FOR MALIGNANCY, ADENOCARCINOMA CONSISTENT WITH LUNG PRIMARY, SEE COMMENT D. LYMPH NODE, STATION 7, ENDOBRONCHIAL ULTRASOUND GUIDED FINE NEEDLE ASPIRATION: - PREDOMINANTLY BLOOD WITH RARE LYMPHOCYTES, SUBOPTIMAL FOR EVALUATION E. LYMPH NODE, 11 RIGHT, ENDOBRONCHIAL ULTRASOUND GUIDED FINE NEEDLE ASPIRATION: - VERY RARE ATYPICAL CELL GROUP, FAVOR REACTIVE BRONCHIAL CELLS - HEMODILUTE LYMPHOID TISSUE 2:25 PM EDT [facility] at 1707 EDT Comment History of adenocarcinoma of the left lower lobe; subsequent VATS with LLL wedge resection in 2023 (pT2a, pN0 - [id number]). Now found to have a 1 cm spiculated right upper lobe nodule is unchanged in size. An additional spiculated nodule in the periphery of the right upper lobe measuring about 1.3 cm is also stable. Additional scattered nodular and consolidative opacities throughout both lungs are also stable. The small solid nodule in the right lower lobe is also unchanged. No definite new suspicious solid nodules. The right middle lobe biopsies demonstrate tumor with glandular formation that is TTF-1 and CK7 positive. This immunoprofile supports the diagnosis of adenocarcinoma consistent with lung primary. The current specimen is also compared to the previous left lower lobe resection specimen from 2023 ([id number]) and while the tumors are not identical, there are a few histologic similarities. Whether this represents a new primary versus recurrent / metastatic disease cannot be determined with certainty and therefore, correlation with clinical and imaging findings is recommended. PD-L1 IHC staining is pending and that result will be issued as an addendum. 5 2:25 PM EDT [facility] Special and Immunohistochemical Stains IHC: C1-1 TTF-1 Positive C1-2 CK7 Positive C1-3 CK20 Negative All controls show appropriate reactivity. All immunohistochemis try, in situ hybridization, and histochemical tests were developed by and are performed at the [facility], [address] [place] [address]. All tests reported here, except those addressing HER2 (breast) and PD-L1 expression as predictive markers, have not been cleared by or approved by the US Food and Drug Administration (FDA). The FDA has determined that such clearance or approval is not necessary. The laboratory is regulated under CLIA as qualified to perform high-complexity testing. The tests are used for clinical purposes. They should not be regarded as investigational or for research. This assay has not been validated on decalcified tissues. Results should be interpreted with caution given the likelihood of false negativity on decalcified specimens. 5 2:25 PM EDT [facility] Intradepartmental Consultation with Agreement Dr. Buchanan 5 2:25 PM EDT [facility] Immediate Evaluation A: FNA performed by: Dr. Khan Number of sticks: 4 Immediate evaluation performed by: Dr. Villareal Evaluation episode # 1-4: Blood and few bronchial cells, non-diagnostic B: Biopsy performed by: Dr. Khan Number of sticks: Not provided C: Biopsy performed by: Dr. Khan Number of sticks: Not provided D: FNA performed by: Dr. Khan Number of sticks: 4 Immediate evaluation performed by: Dr. Villareal Evaluation episode # 1-4: Blood, non-diagnostic E: FNA performed by: Dr. Khan Number of sticks: 4 Immediate evaluation performed by: Dr. Villareal Evaluation episode # 1-4: Single atypical cell group in a background of scant lymphoid tissue 5 2:25 PM EDT [facility] Gross Description A. LUNG, RIGHT MIDDLE LOBE ION ROBOTIC NAVIGATIONAL FINE NEEDLE ASPIRATION 5 ml's bloody Needle rinse fluid processed as cellblock for complete evaluation of sample. Received 4 diff quick slides and 4 pap slides. Cold Time: 2h 18m B. LUNG, RIGHT MIDDLE LOBE TRANSBRONCHIAL BIOPSY Multiple white wick cores of friable tissue, all measuring less than 0.1 cm in diameter and ranging from 0.01 cm to 0.5 cm in length, entirely submitted in biowrap and/or cassette. Specimen was placed in formalin at 8:43 am in cytology, and then taken to histology at 4:30 pm where it received an additional 3 hours of formalin fixation. Cold Time: <1m C. LUNG, RIGHT MIDDLE LOBE CRYO TRANSBRONCHIAL BIOPSY Multiple white wick cores of friable tissue, all measuring less than 0.1 cm in diameter and ranging from 0.01 cm to 0.4 cm in length, entirely submitted in biowrap and/or cassette. Specimen was placed in formalin at 9:02 am in cytology, and then taken to histology at 4:30 pm where it received an additional 3 hours of formalin fixation. Cold Time: <1m D. LYMPH NODE, STATION 7 ENDOBRONCHIAL ULTRASOUND GUIDED FINE NEEDLE ASPIRATION 5 ml's bloody Needle rinse fluid processed as cellblock for complete evaluation of sample. Received 4 diff quick slides and 4 pap slides. Cold Time: 2h 12m E. LYMPH NODE, 11 RIGHT ENDOBRONCHIAL ULTRASOUND GUIDED FINE NEEDLE ASPIRATION 5 ml's bloody Needle rinse fluid processed as cellblock for complete evaluation of sample. Received 4 diff quick slides and 4 pap slides. Cold Time: 2h 12m 5 2:25 PM EDT [facility] Note: A resident was involved in the service. I attest I examined the relevant preparations for the specimens and confirmed the diagnosis or interpretation. 5 2:25 PM EDT [facility] Clinical Information lung nodule 5 2:25 PM EDT [facility] Fine Needle Aspirate Structure of middle lobe of right lung / Unknown 05/21/2025 8:43 AM EDT 05/21/2025 9:47 AM EDT Comment:Pre-op diagnosis: lung nodule Specimen obtained by fine needle aspiration procedure (specimen) Structure of middle lobe of right lung / Unknown 05/21/2025 9:02 AM EDT 05/21/2025 9:48 AM EDT Comment:Pre-op diagnosis: lung nodule Specimen obtained by fine needle aspiration procedure (specimen) Specimen from lung obtained by fine needle aspiration procedure / Unknown 05/21/2025 8:42 AM EDT 05/21/2025 9:47 AM EDT Specimen obtained by fine needle aspiration procedure (specimen) Structure of lymph node / Unknown 05/21/2025 9:48 AM EDT 05/21/2025 10:50 AM EDT Specimen obtained by fine needle aspiration procedure (specimen) Structure of lymph node / Unknown 05/21/2025 9:48 AM EDT 05/21/2025 10:51 AM EDT us Kevin Khan MD LAB CYTOLOGY ORDERABLES Edited R esult - Final [facility] [address] [place] [address] * Fine needle aspiration (05/21/2025 8:42 AM EDT) Case Report Cytology Case: [id number] Authorizing Provider: Kevin Khan MD Collected: 05/21/2025 0842 Ordering Location: [facility] Received: 05/21/2025 0947 Pathologist: Liudmila Villareal MD Specimens: A) - Lung, Right Middle Lobe, Fine Needle Aspiration, LUNG, RIGHT MIDDLE LOBE ION ROBOTIC NAVIGATIONAL FINE NEEDLE ASPIRATION B) - Lung, Right Middle Lobe, Transbronchial Biopsy, LUNG, RIGHT MIDDLE LOBE TRANSBRONCHIAL BIOPSY C) - Lung, Right Middle Lobe, Transbronchial Biopsy, LUNG, RIGHT MIDDLE LOBE CRYO TRANSBRONCHIAL BIOPSY D) - Lymph node, Station 7, Fine Needle Aspiration, LYMPH NODE, STATION 7 ENDOBRONCHIAL ULTRASOUND GUIDED FINE NEEDLE ASPIRATION E) - Lymph Node, 11R, Fine Needle Aspiration, LYMPH NODE, 11 RIGHT ENDOBRONCHIAL ULTRASOUND GUIDED FINE NEEDLE ASPIRATION 08/29/202 5 2:25 PM EDT [facility] Addendum PD-L1 IHC 22C3 pharmDx* is performed and the results are as follows: - Tumor proportion score (TPS)*: 5% - Expression level: Positive for PD-L1 expression (TPS 1-49%) Comments to treating physician: Pembrolizumab is indicated for treatment of patients with metastatic NSCLC whose tumors have high PD-L1 expression (TPS greater than or equal to 50%) as determined by an FDA-approved test, with no EGFR or ALK genomic tumor aberrations, and no prior systemic chemotherapy treatment for metastatic NSCLC. Pembrolizumab is also indicated for the treatment of patients with metastatic NSCLC whose tumors express PD-L1 (TPS greater than or equal to 1%) as determined by an FDA-approved test, with disease progression on or after elim ira-containi ng chemotherapy. Patients with EGFR or ALK genomic tumor aberrations should have disease progression on FDA-approved therapy for these aberrations prior to receiving Pembrolizumab. PD-L1 IHC serves as a complementary diagnostic in regards to other PD-L1/PD-1-target edtherapies (Nivolumab, Atezolizumab, Durvalumab, etc). Expression level: >Negative for PD-L1 expression (TPS less than 1%) >Positive for PD-L1 expression (TPS 1-49%) >Positive for high PD-L1 expression (TPS greater than or equal to 50%) *PD-L1 IHC 22C3 pharmDx is a FDA-approved leak gang supervisor diagnostic for pembrolizumab performed on [employer] using formalin-fixed, paraffin imbedded (FFPE) tissue from non-small jonathan lung carcinomas. Positivity is scored only in viable tumor cells with membrane staining (partial or complete) of greater than or equal to 1+ intensity. The TPS is estimated by manual quantification of PD-L1 positivity. Certain tissue processing factors such as decalcification, formalin fixation time outside an acceptable range (12 to 72 hrs), and prolonged time to fixation can affect PD-L1 staining/expressi on levels and results should be interpreted with caution in such instances. Additionally, tissue from older (greater than 5 yrs) formalin-fixed paraffin-embedded blocks may lose PD-L1 immunoreactivity. This assay is not validated for decalcified specimens. All controls show appropriate reactivity. All immunohistochemis try, in situ hybridization, and histochemical tests were developed by and are performed at the [facility], [address] [facility], [place] [address]. All tests reported here, except those addressing HER2 and PD-L1 expression as predictive markers, have not been cleared by or approved by the US Food and Drug Administration (FDA). The laboratory is regulated under CLIA as qualified to perform high-complexity testing. The tests are used for clinical purposes. They should not be regarded as investigational or for research. 2:25 PM EDT [facility] Addendum electronically signed by Mak Hernández MD on 05/31/2025 at 1425 EDT Final Diagnosis A. LUNG, RIGHT MIDDLE LOBE, ION ROBOTIC NAVIGATIONAL FINE NEEDLE ASPIRATION: - RARE ATYPICAL CELLS PRESENT B. LUNG, RIGHT MIDDLE LOBE, TRANSBRONCHIAL BIOPSY: - POSITIVE FOR MALIGNANCY, ADENOCARCINOMA CONSISTENT WITH LUNG PRIMARY C. LUNG, RIGHT MIDDLE LOBE,CRYO TRANSBRONCHIAL BIOPSY: - POSITIVE FOR MALIGNANCY, ADENOCARCINOMA CONSISTENT WITH LUNG PRIMARY, SEE COMMENT D. LYMPH NODE, STATION 7, ENDOBRONCHIAL ULTRASOUND GUIDED FINE NEEDLE ASPIRATION: - PREDOMINANTLY BLOOD WITH RARE LYMPHOCYTES, SUBOPTIMAL FOR EVALUATION E. LYMPH NODE, 11 RIGHT, ENDOBRONCHIAL ULTRASOUND GUIDED FINE NEEDLE ASPIRATION: - VERY RARE ATYPICAL CELL GROUP, FAVOR REACTIVE BRONCHIAL CELLS - HEMODILUTE LYMPHOID TISSUE 2:25 PM EDT [facility] at 1707 EDT Comment History of adenocarcinoma of the left lower lobe; subsequent VATS with LLL wedge resection in 2023 (pT2a, pN0 - [id number]). Now found to have a 1 cm spiculated right upper lobe nodule is unchanged in size. An additional spiculated nodule in the periphery of the right upper lobe measuring about 1.3 cm is also stable. Additional scattered nodular and consolidative opacities throughout both lungs are also stable. The small solid nodule in the right lower lobe is also unchanged. No definite new suspicious solid nodules. The right middle lobe biopsies demonstrate tumor with glandular formation that is TTF-1 and CK7 positive. This immunoprofile supports the diagnosis of adenocarcinoma consistent with lung primary. The current specimen is also compared to the previous left lower lobe resection specimen from 2023 ([id number]) and while the tumors are not identical, there are a few histologic similarities. Whether this represents a new primary versus recurrent / metastatic disease cannot be determined with certainty and therefore, correlation with clinical and imaging findings is recommended. PD-L1 IHC staining is pending and that result will be issued as an addendum. 2:25 PM EDT [facility] Special and Immunohistochemical Stains IHC: C1-1 TTF-1 Positive C1-2 CK7 Positive C1-3 CK20 Negative All controls show appropriate reactivity. All immunohistochemis try, in situ hybridization, and histochemical tests were developed by and are performed at the [facility], [address] [place] [address]. All tests reported here, except those addressing HER2 (breast) and PD-L1 expression as predictive markers, have not been cleared by or approved by the US Food and Drug Administration (FDA). The FDA has determined that such clearance or approval is not necessary. The laboratory is regulated under CLIA as qualified to perform high-complexity testing. The tests are used for clinical purposes. They should not be regarded as investigational or for research. This assay has not been validated on decalcified tissues. Results should be interpreted with caution given the likelihood of false negativity on decalcified specimens. 5 2:25 PM EDT [facility] Intradepartmental Consultation with Agreement Dr. Buchanan 2:25 PM EDT [facility] Immediate Evaluation A: FNA performed by: Dr. Khan Number of sticks: 4 Immediate evaluation performed by: Dr. Villareal Evaluation episode # 1-4: Blood and few bronchial cells, non-diagnostic B: Biopsy performed by: Dr. Khan Number of sticks: Not provided C: Biopsy performed by: Dr. Khan Number of sticks: Not provided D: FNA performed by: Dr. Khan Number of sticks: 4 Immediate evaluation performed by: Dr. Villareal Evaluation episode # 1-4: Blood, non-diagnostic E: FNA performed by: Dr. Khan Number of sticks: 4 Immediate evaluation performed by: Dr. Villareal Evaluation episode # 1-4: Single atypical cell group in a background of scant lymphoid tissue 5 2:25 PM EDT [facility] Gross Description A. LUNG, RIGHT MIDDLE LOBE ION ROBOTIC NAVIGATIONAL FINE NEEDLE ASPIRATION 5 ml's bloody Needle rinse fluid processed as cellblock for complete evaluation of sample. Received 4 diff quick slides and 4 pap slides. Cold Time: 2h 18m B. LUNG, RIGHT MIDDLE LOBE TRANSBRONCHIAL BIOPSY Multiple white wick cores of friable tissue, all measuring less than 0.1 cm in diameter and ranging from 0.01 cm to 0.5 cm in length, entirely submitted in biowrap and/or cassette. Specimen was placed in formalin at 8:43 am in cytology, and then taken to histology at 4:30 pm where it received an additional 3 hours of formalin fixation. Cold Time: <1m C. LUNG, RIGHT MIDDLE LOBE CRYO TRANSBRONCHIAL BIOPSY Multiple white wick cores of friable tissue, all measuring less than 0.1 cm in diameter and ranging from 0.01 cm to 0.4 cm in length, entirely submitted in biowrap and/or cassette. Specimen was placed in formalin at 9:02 am in cytology, and then taken to histology at 4:30 pm where it received an additional 3 hours of formalin fixation. Cold Time: <1m D. LYMPH NODE, STATION 7 ENDOBRONCHIAL ULTRASOUND GUIDED FINE NEEDLE ASPIRATION 5 ml's bloody Needle rinse fluid processed as cellblock for complete evaluation of sample. Received 4 diff quick slides and 4 pap slides. Cold Time: 2h 12m E. LYMPH NODE, 11 RIGHT ENDOBRONCHIAL ULTRASOUND GUIDED FINE NEEDLE ASPIRATION 5 ml's bloody Needle rinse fluid processed as cellblock for complete evaluation of sample. Received 4 diff quick slides and 4 pap slides. Cold Time: 2h 12m 5 2:25 PM EDT [facility] Note: A resident was involved in the service. I attest I examined the relevant preparations for the specimens and confirmed the diagnosis or interpretation. 5 2:25 PM EDT [facility] Clinical Information lung nodule 2:25 PM EDT [facility] Fine Needle Aspirate Specimen from lung obtained by fine needle aspiration procedure / Unknown 05/21/2025 8:42 AM EDT 05/21/2025 9:47 AM EDT Comment:Pre-op diagnosis: lung nodule Specimen obtained by fine needle aspiration procedure (specimen) Structure of lymph node / Unknown 05/21/2025 9:48 AM EDT 05/21/2025 10:50 AM EDT Comment:Pre-op diagnosis: lung nodule Specimen obtained by fine needle aspiration procedure (specimen) Structure of lymph node / Unknown 05/21/2025 9:48 AM EDT 05/21/2025 10:51 AM EDT Comment:Pre-op diagnosis: lung nodule Specimen obtained by fine needle aspiration procedure (specimen) Structure of middle lobe of right lung / Unknown 05/21/2025 8:43 AM EDT 05/21/2025 9:47 AM EDT Specimen obtained by fine needle aspiration procedure (specimen) Structure of middle lobe of right lung / Unknown 05/21/2025 9:02 AM EDT 05/21/2025 9:48 AM EDT us Kevin Khan MD LAB CYTOLOGY ORDERABLES Edited R esult - Final [facility] [address] [place] [address] * CT Chest wo IV Contrast (05/21/2025 7:32 AM EDT) Anatomical Region Laterality Modality Chest Computed Tomogra phy Impressions 05/21/2025 8:32 AM EDT Remonstration of diffuse bilateral nodular and groundglass opacities with no significant change, in particular, stable size of spiculated right upper lobe nodules which remain suspicious. CRITICAL RESULT: No. COMMUNICATION: Per this written report. Drafted by Luis Manuel Alejandro MD on 05/21/2025 8:29 AM Final report signed by Luis Manuel Alejandro MD on 05/21/2025 8:32 AM Narrative 05/21/2025 8:32 AM EDT CLINICAL INDICATION: pre-procedural planning RUL nodules TECHNIQUE: Imaging of the chest was performed from thoracic inlet through upper abdomen, using spiral technique, without administration of IV contrast. Reformatted images in the coronal and sagittal planes were generated from the axial data set to facilitate diagnostic accuracy. Total DLP (Dose-Length Product): 158 mGy.cm. Please note: The reported value represents the total of one or more individual components during the CT acquisition on this date and at this time, and as such, the same value may appear in more than one CT report depending on the interpreting/reporting physicians. COMPARISON: 03/28/2025 FINDINGS: Chest: Lack of IV contrast limits evaluation of thoracic organs and vessels. Aorta/Vessels: The thoracic aorta is mildly atherosclerotic. Pleural/Pericardial Space: No pneumothorax. No pleural effusions. No pericardial effusion. Lymph Nodes: No lymphadenopathy within the chest. Lungs: 1 cm spiculated right upper lobe nodule is unchanged in size (series 2 image 46). An additional spiculated nodule in the periphery of the right upper lobe measuring about 1.3 cm is also stable (series 2 image 53). Additional scattered nodular and consolidative opacities throughout both lungs are also stable. The small solid nodule in the right lower lobe is also unchanged (series 2 image 72. No definite new suspicious solid nodules. Stable postoperative appearance in the left lung. Mediastinum: Otherwise unremarkable. Chest Wall: No chest wall hematoma or contusion. Bones: No acute fracture within the chest. Upper Abdomen: Stable nodular thickening of the left adrenal gland Procedure Note Luis Manuel Alejandro MD - 05/21/2025 CLINICAL INDICATION: pre-procedural planning RUL nodules TECHNIQUE: Imaging of the chest was performed from thoracic inlet through upperabdomen, using spiral technique, without administration of IV contrast.Reformatted images in the coronal and sagittal planes were generated fromthe axial data set to facilitate diagnostic accuracy. Total DLP (Dose-Length Product): 158 mGy.cm. Please note: The reportedvalue represents the total of one or more individual components during theCT acquisition on this date and at this time, and as such, the same valuemay appear in more than one CT report depending on theinterpreting/reporting physicians. COMPARISON: 03/28/2025 FINDINGS: Chest: Lack of IV contrast limits evaluation of thoracic organs and vessels. Aorta/Vessels: The thoracic aorta is mildly atherosclerotic. Pleural/Pericardial Space: No pneumothorax. No pleural effusions. Nopericardial effusion. Lymph Nodes: No lymphadenopathy within the chest. Lungs: 1 cm spiculated right upper lobe nodule is unchanged in size(series 2 image 46). An additional spiculated nodule in the periphery ofthe right upper lobe measuring about 1.3 cm is also stable (series 2 image53). Additional scattered nodular and consolidative opacities throughoutboth lungs are also stable. The small solid nodule in the right lower lobeis also unchanged (series 2 image 72. No definite new suspicious solidnodules. Stable postoperative appearance in the left lung. Mediastinum: Otherwise unremarkable. Chest Wall: No chest wall hematoma or contusion. Bones: No acute fracture within the chest. Upper Abdomen: Stable nodular thickening of the left adrenal gland IMPRESSION: Remonstration of diffuse bilateral nodular and groundglass opacities withno significant change, in particular, stable size of spiculated rightupper lobe nodules which remain suspicious. CRITICAL RESULT: No. COMMUNICATION: Per this written report. Drafted by Luis Manuel Alejandro MD on 05/21/2025 8:29 AM Final report signed by Luis Manuel Alejandro MD on 05/21/2025 8:32 AM Kevin Khan MD IMG CT PROCEDURES Final Result documented in this encounter Visit Diagnoses Diagnosis Lung nodule Other diseases of lung, not elsewhere classified Non-small cell carcinoma of left lung documented in this encounter Administered Medications Inactive Administered Medications - up to 3 most recent administrations Medication Order MAR Action Action Date Dose Rate Site albuterol 108 (90 Base) MCG/ACT inhaler 2 puff 2 puff, Inhalation, Once as needed, 1 dose, Starting on Tue05/21/25 at 0923, Until Tue05/21/25 at 1400, Routine, Recovery (Phase I only), shortness of breath fentaNYL (Sublimaze) injection 25 mcg 25 mcg, Intravenous, Every 5 min PRN, 2 doses, Starting on Tue05/21/25 at 0923, Until Tue05/21/25 at 1400, Routine, Recovery (Phase I only), pain score of 1-4 out of 10 fentaNYL (Sublimaze) injection 50 mcg 50 mcg, Intravenous, Every 5 min PRN, 2 doses, Starting on Tue05/21/25 at 0923, Until Tue05/21/25 at 1400, Routine, Recovery (Phase I only), pain score of 5-8 out of 10 HYDROmorphone (Dilaudid) injection 0.5 mg 0.5 mg, Intravenous, Every 10 min PRN, 2 doses, Starting on Tue05/21/25 at 0923, Until Tue05/21/25 at 1400, Routine, Recovery (Phase I only), pain score of 9-10 out of 10 ipratropium-albuterol (Duo-Neb) 0.5-2.5 mg/3 mL nebulizer solution 3 mL 3 mL, Nebulization, Once, 1 dose, On Tue05/21/25 at 1115, STAT Given 05/21/2025 10:53 AM EDT 3 mL naloxone (Narcan) injection 0.4 mg 0.4 mg, Intravenous, As needed, Starting on Tue05/21/25 at 0923, Until Tue05/21/25 at 1400, Routine, Recovery (Phase I only), respiratory depression ondansetron (Zofran) injection 4 mg 4 mg, Intravenous, Once as needed, 1 dose, Starting on Tue05/21/25 at 0923, Until Tue05/21/25 at 1400, Routine, Recovery (Phase I only), nausea, vomiting oxyCODONE (Roxicodone) immediate release tablet 5 mg 5 mg, Oral, Once as needed, 2 doses, Starting on Tue05/21/25 at 0923, Until Tue05/21/25 at 1400, Routine, Recovery (Phase I only), pain score of 3-5 out of 10 documented in this encounter Active and Recently Administered Medications Times are shown in EDT. Scheduled Medication Order 05/19/2025 05/20/2025 05/21/2025 ipratropium-albuterol (Duo-Neb) 0.5-2.5 mg/3 mL nebulizer solution 3 mL (COMPLETED) 3 mL, Nebulization, Once, 1 dose, On Tue05/21/25 at 1115, STAT 1053 (Given - Provid er: Sabino Jones) PRN Medication Order 05/19/2025 05/20/2025 05/21/2025 albuterol 108 (90 Base) MCG/ACT inhaler 2 puff 2 puff, Inhalation, Once as needed, 1 dose, Starting on Tue05/21/25 at 0923, Until Tue05/21/25 at 1400, Routine, Recovery (Phase I only), shortness of breath fentaNYL (Sublimaze) injection 25 mcg 25 mcg, Intravenous, Every 5 min PRN, 2 doses, Starting on Tue05/21/25 at 0923, Until Tue05/21/25 at 1400, Routine, Recovery (Phase I only), pain score of 1-4 out of 10 fentaNYL (Sublimaze) injection 50 mcg 50 mcg, Intravenous, Every 5 min PRN, 2 doses, Starting on Tue05/21/25 at 0923, Until Tue05/21/25 at 1400, Routine, Recovery (Phase I only), pain score of 5-8 out of 10 HYDROmorphone (Dilaudid) injection 0.5 mg 0.5 mg, Intravenous, Every 10 min PRN, 2 doses, Starting on Tue05/21/25 at 0923, Until Tue05/21/25 at 1400, Routine, Recovery (Phase I only), pain score of 9-10 out of 10 naloxone (Narcan) injection 0.4 mg 0.4 mg, Intravenous, As needed, Starting on Tue05/21/25 at 0923, Until Tue05/21/25 at 1400, Routine, Recovery (Phase I only), respiratory depression ondansetron (Zofran) injection 4 mg 4 mg, Intravenous, Once as needed, 1 dose, Starting on Tue05/21/25 at 0923, Until Tue05/21/25 at 1400, Routine, Recovery (Phase I only), nausea, vomiting oxyCODONE (Roxicodone) immediate release tablet 5 mg 5 mg, Oral, Once as needed, 2 doses, Starting on Tue05/21/25 at 0923, Until Tue05/21/25 at 1400, Routine, Recovery (Phase I only), pain score of 3-5 out of 10 documented in this encounter Additional Health Concerns Active Problems Noted Date Diagnosed Date Autogenerated Problem 05/10/2025 Autogenerated Problem 05/30/2025 Assessment Noted Time A fall risk assessment has been complete d for the patient 05/09/2025 9:43 AM EDT A Body Mass Index follow-up plan has been documented for the patient 05/10/2025 10:38 AM EDT documented as of this encounter Care Teams [employer] Programmer Relationship Specialty Start Date End Date Jt Jauregui MD [address] [place] [address] LOY Ceron [id number] PCP - General Family Medicine 12/29/23 documented as of this encounter
--- OUTSIDE RECORDS SUMMARY | 2025-05-21 07:30 | XMS_ITS | Encounter Summary ---
Author Organization Healthcare Address [address] [place] [address] Care Team Providers Care Network Technical Analyst Name Role Phone Jt Jauregui MD Primary Care Provider [phone] Reason for Visit * Auth/Cert (Routine) Specialty Diagnoses / Procedures Referred By Stuart coello Referred To Contact Diagnoses Lung nodule lung nodule Procedures ND BRONCHOSCOPY,COMPUTER ASSIST/IMAGE-GUIDED NAVIGATION ND BRONCHOSCOPY,DIAGNOSTIC W BRUSH ND BRONCHOSCOPY,DIAGNOSTIC W LAVAGE ND BRONCHOSCOPY,BIOPSY ND BRONCHOSCOPY,TRANSBRONCH BIOPSY ND BRONCHOSCOPY,TRANSBRON ASPIR BX ND [facility] EBUS GUIDED SAMPL 1/2 NODE STATION/STRUX ND [facility] EBUS GUIDED SAMPL 3/> NODE STATION/STRUX ION Robotic Bronch, Radial US, Cherry Log, BAL, Biopsy, Needle, EBUS TBNA, CIOS / 3D fluoroscopy Kevin Khan MD [address] [place] [address] Phone: tel: fax: [facility] [address] [place] [address] Phone: tel: Referral ID Status Reason Start Date Expiration Date Visits Re quested Visits Authorized [id number] 1 1 Encounter Details Date Type Department Care Team ([facility] st Contact Info) Description 05/21/2025 7:30 AM EDT - 05/21/2025 10:00 AM EDT Surgery [facility] [address] [place] [address] Kevin Khan MD [address] [place] [address] ION Robotic Bronch, Radial US, Cherry Log, BAL, Biopsy, Needle, EBUS TBNA, CIOS / 3D fluoroscopy [97635 (CPT )] Surgery Details Date/Time Status Location OR Service Patient Class Case Class Case Type Trauma Case? 05/21/2025 7:30 AM Posted [facility] [address] [place], [place] [address] Outpatient Surgery E-Electi ve Panel 1 Procedure LRB Anes Op Region Wound Class Comments ION Robotic Bronch, Radial U S, Cherry Log, BAL, Biopsy, Needle, EBUS TBNA, CIOS / 3D fluoroscopy Bilateral General Surgeon Surgeon Role Service Panel Kevin Khan MD Primary Pulmonology 1 documented in this encounter Social History Tobacco [...] place to sleep or slept in a [facility] (including now)? No 10/20/2023 CAGE ASSESSMENT Answer [...] drink first t tello in the morning (EYE-GAG WRITER) to steady your nerves or to get [...] Sign Reading Time Taken Comments Blood Pressure 146/62 05/21/2025 6:25 AM EDT Pulse 82 05/21/2025 6:25 AM EDT Temperature 36.8 C (98.2 F) 05/21/2025 6:25 AM EDT Respiratory Rate 18 05/21/2025 6:25 AM EDT Oxygen Saturation 96% 05/21/2025 6:25 AM EDT Inhaled Oxygen Concentration - - [...] tablet by mouth daily. 5 HYDROcodone-acetami nophen ([place]) 10-325 MG tablet TAKE 1 TABLET BY [...] % ointment 4 Vitamin D3 1.25 MG (50713 UT) capsule 1 capsule. Takes Tuesday and [...] Type: * ION Robotic Bronch, Radial US, Cherry Log, BAL, Biopsy, Needle, EBUS TBNA, CIOS / [...] AM EDT Operative Note Date: 05/21/25 Location: [facility] Name: Johanna Shaffer, : 1960, Diagnoses: Pre-op Diagnosis Lung nodule Post-op Diagnosis Lung nodule Procedure(s): Ion robotic assisted bronchoscopy, radial and EBUS linear ultrasound, transbronchial biopsies, transbronchial needle biopsies/aspiration, brushings, bronchoalveolar lavage. Attending Surgeon(s): * Kevin Khan - Primary Service Tech/Welder(s): * No surgeons found with a matching [...] to confirm the location which was circumferential.The [employer]Spot[employer] spin mobile C-arm with true cone beam imaging [...] remove blood clots. EBUS bronchoscope , Olympus [id number] was introduced into the airway. Olympus 22 [...] by mouth daily. 07/28/23 Margarita Acharya MD Breztri Aerosphere 160-9-4.8 MCG/ACT aerosol inhale 2 [...] mouth daily. 03/19/25 Margarita Acharya MD HYDROcodone-acetaminophen ([place]) 10-325 MG tablet TAKE 1 TABLET BY [...] night at 120,000 mL/hr. via nasal canula Margarita Acharya MD pramipexole (Mirapex) 1.5 MG tablet 07/12/24 Margarita Acharya MD predniSONE (Deltasone) 20 MG tablet 07/26/24 Margarita Acharya MD spironolactone (Aldactone) 25 MG tablet Take 1 tablet by mouth daily. 04/23/25 Margarita Acharya MD triamcinolone (Kenalog) 0.025 % ointment 05/23/24 ProviderMargarita MD Vitamin D3 1.25 MG (88896 UT) capsule 1 capsule. Takes Tuesday and [...] of feet COPD (chronic obstructive pulmonary disease) ([facility]) High blood pressure High cholesterol Hx of gastric ulcer Lung trouble Shortness of breath Sleep trouble Cosigned by Kevin Khan MD at 05/21/2025 7:51 AM EDT documented in this encounter Plan of Treatment Upcoming Encounters Date Type Department Care Team (Latest Contact Info) Description 07/10/2025 11:10 AM EDT Hospital Encounter [facility] [address] [place] [phone] Joni Prado, DO [address] [phone] 07/10/2025 11:10 AM EDT - 07/10/2025 1:40 PM EDT Surgery [facility] [address] [place] [phone] Joni Prado, DO [address] [phone] RIGHT VATS WEDGE, POSSIBLE LOBECTOMY [09874 (CPT ) +1 more] 07/25/2025 9:20 AM EDT Appointment [facility] Radiology [address] [place] [phone] 07/25/2025 10:30 AM EDT Office Visit [facility] [address] [facility], [address] [place] [phone] Joni Prado, DO [address] [address] Scheduled Procedures Name Priority Associated Diagnoses Date/Ti me VATS, WITH LUNG WEDGE RESECTION Non-small cell carcinoma of left lung 07/10/2025 11:10 AM EDT documented as of this encounter Goals Goal Patient Goal Type Associated Problems Recent Progress Patient-Stated? Author Autogenera iftikhar Goal Care Plan Autogenerated Problem No Gina Galdamez RN documented as of this encounter Procedures Procedure [...] IV CONTRAST STAT 05/21/20 7:32 AM EDT ND BRONCHOSCOPY,COMPUTER ASSIST/IMAGE-GUIDED NAVIGATION 05/21/2025 7:25 AM EDT [...] in the patient's chart for the findings. us Kevin Khan MD IMG FLUOROSCOPY PROCEDURES Final Result IMAGING * Non-Gynecologic Cytology (05/21/2025 8:44 AM EDT) Case Report Cytology Case: [id number] Authorizing Provider: Kevin Khan MD Collected: 05/21/2025 0844 Ordering Location: [facility] A OPERATING ROOM Received: 05/21/2025 0930 Pathologist: Liudmila Villareal MD Specimens: A) - Bronchial Brushing, Right Middle Lobe, RIGHT MIDDLE LOBE BRONCHIAL BRUSHING B) - Bronchoalveolar Lavage, Right Middle Lobe, RIGHT MIDDLE LOBE BRONCHOALVEOLAR LAVAGE 05/21/2025 3:18 PM EDT [facility] Final Diagnosis A. RIGHT MIDDLE LOBE BRONCHIAL BRUSHING - FEW ATYPICAL DEGENERATED CELLS PRESENT B. RIGHT MIDDLE LOBE BRONCHOALVEOLAR LAVAGE - NO EVIDENCE OF MALIGNANCY - NO VIRAL CHANGES IDENTIFIED - PREDOMINANTLY BLOOD - GMS STAIN IS NEGATIVE FOR ORGANISMS 05/21/2025 3:18 PM EDT [facility] at 1518 EDT Gross Description A. RIGHT MIDDLE LOBE BRONCHIAL BRUSHING Cherry Log tips in 8 ml's tinted fluid processed as thin prep and GMS B. RIGHT MIDDLE LOBE BRONCHOALVEOLAR LAVAGE 15 ml's bloody fluid processed as thin prep and GMS 05/21/2025 3:18 PM EDT [facility] Clinical Information lung nodule 05/21/2025 3:18 PM EDT [facility] Bronchial Cherry Log Bronchial brushings specimen / Unknown 05/21/2025 8:44 AM EDT 05/21/2025 9:30 AM EDT Comment:Pre-op diagnosis: lung nodule Bronchoalveolar lavage fluid specimen (specimen) Bronchoalveolar lavage fluid specimen / Unknown 05/21/2025 9:12 AM EDT 05/21/2025 9:30 AM EDT Comment:Pre-op diagnosis: lung nodule us Kevin Khan MD LAB CYTOLOGY ORDERABLES Final Re sult [facility] [address] [place] [address] * Fine needle aspiration (05/21/2025 8:43 AM EDT) Case Report Cytology Case: [id number] Authorizing Provider: Kevin Khan MD Collected: 05/21/2025 0842 Ordering Location: [facility] OPERATING ROOM Received: 05/21/2025 0978 Pathologist: Liudmila Villareal MD Specimens: A) - [...] FINE NEEDLE ASPIRATION 5 2:25 PM EDT [facility] Addendum PD-L1 IHC 22C3 pharmDx* [...] test, with disease progression on or after [place]-contain[place] ng chemotherapy. Patients with EGFR or ALK [...] *PD-L1 IHC 22C3 pharmDx is a FDA-approved relay mechanic diagnostic for pembrolizumab performed on [email or web address] St[employer] using formalin-fixed, paraffin imbedded (FFPE) tissue [...] developed by and are performed at the [facility], [address] [place] [address]. All tests reported here, except those addressing HER2 and PD-L1 expression as predictive markers, have not been cleared by or approved by the US Food and Drug Administration (FDA). The laboratory is regulated under CLIA as qualified to perform high-complexity testing. The tests are used for clinical purposes. They should not be regarded as investigational or for research. 5 2:25 PM EDT [facility] Addendum electronically signed by Mak [...] REACTIVE BRONCHIAL CELLS - HEMODILUTE LYMPHOID TISSUE 5 2:25 PM EDT [facility] at 1707 EDT Comment History of adenocarcinoma of the left lower lobe; subsequent VATS with LLL wedge resection in 2023 (pT2a, pN0 - [id number]). Now found to have a 1 cm [...] left lower lobe resection specimen from 2023 ([id number]) and while the tumors are not identical, there are a few histologic similarities. Whether this represents a new primary versus recurrent / metastatic disease cannot be determined with certainty and therefore, correlation with clinical and imaging findings is recommended. PD-L1 IHC staining is pending and that result will be issued as an addendum. 2:25 PM EDT [facility] Special and Immunohistochemical Stains IHC: C1-1 TTF-1 Positive C1-2 CK7 Positive C1-3 CK20 Negative All controls show appropriate reactivity. All immunohistochemis try, in situ hybridization, and histochemical tests were developed by and are performed at the [facility], [address] [place] [address]. All tests reported here, except those addressing [...] on decalcified specimens. 5 2:25 PM EDT [facility] Intradepartmental Consultation with Agreement Dr. Buchanan 5 2:25 PM EDT [facility] Immediate Evaluation A: FNA performed by: Dr. Khan Number of sticks: 4 Immediate evaluation performed by: Dr. Villareal Evaluation episode # 1-4: Blood and few bronchial cells, non-diagnostic B: Biopsy performed by: Dr. hKan Number of sticks: Not provided C: Biopsy [...] scant lymphoid tissue 5 2:25 PM EDT [facility] Gross Description A. LUNG, RIGHT [...] 4 pap slides. Cold Time: 2h 12m 2:25 PM EDT [facility] Note: A resident was involved in the service. I attest I examined the relevant preparations for the specimens and confirmed the diagnosis or interpretation. 2:25 PM EDT [facility] Clinical Information lung nodule 2:25 PM EDT [facility] Fine Needle Aspirate Structure of [...] CYTOLOGY ORDERABLES Edited R esult - Final [facility] [address] [place] [address] * Fine needle aspiration (05/21/2025 8:42 AM EDT) Case Report Cytology Case: [id number] Authorizing Provider: Kevin Khan MD Collected: 05/21/2025 0842 Ordering Location: [facility]ATING RO[facility] Received: 05/21/2025 0947 Pathologist: Mono, Liudmila J, MD Specimens: A) - Lung, Right Middle [...] FINE NEEDLE ASPIRATION 5 2:25 PM EDT [facility] Addendum PD-L1 IHC 22C3 pharmDx* [...] test, with disease progression on or after [place]-contain[place] ng chemotherapy. Patients with EGFR or ALK [...] *PD-L1 IHC 22C3 pharmDx is a FDA-approved relay mechanic diagnostic for pembrolizumab performed on Dako [employer] Stainer using formalin-fixed, paraffin imbedded (FFPE) tissue [...] developed by and are performed at the [facility], [address] [place] [address]. All tests reported here, except those addressing HER2 and PD-L1 expression as predictive markers, have not been cleared by or approved by the [place] Food and Drug Administration (FDA). The laboratory is regulated under CLIA as qualified to perform high-complexity testing. The tests are used for clinical purposes. They should not be regarded as investigational or for research. 2:25 PM EDT [facility] Addendum electronically signed by Mak [...] - HEMODILUTE LYMPHOID TISSUE 2:25 PM EDT [facility] at 1707 EDT Comment History of adenocarcinoma of the left lower lobe; subsequent VATS with LLL wedge resection in 2023 (pT2a, pN0 - [id number]). Now found to have a 1 cm [...] left lower lobe resection specimen from 2023 ([id number]) and while the tumors are not identical, there are a few histologic similarities. Whether this represents a new primary versus recurrent / metastatic disease cannot be determined with certainty and therefore, correlation with clinical and imaging findings is recommended. PD-L1 IHC staining is pending and that result will be issued as an addendum. 5 2:25 PM EDT [facility] Special and Immunohistochemical Stains IHC: C1-1 TTF-1 Positive C1-2 CK7 Positive C1-3 CK20 Negative All controls show appropriate reactivity. All immunohistochemis try, in situ hybridization, and histochemical tests were developed by and are performed at the [facility], [address] [place] [address]. All tests reported here, except those addressing [...] on decalcified specimens. 5 2:25 PM EDT [facility] Intradepartmental Consultation with Agreement Dr. Buchanan 5 2:25 PM EDT [facility] Immediate Evaluation A: FNA performed by: Dr. [...] scant lymphoid tissue 5 2:25 PM EDT [facility] Gross Description A. LUNG, RIGHT [...] Time: 2h 12m 5 2:25 PM EDT [facility] Note: A resident was involved in the service. I attest I examined the relevant preparations for the specimens and confirmed the diagnosis or interpretation. 5 2:25 PM EDT [facility] Clinical Information lung nodule 2:25 PM EDT [facility] Fine Needle Aspirate Specimen from lung obtained [...] 9:02 AM EDT 05/21/2025 9:48 AM EDT Kevin Khan MD LAB CYTOLOGY ORDERABLES Edited R esult - Final [facility] [address] [place] [address] * CT Chest wo IV Contrast (05/21/2025 [...] Other diseases of lung, not elsewhere classified Lung nodule Other diseases of lung, not [...] needed, 1 dose, Starting on Tue05/21/25 at 09, Until Tue05/21/25 at 1400, Routine, Recovery (Phase [...] PRN, 2 doses, Starting on Tue05/21/25 at 09, Until Tue05/21/25 at 1400, Routine, Recovery (Phase I only), pain score of 5-8 out of 10 HYDROmorphone (Dilaudid) injection 0.5 mg 0.5 mg, Intravenous, Every 10 min PRN, 2 doses, Starting on Tue05/21/25 at 09, Until Tue05/21/25 at 1400, Routine, Recovery (Phase I only), pain score of 9-10 out of 10 naloxone (Narcan) injection 0.4 mg 0.4 mg, Intravenous, As needed, Starting on Tue05/21/25 at 09, Until Tue05/21/25 at 1400, Routine, Recovery (Phase I only), respiratory depression ondansetron (Zofran) injection 4 mg 4 mg, Intravenous, Once as needed, 1 dose, Starting on Tue05/21/25 at 09, Until Tue05/21/25 at 1400, Routine, Recovery (Phase I only), nausea, vomiting oxyCODONE (Roxicodone) immediate release tablet 5 mg 5 mg, Oral, Once as needed, 2 doses, Starting on Tue05/21/25 at 09, Until Tue05/21/25 at 1400, Routine, Recovery (Phase [...] documented as of this encounter Care Teams Network Technical Analyst Relationship Specialty Start Date End Date Jt Jauregui MD [address] [place] [address] LOY Ceron [id number] PCP - General Family Medicine 12/29/23 documented as of this encounter
--- OUTSIDE RECORDS SUMMARY | 2025-05-21 07:41 | XMS_ITS | Encounter Summary ---
Author Organization Healthcare Address [address] [place] [address] Care Team Providers Care Chess Instructor Name Role Phone Jt Jauregui MD Primary Care Provider [phone] Reason for Visit * Auth/Cert (Routine) Specialty Diagnoses / Procedures Referred By Stuart coello Referred To Contact Diagnoses Lung nodule lung nodule Procedures ID BRONCHOSCOPY,COMPUTER ASSIST/IMAGE-GUIDED NAVIGATION ID BRONCHOSCOPY,DIAGNOSTIC W BRUSH ID BRONCHOSCOPY,DIAGNOSTIC W LAVAGE ID BRONCHOSCOPY,BIOPSY ID BRONCHOSCOPY,TRANSBRONCH BIOPSY ID BRONCHOSCOPY,TRANSBRON ASPIR BX ID [facility] EBUS GUIDED SAMPL 1/2 NODE STATION/STRUX ID [facility] EBUS GUIDED SAMPL 3/> NODE STATION/STRUX ION Robotic Bronch, Radial US, [place], BAL, Biopsy, Needle, EBUS TBNA, CIOS / 3D fluoroscopy Kevin Khan MD [address] [place] [address] Phone: tel: fax: [facility] [address] [place] [address] Phone: tel: Referral ID Status Reason Start Date Expiration Date Visits Re quested Visits Authorized [id number] 1 1 Encounter Details Date Type Department Care Team (Late st Contact Info) Description 05/21/2025 7:41 AM EDT Anesthesia Event [facility] [address] [place] [address] Baldomero Taylor MD [address] [place] [address] Anesthesia Record Procedure Summary Procedure Name Responsible Anesthesiologist Anesthesia Start Time Anesthesia Stop Time ION Robotic Bronch, Radial US, [place], BAL, Biopsy, Needle, EBUS TBNA, CIOS / [...] Antecubital; Site Prep: Chlorhexidine ; Local Anesth: [place]; Technique: Anatomical landmarks; Inserted by: TAHIRA Kevin; [...] place to sleep or slept in a alf (including now)? No 10/20/2023 CAGE ASSESSMENT Answer [...] drink first t tello in the morning (EYE-RESPIRATORY THERAPY MANAGER) to steady your nerves or to get rid of a hangover? 0 10/19/2023 CAGE Questionnaire Score 0 024 Utilities Answer Date Recorded In the past 12 months has th e [employer], gas, oil, or water company threatened to [...] now for ION Robotic Bronch, Radial US, [place], BAL, Biopsy, Needle, EBUS TBNA, CIOS / 3D fluoroscopy (Bilateral) Procedure Information Date/Time: 05/21/25729 Procedure: ION Robotic Bronch, Radial US, [place], BAL, Biopsy, Needle, EBUS TBNA, CIOS / 3D fluoroscopy (Bilateral) Location: [address] / [place] Surgeons: Kevin Khan [...] morning hydroCHLOROthiazide (HYDRODIURIL) 50 mg, Daily HYDROcodone-acetaminophen ([place]) 10-325 MG tablet TAKE 1 TABLET BY [...] 0.025 % ointment Vitamin D3 1.25 MG (61831 UT) capsule 1 capsule. Takes Tuesday and [...] 12 months PFTs No results found for: NEK4HVA , RFV9PJXW , LUF1CJF , FVCPRED BP Readings from Last 5 [...] Plan ASA 3 Plan was reviewed with: CITY COUNCILMAN Anesthesia technique(s) discussed with the patient/family: general [...] angina, CAD, CHF, dysrhythmias, pacemaker or past PA. hypertension: Does not have chest pain. Cardio additional comments: Denies any active current cardiac complaints. + renal stent placed 05/02/2025 ago [facility] by Dr Miranda. Clearance has been [...] Does not have cervical spine limited mobility. [facility] [place]g additional comments: + chronic back pain- follows [...] Hospital Encounter [facility] [address] [place] [phone] Joni Prado, DO [address] [phone] 07/10/2025 11:10 AM EDT - 07/10/2025 1:40 PM EDT Surgery [facility] [address] [place] [phone] Joni Prado, DO [address] [phone] RIGHT VATS WEDGE, POSSIBLE LOBECTOMY [51177 (CPT ) +1 more] 07/25/2025 9:20 AM EDT Appointment [facility] Radiology [address] [place] [phone] 07/25/2025 10:30 AM EDT Office Visit Pav CC Head, Neck & Respiratory 800 [facility], [address] [place] [phone] Joni Prado, DO [address] [address] [phone] (work) Scheduled Procedures Name Priority Associated Diagnoses [...] ANESTHESIA PLACEHOLDER Routine 05/21/2025 7:52 AM EDT ID AN ELECTIVE ENDOTRACHEAL AIRWAY Routine 05/21/2025 7:52 AM EDT documented in this encounter Results * ID AN ELECTIVE ENDOTRACHEAL AIRWAY, PB ANESTHESIA PLACEHOLDER [...] documented as of this encounter Care Teams Chess Instructor Relationship Specialty Start Date End Date Jt Jauregui MD [address] [place] [address] LOY Ceron [phone] PCP - General Family Medicine 12/29/23 documented as of this encounter
--- OUTSIDE RECORDS SUMMARY | 2025-05-30 08:45 | XMS_ITS | Encounter Summary ---
Author Organization Healthcare Address [address] [id number] Care Team Providers Care Readiness Paraprofessional Name Role Phone Jt Jauregui MD Primary Care Provider [phone] Reason for Visit * Reason Comments Follow-up Encounter Details Date Type Department Care Team ([facility] Contact Info) Description 05/30/2025 8:45 AM EDT Office Visit Pav CC Head, Neck & Respiratory [address] [place] [address] Joni Prado, DO 800 [facility] 1st [place] [address] Non-small cell carcinoma of left lung Social [...] drink first t tello in the morning (EYE-FIRMWARE ENGINEER) to steady your nerves or to [...] Sign Reading Time Taken Comments Blood Pressure 128/69 05/30/2025 8:50 AM EDT Pulse 66 05/30/2025 8:50 AM EDT Temperature 36.6 C (97.8 F) 05/30/2025 8:50 AM EDT Respiratory Rate 16 05/30/2025 8:50 AM EDT Oxygen Saturation 98% 05/30/2025 8:50 AM EDT Inhaled Oxygen Concentration - - Weight 77.2 kg (170 lb 3.1 oz) 05/30/2025 8:50 A M EDT Height 167.6 cm (5' 6 ) 05/30/2025 8:50 AM EDT Body Mass Index 27.47 05/30/2025 8:50 AM EDT documented in this encounter Miscellaneous Notes * Progress Notes - Yareli Lazaro MD - 05/30/2025 8:45 AM EDT Images from the original note were not included. [facility] Department of Surgery Section of Thoracic Surgery Outpatient Clinic Note Diagnosis: NSCLC, Diffuse GGO Procedure: L VATS Lower Lobe Wedge Resection 10/19/23 Pathology: pT2aN0 Invasive Adenocarcinoma Interval History: Johanna Shaffer is a 64 y.o. female with PMHx of COPD, HTN, HLD, and Invasive Adenocarcinoma s/p VATS LLL Wedge Resection (pT2aN0) who presents to clinic after RUL and RML nodules seen on surveillance imaging. Patient with PET scan in May with RUL and RML nodule with mild uptake and multiple GGOs bilaterally. Patient underwent Ion Bronch on 05/21 with biopsy of RML nodule + for adenocarcinoma. LN 7 and 11 negative. Since Bronch patient reports doing well. Endorses cough and shortness of breath. Denies fevers, chills, hemoptysis, and loss of appetite. ROS: General: no fevers or chills, no heat or cold intolerance, no subjective weight loss HEENT: no changes in vision, no sore throat, no changes in hearing, no tinnitus, no nasal drainage CV: no chest pain, no palpitations, no lightheadedness, no PND, no orthopnea, no LE swelling, no claudication Pulm: shortness of breath, cough, no hemoptysis GI: no nausea, no [...] or anxiety Physical exam: Visit Vitals BP 128/69 (BP Location: Left arm, Patient Position: Sitting, BP Cuff Size: Adult long) Pulse 66 Temp 36.6 ??C (97.8 ??F) (Oral) Ht 1.676 m (5' 6 ) Wt 77.2 kg (170 lb 3.1 oz) SpO2 98% BMI 27.47 kg/m?? General: alert and oriented, appropriate Lungs: [...] may represent evolving infectious/inflammatory process. Additional Testing: OSH PFTs 05/2023 per referring provider's note: FEV1 1.76L (66%) FVC 2.51L (75%) Ratio .70 Small airway reversibility No restriction DLCO 75% predicted Transbronchial Biopsy 05/21 RML: Positive for Malignancy, Adenocarcinoma c/w Lung Primary LN, Station 7: Predominantly Blood, Suboptimal LN, Station 11: Very Rare Atypical Cell Group, Favor Reactive Bronchial Cells Assessment and Plan: Johanna Shaffer is a 64 y.o. female with PMHx of COPD, HTN, HLD, and Invasive Adenocarcinoma s/p VATS LLL Wedge Resection (pT2aN0) who presents to clinic after recent Ion Biopsy. Patient with PET scan inAugust with RUL and RML nodule with mild uptake and multiple GGOs bilaterally. Patient underwent Ion Bronch on 05/21 with biopsy of RML nodule + for adenocarcinoma. LN 7 and 11 negative. With multiple nodules, there is concern for multifocal disease though clinically appears stage I. Recent PET with mild uptake of nodules but biopsy confirmed adenocarcinoma of RML nodule. Other nodules appear stable in size. Images and pathology reviewed and discussed with the patient at today's visit and all questions answered. Patient with PFTs obtained pre-operatively in 2022 with good function. Will present patient at [facility] for multidisciplinary care with plans to perform RML wedge vs. Lobectomy with MLND. The patient understands this plan and will call our office for any additionalquestions or concerns. Yareli Lazaro MD 05/30/25 9:29 AM Cosigned by Joni Prado DO at 05/31/2025 7:42 AM EDT Associated attestation - Joni Prado DO - 05/31/2025 7:42 AM EDT I saw and evaluated the patient with the resident/fellow. I discussed the case with the resident/fellow and agree with the findings and plan as documented. documented in this encounter Plan of Treatment Upcoming Encounters Date Type Department Care Team (Latest Contact Info) Description 07/10/2025 11:10 AM EDT Hospital Encounter PAV A OPERATING ROOM [address] [place] [address] Joni Prado, DO [address] [address] 07/10/2025 11:10 AM EDT - 07/10/2025 1:40 PM EDT Surgery [facility]ATING ROOM [address] [place] [address] Joni Prado, DO [address] [address] RIGHT VATS WEDGE, POSSIBLE LOBECTOMY [68318 (CPT ) +1 more] 07/25/2025 9:20 AM EDT Appointment PAV A Radiology [address] [place] [address] 07/25/2025 10:30 AM EDT Office Visit Pav CC Head, Neck & Respiratory [address] [place] [address] Joni Prado D, DO [address] [place] [address] Scheduled Procedures Name Priority Associated Diagnoses Date/Ti me VATS, WITH LUNG WEDGE RESECTION Non-small cell carcinoma of left lung 07/10/2025 11:10 AM EDT documented as of this encounter Goals Goal Patient Goal Type Associated Problems Recent Progress Patient-Stated? Author Rika buitrago Goal Care Plan Autogenerated Problem No Gina Galdamez RN Autogenera buitrago Goal Care Plan Autogenerated Problem No Shea Marie documented as of this encounter Visit Diagnoses Diagnosis Non-small cell carcinoma of left lung Non-small cell carcinoma of left lung documented in this encounter Additional Health Concerns Active Problems Noted Date Diagnosed Date Autogenerated Problem 05/10/2025 Autogenerated Problem 05/30/2025 Assessment Noted Time A fall risk assessment has been complete d for the patient 05/30/2025 8:50 AM EDT A Body Mass Index follow-up plan has been documented for the patient 05/31/2025 7:42 AM EDT documented as of this encounter Care Teams Readiness Paraprofessional Relationship Specialty Start Date End Date Jt Jauregui MD [address] [place] [address] PCP - General Family Medicine 12/29/23 documented as of this encounter
--- OUTSIDE RECORDS SUMMARY | 2025-06-07 19:31 | XMS_ITS | Encounter Summary ---
Author Organization Healthcare Address [address] [place] [address] Care Team Providers Care Retail District Manager Name Role Phone None, None Primary Care Provider Jt Jauregui MD Primary Care Provider [phone] Encounter Details Date Type Department Care Team (Late st Contact Info) Description 04/06/2023 Orders Only External Location [address] [place] [address] Jerilyn Alejandre, BONE CRUSHER [address] [place] [address] Social History Tobacco Use Types [...] Hospital Encounter [facility] A OPERATING ROOM [address] [place] [address] Joni Prado, DO [address] [phone] 07/10/2025 11:10 AM EDT - 07/10/2025 1:40 PM EDT Surgery [facility]PERATING ROOM [address] [place] [address] Joni Prado, DO [address] [address] RIGHT VATS WEDGE, POSSIBLE LOBECTOMY [81986 (CPT ) +1 more] 07/25/2025 9:20 AM EDT Appointment PAV A Radiology [address] [place] [address] 07/25/2025 10:30 AM EDT Office Visit Pav CC Head, Neck & Respiratory 800 [facility], 2nd [place] [address] Joni Prado, DO [address] [address] Scheduled Procedures Name Priority Associated [...] Tomogra phy 04/06/2023 10:5 2 AM EDT Jeriyln Alejandre BONE CRUSHER IMG CT PROCEDURES Final Re sult documented in this encounter Visit Diagnoses Not on filedocumented in this encounter Care Teams Retail District Manager Relationship Specialty Start Date End Date None, None [address] [place] [address] PCP - General NONE FOUND 08/11/23 12/28/23 Jt Jauregui MD [address] [place] [address] PCP - General Family Medicine 12/29/23 documented as of this encounter
--- OUTSIDE RECORDS SUMMARY | 2025-06-07 19:32 | XMS_ITS | Encounter Summary ---
Author Organization Healthcare Address [address] [place] [address] Care Team Providers Care Amr Physician Name Role Phone Jt Jauregui MD Primary Care Provider [phone] Encounter Details Date Type Department Care Team (Late st Contact Info) Description 05/29/2025 Telephone Pav [facility] Head, Neck & Respiratory [address] [place] [address] Joni Prado, DO [address] [place] [address] Social History Tobacco Use Types Packs/Day Years [...] drink first t tello in the morning (EYE-DIETITIAN RESEARCH) to steady your nerves or to get [...] encounter Miscellaneous Notes * Telephone Encounter - Aparna Lamas - 05/29/2025 4:50 PM EDT Patient Phone Message Reason for Call:Patient called Best contact number and optimal time of day to reach caller: Note: Please do not reply to this message. Follow-up communication and further actions as a result of this message need to be communicated with the patient directly, if the patient is not active onMyChart. If the patient is active on MyChart, they will receive notification of the communication/outcome via MyChart. documented in this encounter Plan of Treatment Upcoming Encounters Date Type Department Care Team (Latest Contact Info) Description 07/10/2025 11:10 AM EDT Hospital Encounter PAV A OPERATING ROOM [address] [place] [address] Joni Prado, DO [address] [phone] 07/10/2025 11:10 AM EDT - 07/10/2025 1:40 PM EDT Surgery [facility] A OPERATING ROOM [address] [place] [address] Joni Prado, DO [address] [phone] RIGHT VATS WEDGE, POSSIBLE LOBECTOMY [17963 (CPT ) +1 more] 07/25/2025 9:20 AM EDT Appointment PAV A Radiology [address] [place] [address] 07/25/2025 10:30 AM EDT Office Visit Pav CC Head, Neck & Respiratory 800 [facility], [address]nd [place] [address] Joni Prado, DO [address] [phone] Scheduled Procedures Name Priority Associated Diagnoses Date/Ti [...] documented as of this encounter Care Teams Amr Physician Relationship Specialty Start Date End Date Jt Jauregui MD [address] [place] [address] LOY Ceron [address] PCP - General Family Medicine 12/29/23 documented as of this encounter
--- OUTSIDE RECORDS SUMMARY | 2025-06-07 19:32 | XMS_ITS | Encounter Summary ---
Author Organization Healthcare Address [address] [place] [address] Care Team Providers Care Asphalt Surface Heater Operator Name Role Phone Jt Jauregui MD Primary Care Provider Encounter Details Date Type Department Care Team (Late st Contact Info) Description 04/12/2025 Orders Only Ch Radiology Virtual Dept. [address] [place] [address] Gregory Johnson MD [address] [place] [address] Social History Tobacco Use Types Packs/Day Years [...] drink first t tello in the morning (EYE-CUT ROLL MACHINE OFFBEARER) to steady your nerves or to get rid of a hangover? 0 10/19/2023 CAGE Questionnaire Score 0 024 Utilities Answer Date Recorded In the past 12 months has th e CareParent, gas, oil, or water company threatened to [...] Hospital Encounter PAV A OPERATING ROOM [address] [place] [address] Joni Prado, DO [address] [phone] 07/10/2025 11:10 AM EDT - 07/10/2025 1:40 PM EDT Surgery [facility] A OPERATING ROOM [address] [place] [address] Joni Prado, DO [address] [phone] RIGHT VATS WEDGE, POSSIBLE LOBECTOMY [[id number] (CPT ) +1 more] 07/25/2025 9:20 AM EDT Appointment PAV A Radiology [address] [place] [address] 07/25/2025 10:30 AM EDT Office Visit Pav CC Head, Neck & Respiratory 800 [facility], 2nd [place] [address] Joni Prado, DO [address] [phone] Scheduled Procedures Name Priority Associated Diagnoses Date/Ti [...] documented as of this encounter Care Teams Asphalt Surface Heater Operator Relationship Specialty Start Date End Date Jt Jauregui MD [address] [place] [address] [address] [place] [address] PCP - General Family Medicine 12/29/23 documented as of this encounter
--- OUTSIDE RECORDS SUMMARY | 2025-06-07 19:32 | XMS_ITS | Encounter Summary ---
Author Organization Healthcare Address [address] [place] [address] Care Team Providers Care Furnace Combustion Tester Name Role Phone Jt Jauregui MD Primary Care Provider [phone] Encounter Details Date Type Department Care Team ([facility] st Contact Info) Description 05/14/2025 Orders Only Pav CC Head, Neck & Respiratory 800 [facility], [address]nd [place] [address] Nereyda Perez, RN [facility]B-HEAD NECK AND RESPIRATORY CLINIC Lung nodule (Primary Dx) Social History Tobacco Use Types [...] place to sleep or slept in a long-term (including now)? No 10/20/2023 CAGE ASSESSMENT Answer [...] drink first t tello in the morning (EYE-BUSINESS INTERN) to steady your nerves or to get [...] Hospital Encounter PAV A OPERATING ROOM [address] [place] [address] Joni Prado, DO [address] [phone] 07/10/2025 11:10 AM EDT - 07/10/2025 1:40 PM EDT Surgery [facility]AV A OPERATING ROOM [address] [place] [address] Joni Prado, DO [address] [phone] RIGHT VATS WEDGE, POSSIBLE LOBECTOMY [74889 (CPT ) +1 more] 07/25/2025 9:20 AM EDT Appointment PAV A Radiology [address] [place] [address] 07/25/2025 10:30 AM EDT Office Visit Pav CC Head, Neck & Respiratory 800 [facility], 2nd [place] [address] Joni Prado, DO [address] [address] Scheduled Procedures Name Priority Associated Diagnoses Date/Ti me VATS, WITH LUNG WEDGE RESECTION Non-small cell carcinoma of left lung 07/10/2025 11:10 AM EDT documented as of this encounter Goals Goal Patient Goal Type Associated Problems Recent Progress Patient-Stated? Author Autogenera iftikhar Goal Care Plan Autogenerated Problem No Gina Galdamez, RN documented as of this encounter Visit Diagnoses Diagnosis Lung nodule- Primary Other diseases of lung, not elsewhere classified [...] documented as of this encounter Care Teams Furnace Combustion Tester Relationship Specialty Start Date End Date Jt Jauregui MD [address] [place] [address] [address] LO[place] Ceron [id number] PCP - General Family Medicine 12/29/23 documented as of this encounter
--- OUTSIDE RECORDS SUMMARY | 2025-06-07 19:32 | XMS_ITS | Encounter Summary ---
Author Organization Healthcare Address [address] [place] [address] Care Team Providers Care Policy Specialist Name Role Phone Jt Jauregui MD Primary Care Provider [phone] Encounter Details Date Type Department Care Team (Late st Contact Info) Description 04/22/2025 Telephone Pav CC Head, Neck & Respiratory [address] [place] [address] Joni Prado, DO [address] [place] [address] Social History Tobacco Use Types Packs/Day Years [...] drink first t tello in the morning (EYE-CENTERLESS GRINDER) to steady your nerves or to get [...] and optimal time of day to reach caller:[phone] Note: Please do not reply to this message. Follow-up communication and further actions as a result of this message need to be communicated with the patient directly, if the patient is not active onMyChart. If the patient is active on MyChart, they will receive notification of the communication/outcome via [employer]. documented in this encounter Plan of Treatment Upcoming Encounters Date Type Department Care Team (Latest Contact Info) Description 07/10/2025 11:10 AM EDT Hospital Encounter PAV A OPERATING ROOM [address] [place] [address] Joni Prado, DO [address] [address] 07/10/2025 11:10 AM EDT - 07/10/2025 1:40 PM EDT Surgery [facility]AV A OPERATING ROOM [address] [place] [address] Joni Prado, DO [address] [address] RIGHT VATS WEDGE, POSSIBLE LOBECTOMY [31478 (CPT ) +1 more] 07/25/2025 9:20 AM EDT Appointment PAV A Radiology [address] [place] [address] 07/25/2025 10:30 AM EDT Office Visit Pav CC Head, Neck & Respiratory [address] [place] [address] Joni Prado D, DO 800 [facility] [address] [place] [address] Scheduled Procedures Name Priority Associated Diagnoses Date/Ti [...] documented as of this encounter Care Teams Policy Specialist Relationship Specialty Start Date End Date Jt Jauregui MD [address] [place] [address] PCP - General Family Medicine 12/29/23 documented as of this encounter
--- OUTSIDE RECORDS SUMMARY | 2025-06-07 19:32 | XMS_ITS ---
Author Organization [facility] Address [address] [place] [address] Care Team Providers Care Service Officer Name Role Phone Jt Jauregui MD Primary Care Provider [phone] Active Problems Problem Noted Date Diagnosed Date [...] Automatic Entry Manual Entr y Fluoro Time 12.32 minutes 12.32 minutes 0 minutes Air Kerma 347.35 mGy 347.35 mGy 0 mGy
--- OUTSIDE RECORDS SUMMARY | 2025-06-07 19:32 | XMS_ITS | Encounter Summary ---
Author Organization [facility] Address [address] [place] [address] Care Team Providers Care Enrober Name Role Phone Jt Jauregui MD Primary Care Provider [phone] Encounter Details Date Type Department Care Team (Latest Contact Info) Description 05/30/2025 Travel Social History Tobacco Use Types Packs/Day [...] place to sleep or slept in a intermediate (including now)? No 10/20/2023 CAGE ASSESSMENT Answer [...] drink first t tello in the morning (EYE-ASSISTANT NURSE MANAGER) to steady your nerves or to [...] Hospital Encounter PAV A OPERATING ROOM [address] [place] [address] Joni Prado, DO [address] [phone] 07/10/2025 11:10 AM EDT - 07/10/2025 1:40 PM EDT Surgery PAV A OPERATING ROOM [address] [place] [address] Joni Prado, DO [address] [address] RIGHT VATS WEDGE, POSSIBLE LOBECTOMY [40749 (CPT ) +1 more] 07/25/2025 9:20 AM EDT Appointment PAV A Radiology [address] [place] [address] 07/25/2025 10:30 AM EDT Office Visit Pav CC Head, Neck & Respiratory 800 [facility], [address]nd [place] [address] Joni Prado, DO [address] [address] Scheduled Procedures Name Priority Associated Diagnoses Date/Ti me VATS, WITH LUNG WEDGE RESECTION Non-small cell carcinoma of left lung 07/10/2025 11:10 AM EDT documented as of this encounter Goals Goal Patient Goal Type Associated Problems Recent Progress Patient-Stated? Author Autogenera buitrago Goal Care Plan Autogenerated Problem No Gina Galdamez, RN Autogenera iftikhar Goal Care Plan Autogenerated Problem No Shea [...] documented as of this encounter Care Teams Enrober Relationship Specialty Start Date End Date Jt Jauregui MD [address] [place] [address] PCP - General Family Medicine 12/29/23 documented as of this encounter
--- OUTSIDE RECORDS SUMMARY | 2025-06-07 19:32 | XMS_ITS | Encounter Summary ---
Author Organization Healthcare Address [address] [place] [address] Care Team Providers Care Stunner Animal Name Role Phone Jt Jauregui MD Primary Care Provider [phone] Encounter Details Date Type Department Care Team (Late st Contact Info) Description 05/30/2025 Telephone Pav CC Head, Neck & Respiratory [address] [place] [address] Joni Prado, DO [address] [place] [address] Social History Tobacco Use Types Packs/Day Years [...] drink first t tello in the morning (EYE-CONSERVATION WORKER) to steady your nerves or to get [...] encounter Miscellaneous Notes * Telephone Encounter - Shea Marie - 05/30/2025 2:13 PM EDT Called and spoke with pt to confirm surgery with be on 07/10 and not 07/08. Her surgery packet might have said 07/[address] Prado had to change the date right after and manager clinical pharmacy was not aware if the correct date was on the packet or not. Patient is aware and confirmed on surgery on Tuesday 07/10 and that our surgery center will call her on Monday 07/09 with an arrival time. documented in this encounter Plan of Treatment Upcoming Encounters Date Type Department Care Team (Latest Contact Info) Description 07/10/2025 11:10 AM EDT Hospital Encounter PAV A OPERATING ROOM [address] [place] [address] Joni Prado, DO [address] [address] 07/10/2025 11:10 AM EDT - 07/10/2025 1:40 PM EDT Surgery PAV A OPERATING ROOM [address] [place] [address] Joni Prado, DO [address] [address] RIGHT VATS WEDGE, POSSIBLE LOBECTOMY [39938 (CPT ) +1 more] 07/25/2025 9:20 AM EDT Appointment PAV A Radiology [address] [place] [address] 07/25/2025 10:30 AM EDT Office Visit Pav CC Head, Neck & Respiratory 800 [facility], 2nd [place] [address] Joni Prado, DO [address] [phone] Scheduled Procedures Name Priority Associated Diagnoses Date/Ti [...] documented as of this encounter Care Teams Stunner Animal Relationship Specialty Start Date End Date Jt Jauregui MD [address] [place] [address] PCP - General Family Medicine 12/29/23 documented as of this encounter
--- OUTSIDE RECORDS SUMMARY | 2025-06-07 19:32 | XMS_ITS | Encounter Summary ---
Author Organization [facility] Address [address] [place] [address] Care Team Providers Care Channel Process Plant Operator Name Role Phone Jt Jauregui MD Primary Care Provider [phone] Encounter Details Date Type Department Care Team [...] No 10/20/2023 Housing Stability Vital Sign Answer Arjiv e Recorded In the last 12 months, [...] place to sleep or slept in a assisted (including now)? No 10/20/2023 CAGE ASSESSMENT Answer [...] drink first t tello in the morning (EYE-SUPERVISOR OF COMMUNICATIONS) to steady your nerves or to get [...] Hospital Encounter [facility] OPERATING ROOM [address] [place] [address] Joni Prado, DO [address] [phone] 07/10/2025 11:10 AM EDT - 07/10/2025 1:40 PM EDT Surgery [facility] OPERATING ROOM [address] [place] [address] Joni Prado, DO [address] [phone] RIGHT VATS WEDGE, POSSIBLE LOBECTOMY [07536 (CPT ) +1 more] 07/25/2025 9:20 AM EDT Appointment [facility] A Radiology [address] [place] [address] 07/25/2025 10:30 AM EDT Office Visit [facility] Head[facility] Neck [facility] Respiratory 800 [facility], 2nd [place] [address] Joni Prado, DO [address] [phone] Scheduled Procedures Name Priority Associated Diagnoses Date/Ti [...] documented as of this encounter Care Teams Channel Process Plant Operator Relationship Specialty Start Date End Date Jt Jauregui MD [address] [place] [address] [address] [place] [address] PCP - General Family Medicine 12/29/23 documented as of this encounter
--- OUTSIDE RECORDS SUMMARY | 2025-06-07 19:32 | XMS_ITS | Encounter Summary ---
Author Organization Healthcare Address [address] [place] [address] Care Team Providers Care Tunnel Kiln Operator Name Role Phone Jt Jauregui MD Primary Care Provider [phone] Encounter Details Date Type Department Care Team (Late st Contact Info) Description 05/06/2025 Orders Only External Location [address] [place] [address] Provider, External Social History Tobacco Use Types [...] drink first t tello in the morning (EYE-KAI WHAKARURUHAU) to steady your nerves or to get [...] Hospital Encounter [facility] A OPERATING ROOM [address] [place] [address] Joni Prado, DO [address] [phone] 07/10/2025 11:10 AM EDT - 07/10/2025 1:40 PM EDT Surgery [facility] OPERATING ROOM [address] [place] [address] Joni Prado, DO [address] [phone] RIGHT VATS WEDGE, POSSIBLE LOBECTOMY [53519 (CPT ) +1 more] 07/25/2025 9:20 AM EDT Appointment [facility] A Radiology [address] [place] [phone] 07/25/2025 10:30 AM EDT Office Visit [facility] Head[facility] Neck & Respiratory 800 [facility], 2nd [place] [phone] Joni Prado, DO [address] [phone] Scheduled Procedures Name Priority Associated Diagnoses Date/Ti [...] documented as of this encounter Care Teams Tunnel Kiln Operator Relationship Specialty Start Date End Date Jt Jauregui MD [address] [place] [address] [address] [place] [address] PCP - General Family Medicine 12/29/23 documented as of this encounter
--- OUTSIDE RECORDS SUMMARY | 2025-06-07 19:32 | XMS_ITS | Encounter Summary ---
Author Organization Healthcare Address [address] [place] [address] Care Team Providers Care Value Analyst Name Role Phone Jt Jauregui MD Primary Care Provider [phone] Encounter Details Date Type Department Care Team (Late st Contact Info) Description 05/01/2025 Telephone [facility] Neck [facility] Respiratory [address] , [address] [place] [address] Joni Prado, DO [address] [place] [address] Social History Tobacco Use Types Packs/Day Years [...] drink first t tello in the morning (EYE-ORIENTATION AND MOBILITY SPECIALIST) to steady your nerves or to [...] encounter Miscellaneous Notes * Telephone Encounter - Neryeda Perez RN - 05/01/2025 12:51 PM EDT [...] and optimal time of day to reach caller:[phone] Note: Please do not reply to this message. Follow-up communication and further actions as a result of this message need to be communicated with the patient directly, if the patient is not active onMyChart. If the patient is active on MyChart, they will receive notification of the communication/outcome via [employer]. documented in this encounter Plan of Treatment Upcoming Encounters Date Type Department Care Team (Latest Contact Info) Description 07/10/2025 11:10 AM EDT Hospital Encounter [facility] A OPERATING ROOM [address] [place] [address] Joni Prado, DO [address] [address] 07/10/2025 11:10 AM EDT - 07/10/2025 1:40 PM EDT Surgery [facility] OPERATING ROOM [address] [place] [address] Joni Prado, DO [address] [address] RIGHT VATS WEDGE, POSSIBLE LOBECTOMY [06997 (CPT ) +1 more] 07/25/2025 9:20 AM EDT Appointment [facility] A Radiology [address] [place] [address] 07/25/2025 10:30 AM EDT Office Visit [facility] Head[facility] Neck [facility] Respiratory [address] , [address] [place] [address] Joni Prado D, DO 800 [facility] 1[address] [place] [address] Scheduled Procedures Name Priority Associated Diagnoses Date/Ti [...] documented as of this encounter Care Teams Value Analyst Relationship Specialty Start Date End Date Jt Jauregui MD [address] [place] [address] PCP - General Family Medicine 12/29/23 documented as of this encounter
--- OUTSIDE RECORDS SUMMARY | 2025-06-07 19:32 | XMS_ITS | Encounter Summary ---
Author Organization [facility] Address [address] [place] [address] Care Team Providers Care Literacy Tutor Name Role Phone Jt Jauregui MD Primary Care Provider [phone] Encounter Details Date Type Department Care Team (Latest Contact Info) Description 05/21/2025 Travel Social History Tobacco Use Types Packs/Day [...] drink first t tello in the morning (EYE-MECHANICAL ENGINEERING LECTURER) to steady your nerves or to get [...] Hospital Encounter [facility] A OPERATING ROOM [address] [place] [address] Joni Prado, DO [address] [phone] 07/10/2025 11:10 AM EDT - 07/10/2025 1:40 PM EDT Surgery [facility] A OPERATING ROOM [address] [place] [address] Joni Prado, DO [address] [address] RIGHT VATS WEDGE, POSSIBLE LOBECTOMY [54232 (CPT ) +1 more] 07/25/2025 9:20 AM EDT Appointment P[facility] A Radiology [address] [place] [address] 07/25/2025 10:30 AM EDT Office Visit Pav [facility] Head[facility] Neck & Respiratory 800 [facility], 2nd [place] [address] Joni Prado, DO [address] [address] Scheduled Procedures Name Priority Associated [...] documented as of this encounter Care Teams Literacy Tutor Relationship Specialty Start Date End Date Jt Jauregui MD [address] [place] [address] [place] [address] PCP - General Family Medicine 12/29/23 documented as of this encounter
--- OUTSIDE RECORDS SUMMARY | 2025-06-07 19:32 | XMS_ITS | Encounter Summary ---
Author Organization Healthcare Address [address] [place] [address] Care Team Providers Care Gate Guard Name Role Phone Jt Jauregui MD Primary Care Provider [phone] Encounter Details Date Type Department Care Team (Late st Contact Info) Description 06/06/2025 Orders Only [facility] [address] [place] [address] Laura Faust Non-small cell carcinoma of left lung (Primary Dx); Malignant neoplasm of middle lobe of right lung (CMS/HCC) Social History Tobacco Use Types [...] drink first t tello in the morning (EYE-TERRITORY SUPERVISOR) to steady your nerves or to [...] Hospital Encounter [facility] A OPERATING ROOM [address] [place] [address] Joni Prado, DO [address] [phone] 07/10/2025 11:10 AM EDT - 07/10/2025 1:40 PM EDT Surgery [facility] A OPERATING ROOM [address] [place] [address] Joni Prado, DO [address] [address] RIGHT VATS WEDGE, POSSIBLE LOBECTOMY [94098 (CPT ) +1 more] 07/25/2025 9:20 AM EDT Appointment PAV A Radiology [address] [place] [address] 07/25/2025 10:30 AM EDT Office Visit Pav [facility] Head[facility] Neck & Respiratory 800 [facility], [address]nd [place] [address] Joni Prado, DO [address] [address] Pending Results Name Type Priority Associated Diagnoses Date /Time Carlene ID Cancer Seek Hybrid + IHCs and Other Tests by Tumor Type Lab Routine Non-small cell carcinoma of left lung 06/06/2025 11:07 AM EDT Carlene ID Cancer Seek Hybrid + IHCs and Other Tests by Tumor Type Lab Routine Malignant neoplasm of middle lobe of right lung (CMS/HCC) 05/21/2025 11:16 AM EDT Scheduled Procedures Name Priority Associated Diagnoses Date/Ti nh VATS, WITH LUNG WEDGE RESECTION Non-small cell carcinoma of left lung 07/10/2025 11:10 AM EDT documented as of this encounter Goals Goal Patient Goal Type Associated Problems Recent Progress Patient-Stated? Author Rika buitrago Goal Care Plan Autogenerated Problem No Gina Galdamez RN Rika buitrago Goal Care Plan Autogenerated Problem No Luis Miguel Marieee Milagro documented as of this encounter Visit Diagnoses Diagnosis Non-small cell carcinoma of left lung- Primary Malignant neoplasm of middle lobe of right lung (CMS/HCC) Non-small cell carcinoma of left lung documented [...] documented as of this encounter Care Teams Gate Guard Relationship Specialty Start Date End Date Jt Jauregui MD [address] [place] [address] [place] [address] PCP - General Family Medicine 12/29/23 documented as of this encounter
--- OUTSIDE RECORDS SUMMARY | 2025-06-07 19:32 | XMS_ITS | Encounter Summary ---
Author Organization [facility] Address [address] [place] [address] Care Team Providers Care Veterinary Receptionist Name Role Phone Jt Jauregui MD Primary Care Provider [phone] Encounter Details Date Type Department Care Team (Latest Contact Info) Description 05/16/2025 Travel Social History Tobacco Use Types Packs/Day [...] drink first t tello in the morning (EYE-ADMINISTRATIVE SECRETARY) to steady your nerves or to [...] Hospital Encounter [facility]AV A OPERATING ROOM [address] [place] [address] Joni Prado, DO [address] [phone] 07/10/2025 11:10 AM EDT - 07/10/2025 1:40 PM EDT Surgery [facility] A OPERATING ROOM [address] [place] [address] Joni Prado, DO [address] [address] RIGHT VATS WEDGE, POSSIBLE LOBECTOMY [98705 (CPT ) +1 more] 07/25/2025 9:20 AM EDT Appointment PAV A Radiology [address] [place] [address] 07/25/2025 10:30 AM EDT Office Visit Pav CC Head, Neck & Respiratory 800 [facility], 2nd [place] [address] Joni Prado, DO [address] [address] Scheduled Procedures Name Priority Associated [...] documented as of this encounter Care Teams Veterinary Receptionist Relationship Specialty Start Date End Date Jt Jauregui MD [address] [place] [address] [place] [address] PCP - General Family Medicine 12/29/23 documented as of this encounter
--- OUTSIDE RECORDS SUMMARY | 2025-06-07 19:32 | XMS_ITS | Clinical Summary ---
Author Organization [facility] Address [address] [place] [address] Care Team Providers Care Senior Category Manager Name Role Phone Jt Jauregui MD Primary Care Provider [phone] Allergies No known active allergies Medications Anoro Ellipta 62.5-25 MCG/ACT aerosol powder Inhale 1 Inhalation daily. 08/08/20 23 Active fluticasone (Flonase) 50 MCG/ACT nasal spray Administer 1 spray into each nostril daily. 08/08/20 23 Active lisinopril 20 MG tablet Take 1 tablet by mouth daily. 06/16/20 23 Active albuterol 108 (90 Base) MCG/ACT inhaler Inhale 1 puff as needed for wheezing or shortness of breath. 06/16/20 23 Active lovastatin (Mevacor) 40 MG tablet Take 1 tablet by mouth 1 time each day with dinner. 08/08/20 23 Active atorvastatin (Lipitor) 40 MG tablet Take 1 tablet by mouth daily. 07/28/20 23 Active hydroCHLOROthiazid e (HYDRODiuril) 25 MG tablet Take 1 tablet (25 mg) by mouth 1 (one) time each day in the morning. 08/08/20 23 Active amLODIPine (Norvasc) 10 MG tablet Take 1 tablet (10 mg) by mouth daily. 06/16/20 23 Active doxepin (SINEquan) 10 MG capsule Take 1 capsule by mouth nightly. 08/08/20 23 Active isosorbide mononitrate ER (Imdur) 30 MG [...] Active Additional Information Patient not taking.Reported on 05/30/2025 ondansetron ODT (Zofran-ODT) 4 MG disintegrating tablet Take 1 tablet (4 mg) by mouth every 6 (six) hours if needed for nausea or vomiting. 20 tablet 10/21/19 Active Additional Information Patient not taking.Reported on 05/30/2025 naloxone (Narcan) 4 mg/0.1 mL nasal spray 1. Give 1 spray in nostril for no/slow breathing or cannot wake after opioid use 2. Call 911 3. Repeat in other nostril if symptoms continue 1 each 10/21/19 Active Additional Information Patient not taking.Reported on 05/30/2025 oxyCODONE (Roxicodone) 5 MG immediate release tablet Take 1 tablet (5 mg) by mouth every 6 (six) hours if needed for severe pain for up to 16 doses. 16 tablet 10/24/19 Active Additional Information Patient not taking.Reported on 05/30/2025 oxygen (O2) gas Inhale 2 L/min every night at 120,000 mL/hr. via nasal canula Active Vitamin D3 1.25 MG (18956 UT) capsule 1 capsule. Takes Tuesday and 07/04/20 24 Active carvedilol (Coreg) 25 MG tablet 07/12/20 24 Active cyclobenzaprine (Flexeril) 10 MG tablet 07/26/20 24 Active predniSONE (Deltasone) 20 MG tablet 07/26/20 24 Active triamcinolone (Kenalog) 0.025 % ointment 05/23/20 24 Active gabapentin (Neurontin) 400 MG capsule 07/12/20 24 Active pramipexole (Mirapex) 1.5 MG tablet 07/12/20 24 Active Breztri Aerosphere 160-9-4.8 MCG/ACT aerosol inhale 2 puffs by mouth 2 times a day 03/19/20 25 Active hydrALAZINE (Apresoline) 100 MG tablet TAKE ONE TABLET BY MOUTH 3 TIMES A DAY NEEDED FOR BLOOD PRESSURE GREATER THAN 160/100 03/19/20 25 Active HYDROcodone-acetam inophen ([place]) 10-325 MG tablet TAKE 1 TABLET BY [...] tablet by mouth daily. 04/23/20 25 Active aspirin 81 MG EC tablet Take 1 tablet by mouth daily. Active Active Problems Problem Noted Date Diagnosed [...] Encounters Date Type Department Care Team Description 06/06/2025 Orders Only [facility] [address] [place] [address] Laura Faust Non-small cell carcinoma of left lung (Primary Dx); Malignant neoplasm of middle lobe of right lung (CMS/HCC) 05/30/2025 8:45 AM EDT Office Visit [facility] [address] [address] Joni Prado, DO Non-small cell carcinoma of left lung 05/30/2025 Telephone [facility] [address] [address] Joni Prado, DO 05/30/2025 Travel 05/29/2025 Telephone [facility] [address] [address] Joni Prado, DO 05/21/2025 7:41 AM EDT Anesthesia Event [facility] O[facility]ATING ROOM [address] [place] [phone] Baldomero Taylor MD Harward, Amy E, PA 05/21/2025 7:30 AM EDT - 05/21/2025 10:00 AM EDT Surgery [facility] [address] [place] [address] Kevin Khan MD ION Robotic Bronch, Radial US, [place], BAL, Biopsy, Needle, EBUS TBNA, CIOS / 3D fluoroscopy [29530 (CPT )] 05/21/2025 5:51 AM EDT - 05/21/2025 11:50 AM EDT Hospital Encounter [facility] [address] [place] [address] Kevin Khan MD Lung nodule Discharge Disposition: Home or Self Care 05/21/2025 Travel 05/16/2025 9:15 AM EDT Pre-Admission Testing [facility] [address], [address] [place] [address] 05/16/2025 Travel 05/14/2025 Orders Only [facility] [address] [phone] Nereyda Perez RN Lung nodule (Primary Dx) 05/14/2025 Telephone [facility] [address], [address] [place] [address] Raji Coronel MD 05/14/2025 Telephone [facility] [address] [address] Nereyda Perez RN 05/09/2025 10:15 AM EDT Office Visit [facility] [address] [address] Joni Prado, DO Non-small cell carcinoma of left lung 05/09/2025 Travel 05/06/2025 Orders Only External Location [address] [place] [phone] Provider, External 05/01/2025 Telephone [facility] [address] [phone] Joni Prado, DO 04/22/2025 Telephone [facility] [address] [address] Joni Prado, DO 04/12/2025 Orders Only [facility] Radiology Virtual Dept. [address] [place] [phone] Gregory Johnson MD 04/11/2025 Orders Only [facility] [address] [phone] Nereyda Perez RN Non-small cell carcinoma of left lung (Primary Dx); Malignant neoplasm of lower lobe of left lung (CMS/HCC) 03/28/2025 10:00 AM EDT Office Visit [facility] [address] [address] Joni Prado, DO Non-small cell carcinoma of left lung 03/28/2025 8:30 AM EDT - 03/28/2025 11:59 PM EDT Hospital Encounter [facility] [address], [address] [place] [address], [place] [address] Non-small cell carcinoma of left [...] drink first t tello in the morning (EYE-OBSTETRICAL TECH) to steady your nerves or to get [...] Mass Index 27.47 05/30/2025 8:50 AM EDT Plan of Treatment Upcoming Encounters Date Type Department Care Team (Latest Contact Info) Description 07/10/2025 11:10 AM EDT Hospital Encounter [facility] [address] [place] [phone] Joni Prado, DO [address] [address] 07/10/2025 11:10 AM EDT - 07/10/2025 1:40 PM EDT Surgery [facility] [address] [place] [address] Joni Prado, DO [address] [address] RIGHT VATS WEDGE, POSSIBLE LOBECTOMY [44103 (CPT ) +1 more] 07/25/2025 9:20 AM EDT Appointment [facility] Radiology [address] [place] [phone] 07/25/2025 10:30 AM EDT Office Visit [facility] 800 [facility], 2nd [place] [phone] Joni Prado, DO [address] [address] Scheduled Procedures Name Priority Associated Diagnoses Date/Ti me VATS, WITH LUNG WEDGE RESECTION Non-small cell carcinoma of left lung 07/10/2025 11:10 AM EDT Health Maintenance Due Date Last [...] - Risk 60-74 years 1-dose series) 2019 [id number] Vaccine (2 - Nicole risk series) 02/04/2021 01/07/2021 [facility]-Influenza Vaccine (#1) 2025 08/03/2022 [facility]-DTaP,Tdap,and Td Vaccines (2 - Td or Tdap) 08/28/2031 08/28/2021, 01/14/2000 [facility]-Hepatitis A Vaccines Aged Out 03/26/2019, 09/02 No longer eligible based on patient's age to complete this topic [facility]-Lung Cancer Screening Discontinued 2024, 03/28/2025, 11/29/2024, Additional history exists [facility]-Obesity Intervention Completed 025, 05/09/2025, 03/28/2025, Additional history exists HPV Vaccines Aged Out [...] buitrago Goal Care Plan Autogenerated Problem No Marie, Shea A Procedures Procedure Name Priority Date/Time Associated Diagnosis Comments XR CHEST 1 VIEW STAT 05/21/2025 11:03 AM EDT FL LESS THAN 1 HOUR (NON-REPORTABLE) Routine 05/21/2025 10:30 AM EDT NON-GYNECOLOGIC CYTOLOGY Routine 05/21/2025 8:44 AM EDT Lung nodule FINE NEEDLE ASPIRATION - CYTOLOGY, TRANSBRONCHIAL BX Routine 05/21/2025 8:43 AM EDT Lung nodule FINE NEEDLE ASPIRATION - CYTOLOGY Routine 05/21/2025 8:42 AM EDT Lung nodule PB ANESTHESIA PLACEHOLDER Routine 05/21/2025 7:52 AM EDT OR AN ELECTIVE ENDOTRACHEAL AIRWAY Routine 05/21/2025 7:[address] CHEST WO IV CONTRAST STAT 05/21/20 7:32 AM EDT OR BRONCHOSCOPY,COMPUTER ASSIST/IMAGE-GUIDED NAVIGATION 05/21/2025 7:25 AM EDT Lung nodule CT OUTSIDE IMAGES 05/06/2025 9:[address] CHEST WO IV CONTRAST Routine 03/28/20 8:51 AM EDT Non-small cell carcinoma of left lung CYTO DATA CONVERSION Routine 07/01/1994 12:00 AM EDT from Last 3 Months or Most Recently Relevant to Health Maintenance Results * XR Chest 1 View (05/21/2025 [...] Berg MD on 05/21/2025 11:08 AM Kevin hKan MD IMG XR PROCEDURES Final Result * FL Less than 1 Hour Intraoperative (05/21/2025 10:30 AM EDT) Narrative IMAGING - 05/21/2025 1:00 PM EDT Images were obtained for surgical purposes. See Kevin Khan's surgical note in the patient's chart for the findings. Kevin Khan MD IMG FLUOROSCOPY PROCEDURES Final Result IMAGING * Non-Gynecologic Cytology (05/21/2025 8:44 AM EDT) Case Report Cytology Case: [id number] Authorizing Provider: Kevin Khan MD Collected: 05/21/2025 0844 Ordering Location: [facility] Received: 05/21/2025 0930 Pathologist: Liudmila Villareal MD Specimens: A) - Bronchial Brushing, Right Middle Lobe, RIGHT MIDDLE LOBE BRONCHIAL BRUSHING B) - Bronchoalveolar Lavage, Right Middle Lobe, RIGHT MIDDLE LOBE BRONCHOALVEOLAR LAVAGE 05/21/2025 3:18 PM EDT [facility] Final Diagnosis A. RIGHT MIDDLE LOBE BRONCHIAL BRUSHING - FEW ATYPICAL DEGENERATED CELLS PRESENT B. RIGHT MIDDLE LOBE BRONCHOALVEOLAR LAVAGE - NO EVIDENCE OF MALIGNANCY - NO VIRAL CHANGES IDENTIFIED - PREDOMINANTLY BLOOD - GMS STAIN IS NEGATIVE FOR ORGANISMS 05/21/2025 3:18 PM EDT [facility] at 1518 EDT Gross Description A. RIGHT MIDDLE LOBE BRONCHIAL BRUSHING [place] tips in 8 ml's tinted fluid processed as thin prep and GMS B. RIGHT MIDDLE LOBE BRONCHOALVEOLAR LAVAGE 15 ml's bloody fluid processed as thin prep and GMS 05/21/2025 3:18 PM EDT [facility] Clinical Information lung nodule 05/21/2025 3:18 PM EDT [facility] Bronchial [place] Bronchial brushings specimen / Unknown 05/21/2025 8:44 AM EDT 05/21/2025 9:30 AM EDT Comment:Pre-op diagnosis: lung nodule Bronchoalveolar lavage fluid specimen (specimen) Bronchoalveolar lavage fluid specimen / Unknown 05/21/2025 9:12 AM EDT 05/21/2025 9:30 AM EDT Comment:Pre-op diagnosis: lung nodule us Kevin Khan MD LAB CYTOLOGY ORDERABLES Final Re sult [facility] [address] [place] [address] * Fine needle aspiration (05/21/2025 8:43 AM EDT) Case Report Cytology Case: [id number] Authorizing Provider: Kevin Khan MD Collected: 05/21/2025 0842 Ordering Location: [facility] OPERATING ROOM Received: 05/21/2025 0947 [...] RIGHT ENDOBRONCHIAL ULTRASOUND GUIDED FINE NEEDLE ASPIRATION 2:25 PM EDT [facility] Addendum PD-L1 IHC 22C3 pharmDx* [...] test, with disease progression on or after salt river-containi ng chemotherapy. Patients with EGFR or ALK [...] *PD-L1 IHC 22C3 pharmDx is a FDA-approved driveway attendant diagnostic for pembrolizumab performed on Dako Omnis Stainer using formalin-fixed, paraffin imbedded (FFPE) tissue [...] developed by and are performed at the [facility], [address] [place] [address]. All tests reported here, except those addressing HER2 and PD-L1 expression as predictive markers, have not been cleared by or approved by the US Food and Drug Administration (FDA). The laboratory is regulated under CLIA as qualified to perform high-complexity testing. The tests are used for clinical purposes. They should not be regarded as investigational or for research. 2:25 PM EDT [facility] Addendum electronically signed by Mak [...] - HEMODILUTE LYMPHOID TISSUE 2:25 PM EDT [facility] at 1707 EDT Comment History of adenocarcinoma of the left lower lobe; subsequent VATS with LLL wedge resection in 2023 (pT2a, pN0 - [id number]). Now found to have a 1 cm [...] left lower lobe resection specimen from 2023 ([id number]) and while the tumors are not identical, there are a few histologic similarities. Whether this represents a new primary versus recurrent / metastatic disease cannot be determined with certainty and therefore, correlation with clinical and imaging findings is recommended. PD-L1 IHC staining is pending and that result will be issued as an addendum. 2:25 PM EDT [facility] Special and Immunohistochemical Stains IHC: C1-1 TTF-1 Positive C1-2 CK7 Positive C1-3 CK20 Negative All controls show appropriate reactivity. All immunohistochemis try, in situ hybridization, and histochemical tests were developed by and are performed at the [facility], [address] [place] [address]. All tests reported here, except those addressing [...] on decalcified specimens. 5 2:25 PM EDT [facility] Intradepartmental Consultation with Agreement Dr. Buchanan 5 2:25 PM EDT [facility] Immediate Evaluation A: FNA performed [...] scant lymphoid tissue 5 2:25 PM EDT [facility] Gross Description A. LUNG, RIGHT [...] Cold Time: 2h 12m 2:25 PM EDT [facility] Note: A resident was involved in the service. I attest I examined the relevant preparations for the specimens and confirmed the diagnosis or interpretation. 5 2:25 PM EDT [facility] Clinical Information lung nodule 2:25 PM EDT [facility] Fine Needle Aspirate Structure of [...] CYTOLOGY ORDERABLES Edited R esult - Final [facility] [address] [place] [address] * Fine needle aspiration (05/21/2025 8:42 AM EDT) Case Report Cytology Case: [id number] Authorizing Provider: Kevin Khan MD Collected: 05/21/2025 0842 Ordering Location: [facility] Received: 05/21/2025 0947 Pathologist: Liudmila [...] FINE NEEDLE ASPIRATION 5 2:25 PM EDT [facility] Addendum PD-L1 IHC 22C3 pharmDx* is performed [...] test, with disease progression on or after salt river-containi ng chemotherapy. Patients with EGFR or ALK [...] *PD-L1 IHC 22C3 pharmDx is a FDA-approved driveway attendant diagnostic for pembrolizumab performed on Dako Live Calendarsis Stainer using formalin-fixed, paraffin imbedded (FFPE) tissue [...] developed by and are performed at the [facility], [address] [place] [address]. All tests reported here, except those addressing HER2 and PD-L1 expression as predictive markers, have not been cleared by or approved by the US Food and Drug Administration (FDA). The laboratory is regulated under CLIA as qualified to perform high-complexity testing. The tests are used for clinical purposes. They should not be regarded as investigational or for research. 2:25 PM EDT [facility] Addendum electronically signed by Mak [...] - HEMODILUTE LYMPHOID TISSUE 2:25 PM EDT [facility] at 1707 EDT Comment History of adenocarcinoma of the left lower lobe; subsequent VATS with LLL wedge resection in 2023 (pT2a, pN0 - [id number]). Now found to have a 1 cm [...] left lower lobe resection specimen from 2023 ([id number]) and while the tumors are not identical, there are a few histologic similarities. Whether this represents a new primary versus recurrent / metastatic disease cannot be determined with certainty and therefore, correlation with clinical and imaging findings is recommended. PD-L1 IHC staining is pending and that result will be issued as an addendum. 2:25 PM EDT [facility] Special and Immunohistochemical Stains IHC: C1-1 TTF-1 Positive C1-2 CK7 Positive C1-3 CK20 Negative All controls show appropriate reactivity. All immunohistochemis try, in situ hybridization, and histochemical tests were developed by and are performed at the [facility], [address] [place] [address]. All tests reported here, except those addressing [...] on decalcified specimens. 5 2:25 PM EDT [facility] Intradepartmental Consultation with Agreement Dr. Buchanan 5 2:25 PM EDT [facility] Immediate Evaluation A: FNA performed [...] scant lymphoid tissue 5 2:25 PM EDT [facility] Gross Description A. LUNG, RIGHT [...] Cold Time: 2h 12m 2:25 PM EDT [facility] Note: A resident was involved in the service. I attest I examined the relevant preparations for the specimens and confirmed the diagnosis or interpretation. 2:25 PM EDT [facility] Clinical Information lung nodule 2:25 PM EDT [facility] Fine Needle Aspirate Specimen from [...] CYTOLOGY ORDERABLES Edited R esult - Final [facility] [address] [place] [address] * OR AN ELECTIVE ENDOTRACHEAL AIRWAY, PB ANESTHESIA PLACEHOLDER (05/21/2025 7:52 AM EDT) Narrative Jeromy McmanusJOSE - 05/21/2025 7:52 AM EDT Jeromy McmanusJOSE 05/21/2025 8:16 AM Airway Date/Time: 05/21/2025 7:52 [...] (cm): 22 Additional Comments Atraumatic. Pt edentulous Baldomero Taylor MD ANESTHESIA ORDERABLES Glory l Result * CT Chest wo IV Contrast (05/21/2025 7:32 AM EDT) Only the most recent of2 resultswithin the time period is included. Anatomical Region Laterality Modality Chest Computed Tomogra [...] Khan MD IMG CT PROCEDURES Final Result * CT OUTSIDE IMAGES (05/06/2025 9:43 AM EDT) Anatomical Region Laterality Modality Computed Tomogra phy 05/06/2025 9:43 AM EDT us External Provider IMG CT PROCEDURES Final Result * Cytology (07/01/1994 12:00 AM EDT) 07/01/1994 07/02/1994 Narrative SUNQUEST - 07/12/1994 12:00 AM EDT [facility] MR #: [id number] [facility] JOSÉ MANUEL [place], [place] [address] 1960 (Age: 33) FW Collect Date: 07/01/1994 00:00 Receipt Date: 07/02/1994 00:00 Page 1 DEPARTMENT OF PATHOLOGY AND LABORATORY MEDICINE CYTOPATHOLOGY REPORT Email: [email or web address] * Converted Case * This report may not match the original report format ATTENDING MD/Practitioner: Eve Chilel MD Service: CLINICAL DIETICIAN Location: Reported: 07/12/1994 00:00 Collected: 07/01/1994 00:00 [...] results is suggested (please call Microbiology at [phone] for results). CLINICAL INFORMATION: Menstrual History: {Not Provided} Date of Last Menstrual Period: {Not Provided} SPECIMEN DESCRIPTION: A: CERVICAL/VAGINAL SMEAR, PAP ICD: F: {Not Entered} SNOMED CODES: 1; A4Z280 [id number] [id number] In cases where a pathologist has signed out the report, the service has been rendered in part by a resident. The signing pathologist has performed and is responsible for the reported pathologic evaluation. Historical Provider LAB PATHOLOGY ORDERABLES Fin al Result SUNQUEST from Last 3 Months or Most Recently Relevant to Health Maintenance Additional Health Concerns Active Problems Noted Date Diagnosed Date Autogenerated Problem 05/10/2025 Autogenerated Problem 05/30/2025 Insurance [place]ICA[place] [facility] MEDICARE Advance Directives * Full Code (Latest Code Status on File) Date Activated Date Inactivated Comments 10/19/2023 10:46 AM 10/21/2023 6:44 PM Question Answer Comments Patient has decision-making capacity? Yes Care Teams Senior Category Manager Relationship Specialty Start Date End Date Jt Jauregui MD [address] [place] [address] [place] [address] PCP - General Family Medicine 12/29/23
--- OUTSIDE RECORDS SUMMARY | 2025-06-07 19:32 | XMS_ITS | Encounter Summary ---
Author Organization Healthcare Address [address] [place] [address] Care Team Providers Care Diesel Engine Mechanic Apprentice Name Role Phone Jt Jauregui MD Primary Care Provider [phone] Encounter Details Date Type Department Care Team ([facility] st Contact Info) Description 05/14/2025 Telephone [facility] [address] [facility], [address]nd [place] [address] Nereyda Perez, RN AMB-HEAD NECK AND RESPIRATORY [...] drink first t tello in the morning (EYE-METAL BONDING CRIB ATTENDANT) to steady your nerves or to get [...] encounter Miscellaneous Notes * Telephone Encounter - ChrisNereyda anderson RN - 05/14/2025 9:11 AM EDT RN LVM informing of education for 05/21 and also sent through [employer]. RN gave number to call if reschedule is needed. documented in this encounter Plan of Treatment Upcoming Encounters Date Type Department Care Team (Latest Contact Info) Description 07/10/2025 11:10 AM EDT Hospital Encounter [facility] OPERATING ROOM [address] [place] [address] Joni Prado, DO [address] [address] 07/10/2025 11:10 AM EDT - 07/10/2025 1:40 PM EDT Surgery [facility] [address] [place] [address] Joni Prado, DO [address] [phone] RIGHT VATS WEDGE, POSSIBLE LOBECTOMY [90058 (CPT ) +1 more] 07/25/2025 9:20 AM EDT Appointment [facility] Radiology [address] [place] [phone] 07/25/2025 10:30 AM EDT Office Visit [facility] [address] [facility], [address]nd [place] [address] Joni Prado, DO [address] [address] Scheduled Procedures Name Priority Associated [...] documented as of this encounter Care Teams Diesel Engine Mechanic Apprentice Relationship Specialty Start Date End Date Jt Jauregui MD [address] [place] [address] PCP - General Family Medicine 12/29/23 documented as of this encounter
--- OUTSIDE RECORDS SUMMARY | 2025-06-07 19:32 | XMS_ITS | Encounter Summary ---
Author Organization Healthcare Address [address] [place] [address] Care Team Providers Care Senior Asset Manager Name Role Phone Jt Jauregui MD Primary Care Provider Encounter Details Date Type Department Care Team (Late st Contact Info) Description 05/14/2025 Telephone [facility] [address], [address]st [place] [address] Raji Coronel MD [address] [place] [address] Social History Tobacco Use Types Packs/Day Years [...] drink first t tello in the morning (EYE-SENIOR SOFTWARE TEST ENGINEER) to steady your nerves or to get rid of a hangover? 0 10/19/2023 CAGE Questionnaire Score 0 024 Utilities Answer Date Recorded In the past 12 months has th e [employer], gas, oil, or water company threatened to [...] Hospital Encounter [facility]ATING RO[facility] [address] [place] [phone] Joni Prado, DO [address] [address] 07/10/2025 11:10 AM EDT - 07/10/2025 1:40 PM EDT Surgery [facility] [address] [place] [phone] Joni Prado, DO [address] [address] RIGHT VATS WEDGE, POSSIBLE LOBECTOMY [88282 (CPT ) +1 more] 07/25/2025 9:20 AM EDT Appointment [facility] Radiology [address] [place] [phone] 07/25/2025 10:30 AM EDT Office Visit [facility] Head[facility] Neck [facility] Respiratory 800 [facility], 2nd [place] [address] Joni Prado, DO [address] [address] Scheduled Procedures Name Priority Associated Diagnoses Date/Ti ar VATS, WITH LUNG WEDGE RESECTION Non-small cell [...] documented as of this encounter Care Teams Senior Asset Manager Relationship Specialty Start Date End Date Jt Jauregui MD [address] [place] [address] [place] [address] PCP - General Family Medicine 12/29/23 documented as of this encounter
--- OUTSIDE RECORDS SUMMARY | 2025-06-07 19:33 | XMS_ITS | Encounter Summary ---
Author Organization [facility] Address [address] [place] [address] Care Team Providers Care Accountant Cost Name Role Phone Jt Jauregui MD Primary Care Provider [phone] Reason for Referral * Imaging (Routine) - Pending Review Specialty Diagnoses / Procedures Referred By Stuart coello Referred To Contact Radiology Diagnoses Malignant neoplasm of lower lobe of left lung (CMS/HCC) Procedures PET/CT FDG Skull Base To Mid Thigh PET/CT FDG Skull Base To Mid Thigh Joni Prado DO [address] [place] [address] Phone: tel: fax: Referral ID Status Reason Start Date Expiration Date V isits Requested Visits Authorized [id number] Pending Review 04/11/2025 10/11/2026 2 2 Encounter Details Date Type Department Care Team (Late st Contact Info) Description 04/11/2025 Orders Only [facility] Ne[facility] Respiratory [address], 2nd [place] [address] Chelo Fagan RN AMB-HEAD NECK AND RESPIRATORY [...] drink first t tello in the morning (EYE-JET AIRCRAFT SERVICER) to steady your nerves or to get [...] Hospital Encounter P[facility] A OPERATING ROOM [address] [place] [address] Joni Prado, DO [address] [phone] 07/10/2025 11:10 AM EDT - 07/10/2025 1:40 PM EDT Surgery [facility] A OPERATING ROOM [address] [place] [address] Joni Prado, DO [address] [phone] RIGHT VATS WEDGE, POSSIBLE LOBECTOMY [35771 (CPT ) +1 more] 07/25/2025 9:20 AM EDT Appointment PAV A Radiology [address] [place] [address] 07/25/2025 10:30 AM EDT Office Visit [facility] Head, Neck & Respiratory 800 [facility], 2nd [place] [address] Joni Prado, DO 800 [facility] 1st [place] [address] Scheduled Orders Name Type Priority Associated Diagnoses [...] of lower lobe of left lung (CMS/HCC) Non-small cell carcinoma of left lung documented in this encounter Additional Health Concerns Assessment Noted Time A fall risk assessment has been complete d for the patient 03/28/2025 9:20 AM EDT A Body Mass Index follow-up plan has been documented for the patient 04/08/2025 7:05 AM EDT documented as of this encounter Care Teams Accountant Cost Relationship Specialty Start Date End Date Jt Jauregui MD [address] [place] [address] PCP - General Family Medicine 12/29/23 documented as of this encounter
== END ==
PROVIDERS: PCP Nurse Practitioner; Visit Provider Internal Medicine
DX: G47.30 Sleep apnea, unspecified (principal); E78.00 Pure hypercholesterolemia, unspecified; I70.1 Atherosclerosis of renal artery; I10 Essential (primary) hypertension; Z98.890 Other specified postprocedural states

== ENCOUNTER 2025-06-13 11:41 | Outpatient (CLI) | payer MEDICARE, MEDICAID, SELFPAY ==
--- OUTSIDE RECORDS SUMMARY | 2025-05-09 10:15 | XMS_ITS | Encounter Summary ---
Author Organization Healthcare Address [address] [id number] Care Team Providers Care Molded Goods Inspector Trimmer Name Role Phone Jt Jauregui MD Primary Care Provider [phone] Reason for Visit * Reason Comments Follow-up Encounter Details Date Type Department Care Team ([facility] Contact Info) Description 05/09/2025 10:15 AM EDT Office Visit Pav CC Head, Neck & Respiratory [address] , [address] [place] [address] Joni Prado, DO 800 [facility] [address] [place] [address] Non-small cell carcinoma of left lung Social [...] drink first t tello in the morning (EYE-ACADEMIC AFFAIRS DEAN) to steady your nerves or to get [...] Hospital Encounter PAV A OPERATING ROOM 800 [place] [address] Joni Prado, DO [address] [address] 07/10/2025 11:10 AM EDT - 07/10/2025 1:40 PM EDT Surgery [facility] A OPERATING ROOM [address] [place] [address] Joni Prado, DO [address] [address] RIGHT VATS WEDGE, POSSIBLE LOBECTOMY [40628 (CPT ) +1 more] 07/25/2025 9:20 AM EDT Appointment PAV A Radiology [address] [place] [address] 07/25/2025 10:30 AM EDT Office Visit Pav CC Head, Neck & Respiratory 800 [facility], 2nd [place] [address] Joni Prado, DO [address] [phone] Scheduled Procedures Name Priority Associated Diagnoses Date/Ti [...] documented as of this encounter Care Teams Molded Goods Inspector Trimmer Relationship Specialty Start Date End Date Jt Jauregui MD [address] [place] [address] [place] [id number] PCP - General Family Medicine 12/29/23 documented as of this encounter
--- OUTSIDE RECORDS SUMMARY | 2025-05-16 09:15 | XMS_ITS | Encounter Summary ---
Author Organization [facility] Address [address] [place] [address] Care Team Providers Care Glost Tile Shader Name Role Phone Jt Jauregui MD Primary Care Provider Encounter Details Date Type Department Care Team (Late st Contact Info) Description 05/16/2025 9:15 AM EDT Pre-Admission Testing [facility] [address], [address] [place] [address] Anesthesia Record Procedure Summary Procedure Name Responsible Anesthesiologist Anesthesia Start Time Anesthesia Stop Time ION Robotic Bronch, Radial US, [place], BAL, Biopsy, Needle, EBUS TBNA, CIOS / 3D fluoroscopy (Bilateral) Baldomero Taylor MD 05/21/25 0741 05/21/25 1039 Events Date Time Event Comment 05/21/2025 0716 0740 In Room 0741 An Start The patient was reevaluated immediately before sedation and remains eligible for anesthesia plan. 0741 An Start Data 0750 An Induction The patient was reevaluated immediately before moderate or deep sedation use and before anesthesia induction. 0752 An Intubation 0755 Anesthesia Ready 0808 Proc Start 1025 An Extubation 1029 Proc Fin 1031 an stop data 1034 Out of Room 1039 Handoff to Receiving I compl eted my handoff to the receiving clinician during which we: 1. Identified the patient 2. Identified the responsible provider 3. Reviewed the pertinent medical history 4. Discussed the surgical course 5. Reviewed intra-op anesthesia management and issues during anesthesia 6. Set expectations for post-procedure period 7. Allowed opportunity for questions and acknowledgement of understanding. 1039 An Stop Meds * Agents No agents on file. * Blood No blood administrations on file. Lines, Drains, and Airways Type Details Placement Removal Peripheral IV Placement Date: 05/03 06/27; Placement Time: 0630; Catheter Size: 18 G; Orientation: Right; Location: Antecubital; Site Prep: Chlorhexidine ; Local Anesth: [place]; Technique: Anatomical landmarks; Inserted by: TAHIRA Kevin; Insertion Attempts: 1; Patient Tolerance: Tolerated well; Removal Date: 05/21/25; Removal Time: 1116 05/21/25 0630 by Damaris Black RN 05/21/25 1116 by Brandy Cruz RN ETT Placement Date: 05/03 06/27; Placement Time: 075 (created via procedure documentation); Mask Ventilation: 1; Technique: Direct laryngoscopy; Type: ETT - single; Single Lumen Tube Size: 8.5 mm; Cuffed: Yes; Laryngoscope: Edgardo; Blade Size: 3; Location: Oral; Grade View: Grade I; Insertion Attempts: 1; Placement Verification: Capnometry; Airway Comments: Atraumatic. Pt edentulous; Placed by: Resident ; Removal Date: 05/21/25; Removal Time: 1031 05/21/25 0752 by Jeromy Mcmanus CRNA 05/21/25 1031 by Jeromy Mcmanus CRNA documented in this encounter Social History Tobacco Use Types Packs/Day Years Used Date Smoking Tobacco: Every Day Cigarettes 0.5 50.7 Started: 1975 Smokeless Tobacco: Never Tobacco Cessation:Ready to Q uit: Not Asked; Counseling Given: Not Answered Comments:Trying to quit Alcohol Use Standard Drinks/Week [...] place to sleep or slept in a retirement (including now)? No 10/20/2023 CAGE ASSESSMENT Answer [...] drink first t tello in the morning (EYE-PAY PER CLICK STRATEGIST) to steady your nerves or to get [...] as of this encounter Miscellaneous Notes * Sade Mckeon - Mery Nava PA - 05/16/2025 9:52 AM EDT Images from the original note were not included. 40 Bathing Before Surgery Basic instructions ? You need to bathe with Hibiclens (chlorhexidine) before surgery. This will clean your skin and remove germs that live on the skin. This reduces your risk of infection after surgery. ? You can buy Hibiclens at most drug stores. ? You need to bathe with Hibiclens twice before surgery - once the night before surgery and again the morning of surgery. ? Do not use Hibiclens on your hair or anywhere above the neck. ? You should not shave with a razor or use hair removal creams near the surgery site for 4 days before surgery. Night before surgery If you take a shower or tub bath: 1. Wash with regular soap and water and rinse off. 2. You may wash your hair the night before or the morning of surgery. Shampoo and rinse as usual. 3. Pour 1 ounce (2 tablespoons) of Hibiclens on a clean washcloth. Wash the area where you will be having your surgery first. Then wash the rest of the body, leaving the groin area until last. 4. Allow the Hibiclens to stay on the skin for 5 minutes, then rinse off completely. 5. Use a clean towel to dry off. 6. Put on clean clothing and be sure to have clean sheets on your bed. ? If you take a bed bath: 1. Wash with regular soap and water and rinse off. 2. Place 1 ounce (2 tablespoons) of Hibiclens solution in a wash basin of clean water. Wash the area where you will be having surgery first. 3. Then wash the rest of the body. Leave the groin area until last. 4. Allow the Hibiclens to stay on the skin for 5 minutes. Then rinse off completely. 5. Use a clean towel to dry off. 6. Put on clean clothing. Be sure to have clean sheets on your bed. Morning of surgery ? Repeat the above steps. You are now ready for surgery with the cleanest possible skin! If you develop a skin problem between now and your surgery, please tell your doctor as soon as possible! * Sade OnFHIR - Mery Nava PA - 05/16/2025 9:52 AM EDT Images from the original note were not included. 1072 Patient Surgery Guide The doctors and staff of Surgical Services would like to welcome you, your family, and friends to [facility]. We offer access to more than 1,500 doctors from many specialty areas. Our goal is to provide high-quality, patient-centered care throughout your experience. We have a team approach tosurgery, and you and your family are an important part of our team. Surgeons, surgical nurses, anest hesiologists, dietitians, social workers, pharmacists, and others will work with you to decide the best plan of care for you. We understand surgery is a stressful time. This information will help you be more comfortable with [facility] and the surgical process. This information provides an overview answering many of yourquestions. But if you have further questions, please ask your doctor or nurse. Preoperative Anesthesia Clinic Your doctor may ask you to go to the Preoperative Anesthesia Clinic before your surgery. This visitallows us to evaluate your overall health and reduce the chance of delays or cancellation on the day of surgery. Please bring a complete list of the medicines your currently take. Bring any recent test reports you may have, including blood work, EKG, X-rays. Bring the results of any recent heart evaluation, including doctor?s notes and test reports. If you are not scheduled for a Preoperative Anesthesia Clinic visit, a nurse will call you to go over your health history and give you information about your surgery. It is very important you speak to a nurse before your surgery. The Preoperative Anesthesia Clinic is located on the first floor of the [facility] near the Pharmacy and main clinic entrance. We are open Tuesday-Tuesday from 8 a.m. to 4:30 p.m. A clinic patient account representative can be reached at [phone]. Parking is available in the [facility] garage on [facility] or in the [facility] garage located at [address], directly across [facility] from [facility]. The day before surgery You will receive a phone call telling you what time you need to arrive at the hospital for surgery.If you miss the call, please call one of the following numbers (depending on where your surgery is scheduled): ? [facility]: [phone] or [phone] ? [facility]: [phone] or [phone] The day of surgery ? Arrive on time to avoid delays or cancellation. ? Park in the [facility] parking garage located at [address] It is directly across [facility] from [facility]. ? If you are scheduled for surgery at [facility], take the hospital garage elevator to Level C, then cross the concourse bridge to the Surgery Waiting Room to register for your [facility]. [facility] located down the first hallway to the right at the end of the concourse bridge. If you need help crossing the concourse, you may fruit picker machine operator the patient golf cart shuttle directlyto the right of the elevators on Level C. ? If you are scheduled for surgery at the [facility], take the garage elevator to Level A and catch the free shuttle to the hospital. (Be careful not to take the [facility] shuttle - there is an ambassador there who can help you.) Exit the shuttle at the first shuttle stop, then proceed to the registration desk to the right of the entrance. ? Registration staff will take your insurance information and confirm your name, birthday, address and other information. When you arrive After you register, we will take you to the preoperative area. Here the nurses will get you ready for surgery. Visitors are limited in the preoperative area. Nurses will: ? Allow you to change into a hospital gown. ? Check your arm band for your name and birthday. Your arm band will be checked many times throughout your stay at [facility] to ensure your safety. ? Go over your health history. ? Review your medicines and allergies. ? Check your temperature, blood pressure, heart rate, height and weight. ? Start an IV. ? Tell you what to expect during your stay at the hospital. During surgery Your family and friends will be directed to the Surgery Waiting Room. There they will receive regular updates during your surgery. Your doctor will talk to them after your surgery. A out of town collection clerk is available in the waiting room to help family and visitors. Space is limited, so please limit the number of people who come with you for your surgery. After surgery We will take you to a special area called the Post-Anesthesia Care Unit, or ?PACU.? There nurses will take care of you as you recover from surgery. Most patients will stay in the PACU for about 1-2 hours. Some people might need to stay longer. During this time the doctors and nurses will: ? Keep your pain level as low as possible. ? Help keep you from being sick to your stomach. ? Make sure you are warm and comfortable. ? Update your family on how you are doing. The anesthesia doctor will decide when you can go home or to your room. If you are going home after surgery: A nurse will give you and your family instructions on how to care for yourself when you go home. You will also get written instructions. This information will tell you how to schedule a follow-up appointment if an appointment is not scheduled before you leave, and how to contact your surgeon. If you are staying in the hospital after surgery: You will stay in the PACU until you are assigned a room. Your family and friends may visit you once you get to your hospital room. Parents of children or caregivers of special needs patients may remain in the preoperative area forthe entire time. They will be allowed in the PACU as soon as possible after the operation. At home ? Plan to go straight home to rest when you leave the hospital. If you wish, your medicines to takehome can be brought to your room before you leave. ? Follow your doctor?s instructions about rest, what to eat, what you can and cannot do, which medicines to take and when you may return to your normal activities. ? Be sure to keep your follow-up appointment with your doctor. You should be scheduled for a clinicappointment before you leave the hospital. Special reminders If you take insulin or other medicine for diabetes, the doctor will tell you what dose to take before your surgery. This will probably be different from your normal dose. Please bring your insulin with you on the day of surgery. If you are taking a blood thinner (for example: Coumadin, Plavix, aspirin, etc.), please tell your surgeon and anesthesia doctor. For all other medicines, you will receive instructions during your Anesthesia Preoperative Clinic visit or phone screening. Updates from the operating room It is important to protect your privacy when you are in the hospital. We also want to make it easy for your family to find out how you are doing while you are in surgery. To do this, on the day of your surgery a nurse will ask you to choose a password and share it with just one family member or friend. This password will then be put on your chart. When your family member calls to check on your condition, he or she must give the password to the nurse. The nurse will look on your chart to make sure it is the correct password and then give the person information on your condition. If you have any questions about this process, please ask. Our mission is to give you the very best care, including protecting your privacy. Feel better faster You should take walks if possible and do plenty of deep breathing. This will help you feel better more quickly after surgery. Walking and deep breathing help prevent blood clots and pneumonia and mayhelp ease any muscle soreness. Surgery do's ? Be sure to bring your current insurance card and a picture ID. ? Please bring copies of the following,if you have them: living will, health care surrogate, power of tax associate attorney or guardianship papers. ? Bring a responsible adult to drive you home (or ride with you in a taxi) if you are having outpatient surgery. ? Plan to have someone stay with you at home for 24 hours after your surgery. ? Bring a list of your current medicines, including how much you take and when you take it. You mayalso just bring the medicines (in their original containers) with you. ? Tell your doctor about any allergies you have to medicines or food. ? Wear comfortable, loose-fitting clothes and low-heeled shoes. ? Bring a case to store glasses, contact lenses or dentures during surgery. Label the containers with your name. ? Pack an overnight bag that includes personal care items, such as a toothbrush and lotion, if you are staying in the hospital. ? Bring a parent or guardian if you are younger than 18. ? Bring a favorite toy or blanket for children having surgery. Surgery don'ts ? Starting at midnight, don?t eat anything on the day of your surgery. ? Don?t drink anything after midnight (unless told otherwise by your doctor or nurse) the day before your surgery. ? Don?t smoke, use smokeless tobacco, eat mints or chew gum after midnight the day of your surgery. ? Don?t drink alcohol 24 hours before your surgery. ? Don?t wear makeup, jewelry (including body piercing) or nail hungarian. ? Don?t bring money or valuables to the hospital. ? Don?t drive a motor vehicle for 24 hours after your surgery. ? Don?t make important decisions or sign any legal documents for 24 hours after your surgery. ? Don?t drink alcohol or take medicine not prescribed by your doctor for 24 hours after your surgery. Need to cancel? If you decide not to have surgery or if you need to cancel because of a fever, a breathing or viralillness, or a family emergency, please call your surgeon?s office and the Preoperative Anesthesia Clinic at [phone] or [phone]. If it is the day of surgery, call the location where you are scheduled to have your surgery: [facility] at [phone] or [phone] or [facility] at [phone] or [phone]. For more information Visit [email or web address] or call [phone] or [phone]. [facility] does not discriminate. [facility] complies with applicable Federal civil rights laws and does not discriminate on the basis of race, color, national origin, age, disability, or sex. * Mery Bond PA - 05/16/2025 9:52 AM EDT Images from the original note were not included. [id number] * Mery Bond PA - 05/16/2025 9:52 AM EDT Images from the original note were not included. 489 Map to HealthCare Facilities Directions Easy directions to and from [address] (from [address]) Directions from I-75/[address]-64 to the [facility] Parking Garage: ? From [address], turn right off the exit ramp onto [address] ([place] [address] [address]) toward [place]. ? In 4.1 miles, turn left onto [address] (at the [employer] gas station). ? In a half-mile, turn right onto [address]. ? In .3 miles, turn right onto [address] (just past the [employer] gas station). Garage entrance is on the left. ? Important: This garage address will change to [address] [place] [address] on April 02, 2025. Directions from [facility] Parking Garage to I-75/I-64: ? Turn left out of the garage onto [facility]. ? Turn left onto [address]. ? In .3 miles, turn left down [address] ? In a half-mile, turn right onto [address] (at the [employer] gas station). ? In 4.1 miles, merge onto [address] /[address] (near the [facility] by [address] [place]). Parking Any patients or visitors of [facility] can park in the following areas: ? [facility] Parking Garage (main garage): [address] (Levels A-F) ? [facility] Garage: [address] (Levels 1-6) ? [facility] Cancer lot: Located off [address] (limited parking for [facility] outpatients only). Upon Your Arrival ? Patients and visitors going to Pavilion A, H, G and [facility] may walk across the pedway, located at Level C of the main parking garage ([address] or take the free shuttle from Level A. Golf carts are available on the pedway. ? Patients and visitors going to all other hospital pavilions are encouraged to take a free shuttleat Level A of the main garage. ? Emergency Department (ED) patients in need of immediate treatment may be dropped off at the ED entrance at the 15-minute dropoff area. Vehicles in this lot must be moved to the main hospital garage after 15 minutes. The ED may also be accessed via the pedway off [facility] garage on Level C. If you need a shuttle to the ED, one can be called for you at Level A of the main garage or contact any of the information desks, . Additional Information For additional information, please visit our information desks located throughout Healthcare. Information desks have additional maps and resources. Information desks are located at the main entrances of: [facility] (first floor and ground floor), [facility], [facility] H, [facility] CC, [facility] WH, [facility] (first and third floor), and [facility]. Informationdesk number: [phone]. Important Addresses [address] [place] [address] ? [facility] entrance ? Pav[facility] A ? [facility]ilion G ([facility]) ? Emergency Department [address] ? [facility] H ? [facility] ([facility]) ? [facility] ([facility]) ? [facility] [address] [facility] ? [facility] [address] [facility] ? [facility] [address] [facility] ? [facility] ? [facility] * PAT Evaluation Note - Mery Nava PA - 05/16/2025 9:15 AM EDT Images from the original note were not included. [facility] Johanna Shaffer is a 64 y.o. female who presents with Pre-op Diagnosis * Lung nodule [R91.1] now scheduled for ION Robotic Bronch, Radial US, [place], BAL, Biopsy, Needle, EBUS TBNA, CIOS / 3D fluoroscopy (Bilateral)with Kevin Khan MD [place]21[place]20[place] [facility] [place]anna Shaffer is a 64 y.o. female with PMHx COPD, HTN, HLD, NSCLC pT2aN0 invasive adenocarcinoma s/p L VATS LLL wedge resection presenting with PET scan after her most recent surveillance scan demonstrated a spiculated RUL nodule that had increased in size. She has been in her usual state of health with no changes. Past Medical History[1] Family History[2] Social History[3] SURGICAL HISTORY: Surgical History[4] Allergies[5] MEDICATIONS: Current Medications[6] ROS Anesthesia: Date of last anesthetic: Most recent anesthesia ~ 10/19/2023 LEFT VATS WITH LEFT LOWER LOBE WEDGE AND MEDIASTINAL LYMPH NODE DISSECTION Difficult Airway: No Final Airway Type: endotracheal airway Mask Difficulty Assessment: 2 - vent by mask + OA or adjuvant +/- NMBA Final Endotracheal Airway: ETT, ETT - double lumen left Cuffed: Yes Technique Used For Successful Placement: direct laryngoscopy Devices/Methods Used in Placement: intubating stylet, cricoid pressure Insertion Site: oral Blade Type: Edgardo Blade Size: 3 ETT Double Lumen (fr): 37 Number of Attempts at Approach: 1 history of previous anesthesia. Does not have a history of anesthetic complications, a history awareness of surgery under anesthesia, a history of delayed emergence, malignant hyperthermia, obstructive sleep apnea, PONV and a history of prolonged emergence. Cardiovascular: hyperlipidemia. Does not have angina, CAD, CHF, dysrhythmias, pacemaker or past AR. hypertension: Does not have chest pain. Cardio additional comments: Denies any active current cardiac complaints. + renal stent placed 05/02/2025 ago [facility] by Dr Miranda. Clearance has been give to hold Plavix for 5 days before bronchoscopy. + had severe COPD and this keeps her from walking far or climbing stairs + Right carotid bruit. Respiratory: home oxygen (as needed). no asthma: COPD: breathing at baseline.Has not had an upper respiratory infection in last 30 days. Has not had bronchitis in the last 30 days, pneumonia in the last 30 days or COVID in the last 30 days. Respiratory ROS additional comments: + NSCLC c/w adenocarcinoma; S/P resection 10/2023; now with spiculated RUL nodule that had increased in size HEENT: Does not have difficulty swallowing.Does not have temporomandibular joint syndrome. HEENT additional comments: + edentulous. Neurological: Does not have headaches. no seizures: Did not have a cerebrovascular accident.Does not have TIA. Musculoskeletal: arthritis. Does not have cervical spine limited mobility. [facility] additional comments: + chronic back pain- follows with pain management Gastrointestinal: Does not have GERD.PUD. Does not have cirrhosis or hepatitis. Genitourinary: Does not have chronic renal disease.recurrent UTIs. Does not have renal calculi or renal disease. Hematological/Lymphatic: History of no DVT. History of no pulmonary embolism. Not in a hypercoagulable state. no history of chemotherapy no history of radiation Does not have MRSA or tuberculosis. Endocrine/Metabolic: does not have diabetes mellitus. Does not have thyroid disorder. 05/08/2025 05/17/2025 Cardiac Clearance: 05/08/2025 CARDS NOTE: 04/30/2025 ECHO: 08/29/2024 Carotid Duplex: 05/03/2023 Nuclear Stress 05/2023 PFT: FEV1 1.76L (66%) FVC 2.51L (75%) Ratio .70 Small airway reversibility No restriction DLCO 75% predicted 05/2023 ECHO: EF 60%, RV systolic function normal, RVSP normal, no significant valvular abnormalities. 05/2023 Stress Test: No fixed or reversible perfusion defection, EF est 58%. Lab Results Component Value Date WBC 7.84 10/21/2023 HGB 10.8 (L) 10/21/2023 HCT 32.7 (L) 10/21/2023 MCV 88 10/21/2023 PLT 164 10/21/2023 Lab Results Component Value Date GLUCOSE 104 (H) 10/21/2023 BUN 14 10/21/2023 CREATININE 0.69 10/21/2023 BCR 20 10/21/2023 NA 138 10/21/2023 K 4.1 10/21/2023 CL 104 10/21/2023 CO2 27 10/21/2023 No results found for: HGBA1C No results found for: INR , PROTIME Visit Vitals OB Status Postmenopausal Smoking Status Every Day Physical Exam Anesthesia Plan ASA 3 Anesthesia technique(s) discussed with the patient/family: general Comment: + [facility] [facility] by Dr Miranda. Clearance has been give to hold Plavix for 5 days before bronchoscopy.Pt informed and will hold. Last dose on 05/16/2025. Discussed with Dr. James. JANY Larose [1] Past Medical History: Diagnosis Date Arthritis Bilateral swelling of feet COPD (chronic obstructive pulmonary disease) (CMS/HCC) High blood pressure High cholesterol Hx of gastric ulcer Lung trouble Shortness of breath Sleep trouble [2] Family History Problem Relation Name Age of Onset Emphysema Father Cancer Sister Cancer Brother Diabetes Maternal Grandfather Cancer Other COPD Other Lung cancer Other Breast cancer Other Bone cancer Other Colon cancer Other Alcohol abuse Other Hypertension Other Anesthesia problems Neg Hx Malig Hyperthermia Neg Hx [3] Social History Tobacco Use Smoking status: Every Day Current packs/day: 0.50 Average packs/day: 0.5 packs/day for 50.6 years (25.3 ttl pk-yrs) Types: Cigarettes Start date: 1974 Smokeless tobacco: Never Tobacco comments: Trying to quit Vaping Use Vaping status: Former Start date: 10/03/2021 Quit date: 08/11/2022 Devices: Disposable Substance Use Topics Alcohol use: Not Currently Comment: In the past- was occasional Drug use: Not Currently [4] Past Surgical History: Procedure Laterality Date LUNG BIOPSY TUBAL LIGATION [5] No Known Allergies [6] Current Outpatient Medications: albuterol, Take 3 mL by nebulization as needed for wheezing or shortness of breath. albuterol, Inhale 1 puff as needed for wheezing or shortness of breath. Anoro Ellipta, Inhale 1 Inhalation daily. aspirin, Take 1 tablet by mouth daily. atorvastatin, Take 1 tablet by mouth daily. Breztri Aerosphere, inhale 2 puffs by mouth 2 times a day carvedilol, clopidogrel, Take 1 tablet by mouth daily. doxepin, Take 1 capsule by mouth nightly. fluticasone, Administer 1 spray into each nostril daily. gabapentin, Take 1 tablet by mouth 3 times a day. hydrALAZINE, TAKE ONE TABLET BY MOUTH 3 TIMES A DAY NEEDED FOR BLOOD PRESSURE GREATER THAN 160/100 hydroCHLOROthiazide, Take 1 tablet by mouth daily. HYDROcodone-acetaminophen, TAKE 1 TABLET BY MOUTH EVERY 6 HOURS FOR 10 DAYS levocetirizine, TAKE ONE TABLET BY MOUTH ONCE A DAY NEEDED FOR ALLERGY SYMPTOMS lisinopril, Take 1 tablet by mouth daily. lovastatin, Take 1 tablet by mouth 1 time each day with dinner. pramipexole, spironolactone, Take 1 tablet by mouth daily. Vitamin D3, 1 capsule. Takes Tuesday and amLODIPine, Take 1 tablet (10 mg) by mouth daily. (Patient not taking: Reported on 05/16/2025) cyclobenzaprine, cyproheptadine, Take 1 tablet (4 mg) by mouth daily. gabapentin, hydroCHLOROthiazide, Take 1 tablet (25 mg) by mouth 1 (one) time each day in the morning. (Patient not taking: Reported on 05/09/2025) isosorbide mononitrate ER, Take 1 tablet (30 mg) by mouth 1 (one) time each day. methocarbamol, Take 1 tablet (500 mg) by mouth 4 (four) times a day if needed for muscle spasms. (Patient not taking: Reported on 05/09/2025) naloxone, 1. Give 1 spray in nostril for no/slow breathing or cannot wake after opioid use 2. Call 911 3. Repeat in other nostril if symptoms continue (Patient not takin. Give 1 spray in nostril for no/slow breathing or cannot wake after opioid use 2. Call 911 3. Repeat in other nostril if symptoms continue Reported on 05/09/2025) ondansetron ODT, Take 1 tablet (4 mg) by mouth every 6 (six) hours if needed for nausea or vomiting. (Patient not taking: Reported on 05/09/2025) oxyCODONE, Take 1 tablet (5 mg) by mouth every 6 (six) hours if needed for severe pain for up to 16doses. (Patient not taking: Reported on 05/16/2025) oxygen, Inhale 2 L/min every night at 120,000 mL/hr. via nasal canula predniSONE, triamcinolone, * Preprocedure Instructions - Mery Nava PA - 05/16/2025 9:15 AM EDT Home Medication Instructions Current Medications Medication Instructions albuterol 1.25 MG/3ML nebulizer solution Take as needed albuterol 108 (90 Base) MCG/ACT inhaler Take as needed Anoro Ellipta 62.5-25 MCG/ACT aerosol powder Take morning of surgery aspirin 81 MG EC tablet Take morning of surgery atorvastatin (Lipitor) 40 MG tablet Take night before surgery Brecamilatri Aerosphere 160-9-4.8 MCG/ACT aerosol Take morning of surgery carvedilol (Coreg) 25 MG tablet Take morning of surgery clopidogrel (Plavix) 75 MG tablet Hold 5 days before surgery doxepin (SINEquan) 10 MG capsule Take night before surgery fluticasone (Flonase) 50 MCG/ACT nasal spray Take morning of surgery gabapentin (Neurontin) 600 MG tablet Take morning of surgery hydrALAZINE (Apresoline) 100 MG tablet Take as needed hydroCHLOROthiazide (HYDRODiuril) 50 MG tablet Hold day of surgery HYDROcodone-acetaminophen ([place]) 10-325 MG tablet Take as needed levocetirizine (Xyzal) 5 MG tablet Take night before surgery lisinopril 20 MG tablet Hold day of surgery lovastatin (Mevacor) 40 MG tablet Take night before surgery pramipexole (Mirapex) 1.5 MG tablet Take night before surgery spironolactone (Aldactone) 25 MG tablet Take night before surgery Vitamin D3 1.25 MG (86591 UT) capsule Hold day of surgery General Preoperative Instructions You will be called the business day before surgery with your arrival time No food after midnight the night before surgery. You can drink clear liquids up to 2 hours prior to arrival unless instructed by your surgeon otherwise. Please do not try to get all your hydration in 2 hours prior to arrival. Start the day before surgery drinking more than you usually would. After midnight, you can have clear liquids only (water,apple juice, Gatorade) up to 2 hours prior to arrival. No coffee or tea. No alcohol or smoking prior to surgery Arrive on time to avoid delays Parking/Registration procedure explained You MUST have a responsible adult available for transport to and from hospital Visitation policy for the day of surgery reviewed Bring insurance card, photo ID, along with power of tax associate attorney, guardianship or advanced directives if applicable Do not bring money, jewelry or other valuables Hibiclens bathing instructions reviewed if applicable Notify surgeon of fever, illness, any changes or if you decide not to have surgery documented in this encounter Plan of Treatment Upcoming Encounters Date Type Department Care Team (Latest Contact Info) Description 07/10/2025 11:10 AM EDT Hospital Encounter [facility] OPERATING ROOM [address] [place] [phone] Joni Prado, DO [address] [phone] 07/10/2025 11:10 AM EDT - 07/10/2025 1:40 PM EDT Surgery [facility] [address] [place] [id number] Joni Prado, DO [address] [phone] RIGHT VATS WEDGE, POSSIBLE LOBECTOMY [01093 (CPT ) +1 more] 07/25/2025 9:20 AM EDT Appointment [facility] Radiology [address] [place] [phone] 07/25/2025 10:30 AM EDT Office Visit [facility] Head, Neck & Respiratory [address] [facility], 2nd [place] [phone] Joni Prado, DO [address] [phone] Scheduled Procedures Name Priority Associated Diagnoses Date/Ti [...] documented as of this encounter Care Teams Glost Tile Shader Relationship Specialty Start Date End Date Jt Jauregui MD [address] [place] [address] 1 [place] [address] PCP - General Family Medicine 12/29/23 documented as of this encounter
--- OUTSIDE RECORDS SUMMARY | 2025-05-21 05:51 | XMS_ITS | Encounter Summary ---
Author Organization Healthcare Address [address] [place] [id number] Care Team Providers Care Medicaid Service Coordinator Name Role Phone Jt Jauregui MD Primary Care Provider [phone] Reason for Visit * Auth/Cert (Routine) Specialty Diagnoses / Procedures Referred By Stuart coello Referred To Contact Diagnoses Lung nodule lung nodule Procedures SC BRONCHOSCOPY,COMPUTER ASSIST/IMAGE-GUIDED NAVIGATION SC BRONCHOSCOPY,DIAGNOSTIC W BRUSH SC BRONCHOSCOPY,DIAGNOSTIC W LAVAGE SC BRONCHOSCOPY,BIOPSY SC BRONCHOSCOPY,TRANSBRONCH BIOPSY SC BRONCHOSCOPY,TRANSBRON ASPIR BX [facility] EBUS GUIDED SAMPL 1/2 NODE STATION/STRUX [facility] EBUS GUIDED SAMPL 3/> NODE STATION/STRUX ION Robotic Bronch, Radial US, [place], BAL, Biopsy, Needle, EBUS TBNA, CIOS / 3D fluoroscopy Kevin Khan MD [address] [place] [address] Phone: tel: fax: [facility] [address] [place] [address] Phone: tel: Referral ID Status Reason Start Date Expiration Date Visits Re quested Visits Authorized [id number] 1 1 Encounter Details Date Type Department Care Team (Latest Contact Info) Description 05/21/2025 5:51 AM EDT - 05/21/2025 11:50 AM EDT Hospital Encounter [facility] [address] [place] [address] Kevin Khan MD [address] [place] [address] Lung nodule Discharge Disposition: Home or Self [...] drink first t tello in the morning (EYE-POOL COORDINATOR) to steady your nerves or to get rid of a hangover? 0 10/19/2023 CAGE Questionnaire Score 0 024 Utilities Answer Date Recorded In the past 12 months has [employer], gas, oil, or water [employer] threatened to shut off services in your [...] tablet by mouth daily. 5 HYDROcodone-acetami nophen (Artie) 10-325 MG tablet TAKE 1 TABLET BY [...] % ointment 4 Vitamin D3 1.25 MG (89487 UT) capsule 1 capsule. Takes Tuesday and [...] Type: * ION Robotic Bronch, Radial US, [place], BAL, Biopsy, Needle, EBUS TBNA, CIOS / [...] AM EDT Operative Note Date: 05/21/25 Location: [facility] Name: Johanna Shaffer, : 1960, Diagnoses: Pre-op Diagnosis Lung nodule Post-op Diagnosis Lung nodule Procedure(s): Ion robotic assisted bronchoscopy, radial and EBUS linear ultrasound, transbronchial biopsies, transbronchial needle biopsies/aspiration, brushings, bronchoalveolar lavage. Attending Surgeon(s): * Kevin Khan - Primary Diving Supervisor(s): * No surgeons found with a matching [...] to confirm the location which was circumferential.The [employer]obile mobile C-arm with true cone beam imaging [...] remove blood clots. EBUS bronchoscope , Olympus [id number] was introduced into the airway. Olympus 22 [...] mouth daily. 03/19/25 Margarita Acharya MD HYDROcodone-acetaminophen (Artie) 10-325 MG tablet TAKE 1 TABLET BY [...] Margarita Acharya MD Vitamin D3 1.25 MG (62108 UT) capsule 1 capsule. Takes Tuesday and [...] of feet COPD (chronic obstructive pulmonary disease) ([facility]) High blood pressure High cholesterol Hx of gastric ulcer Lung trouble Shortness of breath Sleep trouble Cosigned by Kevin Khan MD at 05/21/2025 7:51 AM EDT documented in this encounter Plan of Treatment Upcoming Encounters Date Type Department Care Team (Latest Contact Info) Description 07/10/2025 11:10 AM EDT Hospital Encounter [facility] [address] [place] [address] Joni Prado, DO [address] [address] 07/10/2025 11:10 AM EDT - 07/10/2025 1:40 PM EDT Surgery [facility] [address] [place] [address] Joni Prado, DO [address] [id number] RIGHT VATS WEDGE, POSSIBLE LOBECTOMY [60264 (CPT ) +1 more] 07/25/2025 9:20 AM EDT Appointment [facility] [address] [place] [phone] 07/25/2025 10:30 AM EDT Office Visit [facility] [address] [place] [phone] Joni Prado D, DO [address] [place] [address] Scheduled Procedures Name Priority Associated [...] IV CONTRAST STAT 05/21/20 7:32 AM EDT SC BRONCHOSCOPY,COMPUTER ASSIST/IMAGE-GUIDED NAVIGATION 05/21/2025 7:25 AM EDT [...] 8:44 AM EDT) Case Report Cytology Case: [id number] Authorizing Provider: Kevin Khan MD Collected: 05/21/2025 0844 Ordering Location: [facility] A OPERATING ROOM Received: 05/21/2025 0930 Pathologist: Liudmila Villareal MD Specimens: A) - Bronchial Brushing, Right Middle Lobe, RIGHT MIDDLE LOBE BRONCHIAL BRUSHING B) - Bronchoalveolar Lavage, Right Middle Lobe, RIGHT MIDDLE LOBE BRONCHOALVEOLAR LAVAGE 05/21/2025 3:18 PM EDT [facility] Final Diagnosis A. RIGHT MIDDLE LOBE BRONCHIAL BRUSHING - FEW ATYPICAL DEGENERATED CELLS PRESENT B. RIGHT MIDDLE LOBE BRONCHOALVEOLAR LAVAGE - NO EVIDENCE OF MALIGNANCY - NO VIRAL CHANGES IDENTIFIED - PREDOMINANTLY BLOOD - GMS STAIN IS NEGATIVE FOR ORGANISMS 05/21/2025 3:18 PM EDT [facility] at 1518 EDT Gross Description A. RIGHT MIDDLE LOBE BRONCHIAL BRUSHING [place] tips in 8 ml's tinted fluid processed as thin prep and GMS B. RIGHT MIDDLE LOBE BRONCHOALVEOLAR LAVAGE 15 ml's bloody fluid processed as thin prep and GMS 05/21/2025 3:18 PM EDT [facility] Clinical Information lung nodule 05/21/2025 3:18 PM EDT [facility] Bronchial [place] Bronchial brushings specimen / Unknown 05/21/2025 8:44 AM EDT 05/21/2025 9:30 AM EDT Comment:Pre-op diagnosis: lung nodule Bronchoalveolar lavage fluid specimen (specimen) Bronchoalveolar lavage fluid specimen / Unknown 05/21/2025 9:12 AM EDT 05/21/2025 9:30 AM EDT Comment:Pre-op diagnosis: lung nodule Kevin Khan MD LAB CYTOLOGY ORDERABLES Final Re sult [facility] [address] [place] [address] * Fine needle aspiration (05/21/2025 8:43 AM EDT) Case Report Cytology Case: [id number] Authorizing Provider: Kevin Khan MD Collected: 05/21/2025 0842 Ordering Location: [facility] A OPERATING ROOM Received: 05/21/2025 0947 Pathologist: [...] FINE NEEDLE ASPIRATION 5 2:25 PM EDT [facility] Addendum PD-L1 IHC 22C3 pharmDx* [...] test, with disease progression on or after skull valley-containi ng chemotherapy. Patients with EGFR or ALK [...] *PD-L1 IHC 22C3 pharmDx is a FDA-approved truck mechanic diagnostic for pembrolizumab performed on Dako Light Extraction Stainer using formalin-fixed, paraffin imbedded (FFPE) tissue [...] developed by and are performed at the [facility], [address] [place] [address]. All tests reported here, except those addressing HER2 and PD-L1 expression as predictive markers, have not been cleared by or approved by the US Food and Drug Administration (FDA). The laboratory is regulated under CLIA as qualified to perform high-complexity testing. The tests are used for clinical purposes. They should not be regarded as investigational or for research. 2:25 PM EDT [facility] Addendum electronically signed by Mak [...] - HEMODILUTE LYMPHOID TISSUE 2:25 PM EDT [facility] at 1707 EDT Comment History of adenocarcinoma of the left lower lobe; subsequent VATS with LLL wedge resection in 2023 (pT2a, pN0 - [id number]). Now found to have a 1 cm [...] left lower lobe resection specimen from 2023 ([id number]) and while the tumors are not identical, there are a few histologic similarities. Whether this represents a new primary versus recurrent / metastatic disease cannot be determined with certainty and therefore, correlation with clinical and imaging findings is recommended. PD-L1 IHC staining is pending and that result will be issued as an addendum. 5 2:25 PM EDT [facility] Special and Immunohistochemical Stains IHC: C1-1 TTF-1 Positive C1-2 CK7 Positive C1-3 CK20 Negative All controls show appropriate reactivity. All immunohistochemis try, in situ hybridization, and histochemical tests were developed by and are performed at the [facility], [address] [place] [address]. All tests reported here, except those addressing [...] on decalcified specimens. 5 2:25 PM EDT [facility] Intradepartmental Consultation with Agreement Dr. Buchanan 5 2:25 PM EDT [facility] Immediate Evaluation A: FNA performed [...] scant lymphoid tissue 5 2:25 PM EDT [facility] Gross Description A. LUNG, RIGHT [...] Time: 2h 12m 5 2:25 PM EDT [facility] Note: A resident was involved in the service. I attest I examined the relevant preparations for the specimens and confirmed the diagnosis or interpretation. 5 2:25 PM EDT [facility] Clinical Information lung nodule 5 2:25 PM EDT [facility] Fine Needle Aspirate Structure of [...] CYTOLOGY ORDERABLES Edited R esult - Final [facility] [address] [place] [address] * Fine needle aspiration (05/21/2025 8:42 AM EDT) Case Report Cytology Case: [id number] Authorizing Provider: Kevin Khan MD Collected: 05/21/2025 [...] NEEDLE ASPIRATION 08/29/202 5 2:25 PM EDT [facility] Addendum PD-L1 IHC 22C3 pharmDx* [...] test, with disease progression on or after skull valley-containi ng chemotherapy. Patients with EGFR or ALK [...] *PD-L1 IHC 22C3 pharmDx is a FDA-approved truck mechanic diagnostic for pembrolizumab performed on Dako Anjukeis Stainer using formalin-fixed, paraffin imbedded (FFPE) tissue [...] developed by and are performed at the [facility], [address] [facility], [place] [address]. All tests reported here, except those addressing HER2 and PD-L1 expression as predictive markers, have not been cleared by or approved by the US Food and Drug Administration (FDA). The laboratory is regulated under CLIA as qualified to perform high-complexity testing. The tests are used for clinical purposes. They should not be regarded as investigational or for research. 2:25 PM EDT [facility] Addendum electronically signed by Mak [...] - HEMODILUTE LYMPHOID TISSUE 2:25 PM EDT [facility] at 1707 EDT Comment History of adenocarcinoma of the left lower lobe; subsequent VATS with LLL wedge resection in 2023 (pT2a, pN0 - [id number]). Now found to have a 1 cm [...] left lower lobe resection specimen from 2023 ([id number]) and while the tumors are not identical, there are a few histologic similarities. Whether this represents a new primary versus recurrent / metastatic disease cannot be determined with certainty and therefore, correlation with clinical and imaging findings is recommended. PD-L1 IHC staining is pending and that result will be issued as an addendum. 2:25 PM EDT [facility] Special and Immunohistochemical Stains IHC: C1-1 TTF-1 Positive C1-2 CK7 Positive C1-3 CK20 Negative All controls show appropriate reactivity. All immunohistochemis try, in situ hybridization, and histochemical tests were developed by and are performed at the [facility], [address] [place] [address]. All tests reported here, except those addressing [...] on decalcified specimens. 5 2:25 PM EDT [facility] Intradepartmental Consultation with Agreement Dr. Buchanan 2:25 PM EDT [facility] Immediate Evaluation A: FNA performed [...] scant lymphoid tissue 5 2:25 PM EDT [facility] Gross Description A. LUNG, RIGHT [...] Time: 2h 12m 5 2:25 PM EDT [facility] Note: A resident was involved in the service. I attest I examined the relevant preparations for the specimens and confirmed the diagnosis or interpretation. 5 2:25 PM EDT [facility] Clinical Information lung nodule 2:25 PM EDT [facility] Fine Needle Aspirate Specimen from [...] CYTOLOGY ORDERABLES Edited R esult - Final [facility] [address] [place] [address] * CT Chest wo IV Contrast (05/21/2025 [...] documented as of this encounter Care Teams Medicaid Service Coordinator Relationship Specialty Start Date End Date Jt Jauregui MD [address] [place] [address] LOY Ceron [id number] PCP - General Family Medicine 12/29/23 documented as of this encounter
--- OUTSIDE RECORDS SUMMARY | 2025-05-21 07:30 | XMS_ITS | Encounter Summary ---
Author Organization Healthcare Address [address] [place] [address] Care Team Providers Care Cst Name Role Phone Jt Jauregui MD Primary Care Provider [phone] Reason for Visit * Auth/Cert (Routine) Specialty Diagnoses / Procedures Referred By Stuart coello Referred To Contact Diagnoses Lung nodule lung nodule Procedures NM BRONCHOSCOPY,COMPUTER ASSIST/IMAGE-GUIDED NAVIGATION NM BRONCHOSCOPY,DIAGNOSTIC W BRUSH NM BRONCHOSCOPY,DIAGNOSTIC W LAVAGE NM BRONCHOSCOPY,BIOPSY NM BRONCHOSCOPY,TRANSBRONCH BIOPSY NM BRONCHOSCOPY,TRANSBRON ASPIR BX NM [facility] EBUS GUIDED SAMPL 1/2 NODE STATION/STRUX NM [facility] EBUS GUIDED SAMPL 3/> NODE STATION/STRUX ION Robotic Bronch, Radial US, Hiram, BAL, Biopsy, Needle, EBUS TBNA, CIOS / 3D fluoroscopy Kevin Khan MD [address] [place] [address] Phone: tel: fax: [facility] [address] [place] [address] Phone: tel: Referral ID Status Reason Start Date Expiration Date Visits Re quested Visits Authorized [id number] 1 1 Encounter Details Date Type Department Care Team ([facility] st Contact Info) Description 05/21/2025 7:30 AM EDT - 05/21/2025 10:00 AM EDT Surgery [facility] [address] [place] [address] Kevin Khan MD [address] [place] [address] ION Robotic Bronch, Radial US, Hiram, BAL, Biopsy, Needle, EBUS TBNA, CIOS / 3D fluoroscopy [60942 (CPT )] Surgery Details Date/Time Status Location OR Service Patient Class Case Class Case Type Trauma Case? 05/21/2025 7:30 AM Posted [employer] [address] [place], [place] [address]ology [facility] Outpatient Surgery E-Electi ve Panel 1 Procedure LRB Anes Op Region Wound Class Comments ION Robotic Bronch, Radial U S, Hiram, BAL, Biopsy, Needle, EBUS TBNA, CIOS / [...] drink first t tello in the morning (EYE-NURSING UNIT COORDINATOR) to steady your nerves or to [...] tablet by mouth daily. 5 HYDROcodone-acetami nophen ([place]) 10-325 MG tablet TAKE 1 TABLET BY [...] % ointment 4 Vitamin D3 1.25 MG (58508 UT) capsule 1 capsule. Takes Tuesday and [...] Type: * ION Robotic Bronch, Radial US, Hiram, BAL, Biopsy, Needle, EBUS TBNA, CIOS / [...] AM EDT Operative Note Date: 05/21/25 Location: [place] OR Name: Johanna Shaffer, : 1960, Diagnoses: Pre-op Diagnosis Lung nodule Post-op Diagnosis Lung nodule Procedure(s): Ion robotic assisted bronchoscopy, radial and EBUS linear ultrasound, transbronchial biopsies, transbronchial needle biopsies/aspiration, brushings, bronchoalveolar lavage. Attending Surgeon(s): * Kevin Khan - Primary Telesales Representative(s): * No surgeons found with a matching [...] to confirm the location which was circumferential.The orderTalkOS spin mobile C-arm with true cone beam [...] remove blood clots. EBUS bronchoscope , Olympus [id number] was introduced into the airway. Olympus 22 [...] mouth daily. 03/19/25 Margarita Acharya MD HYDROcodone-acetaminophen ([place]) 10-325 MG tablet TAKE 1 TABLET BY [...] 05/23/24 ProviderMargarita MD Vitamin D3 1.25 MG (74797 UT) capsule 1 capsule. Takes Tuesday and [...] of feet COPD (chronic obstructive pulmonary disease) ([facility]) High blood pressure High cholesterol Hx of gastric ulcer Lung trouble Shortness of breath Sleep trouble Cosigned by Kevin Khan MD at 05/21/2025 7:51 AM EDT documented in this encounter Plan of Treatment Upcoming Encounters Date Type Department Care Team (Latest Contact Info) Description 07/10/2025 11:10 AM EDT Hospital Encounter [facility] [address] [place] [id number] Joni Prado, DO [address] [phone] 07/10/2025 11:10 AM EDT - 07/10/2025 1:40 PM EDT Surgery [facility] [address] [place] [phone] Joni Prado, DO [address] [phone] RIGHT VATS WEDGE, POSSIBLE LOBECTOMY [68275 (CPT ) +1 more] 07/25/2025 9:20 AM EDT Appointment [facility]iology [address] [place] [phone] 07/25/2025 10:30 AM EDT Office Visit [facility] Res[facility] [address] [facility], [address]nd [place] [phone] Joni Prado, DO [address] [address] Scheduled Procedures Name Priority Associated [...] IV CONTRAST STAT 05/21/20 7:32 AM EDT NM BRONCHOSCOPY,COMPUTER ASSIST/IMAGE-GUIDED NAVIGATION 05/21/2025 7:25 AM EDT [...] 8:44 AM EDT) Case Report Cytology Case: [id number] Authorizing Provider: Kevin Khan MD Collected: 05/21/2025 0844 Ordering Location: [facility] A OPERATING ROOM Received: 05/21/2025 0930 Pathologist: Liudmila Villareal MD Specimens: A) - Bronchial Brushing, Right Middle Lobe, RIGHT MIDDLE LOBE BRONCHIAL BRUSHING B) - Bronchoalveolar Lavage, Right Middle Lobe, RIGHT MIDDLE LOBE BRONCHOALVEOLAR LAVAGE 05/21/2025 3:18 PM EDT [facility] Final Diagnosis A. RIGHT MIDDLE LOBE BRONCHIAL BRUSHING - FEW ATYPICAL DEGENERATED CELLS PRESENT B. RIGHT MIDDLE LOBE BRONCHOALVEOLAR LAVAGE - NO EVIDENCE OF MALIGNANCY - NO VIRAL CHANGES IDENTIFIED - PREDOMINANTLY BLOOD - GMS STAIN IS NEGATIVE FOR ORGANISMS 05/21/2025 3:18 PM EDT [facility] at 1518 EDT Gross Description A. RIGHT MIDDLE LOBE BRONCHIAL BRUSHING Hiram tips in 8 ml's tinted fluid processed as thin prep and GMS B. RIGHT MIDDLE LOBE BRONCHOALVEOLAR LAVAGE 15 ml's bloody fluid processed as thin prep and GMS 05/21/2025 3:18 PM EDT [facility] Clinical Information lung nodule 05/21/2025 3:18 PM EDT [facility] Bronchial Hiram Bronchial brushings specimen / Unknown 05/21/2025 8:44 AM EDT 05/21/2025 9:30 AM EDT Comment:Pre-op diagnosis: lung nodule Bronchoalveolar lavage fluid specimen (specimen) Bronchoalveolar lavage fluid specimen / Unknown 05/21/2025 9:12 AM EDT 05/21/2025 9:30 AM EDT Comment:Pre-op diagnosis: lung nodule us Kevin Khan MD LAB CYTOLOGY ORDERABLES Final Re sult [facility] [address] [place] [address] * Fine needle aspiration (05/21/2025 8:43 AM EDT) Case Report Cytology Case: [id number] Authorizing Provider: Kevin Khan MD Collected: 05/21/2025 0842 Ordering Location: [facility] Received: 05/21/2025 0986 Pathologist: Liudmila Villareal MD Specimens: A) - [...] FINE NEEDLE ASPIRATION 5 2:25 PM EDT [facility] Addendum PD-L1 IHC 22C3 pharmDx* [...] *PD-L1 IHC 22C3 pharmDx is a FDA-approved maintenance supervisor 2nd shift diagnostic for pembrolizumab performed on Dako VibeWrite Stainer using formalin-fixed, paraffin imbedded (FFPE) tissue [...] developed by and are performed at the [facility], [address] [place] [address]. All tests reported here, except those addressing HER2 and PD-L1 expression as predictive markers, have not been cleared by or approved by the [place] Food and Drug Administration (FDA). The laboratory is regulated under CLIA as qualified to perform high-complexity testing. The tests are used for clinical purposes. They should not be regarded as investigational or for research. 5 2:25 PM EDT [facility] Addendum electronically signed by Mak [...] HEMODILUTE LYMPHOID TISSUE 5 2:25 PM EDT [facility] at 1707 EDT Comment History of adenocarcinoma of the left lower lobe; subsequent VATS with LLL wedge resection in 2023 (pT2a, pN0 - [id number]). Now found to have a 1 cm [...] left lower lobe resection specimen from 2023 ([id number]) and while the tumors are not identical, there are a few histologic similarities. Whether this represents a new primary versus recurrent / metastatic disease cannot be determined with certainty and therefore, correlation with clinical and imaging findings is recommended. PD-L1 IHC staining is pending and that result will be issued as an addendum. 2:25 PM EDT [facility] Special and Immunohistochemical Stains IHC: C1-1 TTF-1 Positive C1-2 CK7 Positive C1-3 CK20 Negative All controls show appropriate reactivity. All immunohistochemis try, in situ hybridization, and histochemical tests were developed by and are performed at the [facility], [address] [place] [address]. All tests reported here, except those addressing [...] on decalcified specimens. 5 2:25 PM EDT [facility] Intradepartmental Consultation with Agreement Dr. Buchanan 5 2:25 PM EDT [facility] Immediate Evaluation A: FNA performed [...] scant lymphoid tissue 5 2:25 PM EDT [facility] Gross Description A. LUNG, RIGHT [...] Cold Time: 2h 12m 2:25 PM EDT [facility] Note: A resident was involved in the service. I attest I examined the relevant preparations for the specimens and confirmed the diagnosis or interpretation. 2:25 PM EDT [facility] Clinical Information lung nodule 2:25 PM EDT [facility] Fine Needle Aspirate Structure of [...] CYTOLOGY ORDERABLES Edited R esult - Final [facility] [address] [place] [address] * Fine needle aspiration (05/21/2025 8:42 AM EDT) Case Report Cytology Case: [id number] Authorizing Provider: Kevin Khan MD Collected: 05/21/2025 [...] FINE NEEDLE ASPIRATION 5 2:25 PM EDT [facility] Addendum PD-L1 IHC 22C3 pharmDx* [...] *PD-L1 IHC 22C3 pharmDx is a FDA-approved maintenance supervisor 2nd shift diagnostic for pembrolizumab performed on Dako Hepregenis Stainer using formalin-fixed, paraffin imbedded (FFPE) tissue [...] developed by and are performed at the [facility], [address] [place] [address]. All tests reported here, except those addressing HER2 and PD-L1 expression as predictive markers, have not been cleared by or approved by the [place] Food and Drug Administration (FDA). The laboratory is regulated under CLIA as qualified to perform high-complexity testing. The tests are used for clinical purposes. They should not be regarded as investigational or for research. 2:25 PM EDT [facility] Addendum electronically signed by Mak Hernánedz MD on 05/31/2025 at 1425 EDT Final [...] - HEMODILUTE LYMPHOID TISSUE 2:25 PM EDT [facility] at 1707 EDT Comment History of adenocarcinoma of the left lower lobe; subsequent VATS with LLL wedge resection in 2023 (pT2a, pN0 - [id number]). Now found to have a 1 cm [...] left lower lobe resection specimen from 2023 ([id number]) and while the tumors are not identical, there are a few histologic similarities. Whether this represents a new primary versus recurrent / metastatic disease cannot be determined with certainty and therefore, correlation with clinical and imaging findings is recommended. PD-L1 IHC staining is pending and that result will be issued as an addendum. 5 2:25 PM EDT [facility] Special and Immunohistochemical Stains IHC: C1-1 TTF-1 Positive C1-2 CK7 Positive C1-3 CK20 Negative All controls show appropriate reactivity. All immunohistochemis try, in situ hybridization, and histochemical tests were developed by and are performed at the [facility], [address] [place] [address]. All tests reported here, except those addressing [...] on decalcified specimens. 5 2:25 PM EDT [facility] Intradepartmental Consultation with Agreement Dr. Buchanan 5 2:25 PM EDT [facility] Immediate Evaluation A: FNA performed by: [...] scant lymphoid tissue 5 2:25 PM EDT [facility] Gross Description A. LUNG, RIGHT [...] Time: 2h 12m 5 2:25 PM EDT [facility] Note: A resident was involved in the service. I attest I examined the relevant preparations for the specimens and confirmed the diagnosis or interpretation. 5 2:25 PM EDT [facility] Clinical Information lung nodule 2:25 PM EDT [facility] Fine Needle Aspirate Specimen from lung [...] CYTOLOGY ORDERABLES Edited R esult - Final [facility] [address] [place] [address] * CT Chest wo IV Contrast (05/21/2025 [...] documented as of this encounter Care Teams Cst Relationship Specialty Start Date End Date Jt Jauregui MD [address] [place] [address] [place]Y Ceron [id number] PCP - General Family Medicine 12/29/23 documented as of this encounter
--- OUTSIDE RECORDS SUMMARY | 2025-05-21 07:41 | XMS_ITS | Encounter Summary ---
Author Organization Healthcare Address [address] [place] [address] Care Team Providers Care Information And Referral Director Name Role Phone Jt Jauregui MD Primary Care Provider [phone] Reason for Visit * Auth/Cert (Routine) Specialty Diagnoses / Procedures Referred By Stuart coello Referred To Contact Diagnoses Lung nodule lung nodule Procedures AR BRONCHOSCOPY,COMPUTER ASSIST/IMAGE-GUIDED NAVIGATION AR BRONCHOSCOPY,DIAGNOSTIC W BRUSH AR BRONCHOSCOPY,DIAGNOSTIC W LAVAGE AR BRONCHOSCOPY,BIOPSY AR BRONCHOSCOPY,TRANSBRONCH BIOPSY AR BRONCHOSCOPY,TRANSBRON [place] [facility] EBUS GUIDED SAMPL 1/2 NODE STATION/STRUX [facility] EBUS GUIDED SAMPL 3/> NODE STATION/STRUX ION Robotic Bronch, Radial US, [place], BAL, Biopsy, Needle, EBUS TBNA, CIOS / 3D fluoroscopy Kevin Khan MD [address] [place] [address] Phone: tel: fax: [facility] [address] [place] [address] Phone: tel: Referral ID Status Reason Start Date Expiration Date Visits Re quested Visits Authorized [id number] 1 1 Encounter Details Date Type Department Care Team (Late st Contact Info) Description 05/21/2025 7:41 AM EDT Anesthesia Event [facility] [address] [place] [address] Baldomero Taylor MD [address] [place] [address] Anesthesia Record Procedure Summary Procedure Name Responsible Anesthesiologist Anesthesia Start Time Anesthesia Stop Time ION Robotic Bronch, Radial US, [place], BAL, Biopsy, Needle, EBUS TBNA, CIOS / [...] acknowledgement of understanding. 1039 An Stop Meds Name Total fentaNYL (Sublimaze) injection 50 mcg/mL 100 mcg lidocaine PF (Xylocaine-MPF) 2% 100 mg propofol (Diprivan) injection 10 mg/mL 1 50 mg rocuronium (ZeMuron) injection 10 mg/mL 100 mg dexamethasone (Decadron) injection 4 mg/ mL 8 mg ePHEDrine injection prefilled syringe 5 mg/mL 20 mg ondansetron (Zofran) injection 2 mg/mL 4 mg sugammadex (Bridion) injection 100 mg/mL 200 mg propofol (Diprivan) infusion 10 mg/mL 1, 508.42 mg lactated Ringer's infusion 1,300 mL * Agents Name O2 N2O Air Sevoflurane Isoflurane Desflurane Inspired Desflurane Inspired Isoflurane Inspired Sevoflurane N2O Inspired N2O * Blood No blood administrations on file. Lines, Drains, and Airways Type Details Placement Removal Peripheral IV Placement Date: 05/03 06/27; Placement Time: 0630; Catheter Size: 18 G; Orientation: Right; Location: Antecubital; Site Prep: Chlorhexidine ; Local Anesth: [place]; Technique: Anatomical landmarks; Inserted by: TAHIRA Kevin; Insertion Attempts: 1; Patient Tolerance: Tolerated well; Removal Date: 05/21/25; Removal Time: 1116 05/21/25 0630 by Damaris Black RN 05/21/25 1116 by Brandy Cruz RN ETT Placement Date: 05/03 06/27; Placement Time: 0752 (created via procedure documentation); Mask Ventilation: 1; [...] place to sleep or slept in a custodial (including now)? No 10/20/2023 CAGE ASSESSMENT Answer [...] drink first t tello in the morning (EYE-ONCOLOGY PHYSICIAN ASSISTANT) to steady your nerves or to get rid of a hangover? 0 10/19/2023 CAGE Questionnaire Score 0 024 Utilities Answer Date Recorded In the past 12 months has th e [employer], gas, oil, or water company threatened to shut off services in your home? No 10/20/2023 Comments No Sex and Gender Information Value Date Recorded Sex Assigned at Female 08/16/2023 6:58 AM EST Legal Sex Female 8:36 PM EDT Gender Identity Female 08/16/2023 6:58 AM EST Sexual Orientation Not on file documented as of this encounter Miscellaneous Notes * Anesthesia Postprocedure Evaluation - Jeromy Mcmanus CRNA - 05/21/2025 10:39 AM EDT Patient: Johanna Shaffer Anesthesia Type: general Vitals Value Taken Time BP 131/66 05/21/25 10:37 Temp 98 05/21/25 10:39 Pulse 79 05/21/25 10:38 Resp 19 05/21/25 10:38 SpO2 95 % 05/21/25 10:38 Vitals shown include unfiled device data. Anesthesia Post Evaluation Patient location during evaluation: PACU Patient participation: complete - patient participated Level of consciousness: awake Pain management: adequate (pain score 0-3) Airway patency: natural airway Cardiovascular status: acceptable and hemodynamically stable Respiratory status: acceptable and room air Hydration status: acceptable Nausea/Vomiting: No No notable events documented. * Anesthesia Procedure Notes - Jeromy Mcmanus CRNA - 05/21/2025 8:14 AM EDT Associated Order(s): Airway Airway Date/Time: 05/21/2025 7:52 AM Reason: elective Airway not difficult General Information and Staff Patient location during procedure: OR Anesthesiologist: Baldomero Taylor MD Resident: Brandy Valerio MD Performed: Resident Patient Condition Indications for airway management: anesthesia Patient position: sniffing Final Airway Details Final airway type: endotracheal airway Successful airway: ETT Cuffed: yes Successful intubation technique: direct laryngoscopy Adjuncts used in placement: intubating stylet Endotracheal tube insertion site: oral Blade: Edgardo Blade size: #3 ETT size (mm): 8.5 Cormack-Lehane Classification: grade I - full view of glottis Placement verified by: capnometry Inital cuff pressure (cm H2O): 8 Measured from: lips ETT to lips (cm): 22 Additional Comments Atraumatic. Pt edentulous * Anesthesia Preprocedure Evaluation - Baldomero Taylor MD - 05/21/2025 7:11 AM EDT Images from the original note were not included. No anesthesia staff entered. Patient: Johanna Shaffer HPI Johanna Shaffer is a 64 y.o. female with body mass index is 26.95 kg/m??. with PMHx COPD, HTN, HLD, NSCLC pT2aN0 invasive adenocarcinoma s/p L VATS LLL wedge resection presenting with PET scan after her most recent surveillance scan demonstrated a spiculated RUL nodule that had increased in size who presents now for ION Robotic Bronch, Radial US, [place], BAL, Biopsy, Needle, EBUS TBNA, CIOS / 3D fluoroscopy (Bilateral) Procedure Information Date/Time: 05/21/25729 Procedure: ION Robotic Bronch, Radial US, [place], BAL, Biopsy, Needle, EBUS TBNA, CIOS / 3D fluoroscopy (Bilateral) Location: [address] / [place] Surgeons: Kevin Khan MD Clopidogrel last took 05/17 Relevant Problems Cardio (+) High blood pressure (+) High cholesterol Pulmonary (+) COPD (chronic obstructive pulmonary disease) (CMS/HCC) (+) Non-small cell carcinoma of left lung ALLERGIES Allergies[1] NPO STATUS: as per ASA standards Date of Last Liquid: 05/20/25 Time of Last Liquid: 2299 Date of Last Solid: 05/20/25 Time of Last Solid: 233 Last Intake Type: Clear fluids Time of Last Void: 0600 Past Medical History[2] METS < 4 AIRWAY HISTORY Airway Detailed Review Displaying the 20 most recent records Date Difficult Airway Blade Size ETT Size C-L Class Final Type Intubation Method 10/19/23 No 3 endotracheal airway direct laryngoscopy 08/16/23 No 3 8.5 grade I - full view of glottis endotracheal airway direct laryngoscopy MEDICATIONS Outpatient Current Outpatient Medications Medication Instructions albuterol 108 (90 Base) MCG/ACT inhaler 1 puff, As needed albuterol 1.25 mg, As needed amLODIPine (Norvasc) 10 MG tablet 1 tablet, Daily Anoro Ellipta 62.5-25 MCG/ACT aerosol powder 1 puff, Daily aspirin 81 mg, Daily atorvastatin (LIPITOR) 40 mg, Daily Breztri Aerosphere 160-9-4.8 MCG/ACT aerosol inhale 2 puffs by mouth 2 times a day carvedilol (Coreg) 25 MG tablet clopidogrel (PLAVIX) 75 mg, Daily cyclobenzaprine (Flexeril) 10 MG tablet cyproheptadine (PERIACTIN) 4 mg, Daily doxepin (SINEQUAN) 10 mg, Nightly fluticasone (Flonase) 50 MCG/ACT nasal spray 1 spray, Daily gabapentin (Neurontin) 400 MG capsule gabapentin (NEURONTIN) 600 mg, 3 times daily hydrALAZINE (Apresoline) 100 MG tablet TAKE ONE TABLET BY MOUTH 3 TIMES A DAY NEEDED FOR BLOOD PRESSURE GREATER THAN 160/100 hydroCHLOROthiazide (HYDRODIURIL) 25 mg, Every morning hydroCHLOROthiazide (HYDRODIURIL) 50 mg, Daily HYDROcodone-acetaminophen ([place]) 10-325 MG tablet TAKE 1 TABLET BY MOUTH EVERY 6 HOURS FOR 10 DAYS isosorbide mononitrate ER (IMDUR) 30 mg, Daily levocetirizine (Xyzal) 5 MG tablet TAKE ONE TABLET BY MOUTH ONCE A DAY NEEDED FOR ALLERGY SYMPTOMS lisinopril 20 mg, Daily lovastatin (MEVACOR) 40 mg, Daily with dinner methocarbamol (ROBAXIN) 500 mg, Oral, 4 times daily PRN naloxone (Narcan) 4 mg/0.1 mL nasal spray 1. Give 1 spray in nostril for no/slow breathing or cannot wake after opioid use 2. Call 911 3. Repeat in other nostril if symptoms continue ondansetron ODT (ZOFRAN-ODT) 4 mg, Oral, Every 6 hours PRN oxyCODONE (ROXICODONE) 5 mg, Oral, Every 6 hours PRN oxygen (O2) 2 L/min, Nightly pramipexole (Mirapex) 1.5 MG tablet predniSONE (Deltasone) 20 MG tablet spironolactone (ALDACTONE) 25 mg, Daily triamcinolone (Kenalog) 0.025 % ointment Vitamin D3 1.25 MG (04656 UT) capsule 1 capsule. Takes Tuesday and Scheduled Current Scheduled Medications[3] PRNs Current PRN Medications[4] SURGICAL HX: Surgical History[5] SOCIAL HX: Social History[6] OBJECTIVE DATA LABS Lab Results Component Value Date WBC 7.84 10/21/2023 HGB 10.8 (L) 10/21/2023 HCT 32.7 (L) 10/21/2023 MCV 88 10/21/2023 PLT 164 10/21/2023 Lab Results Component Value Date CALCIUM 9.0 10/21/2023 BUN 14 10/21/2023 CREATININE 0.69 10/21/2023 BCR 20 10/21/2023 NA 138 10/21/2023 K 4.1 10/21/2023 CL 104 10/21/2023 CO2 27 10/21/2023 Type and Screen No results found for: ABO No results found for: HGBA1C No results found for: PGLU , GLUCOSE ECHO No echocardiogram results found for the past 12 months PFTs No results found for: IDF0ULY , UBL9XSSQ , XFO1HLS , FVCPRED BP Readings from Last 5 Encounters: 05/21/25 (!) 146/62 05/09/25 136/80 03/28/25 130/80 11/29/24 138/83 08/02/24 (!) 173/84 Physical Exam Airway Mallampati: II Mouth opening: normal TM distance: >3 FB Neck ROM: full Cardiovascular Rhythm: regular Rate: normal Dental (+) edentulous Pulmonary Breath sounds clear to auscultation (+) decreased breath sounds Neurological Oriented: normal to time, normal to place and normal to person and oriented to person, place and time Skin Musculoskeletal Extremities Anesthesia Plan ASA 3 Plan was reviewed with: MEDICAL SERVICE REPRESENTATIVE Anesthesia technique(s) discussed with the patient/family: general Anesthesia plan agreed upon was: general Anesthetic plan and risks discussed with patient. Anesthesia Evaluation ROS Anesthesia: Date of last anesthetic: Most [...] complaints. + renal stent placed 05/02/2025 ago [facility] by Dr Miranda. Clearance has been [...] Does not have cervical spine limited mobility. [facility] [place]/Skel/Integ additional comments: + chronic back pain- follows [...] or reversible perfusion defection, EF est 58%. [1] No Known Allergies [2] Past Medical History: Diagnosis Date Arthritis Bilateral swelling of feet COPD (chronic obstructive pulmonary disease) (CMS/HCC) High blood pressure High cholesterol Hx of gastric ulcer Lung trouble Shortness of breath Sleep trouble [3] [4] PRN medications: sodium chloride [5] Past Surgical History: Procedure Laterality Date LUNG BIOPSY TUBAL LIGATION [6] Social History Tobacco Use Smoking status: Every [...] past- was occasional Drug use: Not Currently documented in this encounter Plan of Treatment Upcoming Encounters Date Type Department Care Team (Latest Contact Info) Description 07/10/2025 11:10 AM EDT Hospital Encounter [facility] [address] [place] [phone] Joni Prado, DO [address] [phone] 07/10/2025 11:10 AM EDT - 07/10/2025 1:40 PM EDT Surgery [facility] [address] [place] [address] Joni Prado, DO [address] [phone] RIGHT VATS WEDGE, POSSIBLE LOBECTOMY [66263 (CPT ) +1 more] 07/25/2025 9:20 AM EDT Appointment [facility] Radiology [address] [place] [phone] 07/25/2025 10:30 AM EDT Office Visit Pav CC Head, Neck & Respiratory 800 [facility], [address]nd [place] [phone] Joni Prado, DO [address] [address] [phone] (work) Scheduled Procedures Name Priority Associated Diagnoses Date/Ti me VATS, WITH LUNG WEDGE RESECTION Non-small cell carcinoma of left lung 07/10/2025 11:10 AM EDT documented as of this encounter Goals Goal Patient Goal Type Associated Problems Recent Progress Patient-Stated? Author Autogenera iftikhar Goal Care Plan Autogenerated Problem No Gina Galdamez RN documented as of this encounter Procedures Procedure Name Priority Date/Time Associated Diagnosis Comments PB ANESTHESIA PLACEHOLDER Routine 05/21/2025 7:52 AM EDT AR AN ELECTIVE ENDOTRACHEAL AIRWAY Routine 05/21/2025 7:52 AM EDT documented in this encounter Results * AR AN ELECTIVE ENDOTRACHEAL AIRWAY, PB ANESTHESIA PLACEHOLDER (05/21/2025 7:52 AM EDT) Narrative Jeromy Mcmanus CRNA - 05/21/2025 7:52 AM EDT Jeromy Mcmanus CRNA 05/21/2025 8:16 AM Airway Date/Time: 05/21/2025 7:52 AM Reason: elective Airway not difficult General Information and Staff Patient location during procedure: OR Anesthesiologist: Baldomero Taylor MD Resident: Brandy Valerio MD Performed: Resident Patient Condition Indications for airway management: anesthesia Patient position: sniffing Final Airway Details Final airway type: endotracheal airway Successful airway: ETT Cuffed: yes Successful intubation technique: direct laryngoscopy Adjuncts used in placement: intubating stylet Endotracheal tube insertion site: oral Blade: Edgardo Blade size: #3 ETT size (mm): 8.5 Cormack-Lehane Classification: grade I - full view of glottis Placement verified by: capnometry Inital cuff pressure (cm H2O): 8 Measured from: lips ETT to lips (cm): 22 Additional Comments Atraumatic. Pt edentulous us Baldomero Taylor MD ANESTHESIA ORDERABLES Glory l Result documented in this encounter Visit Diagnoses Not on filedocumented in this encounter Administered Medications Inactive Administered Medications - up to 3 most recent administrations Medication Order MAR Action Action Date Dose Rate Site dexamethasone (Decadron) injection Intravenous, As needed, Starting on Tue05/21/25 at 0916, Until Tue05/21/25 at 1039, Routine, Anesthesia Intraprocedure Given 05/21/2025 9:16 AM EDT 8 mg ePHEDrine Sulfate (Akovaz) injection Intravenous, As needed, Starting on Tue05/21/25 at 0832, Until Tue05/21/25 at 1039, Routine, Anesthesia Intraprocedure Given 05/21/2025 8:46 AM EDT 5 mg Given 05/21/2025 8:36 AM EDT 10 mg Given 05/21/2025 8:32 AM EDT 5 mg fentaNYL (Sublimaze) injection Intravenous, As needed, Starting on Tue05/21/25 at 0750, Until Tue05/21/25 at 1039, Routine, Anesthesia Intraprocedure Given 05/21/2025 10:25 AM EDT 50 mcg Given 05/21/2025 7:50 AM EDT 50 mcg lactated Ringer's infusion Intravenous, Continuous PRN, Starting on Tue05/21/25 at 0754, Until Tue05/21/25 at 1039, Routine New Bag 05/21/2025 9:16 AM EDT New Bag 05/21/2025 7:54 AM EDT New Bag 05/21/2025 7:48 AM EDT lidocaine PF (Xylocaine) 2 % injection Intravenous, As needed, Starting on Tue05/21/25 at 0750, Until Tue05/21/25 at 1039, Routine, Anesthesia Intraprocedure Given 05/21/2025 7:50 AM EDT 100 mg ondansetron (Zofran) injection Intravenous, As needed, Starting on Tue05/21/25 at 0920, Until Tue05/21/25 at 1039, Routine, Anesthesia Intraprocedure Given 05/21/2025 9:20 AM EDT 4 mg propofol (Diprivan) infusion 10 mg/mL Intravenous, Continuous PRN, Starting on Tue05/21/25 at 0753, Until Tue05/21/25 at 1039, Routine Rate/Dose Change 05/21/2025 10:14 AM EDT 125 mcg/kg/min 56.85 mL/hr Rate/Dose Change 05/21/2025 8:04 AM EDT 125 mcg/kg/min 56. 85 mL/hr New Bag 05/21/2025 7:53 AM EDT 150 mcg/kg/min 68.22 mL/ hr propofol (Diprivan) injection Intravenous, As needed, Starting on Tue05/21/25 at 0750, Until 05/21/25 at 1039, Routine, Anesthesia Intraprocedure Given 05/21/2025 7:50 AM EDT 150 mg rocuronium (ZeMuron) injection Intravenous, As needed, Starting on Tue05/21/25 at 0750, Until 05/21/25 at 1039, Routine, Anesthesia Intraprocedure Given 05/21/2025 9:16 AM EDT 20 mg Given 05/21/2025 8:59 AM EDT 10 mg Given 05/21/2025 8:27 AM EDT 20 mg sugammadex (Bridion) 100 MG/ML injection Intravenous, As needed, Starting on Tue05/21/25 at 1020, Until Tue05/21/25 at 1039, Routine, Anesthesia Intraprocedure Given 05/21/2025 10:20 AM EDT 200 mg documented in this encounter Additional Health Concerns Active Problems Noted Date Diagnosed Date Autogenerated Problem 05/10/2025 Assessment Noted Time A fall risk assessment has been complete d for the patient 05/09/2025 9:43 AM EDT A Body Mass Index follow-up plan has been documented for the patient 05/10/2025 10:38 AM EDT documented as of this encounter Care Teams Information And Referral Director Relationship Specialty Start Date End Date Jt Jauregui MD [address] [place] [address] LOY Ceron [id number] PCP - General Family Medicine 12/29/23 documented as of this encounter
--- OUTSIDE RECORDS SUMMARY | 2025-05-30 08:45 | XMS_ITS | Encounter Summary ---
Author Organization Healthcare Address [address] [id number] Care Team Providers Care Public Policy Professor Name Role Phone Jt Jauregui MD Primary Care Provider Reason for Visit * Reason Comments Follow-up Encounter Details Date Type Department Care Team ([facility] Contact Info) Description 05/30/2025 8:45 AM EDT Office Visit Pav [facility] Head, Neck & Respiratory [address] , [address] [place] [address] Joni Prado, DO 800 [facility] [address] [place] [address] Non-small cell carcinoma of left lung Social [...] drink first t tello in the morning (EYE-BUFFERER) to steady your nerves or to get [...] from the original note were not included. [facility] Department of Surgery Section of [...] Hospital Encounter PAV A OPERATING ROOM [address] [place] [address] Joni Prado, DO [address] [address] 07/10/2025 11:10 AM EDT - 07/10/2025 1:40 PM EDT Surgery [facility]PERATING ROOM [address] [place] [address] Joni Prado, DO [address] [address] RIGHT VATS WEDGE, POSSIBLE LOBECTOMY [60769 (CPT ) +1 more] 07/25/2025 9:20 AM EDT Appointment PAV A Radiology [address] [place] [address] 07/25/2025 10:30 AM EDT Office Visit Pav [facility] Head, Neck & Respiratory [address] [place] [address] Joni Prado D, DO [address] [place] [address] Scheduled Procedures Name Priority Associated Diagnoses Date/Ti [...] documented as of this encounter Care Teams Public Policy Professor Relationship Specialty Start Date End Date Jt Jauregui MD [address] [place] [address] PCP - General Family Medicine 12/29/23 documented as of this encounter
--- NOTE | 2025-06-13 | CA_ITS ---
APPROVED REPORT Exam: Pharmacologic Technologist: Angelica Calixto Stress Nurse: Kathy Serna Ht: 6 ft 6 in Wt: 170 lbs BSA: 2.11 m2 HR: 80 bpm BP: 162/74 mmHg Rhythm: Sr Medical History Medical History: HTN, Smoking Medications: Hydrocodone-Acetaminophen, Levocetirizine, Lisinopril, Pramipexole, Albuterol, Aspirin, Atorvastatin, Breztri, Carvedilol, Vit D3, Clopidogrel, Spironolactone, Cyclobenzaprine, Flonase, Gabapentin, Hydralazine, Hydrochlorothiazide Allergies: No known drug allergies Cardiac Risk Factors: HTN, FHX of CAD, Smoking Stress Test Details Test: Lexiscan HR Resting HR: 80 bpm Max Heart Rate (APMHR): 155.858179 bpm Target HR (85% APMHR): 131.950454 bpm Recovery HR: 91 bpm BP Resting BP: 162.0/74.0 mmHg Max BP: 175.0/67.0 mmHg Recovery BP: 164.0/71.0 mmHg ECG Resting ECG: Sr Stress ECG Conclusion Pt had no symptoms Less than 0.5mm upsloping ST segment changes Nondiagnostic ECG/Lexiscan Electronically signed by : Rebeca Skelton MD 06/13/2025 15:10:54
--- OUTSIDE RECORDS SUMMARY | 2025-06-13 11:44 | XMS_ITS | Encounter Summary ---
Author Organization Healthcare Address [address] [place] [address] Care Team Providers Care Staff Nurse Icu Resource Team Name Role Phone Jt Jauregui MD Primary Care Provider [phone] Encounter Details Date Type Department Care Team (Late st Contact Info) Description 05/14/2025 Telephone [place] [facility] [address], [address]st [place] [address] Raji Coronel MD [address] [place] [address] Social History Tobacco Use Types [...] place to sleep or slept in a [place] [facility] [place] facility (including now)? No 10/20/2023 CAGE ASSESSMENT Answer [...] drink first t tello in the morning (EYE-LINING STAMPER) to steady your nerves or to get rid of a hangover? 0 10/19/2023 CAGE Questionnaire Score 0 024 Utilities Answer Date Recorded In the past 12 months has th e [employer], gas, oil, or water company threatened to [...] Hospital Encounter PAV A OPERATING ROOM [address] [place] [address] oJni Prado, DO [address] [address] 07/10/2025 11:10 AM EDT - 07/10/2025 1:40 PM EDT Surgery [facility] A OPERATING ROOM [address] [place] [address] Joni Prado, DO [address] [address] RIGHT VATS WEDGE, POSSIBLE LOBECTOMY [43408 (CPT ) +1 more] 07/25/2025 9:20 AM EDT Appointment PAV A Radiology [address] [place] [address] 07/25/2025 10:30 AM EDT Office Visit [facility] Head, Neck & Respiratory 800 [facility], 2nd [place] [address] Joni Prado, DO [address] [address] Scheduled Procedures Name Priority Associated Diagnoses Date/Ti de VATS, WITH LUNG WEDGE RESECTION Non-small cell [...] documented as of this encounter Care Teams Staff Nurse Icu Resource Team Relationship Specialty Start Date End Date Jt Jauregui MD [address] [place] [address] [place] [address] PCP - General Family Medicine 12/29/23 documented as of this encounter
--- OUTSIDE RECORDS SUMMARY | 2025-06-13 11:44 | XMS_ITS | Encounter Summary ---
Author Organization [facility] Address [address] [place] [address] Care Team Providers Care Customer Sales Service Manager Name Role Phone Jt Jauregui MD Primary Care Provider [phone] Encounter Details Date Type Department Care Team [...] drink first t tello in the morning (EYE-GROUNDS PERSON) to steady your nerves or to get [...] Hospital Encounter PAV A OPERATING ROOM [address] [place] [address] Joni Prado, DO [address] [phone] 07/10/2025 11:10 AM EDT - 07/10/2025 1:40 PM EDT Surgery PAV A OPERATING ROOM [address] [place] [address] Joni Prado, DO [address] [address] RIGHT VATS WEDGE, POSSIBLE LOBECTOMY [49595 (CPT ) +1 more] 07/25/2025 9:20 AM EDT Appointment PAV A Radiology [address] [place] [address] 07/25/2025 10:30 AM EDT Office Visit Pav CC Head, Neck & Respiratory 800 [facility], 2nd [place] [address] Joni Prado, DO [address] [address] Scheduled Procedures Name Priority Associated [...] documented as of this encounter Care Teams Customer Sales Service Manager Relationship Specialty Start Date End Date Jt Jauregui MD [address] [place] [address] [place] [address] PCP - General Family Medicine 12/29/23 documented as of this encounter
--- OUTSIDE RECORDS SUMMARY | 2025-06-13 11:44 | XMS_ITS | Encounter Summary ---
Author Organization Healthcare Address [address] [place] [address] Care Team Providers Care Assistant District Attorney Name Role Phone None, None Primary Care Provider Jt Jauregui MD Primary Care Provider [phone] Encounter Details Date Type Department Care Team (Late st Contact Info) Description 04/06/2023 Orders Only External Location [address] [place] [address] Jerilyn Alejandre, VACUUM FORMING MACHINE OPERATOR [address] [place] [address] Social History Tobacco Use Types [...] Hospital Encounter PAV A OPERATING ROOM [address] [place] [address] Joni Prado, DO [address] [phone] 07/10/2025 11:10 AM EDT - 07/10/2025 1:40 PM EDT Surgery PAV A OPERATING ROOM [address] [place] [address] Joni Prado, DO [address] [address] RIGHT VATS WEDGE, POSSIBLE LOBECTOMY [70007 (CPT ) +1 more] 07/25/2025 9:20 AM EDT Appointment PAV A Radiology [address] [place] [address] 07/25/2025 10:30 AM EDT Office Visit Pav CC Head, Neck & Respiratory 800 [facility], 2nd [place] [address] Joni Prado, DO [address] [address] Scheduled Procedures Name Priority Associated [...] 04/06/2023 10:5 2 AM EDT Jerilyn Alejandre VACUUM FORMING MACHINE OPERATOR IMG CT PROCEDURES Final Re sult documented in this encounter Visit Diagnoses Not on filedocumented in this encounter Care Teams Assistant District Attorney Relationship Specialty Start Date End Date None, None [address] [place] [address] PCP - General NONE FOUND 08/11/23 12/28/23 Jt Jauregui MD [address] [place] [address] PCP - General Family Medicine 12/29/23 documented as of this encounter
--- OUTSIDE RECORDS SUMMARY | 2025-06-13 11:44 | XMS_ITS | Encounter Summary ---
Author Organization Healthcare Address [address] [place] [address] Care Team Providers Care Boiler Welder Name Role Phone Jt Jauregui MD Primary Care Provider [phone] Encounter Details Date Type Department Care Team (Late st Contact Info) Description 05/06/2025 Orders Only External Location [address] [place] [address] Provider, External Social History Tobacco Use Types [...] drink first t tello in the morning (EYE-SUBCONTRACT ADMINISTRATOR) to steady your nerves or to get [...] Hospital Encounter PAV A OPERATING ROOM [address] [place] [address] Joni Prado, DO [address] [phone] 07/10/2025 11:10 AM EDT - 07/10/2025 1:40 PM EDT Surgery PAV A OPERATING ROOM [address] [place] [address] Joni Praod, DO [address] [phone] RIGHT VATS WEDGE, POSSIBLE LOBECTOMY [34000 (CPT ) +1 more] 07/25/2025 9:20 AM EDT Appointment PAV A Radiology [address] [place] [address] 07/25/2025 10:30 AM EDT Office Visit Pav CC Head, Neck & Respiratory 800 [facility], 2nd [place] [address] Joni Prado, DO [address] [phone] Scheduled Procedures Name Priority Associated Diagnoses Date/Ti [...] documented as of this encounter Care Teams Boiler Welder Relationship Specialty Start Date End Date Jt Jauregui MD [address] [place] [address] [address] [place] [address] PCP - General Family Medicine 12/29/23 documented as of this encounter
--- OUTSIDE RECORDS SUMMARY | 2025-06-13 11:44 | XMS_ITS | Encounter Summary ---
Author Organization [facility] Address [address] [place] [address] Care Team Providers Care Entry Specialists Name Role Phone Jt Jauregui MD Primary Care Provider [phone] Encounter Details Date Type Department Care Team [...] drink first t tello in the morning (EYE-DIRECTOR OF CASEWORK SERVICES) to steady your nerves or to get [...] Hospital Encounter PAV A OPERATING ROOM [address] [place] [address] Joni Prado, DO [address] [phone] 07/10/2025 11:10 AM EDT - 07/10/2025 1:40 PM EDT Surgery PAV A OPERATING ROOM [address] [place] [address] Joni Prado, DO [address] [phone] RIGHT VATS WEDGE, POSSIBLE LOBECTOMY [66096 (CPT ) +1 more] 07/25/2025 9:20 AM EDT Appointment PAV A Radiology [address] [place] [address] 07/25/2025 10:30 AM EDT Office Visit Pav CC Head, Neck & Respiratory 800 [facility], 2nd [place] [address] Joni Prado, DO [address] [phone] Scheduled Procedures Name Priority Associated Diagnoses Date/Ti [...] documented as of this encounter Care Teams Entry Specialists Relationship Specialty Start Date End Date Jt Jauregui MD [address] [place] [address] [address] [place] [address] PCP - General Family Medicine 12/29/23 documented as of this encounter
--- OUTSIDE RECORDS SUMMARY | 2025-06-13 11:44 | XMS_ITS | Encounter Summary ---
Author Organization Healthcare Address [address] [place] [address] Care Team Providers Care Child Life Therapist Name Role Phone Jt Jauregui MD Primary Care Provider [phone] Encounter Details Date Type Department Care Team ([facility] st Contact Info) Description 05/14/2025 Telephone Pav CC Head, Neck & Respiratory 800 [facility], 2nd [place] [address] Nereyda Perez, RN AMB-HEAD NECK AND RESPIRATORY [...] drink first t tello in the morning (EYE-SANDBLAST CARVER) to steady your nerves or to get [...] encounter Miscellaneous Notes * Telephone Encounter - ChriseNreyda anderson RN - 05/14/2025 9:11 AM EDT RN LVM informing of education for 05/21 and also sent through [employer]. RN gave number to call if reschedule is needed. documented in this encounter Plan of Treatment Upcoming Encounters Date Type Department Care Team (Latest Contact Info) Description 07/10/2025 11:10 AM EDT Hospital Encounter PAV A OPERATING ROOM [address] [place] [address] Joni Prado, DO [address] [address] 07/10/2025 11:10 AM EDT - 07/10/2025 1:40 PM EDT Surgery PAV A OPERATING ROOM [address] [place] [address] Joni Prado, DO [address] [phone] RIGHT VATS WEDGE, POSSIBLE LOBECTOMY [87900 (CPT ) +1 more] 07/25/2025 9:20 AM EDT Appointment PAV A Radiology [address] [place] [address] 07/25/2025 10:30 AM EDT Office Visit Pav CC Head, Neck & Respiratory 800 [facility], 2nd [place] [address] Joni Prado, DO [address] [address] Scheduled Procedures Name Priority Associated [...] documented as of this encounter Care Teams Child Life Therapist Relationship Specialty Start Date End Date Jt Jauregui MD [address] [place] [address] PCP - General Family Medicine 12/29/23 documented as of this encounter
--- OUTSIDE RECORDS SUMMARY | 2025-06-13 11:44 | XMS_ITS | Encounter Summary ---
Author Organization Healthcare Address [address] [place] [address] Care Team Providers Care Patient Care Coordinator Name Role Phone Jt Jauregui MD Primary Care Provider [phone] Encounter Details Date Type Department Care Team (Late st Contact Info) Description 05/01/2025 Telephone Pav [facility] Head, Neck & Respiratory [address] [place] [address] Joni Prado, DO [address] 1[address] [place] [address] Social History Tobacco Use Types Packs/Day Years [...] drink first t tello in the morning (EYE-CIVIL DIVISION DEPUTY SHERIFF) to steady your nerves or to get [...] and optimal time of day to reach caller:[phone] Note: Please do not reply to this message. Follow-up communication and further actions as a result of this message need to be communicated with the patient directly, if the patient is not active onMyChart. If the patient is active on MyChart, they will receive notification of the communication/outcome via FileString. documented in this encounter Plan of Treatment Upcoming Encounters Date Type Department Care Team (Latest Contact Info) Description 07/10/2025 11:10 AM EDT Hospital Encounter PAV A OPERATING ROOM [address] [place] [address] Joni Prado, DO [address] [address] 07/10/2025 11:10 AM EDT - 07/10/2025 1:40 PM EDT Surgery PAV A OPERATING ROOM [address] [place] [address] Joni Prado, DO [address] [address] RIGHT VATS WEDGE, POSSIBLE LOBECTOMY [81648 (CPT ) +1 more] 07/25/2025 9:20 AM EDT Appointment PAV A Radiology [address] [place] [address] 07/25/2025 10:30 AM EDT Office Visit Pav CC Head, Neck & Respiratory [address] 2[address] [place] [address] Joni Prado D, DO 800 [facility] 1st [place] [address] Scheduled Procedures Name Priority Associated Diagnoses Date/Ti [...] documented as of this encounter Care Teams Patient Care Coordinator Relationship Specialty Start Date End Date Jt Jauregui MD [address] [place] [address] PCP - General Family Medicine 12/29/23 documented as of this encounter
--- OUTSIDE RECORDS SUMMARY | 2025-06-13 11:44 | XMS_ITS | Encounter Summary ---
Author Organization Healthcare Address [address] [place] [address] Care Team Providers Care Window And Door Installer Name Role Phone Jt Jauregui MD Primary Care Provider [phone] Encounter Details Date Type Department Care Team ([facility] st Contact Info) Description 05/14/2025 Orders Only Pav CC Head, Neck & Respiratory 800 [facility], 2nd [place] [address] Nereyda Perez, RN AMB-HEAD NECK AND RESPIRATORY [...] drink first t tello in the morning (EYE-BATTING MACHINE OPERATOR) to steady your nerves or [...] Hospital Encounter PAV A OPERATING ROOM [address] [place] [address] Joni Prado, DO [address] [phone] 07/10/2025 11:10 AM EDT - 07/10/2025 1:40 PM EDT Surgery PAV A OPERATING ROOM [address] [place] [address] Joni Prado, DO [address] [phone] RIGHT VATS WEDGE, POSSIBLE LOBECTOMY [79058 (CPT ) +1 more] 07/25/2025 9:20 AM EDT Appointment PAV A Radiology [address] [place] [address] 07/25/2025 10:30 AM EDT Office Visit Pav CC Head, Neck & Respiratory [address] [facility], 2nd [place] [address] Joni Prado, DO [address] [address] Scheduled Procedures Name Priority Associated [...] documented as of this encounter Care Teams Window And Door Installer Relationship Specialty Start Date End Date Jt Jauregui MD [address] [place] [address] [address] [place] [id number] PCP - General Family Medicine 12/29/23 documented as of this encounter
--- OUTSIDE RECORDS SUMMARY | 2025-06-13 11:45 | XMS_ITS | Encounter Summary ---
Author Organization Healthcare Address [address] [place] [address] Care Team Providers Care Senior Telecommunications Specialist Name Role Phone Jt Jauregui MD Primary Care Provider Encounter Details Date Type Department Care Team (Late st Contact Info) Description 05/30/2025 Telephone Pav [facility] Head, Neck & Respiratory [address] 2nd [place] [address] Joni Prado, DO [address] [place] [address] Social History Tobacco Use Types Packs/Day Years [...] drink first t tello in the morning (EYE-FAMILY LAW SPECIALIST) to steady your nerves or to [...] change the date right after and manager motor was not aware if the correct date [...] Hospital Encounter PAV A OPERATING ROOM [address] [place] [address] Joni Prado, DO [address] [address] 07/10/2025 11:10 AM EDT - 07/10/2025 1:40 PM EDT Surgery PAV A OPERATING ROOM [address] [place] [address] Joni Prado, DO [address] [address] RIGHT VATS WEDGE, POSSIBLE LOBECTOMY [19875 (CPT ) +1 more] 07/25/2025 9:20 AM EDT Appointment PAV A Radiology [address] [place] [address] 07/25/2025 10:30 AM EDT Office Visit Pav CC Head, Neck & Respiratory 800 [facility], 2nd [place] [address] Joni Prado, DO [address] [phone] Scheduled Procedures Name Priority Associated Diagnoses Date/Ti me VATS, WITH LUNG WEDGE RESECTION Non-small cell carcinoma of left lung 07/10/2025 11:10 AM EDT documented as of this encounter Goals Goal Patient Goal Type Associated Problems Recent Progress Patient-Stated? Author Autogenera buitrago Goal Care Plan Autogenerated Problem No Gina Galdamez, RN Autogenera iftikhar Goal Care Plan Autogenerated Problem No Shea Mraie documented as of this encounter Visit Diagnoses [...] as of this encounter Care Teams Senior Telecommunications Specialist Relationship Specialty Start Date End Date Jt Jauregui MD [address] [place] [address] PCP - General Family Medicine 12/29/23 documented as of this encounter
--- OUTSIDE RECORDS SUMMARY | 2025-06-13 11:45 | XMS_ITS | Encounter Summary ---
Author Organization [facility] Address [address] [place] [address] Care Team Providers Care Spindraw Operator Name Role Phone Jt Jauregui MD Primary Care Provider [phone] Encounter Details Date Type Department Care Team [...] drink first t tello in the morning (EYE-TOBACCO GRADER) to steady your nerves or to get [...] Hospital Encounter PAV A OPERATING ROOM [address] [place] [address] Joni Prado, DO [address] [phone] 07/10/2025 11:10 AM EDT - 07/10/2025 1:40 PM EDT Surgery PAV A OPERATING ROOM [address] [place] [address] Joni Prado, DO [address] [address] RIGHT VATS WEDGE, POSSIBLE LOBECTOMY [10694 (CPT ) +1 more] 07/25/2025 9:20 AM EDT Appointment PAV A Radiology [address] [place] [address] 07/25/2025 10:30 AM EDT Office Visit Pav CC Head, Neck & Respiratory [address] [facility], 2nd [place] [address] Joni Prado, DO [address] [address] Scheduled Procedures Name Priority Associated Diagnoses Date/Ti me VATS, WITH LUNG WEDGE RESECTION Non-small cell carcinoma of left lung 07/10/2025 11:10 AM EDT documented as of this encounter Goals Goal Patient Goal Type Associated Problems Recent Progress Patient-Stated? Author Autogenera buitrago Goal Care Plan Autogenerated Problem No Gnia Galdamez, RN Autogenera iftikhar Goal Care Plan [...] documented as of this encounter Care Teams Spindraw Operator Relationship Specialty Start Date End Date Jt Jauregui MD [address] [place] [address] PCP - General Family Medicine 12/29/23 documented as of this encounter
--- OUTSIDE RECORDS SUMMARY | 2025-06-13 11:45 | XMS_ITS | Encounter Summary ---
Author Organization Healthcare Address [address] [place] [address] Care Team Providers Care Culinary Specialist Name Role Phone Jt Jauregui MD Primary Care Provider [phone] Encounter Details Date Type Department Care Team (Late st Contact Info) Description 06/06/2025 Orders Only [facility] [address] [place] [address] Laura Faust Non-small cell carcinoma of left [...] drink first t tello in the morning (EYE-EXTERMINATOR HELPER) to steady your nerves or to get [...] Hospital Encounter PAV A OPERATING ROOM [address] [place] [address] Joni Prado, DO [address] [phone] 07/10/2025 11:10 AM EDT - 07/10/2025 1:40 PM EDT Surgery PAV A OPERATING ROOM [address] [place] [address] Joni Prado, DO [address] [address] RIGHT VATS WEDGE, POSSIBLE LOBECTOMY [56149 (CPT ) +1 more] 07/25/2025 9:20 AM EDT Appointment PAV A Radiology [address] [place] [address] 07/25/2025 10:30 AM EDT Office Visit Pav CC Head, Neck & Respiratory 800 [facility], 2nd [place] [address] Joni Prado, DO [address] [address] Pending Results Name Type Priority Associated Diagnoses Date /Time Carlene ME [facility] Se[facility] Hybrid + IHCs and Other Tests by Tumor Type Lab Routine Non-small cell carcinoma of left lung 06/06/2025 11:07 AM EDT Carlene ME Cancer Seek Hybrid + IHCs and Other Tests by Tumor Type Lab Routine 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
--- OUTSIDE RECORDS SUMMARY | 2025-06-13 11:45 | XMS_ITS ---
Author Organization [facility] Address [address] [place] [address] Care Team Providers Care Artificial Limb Fitter Name Role Phone Jt Jauregui MD Primary [...]
--- OUTSIDE RECORDS SUMMARY | 2025-06-13 11:45 | XMS_ITS | Encounter Summary ---
Author Organization [facility] Address [address] [place] [address] Care Team Providers Care Ink Maker Name Role Phone Jt Jauregui MD Primary Care Provider [phone] Encounter Details Date Type Department Care Team [...] place to sleep or slept in a halfway (including now)? No 10/20/2023 CAGE ASSESSMENT Answer [...] drink first t tello in the morning (EYE-COMPUTER AIDED DESIGN TECHNICIAN) to steady your nerves or to [...] Hospital Encounter [facility] A OPERATING ROOM [address] [place] [address] Joni Prado, DO [address] [phone] 07/10/2025 11:10 AM EDT - 07/10/2025 1:40 PM EDT Surgery [facility] A OPERATING ROOM [address] [place] [phone] Joni Prado, DO [address] [address] RIGHT VATS WEDGE, POSSIBLE LOBECTOMY [97485 (CPT ) +1 more] 07/25/2025 9:20 AM EDT Appointment PAV A Radiology [address] [place] [address] 07/25/2025 10:30 AM EDT Office Visit Pav [facility] Head, Neck & Respiratory 800 [facility], 2nd [place] [address] Joni Prado, DO [address] [address] Scheduled Procedures Name Priority Associated [...] documented as of this encounter Care Teams Ink Maker Relationship Specialty Start Date End Date Jt Jauregui MD [address] [place] [address] [place] [address] PCP - General Family Medicine 12/29/23 documented as of this encounter
--- OUTSIDE RECORDS SUMMARY | 2025-06-13 11:45 | XMS_ITS | Clinical Summary ---
Author Organization [facility] Address [address] [place] [address] Care Team Providers Care Skid Road Man Name Role Phone Jt Jauregui MD Primary Care Provider Allergies No known active allergies Medications Anoro [...] nasal canula Active Vitamin D3 1.25 MG (07314 UT) capsule 1 capsule. Takes Tuesday and [...] THAN 160/100 03/19/20 25 Active HYDROcodone-acetam inophen ([place]) 10-325 MG tablet TAKE 1 TABLET BY [...] Only [facility] [address] [place] [address] Laura Faust Non-small cell carcinoma of left lung (Primary Dx); Malignant neoplasm of middle lobe of right lung (CMS/HCC) 05/30/2025 8:45 AM EDT Office Visit Pav [facility] Head, Neck & Respiratory [address] [address] Joni Prado, DO Non-small cell carcinoma of left lung 05/30/2025 Telephone [facility] Neck [facility] Respiratory [address] [address] Joni Prado, DO 05/30/2025 Travel 05/29/2025 Telephone [facility]ck [facility] Respiratory [address] [address] Joni Prado, DO 05/21/2025 7:41 AM EDT Anesthesia Event [facility] A OPERATING ROOM [address] [place] [phone] Baldomero Taylor MD Harward, Amy E, PA 05/21/2025 7:30 AM EDT - 05/21/2025 10:00 AM EDT Surgery [facility] OPERATING ROOM [address] [place] [phone] Kevin Khan MD ION Robotic Bronch, Radial US, [place], BAL, Biopsy, Needle, EBUS TBNA, CIOS / 3D fluoroscopy [74083 (CPT )] 05/21/2025 5:51 AM EDT - 05/21/2025 11:50 AM EDT Hospital Encounter [facility] A OPERATING ROOM [address] [place] [phone] Kevin Khan MD Lung nodule Discharge Disposition: Home or Self Care 05/21/2025 Travel 05/16/2025 9:15 AM EDT Pre-Admission Testing [facility] [address], [address]st [place] [address] 05/16/2025 Travel 05/14/2025 Orders Only Pav [facility] Head[facility] Neck & Respiratory [address] [phone] Nereyda Perez RN Lung nodule (Primary Dx) 05/14/2025 Telephone [facility] [address], [address]st [place] [address] Raji Coronel MD 05/14/2025 Telephone [facility] Head[facility] Neck [facility] Respiratory [address] [address] Nereyda Perez RN 05/09/2025 10:15 AM EDT Office Visit [facility] Head[facility] Neck & Respiratory [address] [address] Joni Prado, DO Non-small cell carcinoma of left lung 05/09/2025 Travel 05/06/2025 Orders Only External Location [address] [place] [phone] Provider, External 05/01/2025 Telephone [facility] Respiratory [address] [address] Joni Prado, DO 04/22/2025 Telephone [facility] Head[facility] Neck [facility] Respiratory [address] [address] Joni Prado, DO 04/12/2025 Orders Only Ch Radiology Virtual Dept. [address] [place] [address] Gregory Johnson MD 04/11/2025 Orders Only [facility] Head[facility] Neck [facility] Respiratory [address] [phone] Nereyda Perez RN Non-small cell carcinoma of left lung (Primary Dx); Malignant neoplasm of lower lobe of left lung (CMS/HCC) 03/28/2025 10:00 AM EDT Office Visit [facility] Head[facility] Neck & Respiratory [address] [address] Joni Prado, DO Non-small cell carcinoma of left lung 03/28/2025 8:30 AM EDT - 03/28/2025 11:59 PM EDT Hospital Encounter [facility] [address], [address] [place] [address], [place] [address] Non-small cell carcinoma of left [...] drink first t tello in the morning (EYE-VAMP CREASER) to steady your nerves or to get [...] Hospital Encounter [facility] A OPERATING ROOM [address] [place] [phone] Joni Prado, DO [address] [address] 07/10/2025 11:10 AM EDT - 07/10/2025 1:40 PM EDT Surgery [facility] A OPERATING ROOM [address] [place] [phone] Joni Prado, DO [address] [address] RIGHT VATS WEDGE, POSSIBLE LOBECTOMY [77047 (CPT ) +1 more] 07/25/2025 9:20 AM EDT Appointment PAV A Radiology [address] [place] [phone] 07/25/2025 10:30 AM EDT Office Visit Pav [facility] Head, Neck & Respiratory 800 [facility], 2nd [place] [phone] Joni Prado, DO [address] [address] Scheduled Procedures Name Priority Associated [...] - Risk 60-74 years 1-dose series) 2019 [id number] Vaccine (2 - Nicole risk series) 02/04/2021 [...] ANESTHESIA PLACEHOLDER Routine 05/21/2025 7:52 AM EDT [place] AN ELECTIVE ENDOTRACHEAL AIRWAY Routine 05/21/2025 7:[address] CHEST WO IV CONTRAST STAT 05/21/20 7:32 AM EDT [place] BRONCHOSCOPY,COMPUTER ASSIST/IMAGE-GUIDED NAVIGATION 05/21/2025 7:25 AM EDT [...] the patient's chart for the findings. Kevin hKan MD IMG FLUOROSCOPY PROCEDURES Final Result IMAGING * Non-Gynecologic Cytology (05/21/2025 8:44 AM EDT) Case Report Cytology Case: [id number] Authorizing Provider: Kevin Khan MD Collected: 05/21/2025 0844 Ordering Location: [facility] OPERATING ROOM Received: 05/21/2025 0930 Pathologist: Liudmila Villareal MD Specimens: A) - Bronchial Brushing, Right Middle Lobe, RIGHT MIDDLE LOBE BRONCHIAL BRUSHING B) - Bronchoalveolar Lavage, Right Middle Lobe, RIGHT MIDDLE LOBE BRONCHOALVEOLAR LAVAGE 05/21/2025 3:18 PM EDT [facility] Final Diagnosis A. RIGHT MIDDLE LOBE BRONCHIAL BRUSHING - FEW ATYPICAL DEGENERATED CELLS PRESENT B. RIGHT MIDDLE LOBE BRONCHOALVEOLAR LAVAGE - NO EVIDENCE OF MALIGNANCY - NO VIRAL CHANGES IDENTIFIED - PREDOMINANTLY BLOOD - GMS STAIN IS NEGATIVE FOR ORGANISMS 05/21/2025 3:18 PM EDT [facility] at 1518 EDT Gross Description A. RIGHT MIDDLE LOBE BRONCHIAL BRUSHING Hilltop tips in 8 ml's tinted fluid processed as thin prep and GMS B. RIGHT MIDDLE LOBE BRONCHOALVEOLAR LAVAGE 15 ml's bloody fluid processed as thin prep and GMS 05/21/2025 3:18 PM EDT [facility] Clinical Information lung nodule 05/21/2025 3:18 PM EDT [facility] Bronchial [place] Bronchial brushings specimen / Unknown 05/21/2025 8:44 AM EDT 05/21/2025 9:30 AM EDT Comment:Pre-op diagnosis: lung nodule Bronchoalveolar lavage fluid specimen (specimen) Bronchoalveolar lavage fluid specimen / Unknown 05/21/2025 9:12 AM EDT 05/21/2025 9:30 AM EDT Comment:Pre-op diagnosis: lung nodule us Kevin Khan MD LAB CYTOLOGY ORDERABLES Final Re sult [facility] [address] [place] [address] * Fine needle aspiration (05/21/2025 8:43 AM EDT) Case Report Cytology Case: [id number] Authorizing Provider: Kevin Khan MD Collected: 05/21/2025 0842 Ordering Location: [facility] A OPERATING ROOM Received: 05/21/2025 0947 [...] GUIDED FINE NEEDLE ASPIRATION 2:25 PM EDT [facility] Addendum PD-L1 IHC 22C3 pharmDx* is [...] test, with disease progression on or after kobuk-containi ng chemotherapy. Patients with EGFR or ALK [...] *PD-L1 IHC 22C3 pharmDx is a FDA-approved business transformation consultant diagnostic for pembrolizumab performed on Dako Omnis [...] developed by and are performed at the [facility], [address] [place] [address]. All tests reported here, except those addressing HER2 and PD-L1 expression as predictive markers, have not been cleared by or approved by the US Food and Drug Administration (FDA). The laboratory is regulated under CLIA as qualified to perform high-complexity testing. The tests are used for clinical purposes. They should not be regarded as investigational or for research. 2:25 PM EDT [facility] Addendum electronically signed by Mak Hernández [...] - HEMODILUTE LYMPHOID TISSUE 2:25 PM EDT [facility] at 1707 EDT Comment History of adenocarcinoma of the left lower lobe; subsequent VATS with LLL wedge resection in 2023 (pT2a, pN0 - [id number]). Now found to have a 1 cm [...] left lower lobe resection specimen from 2023 ([id number]) and while the tumors are not identical, there are a few histologic similarities. Whether this represents a new primary versus recurrent / metastatic disease cannot be determined with certainty and therefore, correlation with clinical and imaging findings is recommended. PD-L1 IHC staining is pending and that result will be issued as an addendum. 2:25 PM EDT [facility] Special and Immunohistochemical Stains IHC: C1-1 TTF-1 Positive C1-2 CK7 Positive C1-3 CK20 Negative All controls show appropriate reactivity. All immunohistochemis try, in situ hybridization, and histochemical tests were developed by and are performed at the [facility], [address] [place] [address]. All tests reported here, except those addressing [...] on decalcified specimens. 5 2:25 PM EDT [facility] Intradepartmental Consultation with Agreement Dr. Buchanan 5 2:25 PM EDT [facility] Immediate Evaluation A: FNA performed by: Dr. [...] scant lymphoid tissue 5 2:25 PM EDT [facility] Gross Description A. LUNG, RIGHT MIDDLE [...] Cold Time: 2h 12m 2:25 PM EDT [facility] Note: A resident was involved in the service. I attest I examined the relevant preparations for the specimens and confirmed the diagnosis or interpretation. 5 2:25 PM EDT [facility] Clinical Information lung nodule 2:25 PM EDT [facility] Fine Needle Aspirate Structure of middle [...] CYTOLOGY ORDERABLES Edited R esult - Final [facility] [address] [place] [address] * Fine needle aspiration (05/21/2025 8:42 AM EDT) Case Report Cytology Case: [id number] Authorizing Provider: Kevin Khan MD Collected: 05/21/2025 0842 Ordering Location: [facility] OPERATING ROOM Received: 05/21/2025 0947 Pathologist: Liudmila [...] FINE NEEDLE ASPIRATION 5 2:25 PM EDT [facility] Addendum PD-L1 IHC 22C3 pharmDx* is performed [...] test, with disease progression on or after kobuk-containi ng chemotherapy. Patients with EGFR or ALK [...] *PD-L1 IHC 22C3 pharmDx is a FDA-approved business transformation consultant diagnostic for pembrolizumab performed on Dako Axceleris Stainer using formalin-fixed, paraffin imbedded (FFPE) tissue [...] developed by and are performed at the [facility], [address] [place] [address]. All tests reported here, except those addressing HER2 and PD-L1 expression as predictive markers, have not been cleared by or approved by the [place] Food and Drug Administration (FDA). The laboratory is regulated under CLIA as qualified to perform high-complexity testing. The tests are used for clinical purposes. They should not be regarded as investigational or for research. 2:25 PM EDT [facility] Addendum electronically signed by Mak Hernández [...] - HEMODILUTE LYMPHOID TISSUE 2:25 PM EDT [facility] at 1707 EDT Comment History of adenocarcinoma of the left lower lobe; subsequent VATS with LLL wedge resection in 2023 (pT2a, pN0 - [id number]). Now found to have a 1 cm [...] left lower lobe resection specimen from 2023 ([id number]) and while the tumors are not identical, there are a few histologic similarities. Whether this represents a new primary versus recurrent / metastatic disease cannot be determined with certainty and therefore, correlation with clinical and imaging findings is recommended. PD-L1 IHC staining is pending and that result will be issued as an addendum. 2:25 PM EDT [facility] Special and Immunohistochemical Stains IHC: C1-1 TTF-1 Positive C1-2 CK7 Positive C1-3 CK20 Negative All controls show appropriate reactivity. All immunohistochemis try, in situ hybridization, and histochemical tests were developed by and are performed at the [facility], [address] [place] [address]. All tests reported here, except those addressing [...] on decalcified specimens. 5 2:25 PM EDT [facility] Intradepartmental Consultation with Agreement Dr. Bcuhanan 5 2:25 PM EDT [facility] Immediate Evaluation A: FNA performed by: [...] scant lymphoid tissue 5 2:25 PM EDT [facility] Gross Description A. LUNG, RIGHT MIDDLE [...] Cold Time: 2h 12m 2:25 PM EDT [facility] Note: A resident was involved in the service. I attest I examined the relevant preparations for the specimens and confirmed the diagnosis or interpretation. 2:25 PM EDT [facility] Clinical Information lung nodule 2:25 PM EDT [facility] Fine Needle Aspirate Specimen from lung [...] CYTOLOGY ORDERABLES Edited R esult - Final [facility] [address] [place] [address] * [place] AN ELECTIVE ENDOTRACHEAL AIRWAY, PB ANESTHESIA PLACEHOLDER [...] Narrative SUNQUEST - 07/12/1994 12:00 AM EDT [facility] MR #: [id number] [facility] [place] [place], [place] [address] 1960 (Age: 33) FW Collect Date: 07/01/1994 00:00 Receipt Date: 07/02/1994 00:00 Page 1 DEPARTMENT OF PATHOLOGY AND LABORATORY MEDICINE CYTOPATHOLOGY REPORT Email: [email or web address] [phone] * Converted Case * This report may not match the original report format ATTENDING MD/Practitioner: Eve Chilel MD Service: HAT MODEL Location: Reported: 07/12/1994 00:00 Collected: 07/01/1994 00:00 [...] results is suggested (please call Microbiology at [phone] for results). CLINICAL INFORMATION: Menstrual History: {Not Provided} Date of Last Menstrual Period: {Not Provided} SPECIMEN DESCRIPTION: A: CERVICAL/VAGINAL SMEAR, PAP ICD: F: {Not Entered} SNOMED CODES: 1; [id number] In cases where a pathologist has signed [...] Autogenerated Problem 05/10/2025 Autogenerated Problem 05/30/2025 Insurance [place] [facility] MEDICARE Advance Directives * Full Code (Latest Code Status on File) Date Activated Date Inactivated Comments 10/19/2023 10:46 AM 10/21/2023 6:44 PM Question Answer Comments Patient has decision-making capacity? Yes Care Teams Skid Road Man Relationship Specialty Start Date End Date Jt Jauregui MD [address] [place] [address] LOY Ceron [address] PCP - General Family Medicine 12/29/23
--- OUTSIDE RECORDS SUMMARY | 2025-06-13 11:45 | XMS_ITS | Encounter Summary ---
Author Organization Healthcare Address [address] [place] [address] Care Team Providers Care Weapons Specialist Name Role Phone Jt Jauregui MD Primary Care Provider Encounter Details Date Type Department Care Team (Late st Contact Info) Description 04/12/2025 Orders Only Ch Radiology Virtual Dept. [address] [place] [address] Gregory Johnson MD [address] [place] [address] Social History Tobacco Use Types Packs/Day Years [...] place to sleep or slept in a fdc (including now)? No 10/20/2023 CAGE ASSESSMENT Answer [...] drink first t tello in the morning (EYE-SHAREPOINT MANAGER) to steady your nerves or to get rid of a hangover? 0 10/19/2023 CAGE Questionnaire Score 0 024 Utilities Answer Date Recorded In the past 12 months has th e [employer], gas, oil, or water company threatened to [...] Hospital Encounter PAV A OPERATING ROOM [address] [place] [address] Joni Prado, DO [address] [phone] 07/10/2025 11:10 AM EDT - 07/10/2025 1:40 PM EDT Surgery PAV A OPERATING ROOM [address] [place] [address] Joni Prado, DO [address] [phone] RIGHT VATS WEDGE, POSSIBLE LOBECTOMY [52779 (CPT ) +1 more] 07/25/2025 9:20 AM EDT Appointment PAV A Radiology [address] [place] [phone] 07/25/2025 10:30 AM EDT Office Visit Pav CC Head, Neck & Respiratory 800 [facility], 2nd [place] [phone] Joni Prado, DO [address] [phone] Scheduled Procedures Name Priority Associated Diagnoses Date/Ti [...] documented as of this encounter Care Teams Weapons Specialist Relationship Specialty Start Date End Date Jt Jauregui MD [address] [place] [address] [address] [place] [address] PCP - General Family Medicine 12/29/23 documented as of this encounter
--- OUTSIDE RECORDS SUMMARY | 2025-06-13 11:45 | XMS_ITS | Encounter Summary ---
Author Organization Healthcare Address [address] [place] [address] Care Team Providers Care Clerical Order Filler Name Role Phone Jt Jauregui MD Primary Care Provider Encounter Details Date Type Department Care Team (Late st Contact Info) Description 05/29/2025 Telephone Pav CC Head, Neck & Respiratory [address] , 2nd [place] [address] Joni Prado, DO [address] [place] [address] Social History Tobacco Use Types Packs/Day Years [...] drink first t tello in the morning (EYE-POLYGRAPH TECHNICIAN) to steady your nerves or to [...] Hospital Encounter PAV A OPERATING ROOM [address] [place] [address] Joni Prado, DO [address] [phone] 07/10/2025 11:10 AM EDT - 07/10/2025 1:40 PM EDT Surgery PAV A OPERATING ROOM [address] [place] [address] Joni Prado, DO [address] [phone] RIGHT VATS WEDGE, POSSIBLE LOBECTOMY [26550 (CPT ) +1 more] 07/25/2025 9:20 AM EDT Appointment PAV A Radiology [address] [place] [phone] 07/25/2025 10:30 AM EDT Office Visit Pav CC Head, Neck & Respiratory 800 [facility], 2nd [place] [address] Joni Prado, DO [address] [phone] Scheduled Procedures Name Priority Associated Diagnoses Date/Ti [...] documented as of this encounter Care Teams Clerical Order Filler Relationship Specialty Start Date End Date Jt Jauregui MD [address] [place] [address] LOY Ceron [address] PCP - General Family Medicine 12/29/23 documented as of this encounter
--- OUTSIDE RECORDS SUMMARY | 2025-06-13 11:45 | XMS_ITS | Encounter Summary ---
Author Organization Healthcare Address [address] [place] [address] Care Team Providers Care Machine Deicer Element Winder Name Role Phone Jt Jauregui MD Primary Care Provider Encounter Details Date Type Department Care Team (Late st Contact Info) Description 04/22/2025 Telephone Pav CC Head, Neck & Respiratory [address] [place] [address] Joni Prado, DO [address] [place] [address] Social History Tobacco Use Types Packs/Day Years [...] place to sleep or slept in a mcc (including now)? No 10/20/2023 CAGE ASSESSMENT Answer [...] drink first t tello in the morning (EYE-AREA REPRESENTATIVE) to steady your nerves or to get [...] and optimal time of day to reach caller:[phone] Note: Please do not reply to this message. Follow-up communication and further actions as a result of this message need to be communicated with the patient directly, if the patient is not active onMyChart. If the patient is active on MyChart, they will receive notification of the communication/outcome via [employer] documented in this encounter Plan of Treatment Upcoming Encounters Date Type Department Care Team (Latest Contact Info) Description 07/10/2025 11:10 AM EDT Hospital Encounter PAV A OPERATING ROOM [address] [place] [address] Joni Prado, DO [address] [address] 07/10/2025 11:10 AM EDT - 07/10/2025 1:40 PM EDT Surgery PAV A OPERATING ROOM [address] [place] [address] Joni Prado, DO [address] [address] RIGHT VATS WEDGE, POSSIBLE LOBECTOMY [57138 (CPT ) +1 more] 07/25/2025 9:20 AM EDT Appointment PAV A Radiology [address] [place] [address] 07/25/2025 10:30 AM EDT Office Visit Pav CC Head, Neck & Respiratory [address] , [address] [place] [phone] Joni Prado D, DO 800 [facility] [address] [place] [address] Scheduled Procedures Name Priority Associated Diagnoses Date/Ti [...] documented as of this encounter Care Teams Machine Deicer Element Winder Relationship Specialty Start Date End Date Jt Jauregui MD [address] [place] [address] PCP - General Family Medicine 12/29/23 documented as of this encounter
--- OUTSIDE RECORDS SUMMARY | 2025-06-13 11:45 | XMS_ITS | Encounter Summary ---
Author Organization [facility] Address [address] [place] [address] Care Team Providers Care Master [place] Name Role Phone Jt Jauregui MD Primary Care Provider [phone] Reason for Referral * Imaging (Routine) - Pending Review Specialty Diagnoses / Procedures Referred By Stuart coello Referred To Contact Radiology Diagnoses Malignant neoplasm of lower lobe of left lung (CMS/HCC) Procedures PET/CT FDG Skull Base To Mid Thigh PET/CT FDG Skull Base To Mid Thigh Joni Prado DO [address] [place] [address] Phone: tel: fax: Referral ID Status Reason Start Date Expiration Date V isits Requested Visits Authorized [id number] Pending Review 04/11/2025 10/11/2026 2 2 Encounter Details Date Type Department Care Team (Late st Contact Info) Description 04/11/2025 Orders Only Pav CC Head, Neck & Respiratory [address], [address]nd [place] [phone] Chelo Fagan RN AMB-HEAD NECK AND RESPIRATORY [...] drink first t tello in the morning (EYE-INSPECTOR OUTSIDE STEAM DISTRIBUTION) to steady your nerves or to get [...] Hospital Encounter PAV A OPERATING ROOM [address] [place] [address] Joni Prado, DO [address] [phone] 07/10/2025 11:10 AM EDT - 07/10/2025 1:40 PM EDT Surgery PAV A OPERATING ROOM [address] [place] [address] Joni Prado, DO [address] [phone] RIGHT VATS WEDGE, POSSIBLE LOBECTOMY [13477 (CPT ) +1 more] 07/25/2025 9:20 AM EDT Appointment PAV A Radiology [address] [place] [address] 07/25/2025 10:30 AM EDT Office Visit Pav CC Head, Neck & Respiratory 800 [facility], 2nd [place] [address] Joni Prado, DO 800 [facility] 1[address] [place] [address] Scheduled Orders Name Type Priority Associated Diagnoses [...] documented as of this encounter Care Teams Master [place] Relationship Specialty Start Date End Date Jt Jauregui MD [address] [place] [address] PCP - General Family Medicine 12/29/23 documented as of this encounter
--- NOTE | 2025-06-13 12:30 | NM_ITS ---
APPROVED REPORT Exam: Nuclear Stress Test Indication: soa..palpitations..fatigue Patient Location: Outpatient Stress Tech: Angelica Calixto [place] Tech:Luz MarioSONIYA RT(R)(N) Ht: 5 ft 6 in Wt: 170 lbs Bra Size: c HR: 78 bpm BP: 162/74 mmHg BSA: 1.87 m2 TID: 1.21 BMI: 27.4 History: soa..palpitations..fatigue Procedure: Patient received 0.4 mg of intravenous Lexiscan, resting heart rate 78 bpm, resting blood pressure 162/74 mmHg, with Lexiscan maximum heart rate achieved was 98 bpm which is 85 % of the maximum predicted heart rate and blood pressure was 164/71 mmHg. With Lexiscan, patient denied any complaint of chest pain. Cardiac Stress and Resting SPECT Images: Cardiac Stress and Resting SPECT images were obtained using technetium 99m Myoview 32.9 mCi stress and 10.09 mCi at rest. Resting and stress imaging in supine and prone positions demonstrate no evidence of fixed or reversible perfusion defects. There is increase in transient ischemic dilatation ratio (TID 1.21), which may be suggestive of possible multivessel disease or balanced ischemia. Gated imaging demonstrates normal global and regional LV systolic function. LVEF is calculated at 69%. Conclusion: No evidence of fixed or reversible perfusion defects. There is increase in transient ischemic dilatation ratio (TID 1.21), which may be suggestive of possible multivessel disease or balanced ischemia. Gated imaging demonstrates normal global and regional LV systolic function. LVEF is calculated at 69%. Electronically signed by : Rebeca Skelton MD 06/17/2025 01:55:06
[2025-06-13] MEDS: ISOTOPE MYOVIEW (PER STUDY) 1 DOSE IV (13:27)
[2025-06-13] MEDS: SODIUM CHLORIDE 0.9% 10ML SYR (RAD ONLY) 10 ML IV ×2 (13:27→13:28)
[2025-06-13 14:00] VITALS: BP 162/74; PULSE 80; RESP 14
== END 2025-06-13 23:59 | disposition home or self-care (01) ==
LOC: RAD 11:42
PROVIDERS: PCP Nurse Practitioner; Visit Provider Physician Assistant
DX: R94.39 Abnormal result of other cardiovascular function study (principal); R06.09 Other forms of dyspnea; R07.89 Other chest pain; R00.2 Palpitations; R53.83 Other fatigue; R06.02 Shortness of breath
CPT/HCPCS: 78452; 93017; 93018; A9502; J2785

== ENCOUNTER → 2025-06-24 19:54 | Outpatient (CLI) | payer MEDICARE, MEDICAID, SELFPAY | LOC: SL 19:56 | PROVIDERS: PCP Nurse Practitioner; Visit Provider Physician Assistant | DX: G47.33 Obstructive sleep apnea (adult) (pediatric) (principal); E78.00 Pure hypercholesterolemia, unspecified; I70.1 Atherosclerosis of renal artery; I10 Essential (primary) hypertension; R40.0 Somnolence; R06.83 Snoring; Z98.890 Other specified postprocedural states | CPT/HCPCS: 95810 ==

== ENCOUNTER 2025-07-30 07:34 | Day surgery (SDC) | payer MEDICARE, MEDICAID, SELFPAY ==
[2025-07-30] VITALS (14 sets, daily range): BP systolic 155–210; BP diastolic 67–142; PULSE 64–93; RESP 16–19; O2SAT 90–98; BMI 27.4
--- NOTE | 2025-07-30 07:07 | IR_ITS ---
APPROVED REPORT Patient Location: Outpatient PROCEDURES Left heart catheterization Left ventriculogram Selective coronary angiogram INDICATION Angina pectoris, Abnormal Myoview Informed consent was obtained prior to the procedure. COMPLICATIONS NONE Estimated Blood Loss: LESS THAN 10 ML TECHNIQUE One percent lidocaine used to anesthetize the right anterior aspect of the wrist. The right radial artery was accessed via the Seldinger technique. A 6 Maori sheath was placed in the right radial artery. 2.5 mg of Verapamil, 800 mcg of nitroglycerin, 1mg Lidocaine and 5000 U Heparin were given through the arterial sheath. The JL3 catheter was also used to perform left heart catheterization, left ventriculogram and selective coronary angiogram. At the end of the procedure the sheath was removed good hemostasis was achieved using Traclet band, patient was transferred to the postop holding area in stable condition. During the cardiac catheterization patient had blood pressures of 220 mmHg systolic while asleep. IV labetalol was required to control hypertension ANGIOGRAPHIC RESULTS The left main artery Has ostial 10 to 20% stenosis The left anterior descending artery Is proximally normal with moderate mid vessel and distal tortuosity The circumflex artery Large and dominant and is approximately normal. The first obtuse marginal artery has an ostial 30% stenosis. A larger 3.25 mm second obtuse marginal artery has a proximal concentric 50% stenosis followed by mid vessel 60% stenosis along a tortuous bend. The terminal obtuse marginal artery which is the posterior descending artery has a proximal 20 to 30% stenosis The right coronary artery Nondominant normal The FREEMAN ventriculogram reveals Not performed The left ventricular end-diastolic pressure Not measured IMPRESSION Moderate to severe coronary artery disease involving the second obtuse marginal artery Severe hypertension PLAN 1. Medical management for coronary artery disease 2. I believe patient's angina pectoris stems from hypertension. Recommend secondary workup given the systolic is greater than 200 mmHg 3. Evaluate for possible renal denervation if she is a candidate 4. After blood pressure is controlled if patient continues to experience angina pectoris consideration will be given to revascularize the second obtuse marginal artery. At this point patient's angina almost certainly stems from severe hypertension Electronically signed by : Jeromy Miranda MD 07/30/2025 10:38:32
[2025-07-30 08:02] LABS: Hematocrit 37.2 % (37.0-47.0); Hemoglobin 12.1 g/dL (12.2-16.2); Immature Granulocytes % 0.3 %; Mean Corpuscular HGB Conc 32.5 g/dL (31.8-35.4); Mean Corpuscular Hemoglobin 28.3 pg (27.0-31.2); Mean Corpuscular Volume 87.1 fl (81-99); Nucleated Red Blood Cells % 0 %; Platelet Count 300 K/mm3 (142-424); Red Blood Count 4.27 M/mm3 (4.20-5.40); Red Cell Distribution Width-SD 43.2 fL; White Blood Count 7.1 K/mm3 (4.8-10.8)
[2025-07-30 08:18] LABS: Anion Gap 11.2 mEq/L (5-15); Blood Urea Nitrogen 19 mg/dl (7-17); Calcium 9.4 mg/dl (8.4-10.2); Carbon Dioxide 28 mmol/L (22.0-30.0); Chloride 104 mmol/L (98-107); Creatinine Clearance Estimated 68 mL/min (50-200); Creatinine,Serum 0.70 mg/dl (0.52-1.04); Estimated Glomerular Filt Rate 84 ml/min (>60); GFR (African American) 102 ML/MIN (>60); Glucose 101 mg/dl (74-100); Potassium 3.2 mmoL/L (3.5-5.1); Sodium 140 mmol/L (136-145)
[2025-07-30] MEDS: HEPARIN 1,000 UNITS/ML 10ML VIAL (CATH LAB) 5000 UNIT IV (10:16)
[2025-07-30] MEDS: LIDOCAINE 1% 10ML MDV 10 ML IJ (10:16)
[2025-07-30] MEDS: VERAPAMIL 2.5MG/ML 2ML VIAL 2.5 MG IV (10:16)
[2025-07-30] MEDS: NITROGLYCERIN 800MCG/8ML SYR (CATH LAB) 800 MCG IA (10:16)
[2025-07-30] MEDS: HEPARIN 1,000 UNITS/500ML NS (CATH LAB) 3000 UNIT IV (10:17)
[2025-07-30] MEDS: 0.9 % SODIUM CHLORIDE 500 ML 25 ML IV (10:18)
[2025-07-30] MEDS: MIDAZOLAM HCL 1MG/ML 5ML VIAL 1 MG IV (10:29)
[2025-07-30] MEDS: LABETALOL 5MG/ML 20ML MDV 30 MG IV (10:29)
[2025-07-30] MEDS: FENTANYL 100MCG/2ML VIAL 50 MCG IV (10:29)
[2025-07-30] MEDS: IOPAMIDOL-370 (76%);100ML BOTTLE 60 ML IV (14:55)
== END 2025-07-30 13:05 | disposition home or self-care (01) ==
PROVIDERS: PCP Nurse Practitioner; Visit Provider Internal Medicine
PROC: 4A023N7 Measurement of Cardiac Sampling and Pressure, Left Heart, Percutaneous Approach (ICD-10-PCS; CPT 93452; principal; 2025-07-30 09:45)
DX: I25.118 Atherosclerotic heart disease of native coronary artery with other forms of angina pectoris (principal); I10 Essential (primary) hypertension; R94.39 Abnormal result of other cardiovascular function study; R06.00 Dyspnea, unspecified; I70.1 Atherosclerosis of renal artery; E78.00 Pure hypercholesterolemia, unspecified; C34.90 Malignant neoplasm of unspecified part of unspecified bronchus or lung; R53.83 Other fatigue; Z90.2 Acquired absence of lung [part of]; F17.210 Nicotine dependence, cigarettes, uncomplicated; Z82.49 Family history of ischemic heart disease and other diseases of the circulatory system; Z79.82 Long term (current) use of aspirin; Z79.02 Long term (current) use of antithrombotics/antiplatelets; Z79.51 Long term (current) use of inhaled steroids; Z79.899 Other long term (current) drug therapy
CPT/HCPCS: 80048; 85025; 93458; 99152; C1725; C1769; J1200; J1644; J1920; J2003; J3010; J7040; Q9967